=== PATIENT | male | born 1960 | race Caucasian/White ===

== ENCOUNTER 2021-08-13 08:38 | Inpatient (IN) | payer MEDICAID, SELFPAY ==
[2021-08-13] VITALS (29 sets, daily range): BP systolic 72–147; BP diastolic 43–74; PULSE 81–101; RESP 17–35; TEMP 37.5; O2SAT 84–100
--- NOTE | ~2021-08-13 | XR_ITS ---
EXAMINATION: XR abdomen obstructive series DATE: 08/20/2021 10:38 INDICATION: Abdominal distention. TECHNIQUE: A supine view of the abdomen on 2 radiographs was obtained. COMPARISON: CT abdomen and pelvis 08/18/2011 FINDINGS: There are no dilated loops of bowel. The nasogastric tube tip is in the stomach. A Mace ca theter is noted. Median sternotomy wires and mediastinal surgical clips are seen, likely from prior c oronary artery bypass grafting. Chest skin rodney are noted. IMPRESSION: 1. Normal bowel gas pattern. Reviewed, dictated and finalized at location A. OR TACK PULLER
--- NOTE | ~2021-08-13 | XR_ITS ---
EXAMINATION: XR chest 1V portable DATE: 08/31/2021 06:00 INDICATION: Respiratory failure. TECHNIQUE: A single frontal view of the chest was obtained. COMPARISON: Chest single view 08/30/2021 FINDINGS: There are moderate-sized right and small left pleural effusions. There are airspace opaciti es in all lung zones bilaterally with a perihilar and lower lung predominance. No pneumothorax. Cardi omegaly is noted. Median sternotomy wires and mediastinal surgical clips are seen, likely from prior coronary artery bypass grafting. Skin rodney are noted. A right internal jugular central venous cath eter is seen with tip in the superior vena cava. IMPRESSION: 1. Stable moderate-sized right and small left pleural effusions. 2. Stable diffuse lung disease, consistent with atelectasis versus pneumonia. 3. Cardiomegaly. Reviewed, dictated and finalized at location A. DOMETER MECHANIC
--- NOTE | ~2021-08-13 | XR_ITS ---
EXAMINATION: XR barium swallow modified EXAM DATE: 09/09/2021 11:06 INDICATION: Dysphagia TECHNIQUE: Modified barium esophagram was performed by speech pathologist with radiologist Dr. Surinder Brewer present to administered fluoroscopy. Speech pathologist administered barium in varying consis tencies as per speech pathologist documentation. This was recorded on tape. There was total fluorosc opic time of 1.6 minutes The DAP for this procedure was 1.2 Gycm2. A total of 1 images sent to PACS from the exam. FINDINGS: Oral stage: Adequate function. Pharyngeal phase: Reduced laryngeal elevation, abduction, sinus residual.. Laryngeal penetration: Demonstrated. Aspiration: Demonstrated. Laryngeal sensitivity: Present. IMPRESSION: Please refer to speech pathologist findings and specific feeding recommendations. Reviewed, dictated and finalized at location A. IAL EVENTS DIRECTOR IMPRESSION: Please refer to speech pathologist findings and specific feeding r ecommendations.
--- NOTE | ~2021-08-13 | XR_ITS ---
EXAMINATION: XR chest 2V DATE: 09/10/2021 13:55 INDICATION: Shortest of breath. TECHNIQUE: Frontal and lateral views of the chest were obtained on 3 radiographs. COMPARISON: Chest single view 09/04/2021, chest CT 09/08/2021 FINDINGS: There are moderate-sized right and small left pleural effusions. There are airspace opaciti es in the mid and lower lung zones with a basilar and left perihilar predominance. No pneumothorax. C ardiomegaly is noted. Median sternotomy wires and mediastinal surgical clips are seen, likely from pr ior coronary artery bypass grafting. The nasoenteric tube tip is in the stomach. IMPRESSION: 1. Airspace opacities in the mid and lower lung zones with mild improvement from 09/04/2021, consiste nt with atelectasis versus pneumonia. 2. Stable moderate-sized right and small left pleural effusions. Reviewed, dictated and finalized at location A. IN CAREGIVER IMPRESSION: 1. Airspace opacities in the mid and lower lung zones with mild improvement fro m 09/04/2021, consistent with atelectasis versus pneumonia. 2. Stable moderate-sized right and small left pleural effusions.
--- NOTE | ~2021-08-13 | US_ITS ---
EXAMINATION: US renal BI DATE: 09/08/2021 12:48 INDICATION: Elevated creatinine. Abnormal kidney function tests. TECHNIQUE: Multiple ultrasound grayscale images of the kidneys were obtained. COMPARISON: Chest CT 09/08/2021 FINDINGS: The right kidney measures 8.9 x 3.9 x 3.7 cm. The left kidney measures 8.7 x 4.5 x 4.4 cm. The kidney s demonstrate normal parenchymal echogenicity. There is no hydronephrosis. The bladder is decompresse d by a Mace catheter. IMPRESSION: 1. Mild atrophy of the kidneys. No hydronephrosis. Reviewed, dictated and finalized at location A. LE STAPLER
--- NOTE | ~2021-08-13 | XR_ITS ---
EXAMINATION: XR_CXR1VTHORA_CR INDICATION: Pleural effusion, postthoracentesis TECHNIQUE: Portable AP chest at 1447 hours COMPARISON: 0509 hours FINDINGS: There is slight decrease in size of a left pleural effusion postthoracentesis. No pneumotho rax is identified. A moderate size loculated right pleural effusion is unchanged. Airspace opacities persist in all lung zones without significant change. Cardiomegaly is noted. The endotracheal tube en ds approximately 3.3 cm above the albert. The nasogastric tube is followed as far as the stomach. Its tip is beyond the inferior margin of the radiograph. Median sternotomy wires and mediastinal surgica l clips are seen, likely from prior coronary artery bypass grafting. A right internal jugular cathete r ends with its tip in the distal superior vena cava. IMPRESSION: 1. Decrease in left pleural effusion postthoracentesis. No pneumothorax. 2. Stable cardiomegaly. 3. Loculated right pleural effusion without significant change. 4. Diffuse lung disease, consistent with atelectasis versus pneumonia. Reviewed, dictated and finalized at location A. DEVELOPER
--- NOTE | ~2021-08-13 | XR_ITS ---
EXAMINATION: XR chest ET placement, XR abdomen NG/feed tube insert DATE: 08/14/2021 12:04 INDICATION: Endotracheal tube, central line and orogastric tube placement TECHNIQUE: 1. AP view of the chest was obtained. 2. AP view of the abdomen was obtained. COMPARISON: Chest radiograph dated 08/14/2021 at 12:20 AM FINDINGS: Chest: Endotracheal tube tip 3.3 cm above the albert. Right internal jugular central venous catheter with di stal tip at the caudal superior vena cava. Again seen are regions of hazy airspace opacities in the lower lung zones consistent with small bilat eral posterior layering pleural effusions. Masslike opacity with smooth margins in the right midlung zone most likely loculated fluid along the right fissures. Retrocardiac opacity left lower lung zone with air bronchograms which could represent associated atelectasis or pneumonia. No pulmonary edema o r pneumothorax. Cardiomegaly. Midline skin rodney, median sternotomy wires, ostial markers and media stinal surgical clips consistent with recent coronary artery bypass grafting. Multiple cardiac monito ring leads and electronic devices project over the chest. Abdomen: Nasogastric tube tip in proximal side port in the body of the stomach. Likely defibrillator pad proje cts the left upper quadrant. No dilated loops of gas-filled bowel in the visualized abdomen. IMPRESSION: 1. Lines and tubes in expected positions as detailed above. 2. Small bilateral pleural effusions including component likely along the fissures in the right midlu ng zone. 3. Retrocardiac consolidation which could represent atelectasis or pneumonia. 4. Cardiomegaly. Reviewed, dictated and finalized at location A. ER RELINER IMPRESSION: 1. Lines and tubes in expected positions as detailed above. 2. Small bilateral pleural effusions including component likely along the fissu res in the right midlung zone. 3. Retrocardiac consolidation which could represent atelectasis or pneumonia. 4. Cardiomegaly.
--- NOTE | ~2021-08-13 | XR_ITS ---
EXAMINATION: XR chest 1V portable DATE: 08/17/2021 06:04 INDICATION: Intubation. TECHNIQUE: A single frontal view of the chest was obtained. COMPARISON: Chest single view 08/16/2021, chest CT 08/13/2021 FINDINGS: There are moderate-sized right and small left loculated pleural effusions. There are airspa ce opacities in all lung zones bilaterally. No pneumothorax. Cardiomegaly is noted. Median sternotomy wires and mediastinal surgical clips are seen, likely from prior coronary artery bypass grafting. Sk in rodney are noted. A right internal jugular central venous catheter is seen with tip at the superi or cavoatrial junction. The nasogastric tube tip is beyond the inferior margin of the radiograph, but at least to the stomach. The endotracheal tube tip is in the right mainstem bronchus. IMPRESSION: 1. Endotracheal tube tip in the right mainstem bronchus. I called this result to Keesha Toney. 2. Stable moderate-sized right and small left loculated pleural effusions. 3. Stable diffuse lung disease, consistent with atelectasis versus pneumonia. 4. Cardiomegaly. Reviewed, dictated and finalized at location A. DIP PLATING SUPERVISOR IMPRESSION: 1. Endotracheal tube tip in the right mainstem bronchus. I called this result t frandy Toney. 2. Stable moderate-sized right and small left loculated pleural effusions. 3. Stable diffuse lung disease, consistent with atelectasis versus pneumonia. 4. Cardiomegaly.
--- NOTE | ~2021-08-13 | XR_ITS ---
EXAMINATION: XR_[id number]_CR DATE: 08/17/2021 15:03 INDICATION: Right pleural effusion status post thoracentesis. TECHNIQUE: A single frontal view of the chest was obtained. COMPARISON: Chest single view at 5:11 AM FINDINGS: There are moderate-sized right and small left loculated pleural effusions. There are airspa ce opacities in all lung zones bilaterally. No pneumothorax. Cardiomegaly is noted. Median sternotomy wires and mediastinal surgical clips are seen, likely from prior coronary artery bypass grafting. Sk in rodney are seen. The endotracheal tube tip is 4.8 cm above the albert. The nasogastric tube tip i s beyond the inferior margin of the radiograph, but at least to the stomach. A right internal jugular central venous catheter is seen with tip in the superior vena cava. IMPRESSION: 1. Stable moderate-sized right and small left loculated pleural effusions. 2. Stable diffuse lung disease, consistent with atelectasis versus pneumonia. 3. Cardiomegaly. Reviewed, dictated and finalized at location A. ESSOR OF VIOLIN
--- NOTE | ~2021-08-13 | XR_ITS ---
EXAMINATION: XR chest 1V portable INDICATION: Acute respiratory failure, pleural effusions TECHNIQUE: Portable AP chest at 0511 hours COMPARISON: 08/24/2021 FINDINGS: The endotracheal tube ends approximately 5.1 cm above the albert. The nasogastric tube is i n the stomach. A right internal jugular central venous catheter ends with its tip in the superior susie a cava. There are moderate-sized pleural effusions with interval increase in size. Loculated fluid is again noted in the major fissure on the right. Cardiomegaly is noted. There is no pneumothorax. Ther e are airspace opacities of the mid and lower lung zones and left upper lung zone. IMPRESSION: 1. Increasing pleural effusions, now moderate in size. 2. Airspace opacities of the mid and lower lung zones and left upper lung zone, consistent with atele ctasis versus pneumonia. Reviewed, dictated and finalized at location A. STANT EDUCATION DIRECTOR IMPRESSION: 1. Increasing pleural effusions, now moderate in size. 2. Airspace opacities of the mid and lower lung zones and left upper lung zone, consistent with atelectasis versus pneumonia.
--- NOTE | ~2021-08-13 | XR_ITS ---
EXAMINATION: [id number]_[id number]_CR DATE: 08/26/2021 15:05 INDICATION: Left pleural effusion status post thoracentesis. TECHNIQUE: A single frontal view of the chest was obtained. COMPARISON: Chest single view at 5:09 AM, chest CT 08/18/2021 FINDINGS: There are moderate-sized right and small left pleural effusions. There are airspace opaciti es in the perihilar regions and lower lung zones, right worse than left. No pneumothorax. Cardiomegal y is noted. Median sternotomy wires and mediastinal surgical clips are seen, likely from prior powers ry artery bypass grafting. Skin rodney are noted. The nasogastric tube tip is in the stomach. A righ t internal jugular central venous catheter is seen with tip in the superior vena cava. The endotrache al tube tip is 8.4 cm above the albert. IMPRESSION: 1. Endotracheal tube tip 8.4 cm above the albert. 2. Moderate-sized right and small left pleural effusions with improvement on the left status post tho racentesis. 3. Stable airspace opacities in the perihilar regions and lower lung zones, right worse than left, co nsistent with atelectasis versus pneumonia. 4. Cardiomegaly. Reviewed, dictated and finalized at location A. UIT WALKER IMPRESSION: 1. Endotracheal tube tip 8.4 cm above the albert. 2. Moderate-sized right and small left pleural effusions with improvement on th e left status post thoracentesis. 3. Stable airspace opacities in the perihilar regions and lower lung zones, rig ht worse than left, consistent with atelectasis versus pneumonia. 4. Cardiomegaly.
--- NOTE | ~2021-08-13 | XR_ITS ---
EXAMINATION: XR chest 1V portable DATE: 08/29/2021 06:01 INDICATION: Respiratory failure. TECHNIQUE: A single frontal view of the chest was obtained. COMPARISON: Chest single view 08/28/2021 FINDINGS: There are moderate-sized bilateral pleural effusions. There are airspace opacities in all l cheng zones bilaterally with a perihilar and lower lung predominance. No pneumothorax. Cardiomegaly is noted. Median sternotomy wires and mediastinal surgical clips are seen, likely from prior coronary ar aggie bypass grafting. Skin rodney are noted. The nasogastric tube tip is beyond the inferior margin of the radiograph, but at least to the stomach. The endotracheal tube tip is 6.5 cm above the albert. A right internal jugular central venous catheter is seen with tip in the superior vena cava. IMPRESSION: 1. Moderate-sized pleural effusions with mild improvement on the right. 2. Diffuse lung disease with a perihilar and lower lung predominance with improvement at the right petty ng base, consistent with atelectasis versus pneumonia. 3. Cardiomegaly. Reviewed, dictated and finalized at location A. OUS WEEDS AND PEST INSPECTOR IMPRESSION: 1. Moderate-sized pleural effusions with mild improvement on the right. 2. Diffuse lung disease with a perihilar and lower lung predominance with impro vement at the right lung base, consistent with atelectasis versus pneumonia. 3. Cardiomegaly.
--- NOTE | ~2021-08-13 | XR_ITS ---
EXAMINATION: XR chest 1V portable INDICATION: Acute respiratory failure, pleural effusion TECHNIQUE: Portable AP chest at 0505 hours COMPARISON: 08/19/2021 FINDINGS: The endotracheal tube ends approximately 2.9 cm above the albert. The nasogastric tube is f ollowed as far as the stomach. Its tip is beyond the inferior margin of the radiograph. A right inter nal jugular central venous catheter ends with its tip in the superior vena cava. Cardiomegaly is note d. There are moderate-sized pleural effusions. A rounded opacity of the right midlung zone is consist ent with loculated fluid in the major fissure fluid is also seen in the major fissure on the left. Di ffuse airspace opacities persist without significant change. No pneumothorax is identified. There are changes of cardiac surgery. IMPRESSION: 1. Diffuse lung disease without significant change, consistent with atelectasis versus pneumonia. 2. Moderate-sized pleural effusions with loculated fluid in the major fissures. 3. Cardiomegaly. Reviewed, dictated and finalized at location A. L WIRE COATING OPERATOR
--- NOTE | ~2021-08-13 | XR_ITS ---
EXAMINATION: XR chest 1V portable DATE: 08/28/2021 06:05 INDICATION: Respiratory failure. TECHNIQUE: A single frontal view of the chest was obtained. COMPARISON: Chest single view 08/26/2021 FINDINGS: There are moderate-sized bilateral pleural effusions. There are airspace opacities in all l cheng zones bilaterally with a perihilar and lower lung predominance. No pneumothorax. Cardiomegaly is noted. Median sternotomy wires and mediastinal surgical clips are seen, likely from prior coronary ar aggie bypass grafting. Skin rodney are noted. The nasogastric tube tip is in the stomach. The endotra cheal tube tip is 6.9 cm above the albert. A right internal jugular central venous catheter is seen w ith tip in the superior vena cava. IMPRESSION: 1. Stable moderate-sized pleural effusions. 2. Stable diffuse lung disease with a perihilar and lower lung predominance, consistent with atelecta sis versus pneumonia. 3. Cardiomegaly. Reviewed, dictated and finalized at location A. CARGO AGENT IMPRESSION: 1. Stable moderate-sized pleural effusions. 2. Stable diffuse lung disease with a perihilar and lower lung predominance, co nsistent with atelectasis versus pneumonia. 3. Cardiomegaly.
--- NOTE | ~2021-08-13 | US_ITS ---
EXAMINATION: US thoracentesis DATE: 08/26/2021 14:51 INDICATION: pleural effusion TECHNIQUE: The procedure and its risks, benefits, and alternatives were discussed with Malika Arellano. Potential risks discussed included bleeding, infection, and pneumothorax. She understood the risks a nd agreed to proceed. The skin was prepped and draped in sterile fashion. 1% lidocaine was used for l ocal anesthesia. Under ultrasound guidance, a 5 Fr catheter with trochar was advanced into the left p leural effusion. Fluid was aspirated. The catheter was removed, and a dressing was applied. There wer e no immediate complications. FINDINGS: Ultrasound images demonstrate a left pleural effusion and the catheter within the fluid. IMPRESSION: 1. Successful ultrasound-guided thoracentesis yielding 1000 mL of opaque, red fluid. Reviewed, dictated and finalized at location A. TH EDUCATION AIDE
--- NOTE | ~2021-08-13 | XR_ITS ---
EXAMINATION: XR fl Dobhoff insert/rad w img DATE: 09/06/2021 11:17 INDICATION: Poor oral intake. TECHNIQUE: I placed a nasoenteric tube under fluoroscopic guidance. The number of images was 2. The f luoroscopy exposure time was 1.0 minutes. COMPARISON: None. FINDINGS: The nasoenteric tube tip is in the stomach. IMPRESSION: 1. Fluoroscopy guided nasoenteric tube placement with tip in the stomach. Reviewed, dictated and finalized at location A. MAKER
--- NOTE | ~2021-08-13 | US_ITS ---
EXAMINATION: US right upper quadrant DATE: 09/17/2021 08:32 INDICATION: Abdominal pain. TECHNIQUE: Multiple grayscale and Doppler ultrasound images of the abdomen were obtained. COMPARISON: CT abdomen 09/16/2021 FINDINGS: The visualized portions of the head, body, and tail of the pancreas are normal. The liver i s normal without focal lesion. There is normal flow in main portal vein. The gallbladder is normal in size. No gallstones or gallbladder wall thickening. There was no sonographic Mantilla sign. The common duct is normal and measures 4 mm. IMPRESSION: 1. Normal right upper quadrant ultrasound. Reviewed, dictated and finalized at location A. NCED RESEARCH PROGRAMS DIRECTOR
--- NOTE | ~2021-08-13 | US_ITS ---
EXAMINATION: US thoracentesis DATE: 08/17/2021 15:00 INDICATION: Right pleural effusion TECHNIQUE: The procedure and its risks, benefits, and alternatives were discussed with Malika Arellano. Potential risks discussed included bleeding, infection, and pneumothorax. She understood the risks a nd agreed to proceed. The skin was prepped and draped in sterile fashion. 1% lidocaine was used for l ocal anesthesia. Under ultrasound guidance, a 5 Fr catheter with trochar was advanced into the right pleural effusion. Fluid was aspirated. The catheter was removed, and a dressing was applied. There we re no immediate complications. FINDINGS: Ultrasound images demonstrate a right pleural effusion and the catheter within the fluid. IMPRESSION: 1. Successful ultrasound-guided thoracentesis yielding 425 mL of opaque, red fluid. Reviewed, dictated and finalized at location A. SITTER IMPRESSION: 1. Successful ultrasound-guided thoracentesis yielding 425 mL of opaque, red f luid.
--- NOTE | ~2021-08-13 | XR_ITS ---
EXAMINATION: XR chest PICC line INDICATION: PICC insertion TECHNIQUE: Portable AP chest at 1611 hours COMPARISON: 09/10/2021 FINDINGS: A left upper extremity PICC has been inserted which ends with its tip in the midsuperior ve na cava. Patchy opacities persist throughout all lung zones with slight improvement in the left mid a nd upper lung zone and worsening in the right mid and lower lung zones. Small pleural effusions are p resent. There is no pneumothorax. The cardiomediastinal silhouette is stable. Median sternotomy wires and mediastinal surgical clips are seen, likely from prior coronary artery bypass grafting. IMPRESSION: 1. Left upper extremity PICC ending with its tip in the midsuperior vena cava. 2. Diffuse lung disease with slight improvement on the left and worsening on the right, consistent wi th atelectasis versus pneumonia. Reviewed, dictated and finalized at location F. KEEPING SUPERVISOR IMPRESSION: 1. Left upper extremity PICC ending with its tip in the midsuperior vena cava. 2. Diffuse lung disease with slight improvement on the left and worsening on th e right, consistent with atelectasis versus pneumonia.
--- NOTE | ~2021-08-13 | US_ITS ---
EXAMINATION: US thoracentesis DATE: 08/16/2021 14:32 INDICATION: pleural effusion TECHNIQUE: The procedure and its risks, benefits, and alternatives were discussed with Malika Arellano. Potential risks discussed included bleeding, infection, and pneumothorax. Ms. Arellano understood the risks and agreed to proceed. The skin was prepped and draped in sterile fashion. 1% lidocaine was use d for local anesthesia. Under ultrasound guidance, a 5 Fr catheter with trochar was advanced into the left pleural effusion. Fluid was aspirated. The catheter was removed, and a dressing was applied. Th ere were no immediate complications. FINDINGS: Ultrasound images demonstrate a left pleural effusion and the catheter within the fluid. IMPRESSION: 1. Successful ultrasound-guided thoracentesis yielding 250 mL of opaque, red fluid. Reviewed, dictated and finalized at location A. TER HELPER IMPRESSION: 1. Successful ultrasound-guided thoracentesis yielding 250 mL of opaque, red f luid.
--- NOTE | ~2021-08-13 | XR_ITS ---
XR chest 1V portable DATE: 09/04/2021 09:16 INDICATION: Hoarseness. Respiratory failure. TECHNIQUE: Portable upright AP chest on 09/04/2021 at 0913 hours COMPARISON: 09/03/2021 2 view chest FINDINGS: There are rodney along the anterior mid chest. Status post sternotomy and coronary bypass graft surgery. Cardiomegaly. There is pulmonary vascular congestion. There are patchy bilateral mid and lower pulmon heron infiltrates. Mild pleural effusions. IMPRESSION: Persistent bilateral predominantly mid and lower lung zone infiltrates and mild pleural e ffusions with little change since 09/03/2021 Reviewed, dictated and finalized at location A. RAL CAR DRIVER IMPRESSION: Persistent bilateral predominantly mid and lower lung zone infiltra eric and mild pleural effusions with little change since 09/03/2021
--- NOTE | ~2021-08-13 | XR_ITS ---
EXAMINATION: XR chest 1V portable DATE: 08/15/2021 06:10 INDICATION: Intubation TECHNIQUE: frontal view of the chest was obtained. COMPARISON: Chest radiograph dated 08/14/2021 FINDINGS: Electronic devices and multiple wires likely either cardiac monitoring or transcutaneous pacemaking p roject over the chest, one of which obscures the region of the albert. Endotracheal tube tip is appro ximately 4.5 cm above the expected level of the albert. Nasogastric tube extends below the left ashley diaphragm with distal tip collimated off the study. Right internal jugular central venous catheter ti p at the midsuperior vena cava. Again seen are opacities in the bilateral mid and lower lung zones consistent with small bilateral pl eural effusions with associated atelectasis and/or pneumonia. On the right this includes a portion of the effusion loculated along one of the fissures which projects over the right midlung zone. Cardiom egaly. Midline skin rodney, median sternotomy wires and mediastinal surgical clips are seen, likely from recent coronary artery bypass grafting. IMPRESSION: 1. Persistent small bilateral pleural effusions with associated basilar atelectasis and/or pneumonia. 2. Cardiomegaly with change of recent coronary artery bypass grafting. Reviewed, dictated and finalized at location A. BRITY MANAGER IMPRESSION: 1. Persistent small bilateral pleural effusions with associated basilar atelect asis and/or pneumonia. 2. Cardiomegaly with change of recent coronary artery bypass grafting.
--- NOTE | ~2021-08-13 | CT_ITS ---
EXAMINATION: CT chest abdomen pelvis wo con DATE: 08/13/2021 12:13 HIGH SCHOOL MATH TEACHER INDICATION: Left-sided abdomen pain. Weakness. Recent bypass procedure. Left-sided facial droop. Slur red speech. TECHNIQUE: Computed tomography (CT) of the chest, abdomen, and pelvis was performed without intraveno us contrast. The dose-length product was 1098.57 mGy-cm. Automated exposure control and iterative rec onstruction technique were employed. COMPARISON: None FINDINGS: CHEST CT: Status post median sternotomy for CABG. There is heterogeneous soft tissue in the anterior mediastinu m, likely postsurgical. Moderate bilateral pleural effusions. Small pericardial effusion. There is bi lateral compressive atelectasis. Mild mediastinal lymphadenopathy, likely reactive. There is bilatera l airspace disease of the upper lobes which may represent atelectasis or pneumonia. Study limited by motion artifact. ABDOMEN/PELVIS CT: Multiple metallic devices overlie the upper 1abdomen creating streak artifact with associated limitat ions. The liver, spleen, pancreas, adrenal glands and kidneys are unremarkable. Gallbladder is presen t. Nonobstructive bowel gas pattern. No free air or free fluid. There is a rectal catheter. Small fat -containing left inguinal hernia. There is contrast in the bladder. Moderate thoracic and lumbar spon dylosis. IMPRESSION: 1. Bilateral upper lobe airspace disease which may represent atelectasis or pneumonia. 2: Status post recent median sternotomy for CABG. Heterogeneous soft tissue in the anterior mediasti num is likely postsurgical. 3: Moderate bilateral pleural effusions with underlying compressive atelectasis. Reviewed, dictated and finalized at location A. SCHOOL MATH TEACHER IMPRESSION: 1. Bilateral upper lobe airspace disease which may represent atelectasis or pne umonia. 2: Status post recent median sternotomy for CABG. Heterogeneous soft tissue in the anterior mediastinum is likely postsurgical. 3: Moderate bilateral pleural effusions with underlying compressive atelectasi s.
--- NOTE | ~2021-08-13 | XR_ITS ---
EXAMINATION: XR chest 1V portable DATE: 08/23/2021 06:35 INDICATION: Acute respiratory failure. Pleural effusion. TECHNIQUE: frontal view of the chest was obtained. COMPARISON: Chest radiograph dated 08/22/21 FINDINGS: Endotracheal tube tip 5.6 cm above the albert. Nasogastric tube extends below the left hemidiaphragm with distal tip collimated off the study. Right internal jugular central venous catheter with distal tip in the midsuperior vena cava. Gradient of basilar predominant opacities throughout both lungs consistent with moderate sized left a nd small right posteriorly layering pleural effusions with associated atelectasis and/or pneumonia. P ersistent loculated component of the right pleural effusion along the major fissure. No pneumothorax. Cardiomegaly. Median sternotomy wires, ostial markers and mediastinal surgical clips consistent with prior coronary artery bypass grafting. IMPRESSION: 1. No significant change in moderate left and small right pleural effusions with associated atelectas is and/or pneumonia. 2. Cardiomegaly. Reviewed, dictated and finalized at location A. L OPERATOR WHISKEY IMPRESSION: 1. No significant change in moderate left and small right pleural effusions wit h associated atelectasis and/or pneumonia. 2. Cardiomegaly.
--- NOTE | ~2021-08-13 | XR_ITS ---
EXAMINATION: XR chest 1V portable INDICATION: Acute respiratory failure TECHNIQUE: Portable AP chest at 0507 hours COMPARISON: 08/21/2021 FINDINGS: The endotracheal tube ends approximately 2.9 cm above the albert. The nasogastric tube is f ollowed as far as the stomach. Its tip is beyond the inferior margin of the radiograph. A right inter nal jugular central venous catheter ends with its tip in the distal superior vena cava. There are sma ll to moderate-sized pleural effusions. A small amount of fluid is again seen in the right major fiss ure. No pneumothorax is identified. Cardiomegaly is noted. There are changes of cardiac surgery. Diff use airspace opacities persist throughout all lung zones without significant change. IMPRESSION: 1. Stable diffuse lung disease, consistent with pneumonia and/or atelectasis. 2. Bilateral pleural effusions with slight improvement. 3. Cardiomegaly. Reviewed, dictated and finalized at location A. IFIED PROSTHETIST VICE PRESIDENT
--- NOTE | ~2021-08-13 | XR_ITS ---
XR chest 1V portable 08/13/2021 12:37 Indication: Lethargy. Poor historian. Procedure: AP portable chest Comparison: No prior studies for comparison. Findings: Status post median sternotomy for CABG. There is are midline rodney overlying the chest. C ardiomegaly with diffuse bilateral airspace disease. Bilateral pleural effusions, partially loculated on the right. No pneumothorax. Impression: 1: Diffuse bilateral airspace disease which may represent edema or pneumonia. 2: Bilateral pleural effusions. 3: Moderate cardiomegaly. Reviewed, dictated and finalized at location A. BOX MECHANIC Impression: 1: Diffuse bilateral airspace disease which may represent edema or pneumonia. 2: Bilateral pleural effusions. 3: Moderate cardiomegaly.
--- NOTE | ~2021-08-13 | CT_ITS ---
EXAMINATION: CT abdomen wo con DATE: 09/16/2021 11:27 INDICATION: Upper abdominal pain. TECHNIQUE: Computed tomography (CT) of the abdomen was performed without intravenous contrast. Automa cherise exposure control and iterative reconstruction technique were employed. The dose-length product wa s 503.40 mGy-cm. COMPARISON: CT abdomen and pelvis 08/18/2021, chest CT 09/08/2021 FINDINGS: There are moderate-sized right and small left pleural effusions. There are groundglass opac ities and septal thickening involving right lower lobe and right middle lobe. There are airspace opac ities in left lower lobe and lingula. The heart size is normal. There are coronary artery calcificati ons. There is a small pericardial effusion. Median sternotomy wires are noted. The liver is normal. T he gallbladder is distended. The spleen, pancreas, adrenal glands, and kidneys are normal. There are no dilated loops of bowel. There are no pathologically enlarged lymph nodes. There is no free intrape ritoneal fluid. There is mild thoracolumbar spondylosis. IMPRESSION: 1. Moderate-sized right and small left pleural effusions, mildly improved on the right from . 2. Groundglass opacities and septal thickening in right middle lobe and right lower lobe, new from , consistent with pulmonary edema versus pneumonia. 3. Stable airspace opacities in left lower lobe and lingula, consistent with atelectasis versus pneum onia. 4. Stable small pericardial effusion. 5. Gallbladder distention, most likely secondary to fasting. Correlation with physical exam is recomm ended to exclude acute cholecystitis. Reviewed, dictated and finalized at location A. P SHEAR OPERATOR IMPRESSION: 1. Moderate-sized right and small left pleural effusions, mildly improved on th e right from 09/08/2021. 2. Groundglass opacities and septal thickening in right middle lobe and right l ower lobe, new from 09/08/2021, consistent with pulmonary edema versus pneumoni a. 3. Stable airspace opacities in left lower lobe and lingula, consistent with at electasis versus pneumonia. 4. Stable small pericardial effusion. 5. Gallbladder distention, most likely secondary to fasting. Correlation with p hysical exam is recommended to exclude acute cholecystitis.
--- NOTE | ~2021-08-13 | XR_ITS ---
EXAMINATION: XR chest 1V portable DATE: 08/13/2021 18:01 INDICATION: Shortness of breath. TECHNIQUE: A single frontal view of the chest was obtained. COMPARISON: Chest single view 08/13/2021, chest CT 08/13/2021 FINDINGS: There are moderate-sized bilateral pleural effusions. There are airspace opacities in all l cheng zones with a perihilar and lower lung predominance. No pneumothorax. Cardiomegaly is noted. Media n sternotomy wires and mediastinal surgical clips are seen, likely from prior coronary artery bypass grafting. Anterior midline chest skin rodney are noted. IMPRESSION: 1. Stable moderate-sized bilateral pleural effusions. 2. Stable diffuse lung disease, consistent with atelectasis versus pneumonia. 3. Cardiomegaly. Reviewed, dictated and finalized at location A. T SPRAY INSPECTOR
--- NOTE | ~2021-08-13 | XR_ITS ---
EXAMINATION: XR barium swallow modified EXAM DATE: 09/12/2021 10:51 INDICATION: Dysphagia. Recent Dobhoff tube removal. TECHNIQUE: Modified barium esophagram was performed by speech pathologist with radiologist Dr. Surinder Brewer present to administered fluoroscopy. Speech pathologist administered barium in varying consis tencies as per speech pathologist documentation. This was recorded on tape. There was total fluorosc opic time of 0.8. The DAP for this procedure was 0.6 Gycm2. A total of 2 images sent to PACS from t he exam. FINDINGS: Oral stage: Adequate function. Pharyngeal phase: Adequate function. Laryngeal penetration: None. Aspiration: None. Laryngeal sensitivity: Present. IMPRESSION: Patient tolerated oral feedings in the upright position. Please refer to speech patholo gist findings and specific feeding recommendations. Reviewed, dictated and finalized at location A. ING PRESSMAN IMPRESSION: Patient tolerated oral feedings in the upright position. Please r efer to speech pathologist findings and specific feeding recommendations.
--- NOTE | ~2021-08-13 | XR_ITS ---
EXAMINATION: XR chest 1V portable DATE: 09/01/2021 06:33 INDICATION: Respiratory failure. TECHNIQUE: A single frontal view of the chest was obtained. COMPARISON: Chest single view 08/31/2021 FINDINGS: There are moderate-sized right and small left pleural effusions. There are airspace opaciti es in all lung zones bilaterally with a perihilar and lower lung predominance. No pneumothorax. Cardi omegaly is noted. Median sternotomy wires and mediastinal surgical clips are seen, likely from prior coronary artery bypass grafting. Skin rodney are noted. A right internal jugular central venous cath eter is seen with tip in the superior vena cava. IMPRESSION: 1. Stable moderate-sized right and small left pleural effusions. 2. Stable diffuse lung disease, consistent with atelectasis versus pneumonia. 3. Cardiomegaly. Reviewed, dictated and finalized at location A. GNER WRITER
--- NOTE | ~2021-08-13 | CT_ITS ---
EXAMINATION: CT brain wo con DATE: 08/13/2021 12:10 INDICATION: Loss of consciousness TECHNIQUE: Computed tomography (CT) of the head was performed without intravenous contrast. The dose- length product was 681.00 mGy-cm. Automated exposure control and iterative reconstruction technique w ere employed. COMPARISON: None FINDINGS: No acute intracranial hemorrhage, infarction, mass or mass effect. No ventriculomegaly or m idline shift. Basilar cisterns are patent. There are scattered mild periventricular and subcortical w ori matter changes, most likely related to small vessel ischemic disease (microangiopathy). There is mucosal thickening of the maxillary sinuses with mucoperiosteal reaction in the left maxillary sinus . There is mild mucosal thickening of the ethmoid and sphenoid sinuses. Mastoids are pneumatized. IMPRESSION: 1. No acute intracranial abnormality. 2: Chronic age-related findings. 3: Moderate sinus disease, likely chronic. Reviewed, dictated and finalized at location A. TH RESEARCHER
--- NOTE | ~2021-08-13 | XR_ITS ---
EXAMINATION: XR chest 1V portable INDICATION: COVID pneumonia TECHNIQUE: Portable AP chest at 0512 hours COMPARISON: 08/25/2021 FINDINGS: The endotracheal tube ends approximately 3.5 cm above the albert. The nasogastric tube is f ollowed as far as the stomach. Its tip is beyond the inferior margin of the radiograph. A right inter nal jugular central venous catheter ends with its tip in the superior vena cava. Moderate pleural eff usions are present. Again seen is loculated fluid in the right major fissure. There is no pneumothora x. There are airspace opacities of the mid and lower lung zones with slight improvement. Cardiomegaly is noted. IMPRESSION: 1. Moderate-sized pleural effusions. 2. Airspace opacities of the mid and lower lung zones with slight improvement, consistent with atelec tasis versus pneumonia. 3. Cardiomegaly. Reviewed, dictated and finalized at location A. INUOUS IMPROVEMENT LEAD IMPRESSION: 1. Moderate-sized pleural effusions. 2. Airspace opacities of the mid and lower lung zones with slight improvement, consistent with atelectasis versus pneumonia. 3. Cardiomegaly.
--- NOTE | ~2021-08-13 | XR_ITS ---
EXAMINATION: XR_[id number]_CR DATE: 08/30/2021 12:52 INDICATION: Left pleural effusion status post thoracentesis. TECHNIQUE: A single frontal view of the chest was obtained. COMPARISON: Chest single view at 5:08 AM FINDINGS: There are moderate-sized right and small left pleural effusions. There are airspace opaciti es in all lung zones bilaterally with a perihilar and lower lung predominance. No pneumothorax. Cardi omegaly is noted. Median sternotomy wires and mediastinal surgical clips are seen, likely from prior coronary artery bypass grafting. Skin rodney are noted. A right internal jugular central venous cath eter is seen with tip in the superior vena cava. IMPRESSION: 1. Moderate-sized right and small left pleural effusions with improvement on the left status post tho racentesis. 2. Diffuse lung disease with improvement on the left, consistent with atelectasis versus pneumonia. 3. Cardiomegaly. Reviewed, dictated and finalized at location A. T ROOM ATTENDANT IMPRESSION: 1. Moderate-sized right and small left pleural effusions with improvement on th e left status post thoracentesis. 2. Diffuse lung disease with improvement on the left, consistent with atelectas is versus pneumonia. 3. Cardiomegaly.
--- NOTE | ~2021-08-13 | XR_ITS ---
EXAMINATION: XR chest 1V portable DATE: 09/02/2021 09:59 INDICATION: Pleural effusions. TECHNIQUE: A single frontal view of the chest was obtained. COMPARISON: Chest single view 09/01/2021 FINDINGS: There are moderate-sized right and small left pleural effusions. There are airspace opaciti es in the mid and lower lung zones. No pneumothorax. Cardiomegaly is noted. Median sternotomy wires a nd mediastinal surgical clips are seen, likely from prior coronary artery bypass grafting. Skin stapl es are noted. A right internal jugular central venous catheter is seen with tip in the superior vena cava. IMPRESSION: 1. Stable moderate-sized right and small left pleural effusions. 2. Stable airspace opacities in the mid and lower lung zones, consistent with atelectasis versus pneu monia. 3. Cardiomegaly. Reviewed, dictated and finalized at location A. L LOBBY CONCIERGE IMPRESSION: 1. Stable moderate-sized right and small left pleural effusions. 2. Stable airspace opacities in the mid and lower lung zones, consistent with a telectasis versus pneumonia. 3. Cardiomegaly.
--- NOTE | ~2021-08-13 | XR_ITS ---
EXAMINATION: XR chest 1V portable INDICATION: Shortness of breath TECHNIQUE: Portable AP chest at 0820 hours COMPARISON: 08/18/2021 FINDINGS: The endotracheal tube ends approximately 2.8 cm above the albert. The nasogastric tube is f ollowed as far as the stomach. Its tip is beyond the inferior margin of the radiograph. A right inter nal jugular central venous catheter ends with its tip in the superior vena cava. There are moderate-s ized pleural effusions without significant change. There are diffuse airspace opacities with slight i mprovement in the right upper lung zone in the lower lung zones. Cardiomegaly is noted. There is no p neumothorax. Median sternotomy wires are consistent with prior cardiac surgery IMPRESSION: 1. Diffuse lung disease with slight improvement in the upper lung zones, consistent with atelectasis versus pneumonia. 2. Moderate-sized pleural effusions, stable. 3. Cardiomegaly. Reviewed, dictated and finalized at location A. DRENS CLUB ATTENDANT IMPRESSION: 1. Diffuse lung disease with slight improvement in the upper lung zones, consis tent with atelectasis versus pneumonia. 2. Moderate-sized pleural effusions, stable. 3. Cardiomegaly.
--- NOTE | ~2021-08-13 | CT_ITS ---
EXAMINATION: CT chest abdomen pelvis wo con DATE: 08/18/2021 09:35 INDICATION: Respiratory failure. Abdominal distention. Diarrhea. TECHNIQUE: Computed tomography (CT) of the chest, abdomen, and pelvis was performed without intraveno us contrast. Automated exposure control and iterative reconstruction technique were employed. The dos e-length product was 1378.97 mGy-cm. COMPARISON: CT 08/13/2021 FINDINGS: CHEST CT: There are moderate-sized bilateral loculated pleural effusions. There is dependent atelectasis bilate rally. There are nondependent airspace opacities with volume loss in the upper lobes. The endotrachea l tube tip is in expected position above the albert. A right internal jugular central venous catheter is seen with tip at the superior cavoatrial junction. Cardiomegaly is noted. There are coronary michelle ry calcifications. There are changes of recent coronary artery bypass grafting. There is a small michael cardial effusion. The nasogastric tube tip is in the stomach. There are bridging endplate osteophytes at multiple levels in the spine, consistent with diffuse idiopathic skeletal hyperostosis (DISH). Th ere are healing fractures of right first and second ribs. There are healing fractures of left first-t hird ribs. ABDOMEN/PELVIS CT: The liver is normal. The gallbladder is normal in size. Gallbladder wall thickening is likely seconda ry to interstitial edema. The spleen, pancreas, adrenal glands, and kidneys are normal. There is a le ft inguinal hernia containing fat. There is a Mace catheter in expected position. There is a [address] one in the bladder. A rectal tube is noted. There is liquid stool in the colon correlating with the s ymptom of diarrhea. The appendix is normal. There are no dilated loops of bowel. There are no patholo gically enlarged lymph nodes. There is a small volume of ascites. Body wall edema is noted. There is moderate lumbar spondylosis. There is severe osteoarthritis of the hips. IMPRESSION: 1. Moderate-sized bilateral loculated pleural effusions, worsened from 08/13/21. 2. Stable nondependent airspace opacities with volume loss in the upper lobes, consistent with atelec tasis versus pneumonia. 3. Stable small pericardial effusion. 4. Small volume of ascites. 5. 9 mm bladder stone. Reviewed, dictated and finalized at location A. R IMPRESSION: 1. Moderate-sized bilateral loculated pleural effusions, worsened from 08/13/21. 2. Stable nondependent airspace opacities with volume loss in the upper lobes, consistent with atelectasis versus pneumonia. 3. Stable small pericardial effusion. 4. Small volume of ascites. 5. 9 mm bladder stone.
--- NOTE | ~2021-08-13 | US_ITS ---
EXAMINATION: US thoracentesis DATE: 08/30/2021 12:43 INDICATION: pleural effusion TECHNIQUE: The procedure and its risks, benefits, and alternatives were discussed with the patient. P otential risks discussed included bleeding, infection, and pneumothorax. The patient understood the r isks and agreed to proceed. The skin was prepped and draped in sterile fashion. 1% lidocaine was used for local anesthesia. Under ultrasound guidance, a 5 Fr catheter with trochar was advanced into the left pleural effusion. Fluid was aspirated. The catheter was removed, and a dressing was applied. The re were no immediate complications. FINDINGS: Ultrasound images demonstrate a left pleural effusion and the catheter within the fluid. IMPRESSION: 1. Successful ultrasound-guided thoracentesis yielding 800 mL of red fluid. Reviewed, dictated and finalized at location A. STILL CLEANER
--- NOTE | ~2021-08-13 | CT_ITS ---
EXAMINATION: CT diagnostic chest wo con DATE: 09/08/2021 08:50 INDICATION: Effusions bilaterally, ? increase in size on R TECHNIQUE: Computed tomography (CT) of the chest was performed without intravenous contrast. Addition al 3D reconstructions utilizing coronal maximum intensity projection (MIP) were performed. Automated exposure control and iterative reconstruction technique were employed. The dose-length product was 45 1.95 mGy-cm. COMPARISON: 08/26/2021 FINDINGS: No significant change in a moderate-sized right pleural effusion and slight decrease in size of a sma ll to moderate left pleural effusion, lateral including a component loculated along the major fissure . Partial collapse of the dependent bilateral lower lobes along with additional scattered discoid ate lectasis in the bilateral upper lobes. Cardiomegaly. Small pericardial effusion. Median sternotomy wi res and mediastinal surgical clips are seen, likely from prior coronary artery bypass grafting. Mildl y aneurysmal ascending thoracic aorta measuring up to 4.6 cm in maximal diameter. Nasogastric tube ex tends into the stomach with distal tip beyond the inferior most image. Persistent mild likely reactiv e mediastinal lymphadenopathy. There are healing left first-third rib fractures. There are bridging o steophytes at multiple levels in the spine, consistent with diffuse idiopathic skeletal hyperostosis (DISH). IMPRESSION: 1. Moderate-sized right pleural effusion and slight decrease in a small to moderate left pleural effu bairon with associated compressive atelectasis. Superimposed pneumonia not excludable but suspicion is low. 2. Unchanged small pericardial effusion. 3. Mildly aneurysmal ascending thoracic aorta measuring up to 4.6 cm maximal diameter. Reviewed, dictated and finalized at location A. ENSARY CLERK IMPRESSION: 1. Moderate-sized right pleural effusion and slight decrease in a small to mode rate left pleural effusion with associated compressive atelectasis. Superimpose d pneumonia not excludable but suspicion is low. 2. Unchanged small pericardial effusion. 3. Mildly aneurysmal ascending thoracic aorta measuring up to 4.6 cm maximal di ameter.
--- NOTE | ~2021-08-13 | XR_ITS ---
EXAMINATION: XR chest 1V portable DATE: 08/14/2021 00:27 INDICATION: Hypoxia. Hypotension. Nonresponsive. TECHNIQUE: frontal view of the chest was obtained. COMPARISON: Chest radiograph dated 08/13/2021 FINDINGS: Small to moderate right and moderate left pleural effusions with associated atelectasis and/or pneumo laura previously positioned more along the lung bases and currently more prominently along the left elmer es of the hemithoraces likely due to differences in patient positioning. Unchanged loculated componen t of the right pleural effusion along the minor fissure project over the midlung zone. Cardiomegaly. Multiple midline skin rodney, median sternotomy wires, ostial markers and mediastinal surgical clips consistent with recent coronary artery bypass grafting. Multiple cardiac region electronic device pr ojecting over the thorax. IMPRESSION: 1. Cardiomegaly. 2. Interval change in positioning of moderate left and small to moderate right pleural effusions with associated atelectasis and/or pneumonia. Reviewed, dictated and finalized at location A. CHECKER
--- NOTE | ~2021-08-13 | MR_ITS ---
EXAMINATION: MR brain/brain stem wo con DATE: 09/09/2021 18:27 INDICATION: Low cortisol level. TECHNIQUE: Magnetic resonance imaging (MRI) of the brain and brainstem was performed without intraven ous contrast. Sequences included sagittal and axial T1-weighted FSE, axial diffusion-weighted FS EPI, axial T2*-weighted GRE, axial T2-weighted FLAIR Propeller, and axial T2-weighted Propeller. Apparent diffusion coefficient (ADC) maps were created. COMPARISON: Head CT 08/13/2021 FINDINGS: There is a 1.7 x 1.6 x 1.7 cm mass involving the sella and clivus. There are scattered area s of nonspecific increased T2-weighted signal intensity in the cerebral white matter. There is an old infarct in posterior limb left internal capsule. There is no acute ischemic infarct or intracranial hemorrhage. The ventricles are normal in size. There are bilateral mastoid effusions. The orbits are normal. There is mucosal thickening in the paranasal sinuses. There is thickening and sclerosis of th e arnett of left maxillary sinus, which is small, consistent with chronic sinusitis. IMPRESSION: 1. 1.7 cm mass involving the sella and clivus. The differential diagnosis includes pituitary macroade noma, metastatic disease, plasmacytoma, and chordoma. 2. 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 3. Mild nonspecific cerebral white matter disease, which likely represents chronic small vessel ische ashwini disease. 4. Chronic sinusitis. Reviewed, dictated and finalized at location A. R HELPER IMPRESSION: 1. 1.7 cm mass involving the sella and clivus. The differential diagnosis inclu radha pituitary macroadenoma, metastatic disease, plasmacytoma, and chordoma. 2. 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 3. Mild nonspecific cerebral white matter disease, which likely represents vice president of human resources jas small vessel ischemic disease. 4. Chronic sinusitis.
--- NOTE | ~2021-08-13 | XR_ITS ---
EXAMINATION: XR chest 1V portable DATE: 08/30/2021 06:03 INDICATION: Respiratory failure. TECHNIQUE: A single frontal view of the chest was obtained. COMPARISON: Chest single view 08/29/2021 FINDINGS: There are moderate-sized pleural effusions. There are airspace opacities in all lung zones bilaterally with a perihilar and lower lung predominance. No pneumothorax. Cardiomegaly is noted. Med louisa sternotomy wires and mediastinal surgical clips are seen, likely from prior coronary artery bypas s grafting. Skin rodney are noted. A right internal jugular central venous catheter is seen with tip in the superior vena cava. IMPRESSION: 1. Stable moderate-sized pleural effusions. 2. Stable diffuse lung disease, consistent with atelectasis versus pneumonia. 3. Cardiomegaly. Reviewed, dictated and finalized at location A. OUTPATIENT SURGERY
--- NOTE | ~2021-08-13 | XR_ITS ---
EXAMINATION: XR fl Dobhoff insert/rad w img DATE: 09/06/2021 15:06 INDICATION: Poor oral intake. The patient removed his first nasoenteric tube. TECHNIQUE: I placed a nasoenteric tube under fluoroscopic guidance. The number of images was 1. Fluor oscopy exposure time was 0.4 minutes. COMPARISON: Radiographs 09/06/2021 FINDINGS: The nasoenteric tube tip is in the stomach. IMPRESSION: 1. Fluoroscopy guided nasoenteric tube placement with tip in the stomach. Reviewed, dictated and finalized at location A. TH MAKER
--- NOTE | ~2021-08-13 | CT_ITS ---
EXAMINATION: CTA chest PE protocol DATE: 08/26/2021 16:02 INDICATION: Pleural effusion. TECHNIQUE: Computed tomography angiography (CTA) of the chest was performed with 100 mL Omnipaque-350 intravenous contrast timed to evaluate the pulmonary arteries. Coronal maximum intensity projection 3D-reconstructions were created by the technologist. Automated exposure control and iterative reconst ruction technique were employed. The dose-length product was 740.91 mGy-cm. COMPARISON: Chest CT 08/18/2021 FINDINGS: There are moderate-sized pleural effusions, right worse than left. There is dependent atele ctasis bilaterally. There are nondependent airspace opacities in the upper lobes with volume loss. Ca rdiomegaly is noted. There are changes of coronary bypass grafting. There is a small pericardial effu bairon. There is no pulmonary embolus. There is ectasia of ascending aorta measuring 4.4 cm. The endotr acheal tube tip is 7.3 cm above the albert. The nasogastric tube tip is beyond the inferior margin of the radiograph, but at least to the stomach. A right internal jugular central venous catheter is see n with tip in the superior vena cava. There is a healing fracture of right first rib. There are heali ng fractures of left first-third ribs. There are bridging endplate osteophytes at multiple levels in the spine, consistent with diffuse idiopathic skeletal hyperostosis (DISH). IMPRESSION: 1. No pulmonary embolus. 2. Moderate-sized pleural effusions, right worse than left. 3. Stable nondependent airspace opacities with volume loss in the upper lobes, consistent with atelec tasis/scarring versus pneumonia. 4. Stable small pericardial effusion. 5. Endotracheal tube tip 7.3 cm above the albert. Reviewed, dictated and finalized at location A. OGENATION OPERATOR IMPRESSION: 1. No pulmonary embolus. 2. Moderate-sized pleural effusions, right worse than left. 3. Stable nondependent airspace opacities with volume loss in the upper lobes, consistent with atelectasis/scarring versus pneumonia. 4. Stable small pericardial effusion. 5. Endotracheal tube tip 7.3 cm above the albert.
--- NOTE | ~2021-08-13 | XR_ITS ---
EXAMINATION: XR chest 1V portable DATE: 08/24/2021 06:54 INDICATION: Acute respiratory failure. Pleural effusion. TECHNIQUE: frontal view of the chest was obtained. COMPARISON: Chest radiograph dated 08/23/2021 FINDINGS: Endotracheal tube tip 5.1 cm above the albert. Nasogastric tube extends below the left hemidiaphragm with distal tip collimated off the study. Right internal jugular central venous catheter with distal tip in the midsuperior vena cava. Improving aeration of the lungs. Gradient of opacities in the left mid to lower lung zone with obscur ation of the left hemidiaphragm consistent with small to moderate posterior layering pleural effusion with associated atelectasis and/or pneumonia. Additional hazy opacities in the right mid to lower petty ng with more focal loculated component of the effusion projecting over the mid lung zone. No pneumoth orax. Cardiomegaly. Midline skin rodney, mediastinal sternotomy wires, ostial markers and mediastina l surgical clips consistent with recent coronary artery bypass grafting. IMPRESSION: 1. Improving aeration of lungs with decreasing small to moderate left and small right pleural effusio ns with associated atelectasis and/or pneumonia. 2. Cardiomegaly. Reviewed, dictated and finalized at location A. LOCKER IMPRESSION: 1. Improving aeration of lungs with decreasing small to moderate left and small right pleural effusions with associated atelectasis and/or pneumonia. 2. Cardiomegaly.
--- NOTE | ~2021-08-13 | XR_ITS ---
EXAMINATION: XR chest 1V portable DATE: 08/18/2021 05:44 INDICATION: Intubation. TECHNIQUE: A single frontal view of the chest was obtained. COMPARISON: Chest single view 08/17/2021 FINDINGS: There are moderate-sized bilateral loculated pleural effusions. There are airspace opacitie s in all lung zones bilaterally. No pneumothorax. Cardiomegaly is noted. Median sternotomy wires and mediastinal surgical clips are seen, likely from prior coronary artery bypass grafting. The nasogastr ic tube tip is in the stomach. The endotracheal tube tip is 4.4 cm above the albert. A right internal jugular central venous catheter is seen with tip in the superior vena cava. IMPRESSION: 1. Stable moderate-sized bilateral loculated pleural effusions. 2. Diffuse lung disease with worsening on the right, consistent with atelectasis versus pneumonia. 3. Cardiomegaly. Reviewed, dictated and finalized at location A. OGY TECHNICIAN IMPRESSION: 1. Stable moderate-sized bilateral loculated pleural effusions. 2. Diffuse lung disease with worsening on the right, consistent with atelectasi s versus pneumonia. 3. Cardiomegaly.
--- NOTE | ~2021-08-13 | XR_ITS ---
EXAMINATION: XR chest 1V portable DATE: 08/16/2021 05:33 INDICATION: Intubation. TECHNIQUE: A single frontal view of the chest was obtained. COMPARISON: Chest single view 08/15/2021, chest CT 08/13/2021 FINDINGS: There are bilateral moderate-sized loculated pleural effusions. There are airspace opacitie s in all lung zones. No pneumothorax. Cardiomegaly is noted. Median sternotomy wires and mediastinal surgical clips are seen, likely from prior coronary artery bypass grafting. Skin rodney are noted. T he nasogastric tube tip is in the stomach. A right internal jugular central venous catheter is seen w ith tip at the superior cavoatrial junction. The endotracheal tube tip is 2.8 cm above the albert. IMPRESSION: 1. Stable moderate-sized bilateral loculated pleural effusions. 2. Stable diffuse lung disease, consistent with atelectasis versus pneumonia. 3. Cardiomegaly. Reviewed, dictated and finalized at location A. MBLER TRIM
--- NOTE | ~2021-08-13 | XR_ITS ---
XR chest 2V DATE: 09/03/2021 12:55 INDICATION: Pleural effusions TECHNIQUE: AP and lateral views COMPARISON: 09/02/2021 portable AP chest FINDINGS: Status post sternotomy and coronary bypass graft surgery. There are bilateral mid and lower lung infiltrates and pleural effusions, with little interval change since 09/02/2021. No pneumothorax. The right internal jugular central venous catheter is been removed since 09/02. IMPRESSION: Persistent bilateral infiltrates and mild pleural effusions Reviewed, dictated and finalized at location A. ER FEEDER DYED RAW STOCK
--- NOTE | 2021-08-13 08:58 | ECG_ITS ---
Measurements Intervals [place] Rate: 98 P: 19 MA: 169 QRS: 1 QRSD: 146 T: 116 QT: 409 QTc: 523 Interpretive Statements SINUS RHYTHM LEFT BUNDLE BRANCH BLOCK BASELINE WANDER- I, II, III, AVF, V1-V6 ABNORMAL ECG Electronically Signed On 08-13-2021 12:33:42 ADMINISTRATIVE JUDGE by Alvin Wood D.O.
[2021-08-13 09:52] LABS: Basophils Absolute Auto 0.1 K/mm3 (0.0-0.1); Basophils Percent Auto 0.7 % (0.2-1.2); Eosinophils Absolute Auto 0.3 K/mm3 (0-0.3); Eosinophils Percent Auto 1.8 % (0-4.4); Hematocrit 33.2 % (42.0-52.0); Hemoglobin 10.7 g/dL (14.0-18.0); Immature Granulocyte Absolute 0.22 K/mm3 (0.00-0.031); Immature Granulocyte Percent A 1.4 % (0-0.5); Lymphocytes Absolute Auto 2.05 K/mm3 (0.9-3.2); Lymphocytes Percent Auto 13.4 % (18.3-44.2); Mean Corpuscular HGB Conc 32.2 g/dl (32-36); Mean Corpuscular Hemoglobin 30.5 pg (26-34); Mean Corpuscular Volume 94.6 fl (80-100); Mean Platelet Volume 7.9 fl (7.4-10.4); Monocytes Absolute Auto 1.3 K/mm3 (0.1-0.6); Monocytes Percent Auto 8.4 % (2.6-8.5); Neutrophils Absolute Auto 11.4 K/mm3 (1.3-6.7); Neutrophils Percent Auto 74.3 % (45.5-73.1); Platelet Count Result 649 k/mm3 (150-375); Red Blood Count 3.51 M/mm3 (4.6-6.20); White Blood Count 15.3 K/mm3 (4.5-10.0)
[2021-08-13] MEDS: SODIUM CHLORIDE 0.9% IV 1,000 ML 999 ML IV CONT (09:58)
[2021-08-13 10:02] LABS: INR 1.7; Prothrombin Time 19.3 Seconds (11.1-14.7)
[2021-08-13 10:03] LABS: Partial Thromboplastin Time 40.2 SECONDS (22.3-36.8)
[2021-08-13 10:05] LABS: Alanine Aminotransferase 38 U/L (4-50); Alkaline Phosphatase 238 U/L (38-126); Anion Gap 12 mmol/L (8-16); Aspartate Amino Transferase 41 U/L (17-59); Bilirubin,Total 0.6 mg/dL (0.2-1.3); Blood Urea Nitrogen 21 mg/dL (9-20); Calcium 8.7 mg/dL (8.4-10.2); Carbon Dioxide 26 mmol/L (22-30); Chloride 93 mmol/L (98-107); Estimated CRCL calculation 34 ml/min; Estimated Glomerular Filt Rate 32; Glucose 81 mg/dL (65-110); Potassium 4.7 mmol/L (3.4-5.0); Sodium 131 mmol/L (137-145)
[2021-08-13 10:06] LABS: Lactic Acid Reflex 3.5 mmol/L (0.7-2.1)
--- NOTE | 2021-08-13 10:09 | PC.NURSE ---
Sister speaking with Dr. Navas, she states that pt had a moment of unresponsiveness INTAKE CLINICIAN.
--- NOTE | 2021-08-13 10:21 | ED.GENADULT ---
HPI - General Adult General Chief complaint: Weakness Stated complaint: diff talking, left side weak, [id number] Time Seen by Provider: 08/13/21 10:01 Source: family, EMS and RN notes reviewed Mode of arrival: EMS Limitations: clinical condition History of Present Illness HPI narrative: Patient brought to the emergency room by ambulance/sister because of gradual increase of weakness since left [facility] 1 week ago status post CABG 3 weeks ago. Patient is not vaccinated for COVID-19. Patient was seen at [facility] 2 days ago for similar symptoms and was discharged home on Zofran. His condition got worse, today patient unable to stand up without court assistant, lethargic, longer hours sleeps, unable to eat, drink fluids sometime. On arrival to the emergency room have 2 large watery bowel movement, smells like C. difficile. Related Data Allergies Allergy/AdvReac Type Severity Reaction Status Date / Time Penicillins Allergy Unknown Verified 08/13/21 09:01 Review of Systems Review of Systems: ROS unobtainable: Yes unobtainable due to medical condition Exam Narrative: General appearance: Well-developed, ill looking Skin: Pale Head: Normocephalic, nontraumatic Eyes: Clear conjunctiva ENT: Dry oral cavity Neck: Supple, nontender Chest and respiratory: Airway patent, slight labored breathing Heart: Tachycardia Abdomen: Soft, diffuse tenderness, quiet bowel sounds Vascular: Normal peripheral pulses, normal capillary refill. Musculoskeletal: Generally weak and lethargic Neurologic: Alert and oriented to his name and age only Course Consultations Consultation #1: DR LOMBARDI Recommended to transfer patient to [place] because of recent CABG 3 weeks ago. Patient condition at this time is massive diarrhea, C. difficile is a possibility, blood pressure is 106/56. Date: 08/13/21 Time: 13:01 Consultation #2: [facility] No bed available,, the are holding 8 patient in the ER to be admitted later. Date: 08/13/21 Time: 13:06 Consultation #3: Kiersten/Dr. Olivera consulted for recent POST CABG status. Date: 08/13/21 Time: 13:06 Vital Signs Vital signs: Vital Signs Pulse Rate 98 08/13/21 08:39 Respiratory Rate 28 H 08/13/21 08:39 Blood Pressure 94/67 L 08/13/21 08:39 Pulse Oximetry 98 08/13/21 08:39 Temperature 37.5 C 08/13/21 09:09 Pulse Rate 84 08/13/21 12:46 Respiratory Rate 23 H 08/13/21 12:46 Blood Pressure 105/46 L 08/13/21 12:46 Pulse Oximetry 100 08/13/21 12:46 Medical Decision Making Vital Signs Vital Signs: Vital Signs Pulse Rate 98 08/13/21 08:39 Respiratory Rate 28 H 08/13/21 08:39 Blood Pressure 94/67 L 08/13/21 08:39 Pulse Oximetry 98 08/13/21 08:39 Temperature 37.5 C 08/13/21 09:09 Pulse Rate 84 08/13/21 12:46 Respiratory Rate 23 H 08/13/21 12:46 Blood Pressure 105/46 L 08/13/21 12:46 Pulse Oximetry 100 08/13/21 12:46 Lab Data Result diagrams: 08/13/21 09:40 08/13/21 09:40 Labs: Lab Results 08/13/21 08/13/21 08/13/21 Range/Units 09:40 09:40 09:42 WBC 15.3 H (4.5-10.0) K/mm3 RBC 3.51 L (4.6-6.20) M/mm3 Hgb 10.7 L (14.0-18.0) g/dL Hct 33.2 L (42.0-52.0) % MCV 94.6 (80-100) fl MCH 30.5 (26-34) pg MCHC 32.2 (32-36) g/dl RDW 13.0 (11.5-14.5) % Plt Count 649 H (150-375) k/mm3 MPV 7.9 (7.4-10.4) fl Immature Gran % (Auto) 1.4 H (0-0.5) % Neut % (Auto) 74.3 H (45.5-73.1) % Lymph % (Auto) 13.4 L (18.3-44.2) % [place] % (Auto) 8.4 (2.6-8.5) % Eos % (Auto) 1.8 (0-4.4) % Baso % (Auto) 0.7 (0.2-1.2) % Lymph # (Auto) 2.05 (0.9-3.2) K/mm3 [place] #
[2021-08-13] MEDS: AZTREONAM 2 GM in DEXTROSE 5% 100 ML 200 ML IVPB (10:49)
[2021-08-13 11:01] LABS: Alveolar/Arterial O2 Gradient 81.7 mmHg; Base Excess ABG -1.9 mEq/l (+/-2.0); Fractional Inspired Oxygen 28 %; HCO3 ABG 21.1 mEq/l (22.0-26.0); Oxygen Saturation ABG 96.8 % (95.0-100.0); Oxyhemoglobin 94.8 % THb (90.0-100.0); PO2 ABG 82.5 mmHg (80.0-100.0); PO2 FiO2 Ratio Arterial Blood 2.95 %; Total Hemoglobin 11.2 g/dL (12.0-18.0); pH ABG 7.464 (7.350-7.450)
[2021-08-13 11:02] LABS: Device NASAL CANNULA; Modified Allen's Test Pass; Site Drawn RIGHT RADIAL
--- NOTE | 2021-08-13 11:04 | PC.NURSE ---
Pt continuously having diarrhea, pt becoming very tired with cleaning up. VORB for a rectal tube to be placed
[2021-08-13 12:46] LABS: Reflex Lactic Acid Yes or No Add Lactic
[2021-08-13 12:58] LABS: Add Urine Microscopic? YES; Appearance Urine Cloudy (Clear); Bacteria Urine 2+ /hpf; Bilirubin Urine Negative (Negative); Blood Urine 3+ (Negative); Color Urine Amber (Yellow); Glucose Urine UA Negative (Negative); Ketones Urine Negative (Negative); Leukocyte Esterase Ur Negative LEU/UL (Negative); Mucus Urine Few /lpf; Nitrate Urine Negative (Negative); Protein Urine 1+ mg/dL (Negative); RBC Urine >75 /hpf (0-2); Specific Grav Ur 1.025 (1.001-1.035); Squamous Epithelial Cell Urine Occasional /hpf (Few)
--- NOTE | 2021-08-13 13:05 | PC.NURSE ---
secretary book keeper was asked to call [facility] for a possible transfer. Hospital informed me that they have no beds at this time.
--- NOTE | 2021-08-13 14:51 | PC.NURSE ---
Pt pulled rectal tube out. States I was having diarrhea earlier im not anymore this RN explains that he is still draining feces. Pt agrees to allow me to put it back in
--- NOTE | 2021-08-13 15:56 | PM.IMHP ---
H&P: HPI History of Present Illness Date/Time: 08/13/21 15:56 this is a 61-year-old male patient who received a 3 vessel CABG approximately 3 weeks ago carbon the hospital. The patient continued to feel weak and was admitted to [facility] and was just discharged 2 days ago for similar symptoms of feeling weak. The patient is having difficulty standing. He is lethargic and has been sleeping much longer. He is unable to eat or drink sometimes. The patient has had multiple bouts of diarrhea. A rectal tube had been placed in the emergency room and the patient pulled it out. The patient is able to answer some questions but still appears to be confused. Half of the Mace bag was filled with liquid light brown stool. The patient was started on IV fluids, IV Tylenol, aztreonam, Levaquin and vancomycin. His chest x-ray was read as diffuse bilateral airspace disease which may represent edema or pneumonia. Bilateral pleural effusions. Moderate cardiomegaly. Chest abdominal pelvis CT was read as bilateral upper lobe airspace disease which may represent atelectasis or pneumonia. Status post recent medium sternotomy for CABG. Heterogenous soft tissue in the anterior mediastinal is likely postsurgical. Moderate bilateral pleural effusions with underlying compressive atelectasis. My collaborative did speak with the ER physician and agreed to admit the patient here. The ER physician stated that he had notified [facility] and they have no beds for the patient at this time. I also noticed that the patient has on lifevest. The patient's white count is 15.3. H&H is 10.7 and 33.2. Sodium 131 creatinine 2.1. Lactic acid 3.5. Urine was positive for UTI. The patient is being admitted to inpatient status on the date of service of 08/13/2021. Chief Complaint: The weakness Review of Systems Review of Systems: All systems reviewed & are unremarkable except as noted in HPI and below Constitutional: Constitutional: Reports as per HPI and Reports no additional constitutional complaints Eyes: Eyes: Reports as per HPI and Reports no additional eye complaints ENT: Reports system reviewed and no additional complaints, except as documented and Reports Normal hearing present Cardiovascular: Cardiovascular: Reports no additional cardiovascular complaints Respiratory: Respiratory: Reports no additional respiratory complaints and Reports no additional respiratory complaints Gastrointestinal: Gastrointestinal: Reports as per HPI and Reports no additional gastrointestinal complaints Musculoskeletal: Musculoskeletal: Reports no additional musculoskeletal complaints Integumentary/Breasts: Skin/Breast: Reports system reviewed and no additional complaints, except as docu and Reports as per HPI Neurologic: Reports system reviewed and no additional complaints, except as documented, Reports as per HPI and Reports Normal hearing present Psychiatric: Psychiatric: Reports no additional psychiatric complaints and Reports as per HPI Endocrine: Endocrine: Reports no additional endocrine complaints Hematologic/Lymphatic: Hematologic/Lymphatic: Reports no additional hematologic/lymphatic complaints Allergic/Immunologic: Allergic/Immunologic: Reports no additional allergic/immunologic complaints [facility] Past Medical History Medical History (Updated 08/13/21 @ 16:50 by Anaid Gomez NP) Atrial fibrillation CAD (coronary artery disease) Congestive heart failure Hyperlipidemia Hypertension Surgical History Surgical History (Updated 08/13/21 @ 16:19 by Anaid Gomez NP) S/P CABG x 3 Family History Family History (Updated 08/13/21 @ 16:25 by Anaid Gomez NP) Mother Heart disease Father Cancer Sibling Heart disease Social History Social History (Updated 08/13/21 @ 16:24 by Anaid Gomez NP) Social History: The patient stated that he has 1 son. The patient's sister Malika is the durable power energy attorney for healthcare.
--- NOTE | 2021-08-13 16:16 | PC.NURSE ---
clear liquid tray ordered for patient
--- NOTE | 2021-08-13 17:01 | PM.CNCAR ---
Assessment and Plan Additional Plan 61-year-old man with recent diagnosis of multivessel coronary disease who underwent surgical revascularization at another institution we have none of the records about any of that at [facility]. He came here with what sounds like symptomatic hypotension possibly related to dehydration/volume depletion. He is not having any other cardiovascular complaints or concerns and does not appear to be in any sign of distress regarding his heart disease. Metoprolol and lisinopril can hopefully be resumed a possibly at smaller dosage. Review follow him with you while he is in the hospital but at this point I do not think there are any specific cardiac recommendations to make. Praneeth Scott MD [facility] History of Present Illness History of Present Illness Consult date/time: 08/13/21 17:01 Reason For Visit: diff talking, left side weak, [id number] Narrative: This is a 61-year-old man I have seen this evening at the request of the emergency department/and hospitalist because of recent coronary bypass operation and concerning weakness and hypotension when he was in the emergency department. The patient is unknown to us here at [facility]. He has been enjoying good health most of his adult life he states until recently when he was hospitalized in [place] for evaluation of exertional dyspnea. This began relatively suddenly recently. He says that he was seen by the school boat driver to perform catheterization after which he was referred for bypass surgery. He says he underwent a three-vessel coronary bypass about 3 weeks ago and had a fairly unremarkable hospitalization and was discharged after about a week in the hospital. He came to this region to rehab at sister/family home until the stronger to go back to his own home. This morning he states he was taking a shower and he felt very weak so his sister called 911 and had him brought into the hospital. In the hospital he was evaluated and found to be relatively stable in the morning he did develop some watery diarrhea and became hypotensive in the afternoon with systolic blood pressures as low as the high 70s. For this reason he has been given some intravenous fluid and admitted to the hospital. He has no other complaints now it looks very comfortable and is wondering why he has to be hospitalized. His medications prior to admission include amiodarone, aspirin, apixaban, furosemide, lisinopril, metoprolol, oxycodone and potassium as well as rosuvastatin. He does not have any medical allergies. For some reason he is being ruled out for coronavirus. His electrocardiogram shows sinus rhythm with an incomplete left bundle branch block. He is mildly anemic which of course is not surprising his AA also has some renal insufficiency with a creatinine of 2.1. I do not think we have any baseline data regarding that at this hospital. Review of Systems Constitutional: Constitutional: Reports no additional constitutional complaints Eyes: Eyes: Reports no additional eye complaints ENT: Reports system reviewed and no additional complaints, except as documented Cardiovascular: Cardiovascular: Reports no additional cardiovascular complaints Respiratory: Respiratory: Reports no additional respiratory complaints Gastrointestinal: Gastrointestinal: Reports diarrhea Musculoskeletal: Musculoskeletal: Reports no additional musculoskeletal complaints Integumentary/Breasts: Skin/Breast: Reports system reviewed and no additional complaints, except as docu Neurologic: Reports system reviewed and no additional complaints, except as documented Endocrine: Endocrine: Reports no additional endocrine complaints Hematologic/Lymphatic: Hematologic/Lymphatic: Reports no additional hematologic/lymphatic complaints Allergic/Immunologic: Allergic/Immunologic: Reports no additional allergic/immunologic complaints [facility] Past Medical History Medical History (Updated 08/13/21 @ 16:50 by Anaid
--- NOTE | 2021-08-13 17:41 | PC.NURSE ---
Pt called out c/o increased SOB. Pt more labored. Repositioned and listened to pt. Pt has decreased lung sounds on the left side. Called Anaid (hospitalist and made her aware. She states she is placing new orders for pt.
[2021-08-13] MEDS: SODIUM CHLORIDE 0.9% IV 1,000 ML 75 ML IV CONT (18:18)
--- NOTE | 2021-08-13 19:19 | PC.NURSE ---
Assumed care of pt at this time, pt is alert and discussed POC. VSS. Lights dimmed. Pt on 2 L NC O2 and on tele monitor.
[2021-08-13 19:23] LABS: Lactic Acid 1.4 mmol/L (0.7-2.1)
[2021-08-13 19:25] LABS: Alanine Aminotransferase 35 U/L (4-50); Estimated CRCL calculation 31 ml/min; Estimated Glomerular Filt Rate 29
[2021-08-13 19:26] LABS: Magnesium 1.7 mg/dL (1.6-2.3)
[2021-08-13 19:38] LABS: INR 1.5; Prothrombin Time 17.8 Seconds (11.1-14.7)
[2021-08-13 19:43] LABS: Troponin I 0.044 ng/mL (0.000-0.034)
[2021-08-13] MEDS: AZTREONAM 1 GM in DEXTROSE 5% IN WATER 50 ML 100 ML IVPB (19:53)
--- NOTE | 2021-08-13 20:01 | PC.NURSE ---
Spoke with pt sister. she states that pt had 700ml of fluid pulled off of his left side last week. Notified Anaid (hospitalist) and gave VORB for 20 mg Lasix IV
--- NOTE | 2021-08-13 20:11 | PC.NURSE ---
This RN went to give lasix and pt pressure was 97/55. held off on giving until BP is better
[2021-08-13] MEDS: FUROSEMIDE INJ 40 MG/4 ML VIAL 20 MG IV PUSH (21:13)
[2021-08-13 21:35] LABS: Alveolar/Arterial O2 Gradient 80.6 mmHg; Base Excess ABG -4.4 mEq/l (+/-2.0); Fractional Inspired Oxygen 28 %; HCO3 ABG 21.3 mEq/l (22.0-26.0); Oxygen Content ABG 12.3 %vol (16.0-22.0); Oxygen Saturation ABG 92.7 % (95.0-100.0); Oxyhemoglobin 90.7 % THb (90.0-100.0); PO2 ABG 69.5 mmHg (80.0-100.0); PO2 FiO2 Ratio Arterial Blood 2.48 %; Total Hemoglobin 9.6 g/dL (12.0-18.0); pH ABG 7.324 (7.350-7.450)
[2021-08-13 21:36] LABS: Device NASAL CANNULA; Modified Allen's Test Pass; Site Drawn RIGHT RADIAL
[2021-08-13] MEDS: metroNIDAZOLE 500 MG/ISO 100ML 500 MG/100 ML BAG 100 MG IVPB (22:04)
[2021-08-14] VITALS (44 sets, daily range): BP systolic 56–169; BP diastolic 28–101; PULSE 60–94; RESP 16–30; TEMP 36–36.9; O2SAT 91–100; BMI 29.0
--- NOTE | 2021-08-14 00:11 | ECG_ITS ---
Measurements Intervals [place] Rate: 86 P: 40 LA: 200 QRS: 6 QRSD: 173 T: 140 QT: 447 QTc: 535 Interpretive Statements SINUS RHYTHM BORDERLINE AV CONDUCTION DELAY LEFT BUNDLE BRANCH BLOCK ABNORMAL ECG Electronically Signed On 08-14-2021 7:01:08 TECHNICAL SUPPORT TECHNICIAN by Alvin Wood D.O.
--- NOTE | 2021-08-14 00:12 | PC.NURSE ---
Pt de sat per ED charge, checked on pt to find unresponsive w/ emesis on floor, hypoxic. EDP Dr Steen notified and at bedside, hospitalist paged. Placed on 15 L NRB. EKG obtained per VORB, called RESP for ABG and XRAY for STAT chest. Pt HR down to 30s at episode, 88 at this time. Repositioned, oral suctioning provided. Pt eyes open, groaning. House sup. notified per charge at bedside.
[2021-08-14 00:38] LABS: Alveolar/Arterial O2 Gradient 562.7 mmHg; Base Excess ABG -3.3 mEq/l (+/-2.0); Fractional Inspired Oxygen 100 %; HCO3 ABG 24.6 mEq/l (22.0-26.0); Oxygen Content ABG 12.8 %vol (16.0-22.0); Oxygen Saturation ABG 95.3 % (95.0-100.0); PCO2 ABG 59.5 mmHg (35.0-45.0); PO2 ABG 90.8 mmHg (80.0-100.0); PO2 FiO2 Ratio Arterial Blood 0.91 %; Total Hemoglobin 9.6 g/dL (12.0-18.0)
[2021-08-14 00:39] LABS: Site Drawn LEFT RADIAL; pH ABG 7.234 (7.350-7.450)
[2021-08-14 00:40] LABS: Device NON-REBREATHER MASK; Modified Allen's Test Pass
[2021-08-14 01:14] LABS: Anion Gap 8 mmol/L (8-16); Blood Urea Nitrogen 23 mg/dL (9-20); Calcium 7.7 mg/dL (8.4-10.2); Carbon Dioxide 26 mmol/L (22-30); Chloride 97 mmol/L (98-107); Estimated CRCL calculation 30 ml/min; Estimated Glomerular Filt Rate 27; Glucose 86 mg/dL (65-110); Potassium 4.7 mmol/L (3.4-5.0); Sodium 131 mmol/L (137-145)
[2021-08-14 01:23] LABS: Troponin I 0.039 ng/mL (0.000-0.034)
[2021-08-14] MEDS: ALBUTEROL SULFATE NEB 2.5 MG/0.5 ML INH 5 MG INHALATION (02:06)
--- NOTE | 2021-08-14 02:15 | PM.EVENT ---
Event Note Event Note Event Note: 08/14/2021 at 1:30 a.m. The patient had been admitted on the afternoon of the due to sepsis, healthcare associated pneumonia, profuse watery diarrhea, and acute kidney injury who was being boarded in the ER due to hospital capacity. Around midnight nursing staff noted that the patient developed bradycardia with a heart at 30 on property assessment monitor. When they went to check on the patient he was unresponsive. Emesis was noted on the floor. The patient was also noted to be hypoxic. Patient was placed on a non-rebreather and oxygen saturations improved. The patient was repositioned and suctioned with oxygen supplementation is heart rate improved back up to the 80s. The patient's eyes were open and groaning but the patient was altered. Stat ABG was obtained which demonstrated acute hypercapnic respiratory failure with pH of 7.234 pCO2 of 59.5 PO2 80. Had a repeat chest x-ray which demonstrated no significant change from prior exam. The patient remained lethargic and confused initially. The ER physician had assisted in managing patient's change in condition as I was involved stabilizing and other critical patient. Upon review of the patient's labs I was headed down to the ER to evaluate the patient's respiratory status. However as I arrived at the patient's room the patient was awake and changing channels on his TV. He does recall vomiting and feeling as if he was going to pass out. The patient was noted to have a small abrasion to the right side of his tongue on exam. He had dried emesis noted to the right side of his mouth. He had diffuse wheezing bilaterally with moderate tachypnea without significant accessory muscle use, his abdomen was distended soft with hyperactive bowel sounds. He had a fecal management system in place with large amount of dark brown liquid stool. The patient was alert oriented times 3 at the time of my evaluation. He was relatively poor historian regarding his recent medical conditions but was otherwise appropriate. The patient did report having history of COPD but denies ever having smoked. Given the patient's improvement in condition has not over eager to intubate the patient. However I did not feel it was in the patient's best interest to be placed on BiPAP given his acute recent emesis. Subsequently the patient was taken off of a non-rebreather in place back on nasal cannula oxygen at 2 L. he was maintaining oxygen saturations of 95%. Instead I decided to repeat the patient's ABG and 1.5 hours. Repeat ABG demonstrates slight improvement of pH 7.269 with slight improvement in pCO2 to 55.8 and more expected PO2 of 74 correlating with pulse ox of 92 %. The patient does not use home oxygen. Given the improvement in the patient's ABG will continue to monitor managed conservatively with inhalers and steroids as well as antibiotics. The patient's creatinine is slightly worse than previous. His cardiac enzymes are actually relatively stable. Will hold IV Lasix. I suspect the patient had an episode of emesis resulting in vasovagal response and bradycardia. The patient's heart rate has returned to normal. The patient's LifeVest did not fire with his bradycardia. The patient has LifeVest and place due to recent CABG performed and [place]. 40 minute spent in critical care activities Due to a high probability of clinically significant, life threatening deterioration, the patient required my highest level of preparedness to intervene emergently and I personally spent this critical care time directly and personally managing the patient. This critical care time included obtaining a history; examining the patient; pulse oximetry; ordering and review of studies; arranging urgent treatment with development of a management plan; evaluation of patient's response to treatment; frequent reassessment; and discussions with other providers. It was exclusive of separately billable procedures and treating other pat
[2021-08-14 03:08] LABS: Alveolar/Arterial O2 Gradient 117.8 mmHg; Base Excess ABG -2.5 mEq/l (+/-2.0); Carboxyhemoglobin 0.5 % THb (0-2.0); Device NASAL CANNULA; Fractional Inspired Oxygen 36 %; Methemoglobin ABG 0.2 %THb (0-1.5); Modified Allen's Test Pass; Oxygen Content ABG 14.5 %vol (16.0-22.0); Oxygen Saturation ABG 92.7 % (95.0-100.0); Oxyhemoglobin 91.9 % THb (90.0-100.0); PCO2 ABG 55.8 mmHg (35.0-45.0); PO2 ABG 74.2 mmHg (80.0-100.0); PO2 FiO2 Ratio Arterial Blood 2.06 %; Reduced Hemoglobin 7.4 %THb (0-5.0); Site Drawn LEFT RADIAL; Total Hemoglobin 11.2 g/dL (12.0-18.0); pH ABG 7.269 (7.350-7.450)
[2021-08-14 06:13] LABS: Basophils Absolute Auto 0.1 K/mm3 (0.0-0.1); Basophils Percent Auto 0.5 % (0.2-1.2); Eosinophils Absolute Auto 0.5 K/mm3 (0-0.3); Eosinophils Percent Auto 2.9 % (0-4.4); Hematocrit 28.9 % (42.0-52.0); Immature Granulocyte Absolute 0.15 K/mm3 (0.00-0.031); Immature Granulocyte Percent A 0.9 % (0-0.5); Lymphocytes Absolute Auto 1.62 K/mm3 (0.9-3.2); Lymphocytes Percent Auto 10.1 % (18.3-44.2); Mean Corpuscular HGB Conc 31.1 g/dl (32-36); Mean Corpuscular Hemoglobin 30.2 pg (26-34); Mean Platelet Volume 7.9 fl (7.4-10.4); Monocytes Absolute Auto 1.5 K/mm3 (0.1-0.6); Monocytes Percent Auto 9.1 % (2.6-8.5); Neutrophils Absolute Auto 12.3 K/mm3 (1.3-6.7); Neutrophils Percent Auto 76.5 % (45.5-73.1); Platelet Count Result 477 k/mm3 (150-375); Red Blood Count 2.98 M/mm3 (4.6-6.20); Red Cell Distribution Width 12.9 % (11.5-14.5); White Blood Count 16.1 K/mm3 (4.5-10.0)
[2021-08-14 06:22] LABS: INR 1.6
[2021-08-14 06:23] LABS: Alanine Aminotransferase 29 U/L (4-50); Albumin Level 3.4 g/dL (3.5-5.1); Alkaline Phosphatase 169 U/L (38-126); Anion Gap 11 mmol/L (8-16); Aspartate Amino Transferase 30 U/L (17-59); Bilirubin,Total 0.4 mg/dL (0.2-1.3); Blood Urea Nitrogen 23 mg/dL (9-20); Carbon Dioxide 22 mmol/L (22-30); Chloride 97 mmol/L (98-107); Estimated CRCL calculation 31 ml/min; Estimated Glomerular Filt Rate 29; Glucose 71 mg/dL (65-110); Lactate Dehydrogenase 533 U/L (313-618); Lipase 171 U/L (23-300); Potassium 4.7 mmol/L (3.4-5.0); Sodium 130 mmol/L (137-145)
--- NOTE | 2021-08-14 06:44 | PC.NURSE ---
Spoke to sister via telephone, #[phone] and requested battery for Life Pac monitor.
--- NOTE | 2021-08-14 06:57 | PC.NURSE ---
Called hospitalist Dr Isaac due to pt alert but decreased LOC - lethargic, increased WOB and weakness. Pt denies any symptoms. Garbled speech. Pt VSS. Given VORB for labs - STAT ABG, Ammonia, lactic and bedside glucose. Dr Isaac states she will put orders in.
[2021-08-14 07:07] LABS: Glucose Point of Care 58 mg/dl (65-105)
[2021-08-14] MEDS: DEXTROSE 50% 25 GM/50 ML SYRINGE IV PUSH ×2 (07:12→11:57)
--- NOTE | 2021-08-14 07:14 | PC.NURSE ---
Pt 87% on 2 L NC, placed on 15L NRB.
--- NOTE | 2021-08-14 07:29 | PC.NURSE ---
ordered clear liquid tray for pt
[2021-08-14 07:30] LABS: pH ABG 7.217 (7.350-7.450)
[2021-08-14 07:31] LABS: Base Excess ABG 3.2 mEq/l (+/-2.0); HCO3 ABG 24.9 mEq/l (22.0-26.0); Oxygen Saturation ABG 98.2 % (95.0-100.0); PCO2 ABG 62.6 mmHg (35.0-45.0); PO2 ABG 139.8 mmHg (80.0-100.0); Total Hemoglobin 8.6 g/dL (12.0-18.0)
[2021-08-14 07:33] LABS: Carboxyhemoglobin 0.4 % THb (0-2.0); Device NON-REBREATHER MASK; Fractional Inspired Oxygen 100 %; Methemoglobin ABG 0.3 %THb (0-1.5); Modified Allen's Test Pass; Oxyhemoglobin 8.6 % THb (90.0-100.0); Reduced Hemoglobin 2.1 %THb (0-5.0); Site Drawn RIGHT RADIAL
[2021-08-14 08:18] LABS: Ammonia 20 umol/L (9-30)
[2021-08-14] MEDS: metroNIDAZOLE 500 MG/ISO 100ML 500 MG/100 ML BAG 100 MG IVPB ×3 (08:30→17:59)
[2021-08-14] MEDS: SODIUM CHLORIDE 0.9% IV 1,000 ML 75 ML IV CONT (08:30)
[2021-08-14] MEDS: ASPIRIN 81 MG CHEWABLE TABLET PO ×2 (08:32→08:35)
--- NOTE | 2021-08-14 08:43 | PC.NURSE ---
0828- Contacted [facility] ( pt stated that is where his CABG was done). The ED at that facility is holding 2 at that time, pt placed on a waiting list at that facility per Angelito [employer], RN.
[2021-08-14] MEDS: AZTREONAM 1 GM in DEXTROSE 5% IN WATER 50 ML 100 ML IVPB ×2 (08:45→17:58)
--- NOTE | 2021-08-14 09:12 | PC.NURSE ---
Pt sister called to check on pt, and stated that she will bring the battery for his life pack.
[2021-08-14] MEDS: ROSUVASTATIN 5 MG TABLET PO (09:20)
[2021-08-14] MEDS: APIXABAN 5 MG TABLET PO (09:20)
[2021-08-14] MEDS: METOPROLOL SUCCINATE EXT REL 50 MG TABCR PO (09:20)
--- NOTE | 2021-08-14 10:16 | PM.IMPN ---
Progress Note: A&P Assessment and Plan (1) HCAP (healthcare-associated pneumonia): Code(s): J18.9 - Pneumonia, unspecified organism Status: Acute Assessment and Plan: CT scan of the chest reviewed regard moderate bilateral pleural effusion with underlying compressive atelectasis, some of the pleural effusions seems to be loculated particularly on right side Bilateral airspace disease of the upper lobes which may represent atelectasis or pneumonia Cover for healthcare associated pneumonia with his recent hospitalization Currently on vancomycin aztreonam and Levaquin Blood cultures pending (2) UTI (urinary tract infection): Code(s): N39.0 - Urinary tract infection, site not specified Status: Acute Assessment and Plan: Urine cultures are pending. The patient is on a multitude of antibiotics already for healthcare associated pneumonia. (3) Congestive heart failure: Code(s): I50.9 - Heart failure, unspecified Status: Chronic Assessment and Plan: I think he is in acute congestive heart failure and will need diuresis with his bilateral pleural effusions He has acute renal failure need to cautiously diurese him Hold lisinopril due to renal dysfunction The patient has a life vest on. He had a 3 vessel CABG approximately 3 weeks ago. The surgery is performed at [facility] however [facility] has no beds for him at this time. Continue with metoprolol Will check BNP (4) Hyperlipidemia: Code(s): E78.5 - Hyperlipidemia, unspecified Status: Chronic Assessment and Plan: Continue with her rosuvastatin and continue to monitor liver function test. (5) Hypertension: Code(s): I10 - Essential (primary) hypertension Status: Chronic Assessment and Plan: Hold lisinopril for now as the patient has acute kidney injury Continue to monitor (6) Atrial fibrillation: Code(s): I48.91 - Unspecified atrial fibrillation Status: Chronic Assessment and Plan: The patient is currently in sinus rhythm. Continue with his Eliquis and amiodarone With drop in H&H will hold his Eliquis (7) ROSHAN (acute kidney injury): Code(s): N17.9 - Acute kidney failure, unspecified Status: Acute Assessment and Plan: Unsure of patient's baseline. Get records outlying hospital. (8) Diarrhea: Qualifiers: Diarrhea type: infectious Qualified Code(s): A09 - Infectious gastroenteritis and colitis, unspecified Code(s): R19.7 - Diarrhea, unspecified Status: Acute Assessment and Plan: Stool specimens are pending. Started on IV Flagyl for bowel cover C diff infection. On fecal management system Change Flagyl to every 6 hours C sample has been sent and is currently pending (9) Bilateral pleural effusion: Code(s): J90 - Pleural effusion, not elsewhere classified Status: Acute Assessment and Plan: The patient does have a history of CHF. Or consider further diuresis intermittently (10) CAD (coronary artery disease): Code(s): I25.10 - Atherosclerotic heart disease of [place] coronary artery without angina pectoris Status: Chronic Assessment and Plan: The patient has had a 3 vessel CABG 3 weeks ago and has a life vest on. (11) Suspected COVID-19 virus infection: Code(s): Z20.822 - Contact with and (suspected) exposure to COVID-19 Status: Acute Assessment and Plan: Contact and droplet isolation. Decadron IV daily (12) Aspiration into respiratory tract: Code(s): T17.908A - Unspecified foreign body in respiratory tract, part unspecified causing other injury, initial encounter Status: Acute Assessment and Plan: Episode on 08/14/2021 Covered with appropriate antibiotics will keep him NPO (13) Hypoglycemia: Code(s): E16.2 - Hypoglycemia, unspecified Status: Acute Assessment and Plan: Hypoglycemia protocol Likely due to
[2021-08-14 10:30] LABS: Alveolar/Arterial O2 Gradient 109.9 mmHg; Base Excess ABG -3.5 mEq/l (+/-2.0); Fractional Inspired Oxygen 36 %; HCO3 ABG 25.2 mEq/l (22.0-26.0); Oxygen Content ABG 11.8 %vol (16.0-22.0); Oxygen Saturation ABG 88.5 % (95.0-100.0); Oxyhemoglobin 88.7 % THb (90.0-100.0); PO2 ABG 68.4 mmHg (80.0-100.0); Total Hemoglobin 9.4 g/dL (12.0-18.0)
[2021-08-14 10:33] LABS: pH ABG 7.189 (7.350-7.450)
[2021-08-14 10:34] LABS: Device NASAL CANNULA; Modified Allen's Test Pass; PCO2 ABG 67.6 mmHg (35.0-45.0); Site Drawn LEFT RADIAL
--- NOTE | 2021-08-14 10:46 | ADMGEN ---
This patient, Reed Chiara, was admitted to Intensive Care Unit-4. Patient/family oriented to hospital policies and general routines including ID bracelet, bed and alarms, visiting hours, pain management, procedures, bathroom and other care routines, personal items, smoking policy, room service/diet, and visiting hours. Information on how to activate the Rapid Response Team has been discussed. Patient/Family are encouraged to report perceived risks to care and to ask questions if they do not understand what they are told or what they should do.
[2021-08-14 10:54] LABS: NT Pro B Type Natriuretic Pept 4120 pg/mL (5-100)
[2021-08-14] MEDS: SODIUM CHLORIDE 0.9% IV 1,000 ML 999 ML IV CONT (11:00)
[2021-08-14] MEDS: NOREPINEPHRINE 8 MG/D5W 250 ML 8 MG/250 ML BAG 9.38 MG IV CONT (11:00)
[2021-08-14] MEDS: SODIUM BICARBONATE 8.4% 50 MEQ/50 ML SYRINGE 100 MEQ IV PUSH (11:06)
[2021-08-14] MEDS: MIDAZOLAM 100MG/NS 100ML(*CRX) 100 MG/100 ML BAG IV CONT (11:15)
[2021-08-14] MEDS: FENTANYL 2,500MCG/NS250ML(*CRX 2,500 MCG/250 ML BAG IV CONT (11:15)
--- NOTE | 2021-08-14 11:55 | P.PCNBED_ITS ---
Procedures Central Line Placement Right IJ: Central Line Date: 08/14/21 Central Line Time: 11:30 Performed Emergently - Given emergent patient condition, temporal constraints may have precluded informed consent.: Yes Time Out Performed: Yes Patient Position: supine Patient placed on monitor/pulse ox: Yes Provider Prep: mask, sterile gown, sterile gloves, Max. sterile barrier precautions, cap and hand hygiene with conventional soap/water or alcohol based hand rub Central line prep: 2% Chlorhexidine scrub Sterile US Technique with sterile gel/sterile probe covers: Yes Central line lumen inserted: triple Length (cm): 16 Post Procedure: sutured in place, good blood return, all ports aspirated, flushed, capped, transparent dressing, hemostatic product, antimicrobial product, securement product and aseptic technique maintained throughout p rocedure Post procedure x-ray: tip of catheter in good position and no pneumothorax seen Patient tolerated procedure: well and no complications Complications: none Additional comments: Venkat Paredes was present during the whole procedure.
--- NOTE | 2021-08-14 11:55 | WPDPROCEDUR ---
Procedures Intubation Intubation Date: 08/14/21 Intubation Time: 10:50 Consent: Verbal consent was obtained from patient A pre-procedural Time-Out was completed immediately before starting the procedure and confirmed: Patient Identification, Site, Procedure, Patient Position and the Availability of Requisite Equipment: Yes Sedative: etomidate Mg given: 20 Laryngoscope: fiber optic video scope Assist device used: fiber optic device ET tube size: 8 Tube secured depth (cm): 23 Tube secured location: teeth Tube placement confirmation: visualized tube passing through cords, equal breath sounds bilaterally, no breath sounds over epigastrium and confirmation by capnometry Patient tolerated procedure: well Intubation complications: none Additional comments: Patient arrived to ICU and ABG showed worsening hypercarbia and acidosis. Patient appeared in respiratory distress with rapid shallow breathing. S use of accessory muscles and increased work of breathing. I spoke to patient and discuss intubation and patient was agreeable.
--- NOTE | 2021-08-14 11:57 | WPDCNINT ---
Assessment and Plan Assessment and plan (1) Hypercapnic respiratory failure: Code(s): J96.92 - Respiratory failure, unspecified with hypercapnia Status: Acute Assessment and Plan: Acute Respiratory failure secondary to pulmonary edema, pleural effusions and pneumonia Patient was emergently intubated on arrival to ICU as his hypercarbia was worse and he was in respiratory distress Chest x-ray reviewed Continue full mechanical ventilation support to prevent hypoxemia/hypercarbia and end organ damage. ABG pending Low tidal volume ventilation strategy to prevent volutrauma (2) Hypoglycemia: Code(s): E16.2 - Hypoglycemia, unspecified Status: Acute Assessment and Plan: Start dextrose fluids Will start tube feeds and wean off IV fluids with dextrose (3) CAD (coronary artery disease): Code(s): I25.10 - Atherosclerotic heart disease of [place] coronary artery without angina pectoris Status: Chronic Assessment and Plan: Status post recent CABG Aspirin, amio, statin and Eliquis (4) Hyponatremia: Code(s): E87.1 - Hypo-osmolality and hyponatremia Status: Acute (5) ROSHAN (acute kidney injury): Code(s): N17.9 - Acute kidney failure, unspecified Status: Acute Assessment and Plan: Likely prerenal Monitor urine output creatinine electrolytes Cautious hydration Hold Lasix (6) Sepsis: Qualifiers: Sepsis acute organ dysfunction status: unspecified Sepsis type: sepsis due to unspecified organism Qualified Code(s): A41.9 - Sepsis, unspecified organism Code(s): A41.9 - Sepsis, unspecified organism Status: Acute (7) Congestive heart failure: Code(s): I50.9 - Heart failure, unspecified Status: Chronic Assessment and Plan: Not a candidate for Lasix at this due to hypertension Check echocardiogram (8) Pneumonia: Qualifiers: Laterality: bilateral Lung location: upper lobe of lung Pneumonia type: due to unspecified organism Qualified Code(s): J18.9 - Pneumonia, unspecified organism Code(s): J18.9 - Pneumonia, unspecified organism Status: Acute Assessment and Plan: Hcap versus aspiration Blood and sputum culture Broad-spectrum antibiotics (9) Bilateral pleural effusion: Code(s): J90 - Pleural effusion, not elsewhere classified Status: Acute Assessment and Plan: CT reviewed May need thoracentesis (10) Shock: Code(s): R57.9 - Shock, unspecified Status: Acute Assessment and Plan: Sepsis versus cardiogenic versus both 1 L bolus Levophed Check echocardiogram Check lactic acid level Central venous catheter was placed emergently as patient needed vasopressors and had poor IV access. Procedure was done by iGovany Yen while I was in the room supervising throughout the procedure (11) Diarrhea: Qualifiers: Diarrhea type: infectious Qualified Code(s): A09 - Infectious gastroenteritis and colitis, unspecified Code(s): R19.7 - Diarrhea, unspecified Status: Acute Assessment and Plan: C diff pending On empiric Flagyl No significant colitis seen on CT abdomen pelvis (12) Suspected COVID-19 virus infection: Code(s): Z20.822 - Contact with and (suspected) exposure to COVID-19 Status: Acute Assessment and Plan: Patient is vaccinated against COVID-19 COVID-19 suspected in ED SARS-CoV-2 PCR sent and results pending Patient is in Airborne, Droplet and Contact Isolation Will hold treatment until confirmed Additional Plan DVT prophylaxis -SCDs at this time Stress ulcer prophylaxis -PPI Nutrition -start Tube Feeds Code Status - Full Code Patient had CABG recently at [facility]. Apparently they did not have a bed yesterday when call from me. Call them to confirm patient is on wait list so that he can go back the hospital where he had CABG 2 weeks ago Total Critical Care Time -60
[2021-08-14] MEDS: MIDAZOLAM HCL (*CRX) 2 MG/2 ML VIAL IV PUSH (12:17)
[2021-08-14 12:22] LABS: Alveolar/Arterial O2 Gradient 216.7 mmHg; Base Excess ABG 0.6 mEq/l (+/-2.0); Carboxyhemoglobin 0.3 % THb (0-2.0); Fractional Inspired Oxygen 50 %; HCO3 ABG 23.3 mEq/l (22.0-26.0); Methemoglobin ABG 0.5 %THb (0-1.5); Oxygen Content ABG 12.6 %vol (16.0-22.0); Oxygen Saturation ABG 98.3 % (95.0-100.0); Oxyhemoglobin 96.8 % THb (90.0-100.0); PO2 ABG 106.1 mmHg (80.0-100.0); PO2 FiO2 Ratio Arterial Blood 2.12 %; Reduced Hemoglobin 2.4 %THb (0-5.0); Total Hemoglobin 9.1 g/dL (12.0-18.0)
[2021-08-14 12:24] LABS: pH ABG 7.508 (7.350-7.450)
[2021-08-14 12:25] LABS: Device VENTILATOR; Modified Allen's Test Pass; Site Drawn RIGHT RADIAL
[2021-08-14 12:26] LABS: Arterial Blood Gas PEEP 5 cmH2O; Arterial Blood Gas Tidal Volume 450 ml; Arterial Blood Gas Vent Mode CMV; Arterial Blood Gas Ventilator rate 24 /MIN
[2021-08-14] MEDS: DEXTROSE 5%/0.9% SOD CHL 1,000 ML 75 ML IV CONT (12:29)
[2021-08-14 12:37] LABS: Glucose Point of Care 68 mg/dl (65-105)
[2021-08-14 12:37] LABS: Glucose Point of Care 96 mg/dl (65-105)
[2021-08-14 12:49] LABS: Lactic Acid Reflex 0.8 mmol/L (0.7-2.1)
[2021-08-14] MEDS: PANTOPRAZOLE SODIUM IV 40 MG VIAL IV PUSH ×2 (13:28→21:29)
[2021-08-14 17:41] LABS: Glucose Point of Care 138 mg/dl (65-105)
[2021-08-14 18:54] LABS: SARS-CoV-2 RNA PCR Negative
[2021-08-14 19:30] LABS: Glucose Point of Care 129 mg/dl (65-105)
[2021-08-14] MEDS: MINERAL OIL/WHITE PETROLATUM OINTMENT 1 APPLIC EACH EYE (21:28)
[2021-08-14 21:44] LABS: Glucose Point of Care 137 mg/dl (65-105)
[2021-08-15] VITALS (42 sets, daily range): BP systolic 74–161; BP diastolic 48–83; PULSE 52–92; RESP 16–18; TEMP 35.8–36.7; O2SAT 93–100
[2021-08-15] MEDS: metroNIDAZOLE 500 MG/ISO 100ML 500 MG/100 ML BAG 100 MG IVPB ×4 (00:56→18:06)
[2021-08-15 01:20] LABS: Glucose Point of Care 120 mg/dl (65-105)
[2021-08-15] MEDS: AZTREONAM 1 GM in DEXTROSE 5% IN WATER 50 ML 100 ML IVPB ×3 (02:23→18:04)
[2021-08-15 04:39] LABS: INR 1.6; Prothrombin Time 18.4 Seconds (11.1-14.7)
[2021-08-15 04:40] LABS: Alanine Aminotransferase 19 U/L (4-50); Albumin Level 2.4 g/dL (3.5-5.1); Alkaline Phosphatase 133 U/L (38-126); Anion Gap 5 mmol/L (8-16); Aspartate Amino Transferase 22 U/L (17-59); Bilirubin,Total 0.2 mg/dL (0.2-1.3); Blood Urea Nitrogen 21 mg/dL (9-20); Calcium 7.2 mg/dL (8.4-10.2); Carbon Dioxide 26 mmol/L (22-30); Chloride 102 mmol/L (98-107); Estimated CRCL calculation 33 ml/min; Estimated Glomerular Filt Rate 36; Glucose 134 mg/dL (65-110); Magnesium 1.6 mg/dL (1.6-2.3); Sodium 133 mmol/L (137-145)
[2021-08-15 04:41] LABS: Lactic Acid Reflex 0.8 mmol/L (0.7-2.1)
[2021-08-15] MEDS: DEXTROSE 5%/0.9% SOD CHL 1,000 ML 75 ML IV CONT (04:57)
[2021-08-15 05:23] LABS: Basophils Percent Auto 0.1 % (0.2-1.2); Immature Granulocyte Absolute 0.15 K/mm3 (0.00-0.031); Immature Granulocyte Percent A 1.1 % (0-0.5); Lymphocytes Absolute Auto 0.72 K/mm3 (0.9-3.2); Lymphocytes Percent Auto 5.3 % (18.3-44.2); Mean Corpuscular HGB Conc 33.5 g/dl (32-36); Mean Corpuscular Hemoglobin 30.9 pg (26-34); Mean Corpuscular Volume 92.3 fl (80-100); Mean Platelet Volume 8.3 fl (7.4-10.4); Monocytes Absolute Auto 0.7 K/mm3 (0.1-0.6); Monocytes Percent Auto 5.2 % (2.6-8.5); Neutrophils Absolute Auto 12.1 K/mm3 (1.3-6.7); Neutrophils Percent Auto 88.3 % (45.5-73.1); Platelet Count Result 396 k/mm3 (150-375); Red Cell Distribution Width 12.6 % (11.5-14.5); White Blood Count 13.7 K/mm3 (4.5-10.0)
[2021-08-15 05:34] LABS: Hemoglobin 6.8 g/dL (14.0-18.0)
[2021-08-15 05:35] LABS: Hematocrit 20.3 % (42.0-52.0)
[2021-08-15 06:26] LABS: Alveolar/Arterial O2 Gradient 93.7 mmHg; Base Excess ABG -1.2 mEq/l (+/-2.0); Carboxyhemoglobin 0.3 % THb (0-2.0); Fractional Inspired Oxygen 30 %; HCO3 ABG 22.2 mEq/l (22.0-26.0); Methemoglobin ABG 0.6 %THb (0-1.5); Oxygen Content ABG 8.3 %vol (16.0-22.0); Oxyhemoglobin 94.3 % THb (90.0-100.0); PCO2 ABG 30.7 mmHg (35.0-45.0); PO2 ABG 84.1 mmHg (80.0-100.0); Reduced Hemoglobin 4.8 %THb (0-5.0); pH ABG 7.478 (7.350-7.450)
[2021-08-15] MEDS: ROSUVASTATIN 5 MG TABLET PO (08:00)
[2021-08-15] MEDS: ASPIRIN 81 MG CHEWABLE TABLET PO (08:00)
[2021-08-15] MEDS: AMIODARONE HCL 200 MG TABLET 400 MG PO (08:05)
[2021-08-15 08:08] LABS: Glucose Point of Care 132 mg/dl (65-105)
[2021-08-15] MEDS: MINERAL OIL/WHITE PETROLATUM OINTMENT 1 APPLIC EACH EYE ×2 (08:10→20:00)
[2021-08-15] MEDS: SODIUM CHLORIDE 0.9% IV 100 ML 30 ML (08:49)
[2021-08-15 10:25] LABS: Device VENTILATOR; Modified Allen's Test Pass; Site Drawn RIGHT RADIAL; Total Hemoglobin 6.1 g/dL (12.0-18.0)
[2021-08-15 10:26] LABS: Arterial Blood Gas PEEP 5 cmH2O; Arterial Blood Gas Tidal Volume 420 ml; Arterial Blood Gas Vent Mode CMV; Arterial Blood Gas Ventilator rate 18 /MIN
[2021-08-15] MEDS: MAGNESIUM SULF 2 GM/WATER 50ML 2 GM/50 ML BAG IVPB (11:04)
[2021-08-15 11:29] LABS: Glucose Point of Care 147 mg/dl (65-105)
[2021-08-15] MEDS: PANTOPRAZOLE SODIUM IV 40 MG VIAL IV PUSH ×2 (11:33→20:00)
[2021-08-15] MEDS: METOCLOPRAMIDE HCL 10 MG/10 ML SOLN UDC 5 MG PO ×2 (11:33→18:07)
[2021-08-15] MEDS: FENTANYL 2,500MCG/NS250ML(*CRX 2,500 MCG/250 ML BAG 7.5 MCG IV CONT (11:38)
--- NOTE | 2021-08-15 11:40 | WPDINTPN ---
Progress Note: A&P Assessment and Plan (1) Hypercapnic respiratory failure: Code(s): J96.92 - Respiratory failure, unspecified with hypercapnia Status: Acute Assessment and Plan: Acute Respiratory failure secondary to pulmonary edema, pleural effusions and pneumonia 08/14 Patient was emergently intubated on arrival to ICU as his hypercarbia was worse and he was in respiratory distress Chest x-ray reviewed Continue full mechanical ventilation support to prevent hypoxemia/hypercarbia and end organ damage. ABG reviewed and will decrease minute ventil Low tidal volume ventilation strategy to prevent volutrauma (2) Hypoglycemia: Code(s): E16.2 - Hypoglycemia, unspecified Status: Acute Assessment and Plan: currently on dextrose fluids. Blood sugars are now elevated will decrease the rate and try to wean it off patient did not tolerate tube feeds due to high residuals. Will add Reglan and restart tube feeds (3) CAD (coronary artery disease): Code(s): I25.10 - Atherosclerotic heart disease of [place] coronary artery without angina pectoris Status: Chronic Assessment and Plan: Status post recent CABG Aspirin, amio, statin and Eliquis (4) Hyponatremia: Code(s): E87.1 - Hypo-osmolality and hyponatremia Status: Acute Assessment and Plan: improving (5) ROSHAN (acute kidney injury): Code(s): N17.9 - Acute kidney failure, unspecified Status: Acute Assessment and Plan: Likely prerenal from sepsis and cardiogenic On review of records from [facility] it appears the patient had acute kidney injury postop after his CABG and his creatinine improved later in the course prior to discharge although I do not have the exact creatinine at the time of discharge Creatinine is improving Monitor urine output creatinine electrolytes hold further IV fluids at this time as patient is overall volume overloaded and has congestive heart failure. hold diuretics due to low blood pressure (6) Congestive heart failure: Code(s): I50.9 - Heart failure, unspecified Status: Chronic Assessment and Plan: I reviewed echocardiogram done at [facility] and it showed the patient had EF of 25% postop and also had a pericardial effusion I will repeat echocardiogram to reassess cardiac function and size of pericardial effusion. This patient is on very low-dose of Levophed at this time I do not suspected tamponade physiology Requested Cardiology to re-evaluate patient after echocardiogram is done tomorrow (7) Bilateral pleural effusion: Code(s): J90 - Pleural effusion, not elsewhere classified Status: Acute Assessment and Plan: CT reviewed May need thoracentesis (8) Pneumonia: Qualifiers: Laterality: bilateral Lung location: upper lobe of lung Pneumonia type: due to unspecified organism Qualified Code(s): J18.9 - Pneumonia, unspecified organism Code(s): J18.9 - Pneumonia, unspecified organism Status: Acute Assessment and Plan: Hcap versus aspiration Blood and sputum culture Broad-spectrum antibiotics (9) Sepsis: Qualifiers: Sepsis acute organ dysfunction status: unspecified Sepsis type: sepsis due to unspecified organism Qualified Code(s): A41.9 - Sepsis, unspecified organism Code(s): A41.9 - Sepsis, unspecified organism Status: Acute Assessment and Plan: secondary to pneumonia see above (10) Shock: Code(s): R57.9 - Shock, unspecified Status: Acute Assessment and Plan: Sepsis and cardiogenic 1 L bolus on arrival to ICU. Was started on cautious IV fluids. Continue Levophed Check echocardiogram which is pending normal lactic acid level 08/14 Central venous catheter was placed emergently as patient needed vasopressors and had poor IV access. Procedure was done by Giovany Yen while I was in the room supervising throughout
[2021-08-15 12:57] LABS: Hemoglobin 7.5 g/dL (14.0-18.0)
[2021-08-15] MEDS: NOREPINEPHRINE 8 MG/D5W 250 ML 8 MG/250 ML BAG 13.13 MG IV CONT (13:19)
[2021-08-15 15:18] LABS: Glucose Point of Care 123 mg/dl (65-105)
[2021-08-15] MEDS: ALBUMIN HUMAN 25% 25 GM/100 ML 100 ML IVPB (17:54)
[2021-08-15 19:22] LABS: Hematocrit 23.8 % (42.0-52.0); Hemoglobin 7.8 g/dL (14.0-18.0)
[2021-08-15] MEDS: MIDAZOLAM 100MG/NS 100ML(*CRX) 100 MG/100 ML BAG IV CONT (20:05)
[2021-08-15 20:50] LABS: Glucose Point of Care 105 mg/dl (65-105)
[2021-08-16] VITALS (27 sets, daily range): BP systolic 92–121; BP diastolic 50–71; PULSE 52–64; RESP 16; TEMP 36–37.5; O2SAT 97–100; BMI 31.7
--- NOTE | 2021-08-16 | ECHO_ITS ---
Patient Info Name: Angel Luis Grace Chiara Age: 61 years : 1960 Gender: Male Ht: 66 in Wt: 180 lbs BSA: 1.97 m2 HR: 67 bpm BP: 121 / 68 mmHg Heart Rhythm: Sinus Rhythm Technical Quality: Good Exam Date: 08/16/2021 10:13 AM Exam Location: [facility] Pulmonary Exam Room: ICU4 Patient Status: Inpatient Admit Date: 08/13/2021 Staff Ordering Physician: Venkat Santillan MD Sound Recordist: Gay Jackson RDCS Attending Provider: Giovany Alcaraz MD Exam Type: CA echo doppler color flow Study Info Indications - cabg sepsis chf Complete two-dimensional, color flow and Doppler transthoracic echocardiogram is performed with contrast to opacify the left ventricle and to improve the deliniation of the left ventricle endocardial borders. Summary 1. Left ventricular chamber dimension is normal. 2. Left ventricular systolic function is mildly reduced, estimated at 40-45%. 3. There is mildly increased left ventricular wall thickness. 4. The left ventricular diastolic function is normal. 5. The anterior wall, inferoseptal wall, and anteroseptal wall are hypokinetic. 6. Left atrial chamber dimension is moderately enlarged. 7. There is mild mitral valve regurgitation. 8. There is mild tricuspid valve regurgitation. 9. There is mild pulmonic regurgitation. 10. There is trivial pericardial effusion. Left Ventricle Left ventricular chamber dimension is normal. Left ventricular systolic function is mildly reduced, estimated at 40-45%. There is mildly increased left ventricular wall thickness. The left ventricular diastolic function is normal. The anterior wall, inferoseptal wall, and anteroseptal wall are hypokinetic. All other arnett appear normal. Right Ventricle Right ventricular chamber dimension is normal. Right ventricular systolic function is normal. Left Atria Left atrial chamber dimension is moderately enlarged. Right Atria Right atrial chamber dimension is normal. Atrial Septum Intact interatrial septum visualized by color flow imaging. Aortic Valve The aortic valve is trileaflet. There is no aortic valve sclerosis. There is no aortic valve stenosis. There is trace aortic valve regurgitation. Pulmonic Valve The pulmonic valve is normal. There is no pulmonic valve stenosis. There is mild pulmonic regurgitation. Mitral Valve The mitral valve has calcified annulus. There is no mitral valve stenosis. There is mild mitral valve regurgitation. Tricuspid Valve The tricuspid valve leaflets are normal. There is no significant tricuspid valve stenosis. There is mild tricuspid valve regurgitation. No pulmonary hypertension, estimated pulmonary arterial systolic pressure is 27 mmHg. Pericardium/Pleural The pericardium appears normal. There is trivial pericardial effusion. Inferior Vena Cava Dilated inferior vena cava with <50% collapse upon inspiration consistent with elevated right atrial pressure, 15 mmHg. Aorta The aortic root size at the sinus of Valsalva is normal. There is mild aortic atherosclerosis. Left Ventricular Outflow Tract Name Value Normal LVOT 2D LVOT Diameter 2.1 cm LVOT Doppler
[2021-08-16] MEDS: metroNIDAZOLE 500 MG/ISO 100ML 500 MG/100 ML BAG 100 MG IVPB ×4 (00:27→17:15)
[2021-08-16] MEDS: ALBUMIN HUMAN 25% 25 GM/100 ML 100 ML IVPB ×3 (00:28→11:20)
[2021-08-16] MEDS: METOCLOPRAMIDE HCL 10 MG/10 ML SOLN UDC 5 MG PO ×4 (00:28→17:15)
[2021-08-16 00:48] LABS: Glucose Point of Care 106 mg/dl (65-105)
[2021-08-16] MEDS: AZTREONAM 1 GM in DEXTROSE 5% IN WATER 50 ML 100 ML IVPB ×3 (01:22→17:14)
[2021-08-16 05:14] LABS: Alveolar/Arterial O2 Gradient 92.6 mmHg; Base Excess ABG -1.7 mEq/l (+/-2.0); Carboxyhemoglobin 0.3 % THb (0-2.0); Fractional Inspired Oxygen 30 %; HCO3 ABG 23.5 mEq/l (22.0-26.0); Methemoglobin ABG 0.4 %THb (0-1.5); Oxygen Content ABG 10.3 %vol (16.0-22.0); Oxygen Saturation ABG 94.2 % (95.0-100.0); Oxyhemoglobin 91.9 % THb (90.0-100.0); PCO2 ABG 41.5 mmHg (35.0-45.0); PO2 ABG 72.5 mmHg (80.0-100.0); PO2 FiO2 Ratio Arterial Blood 2.42 %; Reduced Hemoglobin 7.4 %THb (0-5.0)
[2021-08-16 05:17] LABS: Device VENTILATOR; Modified Allen's Test Unable to perform; Site Drawn LEFT RADIAL; Total Hemoglobin 7.9 g/dL (12.0-18.0)
[2021-08-16 05:18] LABS: Arterial Blood Gas PEEP 5 cmH2O; Arterial Blood Gas Tidal Volume 380 ml; Arterial Blood Gas Vent Mode CMV; Arterial Blood Gas Ventilator rate 16 /MIN
[2021-08-16 05:50] LABS: Alanine Aminotransferase 17 U/L (4-50); Albumin Level 3.2 g/dL (3.5-5.1); Alkaline Phosphatase 114 U/L (38-126); Anion Gap 7 mmol/L (8-16); Aspartate Amino Transferase 22 U/L (17-59); Bilirubin,Total 0.2 mg/dL (0.2-1.3); Blood Urea Nitrogen 23 mg/dL (9-20); Calcium 7.9 mg/dL (8.4-10.2); Carbon Dioxide 25 mmol/L (22-30); Chloride 100 mmol/L (98-107); Estimated CRCL calculation 33 ml/min; Estimated Glomerular Filt Rate 30; Glucose 108 mg/dL (65-110); Magnesium 2.2 mg/dL (1.6-2.3); Potassium 4.2 mmol/L (3.4-5.0); Sodium 132 mmol/L (137-145)
[2021-08-16 05:51] LABS: Hematocrit 22.4 % (42.0-52.0); Hemoglobin 7.3 g/dL (14.0-18.0); Mean Corpuscular HGB Conc 32.6 g/dl (32-36); Mean Corpuscular Hemoglobin 29.9 pg (26-34); Mean Corpuscular Volume 91.8 fl (80-100); Mean Platelet Volume 8.3 fl (7.4-10.4); Platelet Count Result 410 k/mm3 (150-375); Red Blood Count 2.44 M/mm3 (4.6-6.20); Red Cell Distribution Width 13.6 % (11.5-14.5); White Blood Count 11.9 K/mm3 (4.5-10.0)
[2021-08-16 06:05] LABS: INR 1.4; Prothrombin Time 16.5 Seconds (11.1-14.7)
[2021-08-16 08:46] LABS: Glucose Point of Care 89 mg/dl (65-105)
[2021-08-16] MEDS: MINERAL OIL/WHITE PETROLATUM OINTMENT 1 APPLIC EACH EYE ×2 (08:48→21:54)
[2021-08-16] MEDS: AMIODARONE HCL 200 MG TABLET 400 MG PO (08:49)
[2021-08-16] MEDS: ROSUVASTATIN 5 MG TABLET PO (08:49)
[2021-08-16] MEDS: PANTOPRAZOLE SODIUM IV 40 MG VIAL IV PUSH ×2 (08:50→21:53)
--- NOTE | 2021-08-16 09:18 | WPDINTPN ---
Progress Note: A&P Assessment and Plan (1) Hypercapnic respiratory failure: Code(s): J96.92 - Respiratory failure, unspecified with hypercapnia Status: Acute Assessment and Plan: Acute Respiratory failure secondary to pulmonary edema, pleural effusions and pneumonia 08/14 Patient was emergently intubated on arrival to ICU as his hypercarbia was worse and he was in respiratory distress Chest x-ray reviewed Continue full mechanical ventilation support to prevent hypoxemia/hypercarbia and end organ damage. ABG reviewed Low tidal volume ventilation strategy to prevent volutrauma Left thoracentesis requested (2) Hypoglycemia: Code(s): E16.2 - Hypoglycemia, unspecified Status: Acute Assessment and Plan: currently on dextrose fluids at low rate. Patient has not been tolerating tube feeds due to high residuals Increase Reglan and restart tube feeds at a low rate (3) CAD (coronary artery disease): Code(s): I25.10 - Atherosclerotic heart disease of [place] coronary artery without angina pectoris Status: Chronic Assessment and Plan: Status post recent CABG Aspirin, amio, statin and Eliquis (4) Hyponatremia: Code(s): E87.1 - Hypo-osmolality and hyponatremia Status: Acute Assessment and Plan: stable monitor (5) ROSHAN (acute kidney injury): Code(s): N17.9 - Acute kidney failure, unspecified Status: Acute Assessment and Plan: Likely prerenal from sepsis and cardiogenic On review of records from [facility] it appears the patient had acute kidney injury postop after his CABG and his creatinine improved later in the course prior to discharge although I do not have the exact creatinine at the time of discharge Creatinine is stable Monitor urine output creatinine electrolytes I will hold further IV fluids at this time as patient is overall volume overloaded and has congestive heart failure. hold diuretics due to low blood pressure Continue 25% albumin (6) Congestive heart failure: Code(s): I50.9 - Heart failure, unspecified Status: Chronic Assessment and Plan: I reviewed echocardiogram done at [facility] and it showed the patient had EF of 25% postop and also had a pericardial effusion I will repeat echocardiogram to reassess cardiac function and size of pericardial effusion. This patient is on very low-dose of Levophed at this time I do not suspected tamponade physiology Requested Cardiology to re-evaluate patient after echocardiogram is done tomorrow (7) Bilateral pleural effusion: Code(s): J90 - Pleural effusion, not elsewhere classified Status: Acute Assessment and Plan: CT reviewed Patient has bilateral large pleural effusion and on the right it may be loculated. This is likely secondary to congestive heart failure and recent CABG. Patient had thoracentesis done on both sides postop at [facility]. I will request IR for left-sided thoracentesis today and probably right side tomorrow. Will send fluid for studies although I do not suspect this to be a parapneumonic effusio (8) Pneumonia: Qualifiers: Laterality: bilateral Lung location: upper lobe of lung Pneumonia type: due to unspecified organism Qualified Code(s): J18.9 - Pneumonia, unspecified organism Code(s): J18.9 - Pneumonia, unspecified organism Status: Acute Assessment and Plan: Hcap versus aspiration Blood and sputum culture Broad-spectrum antibiotics (9) Sepsis: Qualifiers: Sepsis acute organ dysfunction status: unspecified Sepsis type: sepsis due to unspecified organism Qualified Code(s): A41.9 - Sepsis, unspecified organism Code(s): A41.9 - Sepsis, unspecified organism Status: Acute Assessment and Plan: secondary to pneumonia see above (10) Shock: Code(s): R57.9 - Shock, unspecified Status: Acute Assessment and Plan: Sepsi
[2021-08-16 10:23] LABS: Lactate Dehydrogenase 265 U/L (313-618)
[2021-08-16 12:03] LABS: Vancomycin Trough 17.4 ug/mL (10.0-20.0)
[2021-08-16 14:22] LABS: pH Pleural Fluid 7.341 (7.210-7.500)
[2021-08-16 15:31] LABS: Appearance Pleural Fluid Bloody (Clear); Color Pleural Fluid Red (Colorless); Pleural fluid source Pleural fluid
[2021-08-16 15:33] LABS: Lymphocytes Pleural Fluid 31 %; Neutrophils Pleural Fluid 64 % (0-25)
--- NOTE | 2021-08-16 15:34 | PM.PNCARD ---
Progress Note: A&P Additional Plan Respiratory insufficiency occurring in this 61-year-old man following recent bypass grafting elsewhere. He does have mild LV systolic dysfunction but does not appear to be in severe decompensated heart failure. He does have mild LV dysfunction by echo and he has a trivial pericardial effusion following surgery which is very common and of no hemodynamic consequence. Agree with discontinuing anticoagulation is he is become significantly anemic over the weekend in his require transfusion of red cells. Presumably the apixaban was because of postoperative atrial fibrillation which is currently quiescent. We will continue to follow with you while he is in the ICU here at [place]. Praneeth Scott MD [facility] Subjective Date/time seen: Date of service: 08/16/21 15:34 Interval history: Follow-up visit in this 61-year-old man with: History of multivessel coronary disease treated several weeks ago with surgical myocardial revascularization in [place]. As I mentioned in my consult note on Monday we really do not have any of the specifics regarding this situation. He was with family members in this region recovering from the surgery and was brought to the emergency room on Monday because of significant weakness and diarrhea. Over the weekend he was intubated in the ICU because of hypercarbic respiratory failure. He did have some pleural fluid tapped yesterday which looked like a straw-colored fluid from what I see. He has a trivial pericardial effusion on echo with an ejection fraction in the vicinity of 40-45%. He remains on amiodarone for postop atrial fibrillation. Patient is intubated on the ventilator and sedated at this time Exam Const: Other: Well-developed well-nourished white male intubated and sedated on the ventilator HENMT: Mouth: Yes moist mucous membranes Eyes: Sclera: sclerae normal Pupils: Equal, round and reactive pupils present Neck: Neck: supple Other: No significant venous distention is seen Resp: Effort & Inspection: normal respiratory effort Auscultation: clear to auscultation bilaterally Other: Breath sounds are largely clear anteriorly in both lung weinberg could not sit the patient up for posterior auscultation Cardio: Rate: regular rate Rhythm: regular rhythm Other: No murmur no gallop no rub GI: GI Palp: Yes Soft to palpation Auscultation: normal bowel sounds Neuro: Cognition (Neuro): normal cognition Objective Data Vital Signs Vital Signs: Vital Signs - 24 hr 08/15/21 16:00 08/15/21 16:35 08/15/21 18:00 Temperature 36.2 C L Pulse Rate 58 L 58 L 60 Respiratory Rate 17 16 Blood Pressure 101/59 L 105/61 Pulse Oximetry 98 99 96 08/15/21 20:00 08/15/21 20:06 08/15/21 20:10 Temperature 36.2 C L Pulse Rate 59 L 59 L 58 L Respiratory Rate 16 17 18 Blood Pressure 102/65 Pulse Oximetry 97 98 08/15/21 22:00 08/15/21 23:30 08/16/21 00:00 Temperature 36.3 C L Pulse Rate 58 L 58 L 62 Respiratory Rate 16 16 16 Blood Pressure 87/52 L 92/50 L Pulse Oximetry 97 98 97 08/16/21 02:30 08/16/21 04:00 08/16/21 05:20 Temperature Pulse Rate 58 L 60 58 L Respiratory Rate 16 16 16 Blood Pressure 101/58 L Pulse Oximetry 98 97 98 08/16/21 06:00 08/16/21 08:00 08/16/21 08:17 Temperature 36.6 C 36.3 C L Pulse Rate 60 64 63 Respiratory Rate 16 16 16 Blood Pressure 121/68 98/58 L Pulse Oximetry 98 98 08/16/21 08:18 08/16/21 08:20 08/16/21 08:49 Temperature Pulse Rate 64 63 59 L Respiratory Rate 16 Blood Pressure Pulse Oximetry 100 08/16/21 10:00 08/16/21 11:15 08/16/21 12:00 Temperature 36.0 C L Pulse Rate 59 L 59 L 58 L Respiratory Rate 16 16 Blood Pressure 98/63 L 111/67 Pulse Oximetry 98 99 100 08/16/21 14:00 08/16/21 14:55 Temperature Pulse Rate 58 L 57 L Respiratory Rate 16 Blood Pressure 116/67 Pulse Oximetry 97 98 Intake/Output Intake/Output: Intake & Output 08/13/21 08/14/21
[2021-08-16 15:35] LABS: Monocytes Pleural Fluid 5 %
[2021-08-16] MEDS: FENTANYL 2,500MCG/NS250ML(*CRX 2,500 MCG/250 ML BAG 10 MCG IV CONT (17:16)
[2021-08-16 17:36] LABS: Glucose Point of Care 85 mg/dl (65-105)
[2021-08-16] MEDS: DEXTROSE 5%/0.9% SOD CHL 1,000 ML 25 ML IV CONT (18:58)
[2021-08-16 19:47] LABS: Glucose Point of Care 76 mg/dl (65-105)
[2021-08-16] MEDS: MIDAZOLAM 100MG/NS 100ML(*CRX) 100 MG/100 ML BAG IV CONT (21:53)
[2021-08-17] VITALS (35 sets, daily range): BP systolic 89–141; BP diastolic 51–82; PULSE 8–75; RESP 16–17; TEMP 35.7–37.6; O2SAT 95–100
[2021-08-17 00:13] LABS: Glucose Point of Care 80 mg/dl (65-105)
[2021-08-17] MEDS: metroNIDAZOLE 500 MG/ISO 100ML 500 MG/100 ML BAG 100 MG IVPB ×4 (00:21→17:05)
[2021-08-17] MEDS: METOCLOPRAMIDE HCL 10 MG/10 ML SOLN UDC 5 MG PO ×2 (00:21→05:23)
[2021-08-17] MEDS: AZTREONAM 1 GM in DEXTROSE 5% IN WATER 50 ML 100 ML IVPB ×3 (02:20→17:05)
[2021-08-17 04:07] LABS: Glucose Point of Care 81 mg/dl (65-105)
[2021-08-17 04:46] LABS: Alveolar/Arterial O2 Gradient 67.8 mmHg; Carboxyhemoglobin 0.3 % THb (0-2.0); Fractional Inspired Oxygen 30 %; HCO3 ABG 24.5 mEq/l (22.0-26.0); Methemoglobin ABG 0.6 %THb (0-1.5); Oxygen Content ABG 8.6 %vol (16.0-22.0); Oxygen Saturation ABG 97.7 % (95.0-100.0); Oxyhemoglobin 95.9 % THb (90.0-100.0); PCO2 ABG 38.6 mmHg (35.0-45.0); PO2 ABG 100.7 mmHg (80.0-100.0); PO2 FiO2 Ratio Arterial Blood 3.36 %; Reduced Hemoglobin 3.2 %THb (0-5.0)
[2021-08-17 04:48] LABS: Device VENTILATOR; Modified Allen's Test Pass; Site Drawn LEFT RADIAL; Total Hemoglobin 6.2 g/dL (12.0-18.0)
[2021-08-17 04:49] LABS: Arterial Blood Gas PEEP 5 cmH2O; Arterial Blood Gas Tidal Volume 380 ml; Arterial Blood Gas Vent Mode CMV; Arterial Blood Gas Ventilator rate 16 /MIN
[2021-08-17 05:16] LABS: Hematocrit 21.4 % (42.0-52.0); Mean Corpuscular HGB Conc 31.3 g/dl (32-36); Mean Corpuscular Hemoglobin 30.2 pg (26-34); Mean Corpuscular Volume 96.4 fl (80-100); Mean Platelet Volume 8.1 fl (7.4-10.4); Platelet Count Result 293 k/mm3 (150-375); Red Blood Count 2.22 M/mm3 (4.6-6.20); Red Cell Distribution Width 13.8 % (11.5-14.5); White Blood Count 6.9 K/mm3 (4.5-10.0)
[2021-08-17 05:21] LABS: Alanine Aminotransferase 14 U/L (4-50); Albumin Level 3.2 g/dL (3.5-5.1); Alkaline Phosphatase 91 U/L (38-126); Anion Gap 7 mmol/L (8-16); Aspartate Amino Transferase 17 U/L (17-59); Bilirubin,Total 0.2 mg/dL (0.2-1.3); Blood Urea Nitrogen 23 mg/dL (9-20); Carbon Dioxide 26 mmol/L (22-30); Chloride 101 mmol/L (98-107); Estimated CRCL calculation 42 ml/min; Estimated Glomerular Filt Rate 41; Glucose 86 mg/dL (65-110); Magnesium 2.1 mg/dL (1.6-2.3); Potassium 3.7 mmol/L (3.4-5.0); Sodium 134 mmol/L (137-145)
[2021-08-17 05:28] LABS: INR 1.3; Prothrombin Time 16.2 Seconds (11.1-14.7)
[2021-08-17 06:02] LABS: Hemoglobin 6.7 g/dL (14.0-18.0)
[2021-08-17] MEDS: ENOXAPARIN 30 MG/0.3 ML SYRINGE SUB-Q (07:59)
[2021-08-17] MEDS: PANTOPRAZOLE SODIUM IV 40 MG VIAL IV PUSH ×2 (07:59→20:47)
[2021-08-17] MEDS: AMIODARONE HCL 200 MG TABLET 400 MG PO (08:00)
[2021-08-17] MEDS: ROSUVASTATIN 5 MG TABLET PO (08:00)
[2021-08-17] MEDS: MINERAL OIL/WHITE PETROLATUM OINTMENT 1 APPLIC EACH EYE ×2 (08:00→20:47)
[2021-08-17 08:13] LABS: Glucose Point of Care 78 mg/dl (65-105)
[2021-08-17] MEDS: DEXTROSE 10% 1,000 ML 30 ML IV CONT (09:33)
[2021-08-17] MEDS: SODIUM CHLORIDE 0.9% IV 250 ML 30 ML IV CONT (10:44)
[2021-08-17 11:18] LABS: Glucose Point of Care 104 mg/dl (65-105)
--- NOTE | 2021-08-17 11:34 | WPDINTPN ---
Progress Note: A&P Assessment and Plan (1) Hypercapnic respiratory failure: Code(s): J96.92 - Respiratory failure, unspecified with hypercapnia Status: Acute Assessment and Plan: Acute Respiratory failure secondary to pulmonary edema, pleural effusions and pneumonia 08/14 Patient was emergently intubated on arrival to ICU as his hypercarbia was worse and he was in respiratory distress Chest x-ray reviewed Continue full mechanical ventilation support to prevent hypoxemia/hypercarbia and end organ damage. ABG reviewed Low tidal volume ventilation strategy to prevent volutrauma 08/16/2021: Left-sided thoracentesis with removal of 250 mL of opaque, red fluid Will have IR perform a right-sided thoracentesis today (2) Hypoglycemia: Code(s): E16.2 - Hypoglycemia, unspecified Status: Acute Assessment and Plan: Change dextrose to D10 at 30 mL/hour for low blood sugars, patient is not tolerating tube feeds due to high residuals will increase Reglan to 10 mg q.6 hours and monitor -increased tube feed rate (3) CAD (coronary artery disease): Code(s): I25.10 - Atherosclerotic heart disease of [place] coronary artery without angina pectoris Status: Chronic Assessment and Plan: Status post recent CABG Continue amiodarone and statin, -hold aspirin and Eliquis due to anemia (4) Hyponatremia: Code(s): E87.1 - Hypo-osmolality and hyponatremia Status: Acute Assessment and Plan: stable monitor (5) ROSHAN (acute kidney injury): Code(s): N17.9 - Acute kidney failure, unspecified Status: Acute Assessment and Plan: Likely prerenal from septic and/or cardiogenic shock, hypovolemia, decreased p.o. intake, On review of records from [facility] it appears the patient had acute kidney injury postop after his CABG and his creatinine improved later in the course prior to discharge although I do not have the exact creatinine at the time of discharge Creatinine improving, peaked at 2.4 on 08/14/2021 Monitor urine output creatinine electrolytes Hold IV fluids and diuretics Continue 25% albumin (6) Congestive heart failure: Code(s): I50.9 - Heart failure, unspecified Status: Chronic Assessment and Plan: Reviewed echocardiogram done at [facility] and it showed the patient had EF of 25% postop and also had a pericardial effusion -appreciate cardiology evaluation and recommendations -08/16/2021 echocardiogram showed LV systolic function to be 40-45%, LV diastolic function is normal, anterior wall, inferoseptal wall and anteroseptal wall are hypokinetic, left atrial chamber dimension is moderately enlarged, mild mitral valve regurg. (7) Bilateral pleural effusion: Code(s): J90 - Pleural effusion, not elsewhere classified Status: Acute Assessment and Plan: CT reviewed Patient has bilateral large pleural effusion and on the right it may be loculated. This is likely secondary to congestive heart failure and recent CABG. Patient had thoracentesis done on both sides postop at [facility]. -appreciate IR doing the left-sided thoracentesis on 08/16/2021 -will request IR to perform a right-sided thoracentesis today (8) Pneumonia: Qualifiers: Laterality: bilateral Lung location: upper lobe of lung Pneumonia type: due to unspecified organism Qualified Code(s): J18.9 - Pneumonia, unspecified organism Code(s): J18.9 - Pneumonia, unspecified organism Status: Acute Assessment and Plan: Hcap versus aspiration Blood and sputum culture Broad-spectrum antibiotics -vancomycin and aztreonam (started on 08/13/2021) -blood cultures, sputum culture, urine culture negative -pleural fluid Gram stain - no Organisms seen. Cultures are pending (9) Sepsis: Qualifiers: Sepsis acute organ dysfunction status: unspecified Sepsis type: sepsis due to unspecified organism Qualified Code(s): A41.
[2021-08-17] MEDS: METOCLOPRAMIDE HCL INJ 10 MG/2 ML VIAL IV PUSH ×2 (12:03→17:06)
--- NOTE | 2021-08-17 13:13 | PM.IMPN ---
Progress Note: A&P Assessment and Plan (1) HCAP (healthcare-associated pneumonia): Code(s): J18.9 - Pneumonia, unspecified organism Status: Acute Assessment and Plan: CT scan of the chest reviewed regard moderate bilateral pleural effusion with underlying compressive atelectasis, some of the pleural effusions seems to be loculated particularly on right side Bilateral airspace disease of the upper lobes which may represent atelectasis or pneumonia Cover for healthcare associated pneumonia with his recent hospitalization Pt is iv flagyl and iv vancomycin and iv aztreonam (2) UTI (urinary tract infection): Code(s): N39.0 - Urinary tract infection, site not specified Status: Resolved (3) Congestive heart failure: Code(s): I50.9 - Heart failure, unspecified Status: Chronic Assessment and Plan: I think he is in acute congestive heart failure improved (4) Hyperlipidemia: Code(s): E78.5 - Hyperlipidemia, unspecified Status: Chronic Assessment and Plan: Continue with her rosuvastatin and continue to monitor liver function test. (5) Hypertension: Code(s): I10 - Essential (primary) hypertension Status: Chronic Assessment and Plan: Hold lisinopril for now as the patient has acute kidney injury Continue to monitor (6) Atrial fibrillation: Code(s): I48.91 - Unspecified atrial fibrillation Status: Chronic Assessment and Plan: The patient is currently in sinus rhythm. Continue with his Eliquis and amiodarone (7) ROSHAN (acute kidney injury): Code(s): N17.9 - Acute kidney failure, unspecified Status: Acute Assessment and Plan: Creat is 1.7 continue to fluids blood and vasopresoors (8) Diarrhea: Qualifiers: Diarrhea type: infectious Qualified Code(s): A09 - Infectious gastroenteritis and colitis, unspecified Code(s): R19.7 - Diarrhea, unspecified Status: Acute Assessment and Plan: Started on IV Flagyl for bowel cover C diff infection. On fecal management system (9) Bilateral pleural effusion: Code(s): J90 - Pleural effusion, not elsewhere classified Status: Acute Assessment and Plan: The patient does have a history of CHF. Or consider further diuresis intermittently (10) CAD (coronary artery disease): Code(s): I25.10 - Atherosclerotic heart disease of [place] coronary artery without angina pectoris Status: Chronic Assessment and Plan: The patient has had a 3 vessel CABG 3 weeks ago and has a life vest on. (11) Suspected COVID-19 virus infection: Code(s): Z20.822 - Contact with and (suspected) exposure to COVID-19 Status: Ruled-out (12) Aspiration into respiratory tract: Code(s): T17.908A - Unspecified foreign body in respiratory tract, part unspecified causing other injury, initial encounter Status: Acute Assessment and Plan: Episode on 08/14/2021 Covered with appropriate antibiotics (13) Hypoglycemia: Code(s): E16.2 - Hypoglycemia, unspecified Status: Acute Assessment and Plan: Hypoglycemia protocol Likely due to sepsis Continue to monitor Accu-Cheks (14) Hypercapnic respiratory failure: Code(s): J96.92 - Respiratory failure, unspecified with hypercapnia Status: Acute Assessment and Plan: Due to aspiration episode (15) Hyponatremia: Code(s): E87.1 - Hypo-osmolality and hyponatremia Status: Acute Assessment and Plan: sodium is 134 (16) Anemia: Code(s): D64.9 - Anemia, unspecified Status: Acute Assessment and Plan: Transfuse blood (17) Shock: Code(s): R57.9 - Shock, unspecified Status: Acute Assessment and Plan: Pt receiving blood fluids and is on vasopressors, temp is low pt is on bear hugger and hypothermic protocol Subjective Date/time seen: 08/17/21 13:13 Interval history: HPI
--- NOTE | 2021-08-17 13:13 | PCNFU ---
Nutrition Follow-Up Complete: Inadequate Oral Intake as related to mechanical ventilation as evidenced by NPO. Goal: Meet estimated Nutritional needs Patient is progressing towards goal. We will continue current goal. Pt current nutrition is Jevity 1.2 at 20 ml/hr over 22 hours. Nutrition recommendation: goal rate at 65 ml/hr. Last recorded weight is 87.6 kg, down from 89.2kg on admit. Bowel Motility:Fecal containment catheter. Labs Reviewed:Cr 1.7,BUN 23, GFR 41, Na 134, Alb 3.2, Hct 21.4,Hgb 6.7 Meds Noted:Reglan,Versed, Fentanyl, Lovenox, Flagyl, Protonix,Crestor, Vancomycin. Skin: WNL Additional Notes: Patient remains on mechanical vent with tube feedings of Jevity 1.2 at 20 ml/hr at this time. 200 ml residual today. 1 unit of blood given. Right thoracentesis planned for today. Goal rate of tube feedings will provide patient with 1716 kcals/79 gms protein/1154 ml water. Free water flush 30 ml q 4 hours. Agree with diet orders. Will monitor daily in ICU rounds. Reassessing every Monday and Monday.
[2021-08-17] MEDS: FENTANYL 2,500MCG/NS250ML(*CRX 2,500 MCG/250 ML BAG 12.5 MCG IV CONT (14:43)
[2021-08-17 15:03] LABS: pH Pleural Fluid 7.265 (7.210-7.500)
--- NOTE | 2021-08-17 15:33 | PM.PNCARD ---
Progress Note: A&P Assessment and Plan (1) Hyperlipidemia: Code(s): E78.5 - Hyperlipidemia, unspecified Status: Chronic Assessment and Plan: Will increase his rosuvastatin to 10 mg daily (2) Hypertension: Code(s): I10 - Essential (primary) hypertension Status: Chronic Assessment and Plan: Stable (3) CAD (coronary artery disease): Code(s): I25.10 - Atherosclerotic heart disease of [place] coronary artery without angina pectoris Status: Chronic Assessment and Plan: Continue aspirin, lisinopril, metoprolol. (4) Hypercapnic respiratory failure: Code(s): J96.92 - Respiratory failure, unspecified with hypercapnia Status: Acute Assessment and Plan: Thoracentesis today. Still intubated. Workup per ICU Additional Plan Respiratory insufficiency occurring in this 61-year-old man following recent bypass grafting elsewhere. He does have mild LV systolic dysfunction but does not appear to be in severe decompensated heart failure. He does have mild LV dysfunction by echo and he has a trivial pericardial effusion following surgery which is very common and of no hemodynamic consequence. Agree with discontinuing anticoagulation is he is become significantly anemic over the weekend in his require transfusion of red cells. Presumably the apixaban was because of postoperative atrial fibrillation which is currently quiescent. We will continue to follow with you while he is in the ICU here at [place]. Stop Eliquis Thoracentesis today Subjective Date/time seen: 08/17/21 15:33 Interval history: Follow-up visit in this 61-year-old man with: History of multivessel coronary disease treated several weeks ago with surgical myocardial revascularization in [place]. As I mentioned in my consult note on Monday we really do not have any of the specifics regarding this situation. He was with family members in this region recovering from the surgery and was brought to the emergency room on Monday because of significant weakness and diarrhea. Date of service 08/17/2021: Still intubated sedated. Rhythm is stable. Review of Systems Constitutional: Constitutional: Reports no additional constitutional complaints Eyes: Eyes: Reports no additional eye complaints ENT: Reports system reviewed and no additional complaints, except as documented Cardiovascular: Cardiovascular: Reports no additional cardiovascular complaints Respiratory: Respiratory: Reports no additional respiratory complaints Gastrointestinal: Gastrointestinal: Reports diarrhea Musculoskeletal: Musculoskeletal: Reports no additional musculoskeletal complaints Integumentary/Breasts: Skin/Breast: Reports system reviewed and no additional complaints, except as docu Neurologic: Reports system reviewed and no additional complaints, except as documented Endocrine: Endocrine: Reports no additional endocrine complaints Hematologic/Lymphatic: Hematologic/Lymphatic: Reports no additional hematologic/lymphatic complaints Allergic/Immunologic: Allergic/Immunologic: Reports no additional allergic/immunologic complaints Exam Const: General: comfortable and no acute distress Other: Well-developed well-nourished white male intubated and sedated on the ventilator HENMT: Mouth: Yes moist mucous membranes Eyes: Sclera: sclerae normal Pupils: Equal, round and reactive pupils present Neck: Neck: supple and no JVD Other: No significant venous distention is seen Resp: Effort & Inspection: normal respiratory effort Auscultation: clear to auscultation bilaterally Other: Breath sounds are largely clear anteriorly in both lung weinberg could not sit the patient up for posterior auscultation Cardio: Rate: regular rate Rhythm: regular rhythm Other: No murmur no gallop no rub GI: Auscultation: normal bowel sounds Skin: General skin exam: normal color Neuro: Cranial nerves: Yes Equal, round and reactive pupils present
[2021-08-17] MEDS: ALBUMIN HUMAN 25% 25 GM/100 ML 100 ML IVPB ×2 (15:44→21:49)
[2021-08-17 17:21] LABS: Glucose Point of Care 67 mg/dl (65-105)
[2021-08-17 17:21] LABS: Glucose Point of Care 71 mg/dl (65-105)
[2021-08-17] MEDS: DEXTROSE 50% 25 GM/50 ML SYRINGE IV PUSH (17:34)
[2021-08-17 17:50] LABS: Appearance Pleural Fluid Bloody (Clear); Color Pleural Fluid Red (Colorless); Pleural fluid source Pleural fluid
[2021-08-17 17:51] LABS: Lymphocytes Pleural Fluid 64 %; Monocytes Pleural Fluid 8 %; Neutrophils Pleural Fluid 28 % (0-25); Nucleated Cell Pleural Fluid 180 /uL (0-1000); RBC Pleural Fluid 54934 /uL (0-0)
[2021-08-17 18:01] LABS: Glucose Point of Care 106 mg/dl (65-105)
[2021-08-17] MEDS: MIDAZOLAM 100MG/NS 100ML(*CRX) 100 MG/100 ML BAG 6 MG IV CONT (18:02)
[2021-08-17 19:58] LABS: Glucose Point of Care 81 mg/dl (65-105)
[2021-08-18] VITALS (31 sets, daily range): BP systolic 98–143; BP diastolic 59–71; PULSE 66–79; RESP 16–19; TEMP 37.6–38.2; O2SAT 95–100
[2021-08-18] MEDS: metroNIDAZOLE 500 MG/ISO 100ML 500 MG/100 ML BAG 100 MG IVPB ×5 (00:07→23:26)
[2021-08-18] MEDS: METOCLOPRAMIDE HCL INJ 10 MG/2 ML VIAL IV PUSH ×5 (00:07→23:27)
[2021-08-18] MEDS: AZTREONAM 1 GM in DEXTROSE 5% IN WATER 50 ML 100 ML IVPB ×3 (02:14→17:49)
[2021-08-18 02:21] LABS: Glucose Point of Care 70 mg/dl (65-105)
[2021-08-18] MEDS: ALBUMIN HUMAN 25% 25 GM/100 ML 100 ML IVPB ×2 (04:23→13:28)
[2021-08-18 04:31] LABS: Glucose Point of Care 72 mg/dl (65-105)
[2021-08-18 05:27] LABS: Alveolar/Arterial O2 Gradient 82.4 mmHg; Base Excess ABG -1.9 mEq/l (+/-2.0); Carboxyhemoglobin 0.3 % THb (0-2.0); Fractional Inspired Oxygen 30 %; HCO3 ABG 25.3 mEq/l (22.0-26.0); Methemoglobin ABG 0.1 %THb (0-1.5); Oxygen Content ABG 12.2 %vol (16.0-22.0); Oxyhemoglobin 89.6 % THb (90.0-100.0); PCO2 ABG 55.8 mmHg (35.0-45.0); PO2 ABG 65.9 mmHg (80.0-100.0); Total Hemoglobin 9.6 g/dL (12.0-18.0)
[2021-08-18 05:28] LABS: Device VENTILATOR; Modified Allen's Test Unable to perform; Site Drawn RIGHT RADIAL; pH ABG 7.274 (7.350-7.450)
[2021-08-18 05:30] LABS: Hematocrit 26.9 % (42.0-52.0); Hemoglobin 8.6 g/dL (14.0-18.0); Mean Corpuscular Hemoglobin 30.1 pg (26-34); Mean Corpuscular Volume 94.1 fl (80-100); Mean Platelet Volume 7.6 fl (7.4-10.4); Platelet Count Result 264 k/mm3 (150-375); Red Blood Count 2.86 M/mm3 (4.6-6.20); Red Cell Distribution Width 14.4 % (11.5-14.5); White Blood Count 8.1 K/mm3 (4.5-10.0)
[2021-08-18 05:30] LABS: Arterial Blood Gas PEEP 5 cmH2O; Arterial Blood Gas Tidal Volume 380 ml; Arterial Blood Gas Vent Mode CMV; Arterial Blood Gas Ventilator rate 16 /MIN
[2021-08-18 05:52] LABS: Alanine Aminotransferase 11 U/L (4-50); Albumin Level 3.7 g/dL (3.5-5.1); Alkaline Phosphatase 86 U/L (38-126); Anion Gap 6 mmol/L (8-16); Aspartate Amino Transferase 18 U/L (17-59); Bilirubin,Total 0.3 mg/dL (0.2-1.3); Blood Urea Nitrogen 21 mg/dL (9-20); Calcium 7.8 mg/dL (8.4-10.2); Carbon Dioxide 26 mmol/L (22-30); Chloride 103 mmol/L (98-107); Estimated CRCL calculation 44 ml/min; Estimated Glomerular Filt Rate 44; Glucose 101 mg/dL (65-110); Magnesium 1.9 mg/dL (1.6-2.3); Phosphorus 3.8 mg/dL (2.5-4.5); Sodium 135 mmol/L (137-145)
[2021-08-18 08:18] LABS: Glucose Point of Care 79 mg/dl (65-105)
[2021-08-18] MEDS: FUROSEMIDE INJ 40 MG/4 ML VIAL 20 MG IV PUSH (08:23)
[2021-08-18] MEDS: AMIODARONE HCL 200 MG TABLET 400 MG PO (08:28)
[2021-08-18] MEDS: PANTOPRAZOLE SODIUM IV 40 MG VIAL IV PUSH ×2 (08:28→20:01)
[2021-08-18] MEDS: ROSUVASTATIN 10 MG TABLET PO (08:28)
[2021-08-18] MEDS: MINERAL OIL/WHITE PETROLATUM OINTMENT 1 APPLIC EACH EYE ×2 (08:28→20:01)
--- NOTE | 2021-08-18 11:04 | PCFNICU ---
ICU Rounding Note: Pt current nutrition is Jevity 1.2 at 30 ml/hr over 22 hours. Last recorded weight is 87 kg, down from 89.2 kg on admit. Bowel Motility:Fecal containment catheter in place. Labs Reviewed:Alb 3.2,Na 134, BUN 23, Cr 1.7,GFR 41, Hct 21.4,Hgb 6.7 Meds Noted:Pacerone, Versed, Fentanyl, Reglan, Protonix, Dextrose 10%, vancomycin, Flagyl, Crestor. Skin: WNL Additional Notes: Patient had right thoracentesis 08/17-425 ml removed. Patient remains on mechanical vent with tube feedings of Jevity 1.2. Formula change today to peptide based formula of Vital High Protein recommend goal rate at 60 ml/hr at this time providing 1320 kcals/116 gm protein/1104 ml water. Following daily in ICU rounds. Will monitor every Monday and Monday.
--- NOTE | 2021-08-18 12:04 | PM.IMPN ---
Progress Note: A&P Assessment and Plan (1) HCAP (healthcare-associated pneumonia): Code(s): J18.9 - Pneumonia, unspecified organism Status: Acute Assessment and Plan: CT scan of the chest reviewed regard moderate bilateral pleural effusion with underlying compressive atelectasis, some of the pleural effusions seems to be loculated particularly on right side Bilateral airspace disease of the upper lobes which may represent atelectasis or pneumonia Cover for healthcare associated pneumonia with his recent hospitalization Pt is iv flagyl and iv vancomycin and iv aztreonam (2) UTI (urinary tract infection): Code(s): N39.0 - Urinary tract infection, site not specified Status: Resolved (3) Congestive heart failure: Code(s): I50.9 - Heart failure, unspecified Status: Chronic Assessment and Plan: I think pt is stable from his CHF (4) Hyperlipidemia: Code(s): E78.5 - Hyperlipidemia, unspecified Status: Chronic Assessment and Plan: Continue with her rosuvastatin and continue to monitor liver function test. (5) Hypertension: Code(s): I10 - Essential (primary) hypertension Status: Chronic Assessment and Plan: Hold lisinopril for now as the patient has acute kidney injury Continue to monitor Bp is 114/64 (6) Atrial fibrillation: Code(s): I48.91 - Unspecified atrial fibrillation Status: Chronic Assessment and Plan: The patient is currently in sinus rhythm. Continue with his amiodarone, hold Eliquis. By cardiology. (7) ROSHAN (acute kidney injury): Code(s): N17.9 - Acute kidney failure, unspecified Status: Acute Assessment and Plan: Creat is 1.6 continue to fluids blood and vasopressors (8) Diarrhea: Qualifiers: Diarrhea type: infectious Qualified Code(s): A09 - Infectious gastroenteritis and colitis, unspecified Code(s): R19.7 - Diarrhea, unspecified Status: Acute Assessment and Plan: Started on IV Flagyl for bowel cover C diff infection. On fecal management system (9) Bilateral pleural effusion: Code(s): J90 - Pleural effusion, not elsewhere classified Status: Acute Assessment and Plan: The patient does have a history of CHF. Or consider further diuresis intermittently (10) CAD (coronary artery disease): Code(s): I25.10 - Atherosclerotic heart disease of [place] coronary artery without angina pectoris Status: Chronic Assessment and Plan: The patient has had a 3 vessel CABG 3 weeks ago and has a life vest on. (11) Suspected COVID-19 virus infection: Code(s): Z20.822 - Contact with and (suspected) exposure to COVID-19 Status: Ruled-out (12) Aspiration into respiratory tract: Code(s): T17.908A - Unspecified foreign body in respiratory tract, part unspecified causing other injury, initial encounter Status: Acute Assessment and Plan: Episode on 08/14/2021 Covered with appropriate antibiotics (13) Hypoglycemia: Code(s): E16.2 - Hypoglycemia, unspecified Status: Acute Assessment and Plan: Hypoglycemia protocol Likely due to sepsis Continue to monitor Accu-Cheks (14) Hypercapnic respiratory failure: Code(s): J96.92 - Respiratory failure, unspecified with hypercapnia Status: Acute Assessment and Plan: Due to aspiration episode (15) Hyponatremia: Code(s): E87.1 - Hypo-osmolality and hyponatremia Status: Acute Assessment and Plan: Sodium is 135 (16) Anemia: Code(s): D64.9 - Anemia, unspecified Status: Acute Assessment and Plan: Transfuse blood yesterday hb is 8.6 today, Bp better today (17) Shock: Code(s): R57.9 - Shock, unspecified Status: Acute Assessment and Plan: Pt receiving blood fluids and is on vasopressors, pt still has fever, bc is negative, stool culture is negative Pt had ct chest
[2021-08-18 12:37] LABS: Glucose Point of Care 80 mg/dl (65-105)
[2021-08-18] MEDS: MIDAZOLAM 100MG/NS 100ML(*CRX) 100 MG/100 ML BAG 6 MG IV CONT (12:42)
[2021-08-18] MEDS: FENTANYL 2,500MCG/NS250ML(*CRX 2,500 MCG/250 ML BAG 12.5 MCG IV CONT (12:44)
--- NOTE | 2021-08-18 13:18 | WPDINTPN ---
Progress Note: A&P Assessment and Plan (1) Hypercapnic respiratory failure: Code(s): J96.92 - Respiratory failure, unspecified with hypercapnia Status: Acute Assessment and Plan: Acute Respiratory failure secondary to pulmonary edema, pleural effusions and pneumonia 08/14 Patient was emergently intubated on arrival to ICU as his hypercarbia was worse and he was in respiratory distress Chest x-ray reviewed Continue full mechanical ventilation support to prevent hypoxemia/hypercarbia and end organ damage. ABG reviewed Low tidal volume ventilation strategy to prevent volutrauma 08/16/2021: Left-sided thoracentesis with removal of 250 mL of opaque, red fluid 08/17/2020: Right-sided thoracentesis with removal of 425 mL of opaque, red fluid Chest x-ray this morning shows stable moderate size bilateral loculated pleural effusions, diffuse lung disease with worsening on the right, consistent with atelectasis versus pneumonia. CT scan chest, abdomen, pelvis without contrast on 08/18/2021 showed moderate size bilateral loculated pleural effusion worsened from 08/13/2021. Stable non dependent airspace opacities with volume loss in the upper lobes consistent with atelectasis versus pneumonia. Stable small pericardial effusion. Small volume of ascites, 9 mm bladder stone (2) Hypoglycemia: Code(s): E16.2 - Hypoglycemia, unspecified Status: Acute Assessment and Plan: Change dextrose to D10 at 30 mL/hour for low blood sugars, patient is not tolerating tube feeds due to high residuals -continue Reglan and monitor for bowel, add MiraLax -increased tube feed rate as tolerated (3) CAD (coronary artery disease): Code(s): I25.10 - Atherosclerotic heart disease of [place] coronary artery without angina pectoris Status: Chronic Assessment and Plan: Status post recent CABG Continue amiodarone and statin, -hold aspirin and Eliquis due to anemia (4) Hyponatremia: Code(s): E87.1 - Hypo-osmolality and hyponatremia Status: Acute Assessment and Plan: stable monitor (5) ROSHAN (acute kidney injury): Code(s): N17.9 - Acute kidney failure, unspecified Status: Acute Assessment and Plan: Likely prerenal from septic and/or cardiogenic shock, hypovolemia, decreased p.o. intake, On review of records from [facility] it appears the patient had acute kidney injury postop after his CABG and his creatinine improved later in the course prior to discharge although I do not have the exact creatinine at the time of discharge Creatinine improving, peaked at 2.4 on 08/14/2021 Monitor urine output creatinine electrolytes Hold IV fluids and diuretics Continue 25% albumin (6) Congestive heart failure: Code(s): I50.9 - Heart failure, unspecified Status: Chronic Assessment and Plan: Reviewed echocardiogram done at [facility] and it showed the patient had EF of 25% postop and also had a pericardial effusion -appreciate cardiology evaluation and recommendations -08/16/2021 echocardiogram showed LV systolic function to be 40-45%, LV diastolic function is normal, anterior wall, inferoseptal wall and anteroseptal wall are hypokinetic, left atrial chamber dimension is moderately enlarged, mild mitral valve regurg. (7) Bilateral pleural effusion: Code(s): J90 - Pleural effusion, not elsewhere classified Status: Acute Assessment and Plan: CT reviewed Patient has bilateral large pleural effusion and on the right it may be loculated. This is likely secondary to congestive heart failure and recent CABG. Patient had thoracentesis done on both sides postop at [facility]. -08/16/2021 left-sided thoracentesis -08/17/2021 right-sided thoracentesis (8) Pneumonia: Qualifiers: Laterality: bilateral Lung location: upper lobe of lung Pneumonia type: due to unspecified organism Qualified Code(s): J18.9 - Pneumonia, unspecified orga
[2021-08-18 16:23] LABS: Glucose Point of Care 66 mg/dl (65-105)
[2021-08-18] MEDS: DEXTROSE 50% 25 GM/50 ML SYRINGE IV PUSH (17:23)
[2021-08-18 19:57] LABS: Glucose Point of Care 96 mg/dl (65-105)
[2021-08-18 20:17] LABS: Glucose Pleural Fluid 81 mg/dL; LDH Pleural Fluid 220 U/L; Total Protein Pleural Fluid 3.3 g/dL
[2021-08-18 23:17] LABS: Glucose Point of Care 78 mg/dl (65-105)
[2021-08-19] VITALS (48 sets, daily range): BP systolic 71–175; BP diastolic 46–92; PULSE 56–106; RESP 13–28; TEMP 36.8–38.7; O2SAT 89–100
[2021-08-19] MEDS: AZTREONAM 1 GM in DEXTROSE 5% IN WATER 50 ML 100 ML IVPB ×3 (01:01→18:12)
[2021-08-19 04:05] LABS: Hematocrit 27.4 % (42.0-52.0); Hemoglobin 8.8 g/dL (14.0-18.0); Mean Corpuscular HGB Conc 32.1 g/dl (32-36); Mean Corpuscular Hemoglobin 30.1 pg (26-34); Mean Corpuscular Volume 93.8 fl (80-100); Mean Platelet Volume 7.9 fl (7.4-10.4); Platelet Count Result 270 k/mm3 (150-375); Red Blood Count 2.92 M/mm3 (4.6-6.20); Red Cell Distribution Width 14.3 % (11.5-14.5); White Blood Count 10.4 K/mm3 (4.5-10.0)
[2021-08-19] MEDS: DEXTROSE 10% 1,000 ML 30 ML IV CONT (04:08)
[2021-08-19 04:15] LABS: Alanine Aminotransferase 10 U/L (4-50); Albumin Level 3.4 g/dL (3.5-5.1); Alkaline Phosphatase 76 U/L (38-126); Anion Gap 7 mmol/L (8-16); Aspartate Amino Transferase 23 U/L (17-59); Bilirubin,Total 0.3 mg/dL (0.2-1.3); Blood Urea Nitrogen 20 mg/dL (9-20); Calcium 7.5 mg/dL (8.4-10.2); Carbon Dioxide 25 mmol/L (22-30); Chloride 99 mmol/L (98-107); Estimated CRCL calculation 47 ml/min; Estimated Glomerular Filt Rate 47; Glucose 107 mg/dL (65-110); Magnesium 1.6 mg/dL (1.6-2.3); Phosphorus 3.9 mg/dL (2.5-4.5); Potassium 3.8 mmol/L (3.4-5.0); Sodium 131 mmol/L (137-145)
[2021-08-19 04:53] LABS: Alveolar/Arterial O2 Gradient 69.6 mmHg; Base Excess ABG -2.3 mEq/l (+/-2.0); Carboxyhemoglobin 0.3 % THb (0-2.0); Fractional Inspired Oxygen 30 %; HCO3 ABG 22.7 mEq/l (22.0-26.0); Methemoglobin ABG 0.5 %THb (0-1.5); Modified Allen's Test Pass; Oxygen Content ABG 12.3 %vol (16.0-22.0); Oxygen Saturation ABG 97.3 % (95.0-100.0); PCO2 ABG 39.7 mmHg (35.0-45.0); PO2 ABG 97.7 mmHg (80.0-100.0); PO2 FiO2 Ratio Arterial Blood 3.26 %; Reduced Hemoglobin 3.2 %THb (0-5.0); Site Drawn LEFT RADIAL; pH ABG 7.375 (7.350-7.450)
[2021-08-19 04:54] LABS: Arterial Blood Gas PEEP 5 cmH2O; Arterial Blood Gas Tidal Volume 380 ml; Arterial Blood Gas Vent Mode CMV; Arterial Blood Gas Ventilator rate 18 /MIN; Device VENTILATOR
[2021-08-19] MEDS: metroNIDAZOLE 500 MG/ISO 100ML 500 MG/100 ML BAG 100 MG IVPB ×4 (05:31→23:58)
[2021-08-19] MEDS: METOCLOPRAMIDE HCL INJ 10 MG/2 ML VIAL IV PUSH ×4 (05:33→23:58)
--- NOTE | 2021-08-19 09:14 | WPDINTPN ---
Progress Note: A&P Assessment and Plan (1) Hypercapnic respiratory failure: Code(s): J96.92 - Respiratory failure, unspecified with hypercapnia Status: Acute Assessment and Plan: Acute Respiratory failure secondary to pulmonary edema, pleural effusions and pneumonia 08/14 Patient was emergently intubated on arrival to ICU as his hypercarbia was worse and he was in respiratory distress Chest x-ray reviewed Continue full mechanical ventilation support to prevent hypoxemia/hypercarbia and end organ damage. ABG reviewed Low tidal volume ventilation strategy to prevent volutrauma 08/16/2021: Left-sided thoracentesis with removal of 250 mL of opaque, red fluid 08/17/2020: Right-sided thoracentesis with removal of 425 mL of opaque, red fluid Chest x-ray this morning shows Diffuse lung disease with slight improvement in the upper lung zones, consistent with atelectasis versus pneumonia.2. Moderate-sized pleural effusions, stable. Have called [facility] and put him on a waiting list for thoracic surgery for loculated effusions. Once they have a bed available they will call me. CT scan chest, abdomen, pelvis without contrast on 08/18/2021 showed moderate size bilateral loculated pleural effusion worsened from 08/13/2021. Stable non dependent airspace opacities with volume loss in the upper lobes consistent with atelectasis versus pneumonia. Stable small pericardial effusion. Small volume of ascites, 9 mm bladder stone (2) Hypoglycemia: Code(s): E16.2 - Hypoglycemia, unspecified Status: Acute Assessment and Plan: Change dextrose to D10 at 30 mL/hour for low blood sugars, patient is not tolerating tube feeds due to high residuals -continue Reglan and monitor for bowel, add MiraLax -increased tube feed rate as tolerated (3) CAD (coronary artery disease): Code(s): I25.10 - Atherosclerotic heart disease of [place] coronary artery without angina pectoris Status: Chronic Assessment and Plan: Status post recent CABG Continue amiodarone and statin, -hold aspirin and Eliquis due to anemia (4) Hyponatremia: Code(s): E87.1 - Hypo-osmolality and hyponatremia Status: Acute Assessment and Plan: stable monitor (5) ROSHAN (acute kidney injury): Code(s): N17.9 - Acute kidney failure, unspecified Status: Acute Assessment and Plan: Likely prerenal from septic and/or cardiogenic shock, hypovolemia, decreased p.o. intake, On review of records from [facility] it appears the patient had acute kidney injury postop after his CABG and his creatinine improved later in the course prior to discharge although I do not have the exact creatinine at the time of discharge Creatinine improving, peaked at 2.4 on 08/14/2021 Monitor urine output creatinine electrolytes Hold IV fluids and diuretics (6) Congestive heart failure: Code(s): I50.9 - Heart failure, unspecified Status: Chronic Assessment and Plan: Reviewed echocardiogram done at [facility] and it showed the patient had EF of 25% postop and also had a pericardial effusion -appreciate cardiology evaluation and recommendations -08/16/2021 echocardiogram showed LV systolic function to be 40-45%, LV diastolic function is normal, anterior wall, inferoseptal wall and anteroseptal wall are hypokinetic, left atrial chamber dimension is moderately enlarged, mild mitral valve regurg. (7) Bilateral pleural effusion: Code(s): J90 - Pleural effusion, not elsewhere classified Status: Acute Assessment and Plan: CT reviewed Patient has bilateral large pleural effusion and on the right it may be loculated. This is likely secondary to congestive heart failure and recent CABG. Patient had thoracentesis done on both sides postop at [facility]. -08/16/2021 left-sided thoracentesis -08/17/2021 right-sided thoracentesis (8) Pneumonia: Qualifiers: Lateralit
[2021-08-19] MEDS: MINERAL OIL/WHITE PETROLATUM OINTMENT 1 APPLIC EACH EYE ×2 (09:47→20:08)
[2021-08-19] MEDS: polyethylene glycoL 3350 17 GM POWD.PACK PO (09:47)
[2021-08-19] MEDS: PANTOPRAZOLE SODIUM IV 40 MG VIAL IV PUSH ×2 (09:47→20:08)
[2021-08-19] MEDS: ROSUVASTATIN 10 MG TABLET PO (09:48)
[2021-08-19] MEDS: AMIODARONE HCL 200 MG TABLET 400 MG PO (09:48)
[2021-08-19 09:52] LABS: Glucose Point of Care 83 mg/dl (65-105)
[2021-08-19 10:33] LABS: Lactic Acid Reflex < 0.5 mmol/L (0.7-2.1)
--- NOTE | 2021-08-19 11:42 | PCFNICU ---
ICU Rounding Note: Pt current nutrition is Vital High Protein at 50 ml/hr over 22 hours. Last recorded weight is 86.8 kg, down from 89.2 kg on admit. Bowel Motility: Fecal Containment Catheter. Labs Reviewed:Cr 1.5,Na 131, GFR 47, Hct 27.4, Hgb 8.8 Meds Noted: Reglan, Versed, Pacerone, Flagyl, Levophed, Miralax, Protonix, Crestor, Vancomycin. Skin: WNL Additional Notes: Patient remains on mechanical vent and tube feedings of Vital High Protein at 50ml/hr over 22 hours and tolerating. Recommend goal rate at 70 ml/hr providing 1540 kcals/135 gm protein/1287 ml water. Following daily in ICU rounds. Will monitor every Monday and Monday.
[2021-08-19 13:15] LABS: Glucose Point of Care 98 mg/dl (65-105)
--- NOTE | 2021-08-19 13:30 | ECG_ITS ---
Measurements Intervals [place] Rate: 109 P: 223 MN: 108 QRS: 59 QRSD: 213 T: 48 QT: 415 QTc: 559 Interpretive Statements SINUS OR ECTOPIC ATRIAL TACHYCARDIA WITH SHORT MN INTERVAL LEFT BUNDLE BRANCH BLOCK ABNORMAL ECG Electronically Signed On 08-19-2021 16:55:02 SITE LEASING AGENT by Alvin Wood D.O.
[2021-08-19] MEDS: MIDAZOLAM 100MG/NS 100ML(*CRX) 100 MG/100 ML BAG 6 MG IV CONT (13:50)
[2021-08-19] MEDS: AMIODARONE 150 MG/D5W 100 ML 150 MG/100 ML BAG 600 MG IV CONT (13:51)
[2021-08-19] MEDS: METOPROLOL TARTRATE INJ 5 MG/5 ML VIAL (13:56)
--- NOTE | 2021-08-19 14:04 | ECG_ITS ---
Measurements Intervals [place] Rate: 74 P: 22 NE: 243 QRS: 24 QRSD: 148 T: 39 QT: 417 QTc: 465 Interpretive Statements SINUS RHYTHM WITH FIRST DEGREE AV BLOCK LEFT BUNDLE BRANCH BLOCK ABNORMAL ECG Electronically Signed On 08-19-2021 16:55:59 RAMPMAN by Alvin Wood D.O.
--- NOTE | 2021-08-19 14:28 | PM.PNCARD ---
Progress Note: A&P Assessment and Plan (1) Hyperlipidemia: Code(s): E78.5 - Hyperlipidemia, unspecified Status: Chronic Assessment and Plan: Continue rosuvastatin (2) Hypertension: Code(s): I10 - Essential (primary) hypertension Status: Chronic Assessment and Plan: Stable (3) CAD (coronary artery disease): Code(s): I25.10 - Atherosclerotic heart disease of [place] coronary artery without angina pectoris Status: Chronic Assessment and Plan: Low-dose aspirin will be resumed. (4) Hypercapnic respiratory failure: Code(s): J96.92 - Respiratory failure, unspecified with hypercapnia Status: Acute Assessment and Plan: Thoracentesis today. Still intubated. Workup per ICU (5) LBBB (left bundle branch block): Code(s): I44.7 - Left bundle-branch block, unspecified Status: Acute Assessment and Plan: As his heart rate increased with lightening of his sedation and increased agitation, he had a rate dependent widening of his QRS complex with an underlying left bundle branch block morphology. I gave him 5 mg of IV metoprolol which did lower his heart rate and consequently his QRS complex did reduce back to its baseline. This was confirmed via EKG which I also ordered. Awaiting bed in [place] to treat loculated pleural effusion Subjective Date/time seen: 08/19/21 14:28 Interval history: Follow-up visit in this 61-year-old man with: History of multivessel coronary disease treated several weeks ago with surgical myocardial revascularization in [place]. As I mentioned in my consult note on Monday we really do not have any of the specifics regarding this situation. He was with family members in this region recovering from the surgery and was brought to the emergency room on Monday because of significant weakness and diarrhea. Date of service 08/17/2021: Still intubated sedated. Rhythm is stable. Date of service 08/19/2021: Asked to see patient again regarding change in EKG. Patient had reduction of sedation. Heart rate did increase during that timeframe and it appears that his QRS complex did widen out as his heart rate increased from 60s up to around 100. EKG performed today showing a wider QRS complex with a left bundle-branch morphology. Amiodarone was given per ICU as I think there was some concern of VT. Review of Systems Constitutional: Constitutional: Reports no additional constitutional complaints Eyes: Eyes: Reports no additional eye complaints ENT: Reports system reviewed and no additional complaints, except as documented Cardiovascular: Cardiovascular: Reports no additional cardiovascular complaints Respiratory: Respiratory: Reports no additional respiratory complaints Gastrointestinal: Gastrointestinal: Reports diarrhea Musculoskeletal: Musculoskeletal: Reports no additional musculoskeletal complaints Integumentary/Breasts: Skin/Breast: Reports system reviewed and no additional complaints, except as docu Neurologic: Reports system reviewed and no additional complaints, except as documented Endocrine: Endocrine: Reports no additional endocrine complaints Hematologic/Lymphatic: Hematologic/Lymphatic: Reports no additional hematologic/lymphatic complaints Allergic/Immunologic: Allergic/Immunologic: Reports no additional allergic/immunologic complaints Exam Const: General: comfortable and no acute distress Other: Well-developed well-nourished white male intubated and sedated on the ventilator HENMT: Mouth: Yes moist mucous membranes Eyes: Sclera: sclerae normal Pupils: Equal, round and reactive pupils present Neck: Neck: supple and no JVD Other: No significant venous distention is seen Resp: Effort & Inspection: normal respiratory effort Auscultation: clear to auscultation bilaterally Other: Breath sounds are largely clear anteriorly in both lung weinberg could not sit the patient up for posterior ausc
[2021-08-19 18:00] LABS: Glucose Point of Care 75 mg/dl (65-105)
[2021-08-19] MEDS: FENTANYL 2,500MCG/NS250ML(*CRX 2,500 MCG/250 ML BAG 12.5 MCG IV CONT (18:00)
[2021-08-19 19:32] LABS: Glucose Point of Care 91 mg/dl (65-105)
[2021-08-19 20:18] LABS: Glucose Pleural Fluid 65 mg/dL
[2021-08-19 20:27] LABS: Lactic Acid Reflex 0.6 mmol/L (0.7-2.1)
[2021-08-19] MEDS: hetaSTARCH 6%/NACL 500 ML 250 ML IV CONT (20:41)
[2021-08-20] VITALS (31 sets, daily range): BP systolic 92–137; BP diastolic 56–95; PULSE 54–76; RESP 12–20; TEMP 36.2–37.7; O2SAT 95–100
[2021-08-20 00:39] LABS: Glucose Point of Care 137 mg/dl (65-105)
[2021-08-20 04:09] LABS: Glucose Point of Care 93 mg/dl (65-105)
[2021-08-20 05:14] LABS: Phosphorus 3.8 mg/dL (2.5-4.5)
[2021-08-20 05:30] LABS: Alveolar/Arterial O2 Gradient 111.5 mmHg; Base Excess ABG 0.6 mEq/l (+/-2.0); Carboxyhemoglobin 0.3 % THb (0-2.0); Fractional Inspired Oxygen 35 %; HCO3 ABG 26.6 mEq/l (22.0-26.0); Methemoglobin ABG 0.4 %THb (0-1.5); Modified Allen's Test Unable to perform; Oxygen Content ABG 11.7 %vol (16.0-22.0); Oxygen Saturation ABG 95.2 % (95.0-100.0); Oxyhemoglobin 93.6 % THb (90.0-100.0); PCO2 ABG 49.7 mmHg (35.0-45.0); PO2 ABG 80.3 mmHg (80.0-100.0); PO2 FiO2 Ratio Arterial Blood 2.29 %; Reduced Hemoglobin 5.7 %THb (0-5.0); Site Drawn RIGHT RADIAL; Total Hemoglobin 8.8 g/dL (12.0-18.0); pH ABG 7.346 (7.350-7.450)
[2021-08-20 05:31] LABS: Arterial Blood Gas PEEP 5 cmH2O; Arterial Blood Gas Tidal Volume 380 ml; Arterial Blood Gas Vent Mode CMV; Arterial Blood Gas Ventilator rate 18 /MIN; Device VENTILATOR
[2021-08-20] MEDS: AZTREONAM 1 GM in DEXTROSE 5% IN WATER 50 ML 100 ML IVPB ×3 (05:31→16:44)
[2021-08-20 08:39] LABS: Glucose Point of Care 79 mg/dl (65-105)
[2021-08-20] MEDS: metroNIDAZOLE 500 MG/ISO 100ML 500 MG/100 ML BAG 100 MG IVPB ×4 (08:53→23:21)
[2021-08-20] MEDS: PANTOPRAZOLE SODIUM IV 40 MG VIAL IV PUSH ×2 (08:54→19:59)
[2021-08-20] MEDS: AMIODARONE HCL 200 MG TABLET 400 MG PO (08:54)
[2021-08-20] MEDS: MINERAL OIL/WHITE PETROLATUM OINTMENT 1 APPLIC EACH EYE ×2 (08:54→19:59)
[2021-08-20] MEDS: METOCLOPRAMIDE HCL INJ 10 MG/2 ML VIAL IV PUSH ×4 (08:54→23:26)
[2021-08-20] MEDS: ROSUVASTATIN 10 MG TABLET PO (08:54)
[2021-08-20] MEDS: polyethylene glycoL 3350 17 GM POWD.PACK PO (08:54)
[2021-08-20] MEDS: ASPIRIN 81 MG CHEWABLE TABLET PO (09:14)
[2021-08-20] MEDS: FUROSEMIDE INJ 40 MG/4 ML VIAL 20 MG IV PUSH (12:16)
--- NOTE | 2021-08-20 12:24 | PCNFU ---
Nutrition Follow-Up Complete: Inadequate Oral Intake as related to mechanical ventilation as evidenced by NPO. Goal: Meet estimated Nutritional needs Patient is progressing towards goal. We will continue current goal. Pt current nutrition is Vital High Protein at 50 ml/hr over 22 hours. Last recorded weight is 89.4 kg, up from 89.2 kg on admit. Bowel Motility:FMS tube output reported today. Labs Reviewed:Cr 1.5,Na 131, Alb 3.4,Hct 27.2,Hgb 8.8 Meds Noted:Reglan, Versed, Fentanyl, Flagyl, Lasix, Vancomycin, Protonix, Crestor, Pacerone Skin:Edema noted. Additional Notes: Patient remains on mechanical vent and tube feedings of Vital High Protein at 50 ml/hr over 22 hours. 200 ml residual reported. Recommend goal rate at 70 ml/hr-providing 1540 kcals/135 gms protein/1287 ml water. Free water flush 30 ml q 4 hours. Monitoring: daily in ICU rounds, reassessing every Monday and Monday
--- NOTE | 2021-08-20 12:52 | WPDINTPN ---
Progress Note: A&P Assessment and Plan (1) Hypercapnic respiratory failure: Code(s): J96.92 - Respiratory failure, unspecified with hypercapnia Status: Acute Assessment and Plan: Acute Respiratory failure secondary to pulmonary edema, pleural effusions and pneumonia 08/14 Patient was emergently intubated on arrival to ICU as his hypercarbia was worse and he was in respiratory distress Chest x-ray reviewed Continue full mechanical ventilation support to prevent hypoxemia/hypercarbia and end organ damage. ABG reviewed Low tidal volume ventilation strategy to prevent volutrauma 08/16/2021: Left-sided thoracentesis with removal of 250 mL of opaque, red fluid 08/17/2020: Right-sided thoracentesis with removal of 425 mL of opaque, red fluid Chest x-ray this morning shows 1. Diffuse lung disease with slight improvement in the upper lung zones, consistent with atelectasis versus pneumonia. 2. Moderate-sized pleural effusions, stable. Have called [facility] and put him on a waiting list for thoracic surgery for loculated effusions. Once they have a bed available they will call me. -Dr. Samaniego discuss the case with thoracic surgeon, , at [facility] and he is willing to see the patient in consult, I called [facility] transfer line and they stated [facility] does not have any beds at this time and we should call them on 08/21/2021. CT scan chest, abdomen, pelvis without contrast on 08/18/2021 showed moderate size bilateral loculated pleural effusion worsened from 08/13/2021. Stable non dependent airspace opacities with volume loss in the upper lobes consistent with atelectasis versus pneumonia. Stable small pericardial effusion. Small volume of ascites, 9 mm bladder stone (2) Hypoglycemia: Code(s): E16.2 - Hypoglycemia, unspecified Status: Acute Assessment and Plan: Change dextrose to D10 at 30 mL/hour for low blood sugars, patient is not tolerating tube feeds due to high residuals -continue Reglan and monitor for bowel, add MiraLax -increased tube feed rate as tolerated (3) CAD (coronary artery disease): Code(s): I25.10 - Atherosclerotic heart disease of [place] coronary artery without angina pectoris Status: Chronic Assessment and Plan: Status post recent CABG Continue amiodarone and statin, -hold Eliquis due to anemia -restarted aspirin as patient had tachycardia induced left bundle branch block and widening of QRS complex on 08/19/2021 (4) Hyponatremia: Code(s): E87.1 - Hypo-osmolality and hyponatremia Status: Acute Assessment and Plan: stable monitor (5) ROSHAN (acute kidney injury): Code(s): N17.9 - Acute kidney failure, unspecified Status: Acute Assessment and Plan: Likely prerenal from septic and/or cardiogenic shock, hypovolemia, decreased p.o. intake, On review of records from [facility] it appears the patient had acute kidney injury postop after his CABG and his creatinine improved later in the course prior to discharge although I do not have the exact creatinine at the time of discharge Creatinine improving, peaked at 2.4 on 08/14/2021 Monitor urine output creatinine electrolytes Will diurese patient with low-dose diuretics today (6) Congestive heart failure: Code(s): I50.9 - Heart failure, unspecified Status: Chronic Assessment and Plan: Reviewed echocardiogram done at [facility] and it showed the patient had EF of 25% postop and also had a pericardial effusion -appreciate cardiology evaluation and recommendations -08/16/2021 echocardiogram showed LV systolic function to be 40-45%, LV diastolic function is normal, anterior wall, inferoseptal wall and anteroseptal wall are hypokinetic, left atrial chamber dimension is moderately enlarged, mild mitral valve regurg. (7) Bilateral pleural effusion: Code(s): J90 - Pleural effusion, not elsewhere classified
[2021-08-20 13:14] LABS: Glucose Point of Care 77 mg/dl (65-105)
[2021-08-20] MEDS: MIDAZOLAM 100MG/NS 100ML(*CRX) 100 MG/100 ML BAG 6 MG IV CONT (13:44)
[2021-08-20] MEDS: DEXTROSE 10% 1,000 ML 30 ML IV CONT (16:11)
[2021-08-20 16:15] LABS: Glucose Point of Care 83 mg/dl (65-105)
[2021-08-20] MEDS: FENTANYL 2,500MCG/NS250ML(*CRX 2,500 MCG/250 ML BAG 15 MCG IV CONT (16:45)
[2021-08-20 20:07] LABS: Glucose Point of Care 88 mg/dl (65-105)
[2021-08-20 23:32] LABS: Glucose Point of Care 87 mg/dl (65-105)
[2021-08-21] VITALS (28 sets, daily range): BP systolic 105–147; BP diastolic 58–78; PULSE 64–76; RESP 12–18; TEMP 36.6–37.7; O2SAT 96–100
[2021-08-21] MEDS: AZTREONAM 1 GM in DEXTROSE 5% IN WATER 50 ML 100 ML IVPB ×3 (02:22→17:07)
[2021-08-21 03:59] LABS: Hematocrit 28.1 % (42.0-52.0); Hemoglobin 8.8 g/dL (14.0-18.0); Mean Corpuscular HGB Conc 31.3 g/dl (32-36); Mean Corpuscular Hemoglobin 29.8 pg (26-34); Mean Corpuscular Volume 95.3 fl (80-100); Mean Platelet Volume 7.8 fl (7.4-10.4); Platelet Count Result 243 k/mm3 (150-375); Red Blood Count 2.95 M/mm3 (4.6-6.20); Red Cell Distribution Width 14.4 % (11.5-14.5); White Blood Count 6.2 K/mm3 (4.5-10.0)
[2021-08-21 04:12] LABS: Alanine Aminotransferase 11 U/L (4-50); Albumin Level 2.8 g/dL (3.5-5.1); Alkaline Phosphatase 110 U/L (38-126); Anion Gap 5 mmol/L (8-16); Aspartate Amino Transferase 28 U/L (17-59); Bilirubin,Total 0.2 mg/dL (0.2-1.3); Blood Urea Nitrogen 22 mg/dL (9-20); Calcium 7.6 mg/dL (8.4-10.2); Carbon Dioxide 27 mmol/L (22-30); Chloride 102 mmol/L (98-107); Estimated CRCL calculation 64 ml/min; Estimated Glomerular Filt Rate > 60; Glucose 110 mg/dL (65-110); Magnesium 1.4 mg/dL (1.6-2.3); Phosphorus 3.6 mg/dL (2.5-4.5); Potassium 3.7 mmol/L (3.4-5.0); Sodium 134 mmol/L (137-145)
[2021-08-21] MEDS: metroNIDAZOLE 500 MG/ISO 100ML 500 MG/100 ML BAG 100 MG IVPB ×3 (05:33→17:07)
[2021-08-21] MEDS: METOCLOPRAMIDE HCL INJ 10 MG/2 ML VIAL IV PUSH ×3 (05:33→17:07)
[2021-08-21 05:35] LABS: Alveolar/Arterial O2 Gradient 114.5 mmHg; Base Excess ABG -0.8 mEq/l (+/-2.0); Carboxyhemoglobin 0.3 % THb (0-2.0); Fractional Inspired Oxygen 35 %; HCO3 ABG 23.9 mEq/l (22.0-26.0); Methemoglobin ABG 0.3 %THb (0-1.5); Oxygen Content ABG 13.4 %vol (16.0-22.0); Oxygen Saturation ABG 96.7 % (95.0-100.0); Oxyhemoglobin 95.5 % THb (90.0-100.0); PCO2 ABG 40.1 mmHg (35.0-45.0); PO2 ABG 88.4 mmHg (80.0-100.0); PO2 FiO2 Ratio Arterial Blood 2.53 %; Reduced Hemoglobin 3.9 %THb (0-5.0); Total Hemoglobin 9.9 g/dL (12.0-18.0); pH ABG 7.394 (7.350-7.450)
[2021-08-21 05:36] LABS: Device VENTILATOR; Modified Allen's Test Pass; Site Drawn RIGHT RADIAL
[2021-08-21 05:37] LABS: Arterial Blood Gas PEEP 5 cmH2O; Arterial Blood Gas Tidal Volume 380 ml; Arterial Blood Gas Vent Mode CMV; Arterial Blood Gas Ventilator rate 18 /MIN
[2021-08-21] MEDS: MAGNESIUM SULF 2 GM/WATER 50ML 2 GM/50 ML BAG IVPB (09:19)
[2021-08-21] MEDS: polyethylene glycoL 3350 17 GM POWD.PACK PO (09:21)
[2021-08-21] MEDS: MINERAL OIL/WHITE PETROLATUM OINTMENT 1 APPLIC EACH EYE ×2 (09:21→21:30)
[2021-08-21] MEDS: ROSUVASTATIN 10 MG TABLET PO (09:21)
[2021-08-21] MEDS: ASPIRIN 81 MG CHEWABLE TABLET PO (09:21)
[2021-08-21] MEDS: PANTOPRAZOLE SODIUM IV 40 MG VIAL IV PUSH ×2 (09:21→21:30)
[2021-08-21] MEDS: AMIODARONE HCL 200 MG TABLET 400 MG PO (09:21)
[2021-08-21 10:11] LABS: Glucose Point of Care 78 mg/dl (65-105)
[2021-08-21] MEDS: FUROSEMIDE INJ 40 MG/4 ML VIAL 20 MG IV PUSH (10:40)
--- NOTE | 2021-08-21 11:00 | WPDINTPN ---
Progress Note: A&P Assessment and Plan (1) Hypercapnic respiratory failure: Code(s): J96.92 - Respiratory failure, unspecified with hypercapnia Status: Acute Assessment and Plan: Acute Respiratory failure secondary to pulmonary edema, pleural effusions and pneumonia 08/14 Patient was emergently intubated on arrival to ICU as his hypercarbia was worse and he was in respiratory distress Chest x-ray reviewed Continue full mechanical ventilation support to prevent hypoxemia/hypercarbia and end organ damage. ABG reviewed Low tidal volume ventilation strategy to prevent volutrauma 08/16/2021: Left-sided thoracentesis with removal of 250 mL of opaque, red fluid 08/17/2020: Right-sided thoracentesis with removal of 425 mL of opaque, red fluid Chest x-ray this morning shows 1. Diffuse lung disease with slight improvement in the upper lung zones, consistent with atelectasis versus pneumonia. 2. Moderate-sized pleural effusions, stable. -sedation vacation today -will give low-dose diuretic today Have called [facility] and put him on a waiting list for thoracic surgery for loculated effusions. Once they have a bed available they will call me. -Dr. Samaniego discuss the case with thoracic surgeon, , at [facility] and he is willing to see the patient in consult, I called [facility] transfer line and they stated [facility] does not have any beds at this time and we should call them on 08/21/2021. -08/21/2021: called [facility] transfer line, they said [facility] does not have any beds as of this morning, call again this evening as the not putting patient is on waiting list. CT scan chest, abdomen, pelvis without contrast on 08/18/2021 showed moderate size bilateral loculated pleural effusion worsened from 08/13/2021. Stable non dependent airspace opacities with volume loss in the upper lobes consistent with atelectasis versus pneumonia. Stable small pericardial effusion. Small volume of ascites, 9 mm bladder stone (2) Hypoglycemia: Code(s): E16.2 - Hypoglycemia, unspecified Status: Acute Assessment and Plan: Change dextrose to D10 at 30 mL/hour for low blood sugars, patient is not tolerating tube feeds due to high residuals -continue Reglan and monitor for bowel, add MiraLax -increased tube feed rate as tolerated (3) CAD (coronary artery disease): Code(s): I25.10 - Atherosclerotic heart disease of [place] coronary artery without angina pectoris Status: Chronic Assessment and Plan: Status post recent CABG Continue amiodarone and statin, -hold Eliquis due to anemia -restarted aspirin as patient had tachycardia induced left bundle branch block and widening of QRS complex on 08/19/2021 (4) Hyponatremia: Code(s): E87.1 - Hypo-osmolality and hyponatremia Status: Acute Assessment and Plan: stable monitor (5) ROSHAN (acute kidney injury): Code(s): N17.9 - Acute kidney failure, unspecified Status: Acute Assessment and Plan: Likely prerenal from septic and/or cardiogenic shock, hypovolemia, decreased p.o. intake, On review of records from [facility] it appears the patient had acute kidney injury postop after his CABG and his creatinine improved later in the course prior to discharge although I do not have the exact creatinine at the time of discharge Creatinine has normalized, peaked at 2.4 on 08/14/2021 Monitor urine output creatinine electrolytes Will diurese patient with low-dose diuretics today (6) Congestive heart failure: Code(s): I50.9 - Heart failure, unspecified Status: Chronic Assessment and Plan: Reviewed echocardiogram done at [facility] and it showed the patient had EF of 25% postop and also had a pericardial effusion -appreciate cardiology evaluation and recommendations -08/16/2021 echocardiogram showed LV systolic function to be 40-45%, LV diastolic function is normal, anterior w
[2021-08-21] MEDS: MIDAZOLAM 100MG/NS 100ML(*CRX) 100 MG/100 ML BAG IV CONT (12:36)
[2021-08-21 12:51] LABS: Glucose Point of Care 84 mg/dl (65-105)
[2021-08-21 17:14] LABS: Glucose Point of Care 91 mg/dl (65-105)
[2021-08-21] MEDS: FENTANYL 2,500MCG/NS250ML(*CRX 2,500 MCG/250 ML BAG IV CONT (17:54)
[2021-08-21 19:29] LABS: Glucose Point of Care 80 mg/dl (65-105)
[2021-08-21 22:01] LABS: Albumin Pleural Fluid 1.7 g/dL
[2021-08-21 23:24] LABS: Glucose Point of Care 90 mg/dl (65-105)
[2021-08-22] VITALS (31 sets, daily range): BP systolic 117–153; BP diastolic 54–80; PULSE 71–89; RESP 17–22; TEMP 36.9–37.4; O2SAT 95–100
[2021-08-22] MEDS: metroNIDAZOLE 500 MG/ISO 100ML 500 MG/100 ML BAG 100 MG IVPB ×4 (00:22→17:00)
[2021-08-22] MEDS: METOCLOPRAMIDE HCL INJ 10 MG/2 ML VIAL IV PUSH ×4 (00:22→17:00)
[2021-08-22] MEDS: AZTREONAM 1 GM in DEXTROSE 5% IN WATER 50 ML 100 ML IVPB ×3 (01:19→17:00)
[2021-08-22 03:24] LABS: Glucose Point of Care 81 mg/dl (65-105)
[2021-08-22 05:15] LABS: Hematocrit 29.1 % (42.0-52.0); Hemoglobin 9.3 g/dL (14.0-18.0); Mean Corpuscular Hemoglobin 29.7 pg (26-34); Platelet Count Result 278 k/mm3 (150-375); Red Blood Count 3.13 M/mm3 (4.6-6.20); Red Cell Distribution Width 14.4 % (11.5-14.5); White Blood Count 5.5 K/mm3 (4.5-10.0)
[2021-08-22] MEDS: DEXTROSE 10% 1,000 ML 30 ML IV CONT (05:19)
[2021-08-22 05:41] LABS: Alanine Aminotransferase 17 U/L (4-50); Albumin Level 2.9 g/dL (3.5-5.1); Alkaline Phosphatase 167 U/L (38-126); Anion Gap 7 mmol/L (8-16); Aspartate Amino Transferase 51 U/L (17-59); Bilirubin,Total 0.2 mg/dL (0.2-1.3); Blood Urea Nitrogen 24 mg/dL (9-20); Calcium 7.6 mg/dL (8.4-10.2); Carbon Dioxide 28 mmol/L (22-30); Chloride 103 mmol/L (98-107); Estimated CRCL calculation 72 ml/min; Estimated Glomerular Filt Rate > 60; Glucose 105 mg/dL (65-110); Magnesium 1.6 mg/dL (1.6-2.3); Phosphorus 3.4 mg/dL (2.5-4.5); Potassium 3.8 mmol/L (3.4-5.0); Sodium 138 mmol/L (137-145)
[2021-08-22 05:55] LABS: PCO2 ABG 33.5 mmHg (35.0-45.0); pH ABG 7.475 (7.350-7.450)
[2021-08-22 05:56] LABS: Base Excess ABG 0.4 mEq/l (+/-2.0); HCO3 ABG 24.1 mEq/l (22.0-26.0)
[2021-08-22 05:58] LABS: Total Hemoglobin 4.6 g/dL (12.0-18.0)
[2021-08-22 05:59] LABS: Carboxyhemoglobin 0.3 % THb (0-2.0); Methemoglobin ABG 0.2 %THb (0-1.5); Oxyhemoglobin 97.7 % THb (90.0-100.0); Site Drawn LEFT RADIAL
[2021-08-22 06:00] LABS: Oxygen Saturation ABG 98.8 % (95.0-100.0); PO2 FiO2 Ratio Arterial Blood 4.37 %; Reduced Hemoglobin 1.8 %THb (0-5.0)
[2021-08-22 06:01] LABS: Oxygen Content ABG 6.7 %vol (16.0-22.0)
[2021-08-22 06:02] LABS: Alveolar/Arterial O2 Gradient 43.3 mmHg
[2021-08-22 06:03] LABS: Device VENTILATOR
[2021-08-22 06:04] LABS: Arterial Blood Gas PEEP 5 cmH2O; Arterial Blood Gas Tidal Volume 380 ml; Arterial Blood Gas Vent Mode CMV; Arterial Blood Gas Ventilator rate 18 /MIN
[2021-08-22] MEDS: AMIODARONE HCL 200 MG TABLET 400 MG PO (09:30)
[2021-08-22] MEDS: MINERAL OIL/WHITE PETROLATUM OINTMENT 1 APPLIC EACH EYE ×2 (09:30→22:49)
[2021-08-22] MEDS: PANTOPRAZOLE SODIUM IV 40 MG VIAL IV PUSH ×2 (09:31→22:49)
[2021-08-22] MEDS: polyethylene glycoL 3350 17 GM POWD.PACK PO (09:31)
[2021-08-22] MEDS: ASPIRIN 81 MG CHEWABLE TABLET PO (09:31)
[2021-08-22] MEDS: ROSUVASTATIN 10 MG TABLET PO (09:31)
[2021-08-22 09:33] LABS: Glucose Point of Care 99 mg/dl (65-105)
[2021-08-22] MEDS: FUROSEMIDE INJ 40 MG/4 ML VIAL IV PUSH (09:39)
--- NOTE | 2021-08-22 11:46 | WPDINTPN ---
Progress Note: A&P Assessment and Plan (1) Hypercapnic respiratory failure: Code(s): J96.92 - Respiratory failure, unspecified with hypercapnia Status: Acute Assessment and Plan: Acute Respiratory failure secondary to pulmonary edema, pleural effusions and pneumonia 08/14 Patient was emergently intubated on arrival to ICU as his hypercarbia was worse and he was in respiratory distress Chest x-ray reviewed Continue full mechanical ventilation support to prevent hypoxemia/hypercarbia and end organ damage. ABG reviewed Low tidal volume ventilation strategy to prevent volutrauma 08/16/2021: Left-sided thoracentesis with removal of 250 mL of opaque, red fluid 08/17/2020: Right-sided thoracentesis with removal of 425 mL of opaque, red fluid Chest x-ray this morning shows 1. Diffuse lung disease with slight improvement in the upper lung zones, consistent with atelectasis versus pneumonia. 2. Moderate-sized pleural effusions, stable. -sedation vacation today -will give low-dose diuretic today Have called [facility] and put him on a waiting list for thoracic surgery for loculated effusions. Once they have a bed available they will call me. -Dr. Samaniego discuss the case with thoracic surgeon, , at [facility] and he is willing to see the patient in consult, I called [facility] transfer line and they stated [facility] does not have any beds at this time and we should call them on 08/21/2021. -08/21/2021, 08/22/2021 called [facility] transfer line, they said [facility] does not have any beds as of this morning, call again this evening as the not putting patient is on waiting list. Will call [facility] in [facility] tomorrow a.m. CT scan chest, abdomen, pelvis without contrast on 08/18/2021 showed moderate size bilateral loculated pleural effusion worsened from 08/13/2021. Stable non dependent airspace opacities with volume loss in the upper lobes consistent with atelectasis versus pneumonia. Stable small pericardial effusion. Small volume of ascites, 9 mm bladder stone (2) Hypoglycemia: Code(s): E16.2 - Hypoglycemia, unspecified Status: Acute Assessment and Plan: Change dextrose to D10 at 30 mL/hour for low blood sugars, patient is not tolerating tube feeds due to high residuals -continue Reglan and monitor for bowel, add MiraLax -increased tube feed rate as tolerated (3) CAD (coronary artery disease): Code(s): I25.10 - Atherosclerotic heart disease of [place] coronary artery without angina pectoris Status: Chronic Assessment and Plan: Status post recent CABG Continue amiodarone and statin, -hold Eliquis due to anemia -restarted aspirin as patient had tachycardia induced left bundle branch block and widening of QRS complex on 08/19/2021 (4) Hyponatremia: Code(s): E87.1 - Hypo-osmolality and hyponatremia Status: Acute Assessment and Plan: Sodium levels are normal, will continue to monitor (5) ROSHAN (acute kidney injury): Code(s): N17.9 - Acute kidney failure, unspecified Status: Acute Assessment and Plan: Likely prerenal from septic and/or cardiogenic shock, hypovolemia, decreased p.o. intake, On review of records from [facility] it appears the patient had acute kidney injury postop after his CABG and his creatinine improved later in the course prior to discharge although I do not have the exact creatinine at the time of discharge Creatinine has normalized, peaked at 2.4 on 08/14/2021 Monitor urine output creatinine electrolytes Will gently diurese patient today (6) Congestive heart failure: Code(s): I50.9 - Heart failure, unspecified Status: Chronic Assessment and Plan: Reviewed echocardiogram done at [facility] and it showed the patient had EF of 25% postop and also had a pericardial effusion -appreciate cardiology evaluation and recommendations -
[2021-08-22 12:16] LABS: Glucose Point of Care 79 mg/dl (65-105)
[2021-08-22 16:08] LABS: Glucose Point of Care 93 mg/dl (65-105)
[2021-08-22 21:33] LABS: Glucose Point of Care 103 mg/dl (65-105)
[2021-08-22 21:51] LABS: Vancomycin Trough 11.5 ug/mL (10.0-20.0)
[2021-08-23] VITALS (31 sets, daily range): BP systolic 113–170; BP diastolic 69–85; PULSE 61–99; RESP 12–22; TEMP 36.4–37.8; O2SAT 96–100
[2021-08-23] MEDS: metroNIDAZOLE 500 MG/ISO 100ML 500 MG/100 ML BAG 100 MG IVPB ×3 (00:13→11:08)
[2021-08-23] MEDS: METOCLOPRAMIDE HCL INJ 10 MG/2 ML VIAL IV PUSH ×3 (00:16→11:08)
[2021-08-23 00:37] LABS: Glucose Point of Care 128 mg/dl (65-105)
[2021-08-23] MEDS: MIDAZOLAM 100MG/NS 100ML(*CRX) 100 MG/100 ML BAG IV CONT (02:18)
[2021-08-23] MEDS: FENTANYL 2,500MCG/NS250ML(*CRX 2,500 MCG/250 ML BAG IV CONT (02:20)
[2021-08-23] MEDS: AZTREONAM 1 GM in DEXTROSE 5% IN WATER 50 ML 100 ML IVPB (02:21)
[2021-08-23 04:17] LABS: Glucose Point of Care 88 mg/dl (65-105)
[2021-08-23 04:44] LABS: Hemoglobin 9.2 g/dL (14.0-18.0); Mean Corpuscular HGB Conc 31.7 g/dl (32-36); Mean Corpuscular Volume 91.5 fl (80-100); Mean Platelet Volume 8.1 fl (7.4-10.4); Platelet Count Result 310 k/mm3 (150-375); Red Blood Count 3.17 M/mm3 (4.6-6.20); Red Cell Distribution Width 14.2 % (11.5-14.5); White Blood Count 5.8 K/mm3 (4.5-10.0)
[2021-08-23 05:06] LABS: Alanine Aminotransferase 23 U/L (4-50); Albumin Level 2.9 g/dL (3.5-5.1); Alkaline Phosphatase 199 U/L (38-126); Anion Gap 7 mmol/L (8-16); Aspartate Amino Transferase 64 U/L (17-59); Bilirubin,Total 0.2 mg/dL (0.2-1.3); Blood Urea Nitrogen 25 mg/dL (9-20); Calcium 7.7 mg/dL (8.4-10.2); Carbon Dioxide 29 mmol/L (22-30); Chloride 101 mmol/L (98-107); Estimated CRCL calculation 72 ml/min; Estimated Glomerular Filt Rate > 60; Glucose 104 mg/dL (65-110); Magnesium 1.5 mg/dL (1.6-2.3); Phosphorus 3.7 mg/dL (2.5-4.5); Potassium 3.7 mmol/L (3.4-5.0); Sodium 137 mmol/L (137-145)
[2021-08-23 05:30] LABS: Alveolar/Arterial O2 Gradient 70.5 mmHg; Base Excess ABG 2.8 mEq/l (+/-2.0); Carboxyhemoglobin 0.3 % THb (0-2.0); Fractional Inspired Oxygen 30 %; HCO3 ABG 27.7 mEq/l (22.0-26.0); Methemoglobin ABG 0.1 %THb (0-1.5); Oxygen Saturation ABG 97.1 % (95.0-100.0); Oxyhemoglobin 95.6 % THb (90.0-100.0); PCO2 ABG 44.2 mmHg (35.0-45.0); PO2 ABG 91.5 mmHg (80.0-100.0); PO2 FiO2 Ratio Arterial Blood 3.05 %; Total Hemoglobin 10.3 g/dL (12.0-18.0); pH ABG 7.415 (7.350-7.450)
[2021-08-23 05:33] LABS: Device VENTILATOR; Modified Allen's Test Pass; Site Drawn RIGHT RADIAL
[2021-08-23 05:34] LABS: Arterial Blood Gas PEEP 5 cmH2O; Arterial Blood Gas Tidal Volume 380 ml; Arterial Blood Gas Vent Mode CMV; Arterial Blood Gas Ventilator rate 18 /MIN
[2021-08-23 07:30] LABS: Glucose Point of Care 94 mg/dl (65-105)
[2021-08-23] MEDS: MAGNESIUM SULF 2 GM/WATER 50ML 2 GM/50 ML BAG IVPB (08:02)
[2021-08-23] MEDS: ASPIRIN 81 MG CHEWABLE TABLET PO (08:02)
[2021-08-23] MEDS: ROSUVASTATIN 10 MG TABLET PO (08:02)
[2021-08-23] MEDS: AMIODARONE HCL 200 MG TABLET 400 MG PO (08:02)
[2021-08-23] MEDS: PANTOPRAZOLE SODIUM IV 40 MG VIAL IV PUSH ×2 (08:03→20:22)
[2021-08-23] MEDS: MINERAL OIL/WHITE PETROLATUM OINTMENT 1 APPLIC EACH EYE ×2 (08:03→20:22)
[2021-08-23] MEDS: polyethylene glycoL 3350 17 GM POWD.PACK PO (08:03)
[2021-08-23] MEDS: ENOXAPARIN 40 MG/0.4 ML SYRINGE SUB-Q (08:23)
--- NOTE | 2021-08-23 09:49 | WPDINTPN ---
Progress Note: A&P Assessment and Plan (1) Hypercapnic respiratory failure: Code(s): J96.92 - Respiratory failure, unspecified with hypercapnia Status: Acute Assessment and Plan: Acute Respiratory failure secondary to pulmonary edema, pleural effusions and pneumonia 08/14 Patient was emergently intubated on arrival to ICU as his hypercarbia was worse and he was in respiratory distress Chest x-ray reviewed Continue full mechanical ventilation support to prevent hypoxemia/hypercarbia and end organ damage. ABG reviewed Low tidal volume ventilation strategy to prevent volutrauma 08/16/2021: Left-sided thoracentesis with removal of 250 mL of opaque, red fluid 08/17/2020: Right-sided thoracentesis with removal of 425 mL of opaque, red fluid Chest x-ray this morning shows 1. Diffuse lung disease with slight improvement in the upper lung zones, consistent with atelectasis versus pneumonia. 2. Moderate-sized pleural effusions, stable. -sedation vacation today -will give low-dose diuretic today -continue decrease sedation, will try patient on ASV and then pressure support ventilation Have called [facility] and put him on a waiting list for thoracic surgery for loculated effusions. Once they have a bed available they will call me. -Dr. Samaniego discuss the case with thoracic surgeon, , at [facility] and he is willing to see the patient in consult, I called [facility] transfer line and they stated [facility] does not have any beds at this time and we should call them on 08/21/2021. -08/21/2021 and 08/22/2021 called [facility] transfer line, they said [facility] does not have any beds as of this morning, call again this evening as the not putting patient is on waiting list. Will call [facility] in [facility] today CT scan chest, abdomen, pelvis without contrast on 08/18/2021 showed moderate size bilateral loculated pleural effusion worsened from 08/13/2021. Stable non dependent airspace opacities with volume loss in the upper lobes consistent with atelectasis versus pneumonia. Stable small pericardial effusion. Small volume of ascites, 9 mm bladder stone (2) Hypoglycemia: Code(s): E16.2 - Hypoglycemia, unspecified Status: Acute Assessment and Plan: Continue D10 at 30 mL/hour for low blood sugars, -currently tolerating tube feeds -continue Reglan and monitor for bowel, continue MiraLax -increase tube feeds to goal (3) CAD (coronary artery disease): Code(s): I25.10 - Atherosclerotic heart disease of [place] coronary artery without angina pectoris Status: Chronic Assessment and Plan: Status post recent CABG Continue amiodarone and statin, -hold Eliquis due to anemia -restarted aspirin as patient had tachycardia induced left bundle branch block and widening of QRS complex on 08/19/2021 (4) Hyponatremia: Code(s): E87.1 - Hypo-osmolality and hyponatremia Status: Acute Assessment and Plan: Sodium levels are normal, will continue to monitor (5) ROSHAN (acute kidney injury): Code(s): N17.9 - Acute kidney failure, unspecified Status: Acute Assessment and Plan: Likely prerenal from septic and/or cardiogenic shock, hypovolemia, decreased p.o. intake, On review of records from [facility] it appears the patient had acute kidney injury postop after his CABG and his creatinine improved later in the course prior to discharge although I do not have the exact creatinine at the time of discharge Creatinine has normalized, peaked at 2.4 on 08/14/2021 Monitor urine output creatinine electrolytes Will gently diurese patient today (6) Congestive heart failure: Code(s): I50.9 - Heart failure, unspecified Status: Chronic Assessment and Plan: Reviewed echocardiogram done at [facility] and it showed the patient had EF of 25% postop and also had a pericardial effusion -appreciate cardio
[2021-08-23] MEDS: FUROSEMIDE INJ 40 MG/4 ML VIAL IV PUSH (11:08)
[2021-08-23 11:40] LABS: Glucose Point of Care 119 mg/dl (65-105)
--- NOTE | 2021-08-23 12:06 | PCFNICU ---
ICU Rounding Note: Pt current nutrition is Vital High Protein at 60ml/hr over 22 hours. Last recorded weight is 91.3 kg, up from 89.2 kg on admit. Bowel Motility:Fecal containment catheter. Labs Reviewed:BUN 25, Alb 2.9,Hct 29.0,Hgb 9.2 Meds Noted:Versed, Fentanyl, Flagyl, Crestor, Miralax,Protonix,Pacerone. Skin: Coccyx-maceration. Additional Notes: Patient remains on mechanical vent with tube feedings of Vital High protein at 60 ml/hr and tolerating. Recommend increasing tube feedings to 70ml/hr providing 1540 kcals/135 gm protein/ 1287 ml water. No fever reported. Monitoring: Following daily in ICU rounds. Will monitor every Monday and Monday.
[2021-08-23] MEDS: DEXTROSE 10% 1,000 ML 30 ML IV CONT (16:07)
[2021-08-23 16:13] LABS: Glucose Point of Care 76 mg/dl (65-105)
--- NOTE | 2021-08-23 18:07 | PC.NURSE ---
[facility] transfer center called for bed availability at [facility]. No beds available at this time. guest services coordinator stated facility is at red status and not currently accepting any transfers.
--- NOTE | 2021-08-23 18:10 | PC.NURSE ---
[facility] Transfer center contacted. Report no bed availability at this time.
[2021-08-23 20:45] LABS: Glucose Point of Care 98 mg/dl (65-105)
[2021-08-24] VITALS (39 sets, daily range): BP systolic 97–184; BP diastolic 61–103; PULSE 69–122; RESP 8–22; TEMP 36.9–38.1; O2SAT 93–100
[2021-08-24] MEDS: METOCLOPRAMIDE HCL INJ 10 MG/2 ML VIAL IV PUSH ×4 (00:09→17:01)
[2021-08-24 01:38] LABS: Glucose Point of Care 90 mg/dl (65-105)
[2021-08-24] MEDS: MIDAZOLAM 100MG/NS 100ML(*CRX) 100 MG/100 ML BAG IV CONT (04:03)
[2021-08-24] MEDS: FENTANYL 2,500MCG/NS250ML(*CRX 2,500 MCG/250 ML BAG IV CONT (04:04)
--- NOTE | 2021-08-24 04:24 | PC.NURSE ---
[facility] transfer line for [facility] called for bed update. pt is not on list and CCP will need to call to speak to physician.
[2021-08-24 04:26] LABS: Hematocrit 30.2 % (42.0-52.0); Hemoglobin 9.5 g/dL (14.0-18.0); Mean Corpuscular HGB Conc 31.5 g/dl (32-36); Mean Corpuscular Hemoglobin 29.1 pg (26-34); Mean Corpuscular Volume 92.4 fl (80-100); Mean Platelet Volume 7.9 fl (7.4-10.4); Platelet Count Result 298 k/mm3 (150-375); Red Blood Count 3.27 M/mm3 (4.6-6.20); Red Cell Distribution Width 14.1 % (11.5-14.5); White Blood Count 6.4 K/mm3 (4.5-10.0)
--- NOTE | 2021-08-24 04:31 | PC.NURSE ---
[facility] called for bed update for transfer. Facility does not have waitlist and no beds are available at this time.
[2021-08-24 04:37] LABS: Alanine Aminotransferase 32 U/L (4-50); Alkaline Phosphatase 270 U/L (38-126); Anion Gap 4 mmol/L (8-16); Aspartate Amino Transferase 86 U/L (17-59); Bilirubin,Total 0.2 mg/dL (0.2-1.3); Blood Urea Nitrogen 24 mg/dL (9-20); Calcium 7.9 mg/dL (8.4-10.2); Carbon Dioxide 33 mmol/L (22-30); Chloride 99 mmol/L (98-107); Estimated CRCL calculation 70 ml/min; Estimated Glomerular Filt Rate > 60; Glucose 104 mg/dL (65-110); Magnesium 1.7 mg/dL (1.6-2.3); Phosphorus 3.5 mg/dL (2.5-4.5); Potassium 3.6 mmol/L (3.4-5.0); Sodium 136 mmol/L (137-145)
[2021-08-24 04:45] LABS: Alveolar/Arterial O2 Gradient 93.8 mmHg; Base Excess ABG 2.4 mEq/l (+/-2.0); Carboxyhemoglobin 0.3 % THb (0-2.0); Fractional Inspired Oxygen 30 %; HCO3 ABG 25.9 mEq/l (22.0-26.0); Methemoglobin ABG 0.2 %THb (0-1.5); Oxygen Content ABG 15.3 %vol (16.0-22.0); Oxygen Saturation ABG 96.3 % (95.0-100.0); Oxyhemoglobin 94.4 % THb (90.0-100.0); PCO2 ABG 36.1 mmHg (35.0-45.0); PO2 ABG 77.7 mmHg (80.0-100.0); PO2 FiO2 Ratio Arterial Blood 2.59 %; Reduced Hemoglobin 5.1 %THb (0-5.0); Total Hemoglobin 11.5 g/dL (12.0-18.0); pH ABG 7.474 (7.350-7.450)
[2021-08-24 04:46] LABS: Arterial Blood Gas PEEP 5 cmH2O; Arterial Blood Gas Vent Mode ASV; Device VENTILATOR; Modified Allen's Test Pass; Site Drawn LEFT RADIAL
[2021-08-24] MEDS: ASPIRIN 81 MG CHEWABLE TABLET PO (08:49)
[2021-08-24] MEDS: AMIODARONE HCL 200 MG TABLET 400 MG PO (08:49)
[2021-08-24] MEDS: ROSUVASTATIN 10 MG TABLET PO (08:50)
[2021-08-24] MEDS: ENOXAPARIN 40 MG/0.4 ML SYRINGE SUB-Q (08:50)
[2021-08-24] MEDS: MINERAL OIL/WHITE PETROLATUM OINTMENT 1 APPLIC EACH EYE ×2 (08:50→21:26)
[2021-08-24] MEDS: polyethylene glycoL 3350 17 GM POWD.PACK PO (08:51)
[2021-08-24] MEDS: PANTOPRAZOLE SODIUM IV 40 MG VIAL IV PUSH ×2 (08:51→21:26)
--- NOTE | 2021-08-24 09:34 | PM.IMPN ---
Progress Note: A&P Assessment and Plan (1) Hypercapnic respiratory failure: Code(s): J96.92 - Respiratory failure, unspecified with hypercapnia Status: Acute Assessment and Plan: Acute Respiratory failure secondary to pulmonary edema, pleural effusions and pneumonia 08/14 Patient was emergently intubated on arrival to ICU as his hypercarbia was worse and he was in respiratory distress 08/16/2021: Left-sided thoracentesis with removal of 250 mL of opaque, red fluid 08/17/2020: Right-sided thoracentesis with removal of 425 mL of opaque, red fluid Chest x-ray reviewed ABG reviewed Patient failed his weaning trial this morning due to elevated RSBI, elevated blood pressure heart rate in obvious respiratory distress Continue full mechanical ventilation support to prevent hypoxemia/hypercarbia and end organ damage. Currently in ASV mode Low tidal volume ventilation strategy to prevent volutrauma -daily sedation vacation -diuretics as needed Dr. Willis called [facility] and put him on a waiting list for thoracic surgery for loculated effusions. Once they have a bed available they will call me. -Dr. Samaniego discussed the case with thoracic surgeon, , at [facility] and he is willing to see the patient in consult, Dr. Willis called [facility] transfer line and they stated [facility] does not have any beds at this time and we should check periodically -08/21/2021 and 08/22/2021 called [facility] transfer line, they said [facility] does not have any beds as of this morning, call again this evening as the not putting patient is on waiting list. Dr. Willis called [facility] in [facility] also and they do not have a bed CT scan chest, abdomen, pelvis without contrast on 08/18/2021 showed moderate size bilateral loculated pleural effusion worsened from 08/13/2021. Stable non dependent airspace opacities with volume loss in the upper lobes consistent with atelectasis versus pneumonia. Stable small pericardial effusion. Small volume of ascites, 9 mm bladder stone (2) Hypoglycemia: Code(s): E16.2 - Hypoglycemia, unspecified Status: Acute Assessment and Plan: Continue D10 at 30 mL/hour for low blood sugars, -currently tolerating tube feeds -continue Reglan and monitor for bowel, continue MiraLax -increase tube feeds to goal (3) CAD (coronary artery disease): Code(s): I25.10 - Atherosclerotic heart disease of [place] coronary artery without angina pectoris Status: Chronic Assessment and Plan: Status post recent CABG Continue amiodarone and statin, -hold Eliquis due to anemia -restarted aspirin as patient had tachycardia induced left bundle branch block and widening of QRS complex on 08/19/2021 (4) Hyponatremia: Code(s): E87.1 - Hypo-osmolality and hyponatremia Status: Acute Assessment and Plan: Sodium levels are normal, will continue to monitor (5) ROSHAN (acute kidney injury): Code(s): N17.9 - Acute kidney failure, unspecified Status: Acute Assessment and Plan: Likely prerenal from septic and/or cardiogenic shock, hypovolemia, decreased p.o. intake, On review of records from [facility] it appears the patient had acute kidney injury postop after his CABG and his creatinine improved later in the course prior to discharge although I do not have the exact creatinine at the time of discharge Creatinine has normalized, peaked at 2.4 on 08/14/2021 Monitor urine output creatinine electrolytes (6) Congestive heart failure: Code(s): I50.9 - Heart failure, unspecified Status: Chronic Assessment and Plan: Reviewed echocardiogram done at [facility] and it showed the patient had EF of 25% postop and also had a pericardial effusion -appreciate cardiology evaluation and recommendations -08/16/2021 echocardiogram showed LV systolic function to be 40-45%, LV diastolic functio
[2021-08-24 09:38] LABS: Glucose Point of Care 94 mg/dl (65-105)
--- NOTE | 2021-08-24 10:43 | ECG_ITS ---
Measurements Intervals [place] Rate: 72 P: 24 TX: 224 QRS: 26 QRSD: 142 T: 65 QT: 449 QTc: 493 Interpretive Statements SINUS RHYTHM WITH FIRST DEGREE AV BLOCK LEFT BUNDLE BRANCH BLOCK ABNORMAL ECG Electronically Signed On 08-24-2021 11:47:23 [employer] DBA by Alvin Wood D.O.
--- NOTE | 2021-08-24 10:47 | WPDINTPN ---
Progress Note: A&P Assessment and Plan (1) Hypercapnic respiratory failure: Code(s): J96.92 - Respiratory failure, unspecified with hypercapnia Status: Acute Assessment and Plan: Acute Respiratory failure secondary to pulmonary edema, pleural effusions and pneumonia 08/14 Patient was emergently intubated on arrival to ICU as his hypercarbia was worse and he was in respiratory distress 08/16/2021: Left-sided thoracentesis with removal of 250 mL of opaque, red fluid 08/17/2020: Right-sided thoracentesis with removal of 425 mL of opaque, red fluid Chest x-ray reviewed ABG reviewed Patient failed his weaning trial this morning due to elevated RSBI, elevated blood pressure heart rate in obvious respiratory distress Continue full mechanical ventilation support to prevent hypoxemia/hypercarbia and end organ damage. Currently in ASV mode Low tidal volume ventilation strategy to prevent volutrauma -daily sedation vacation -diuretics as needed Dr. Willis called [facility] and put him on a waiting list for thoracic surgery for loculated effusions. Once they have a bed available they will call me. -Dr. Samaniego discussed the case with thoracic surgeon, , at [facility] and he is willing to see the patient in consult, Dr. Willis called [facility] transfer line and they stated [facility] does not have any beds at this time and we should check periodically -08/21/2021 and 08/22/2021 called [facility] transfer line, they said [facility] does not have any beds as of this morning, call again this evening as the not putting patient is on waiting list. Dr. Willis called [facility] in [facility] also and they do not have a bed CT scan chest, abdomen, pelvis without contrast on 08/18/2021 showed moderate size bilateral loculated pleural effusion worsened from 08/13/2021. Stable non dependent airspace opacities with volume loss in the upper lobes consistent with atelectasis versus pneumonia. Stable small pericardial effusion. Small volume of ascites, 9 mm bladder stone (2) Hypoglycemia: Code(s): E16.2 - Hypoglycemia, unspecified Status: Acute Assessment and Plan: Continue D10 at 30 mL/hour for low blood sugars, -currently tolerating tube feeds -continue Reglan and monitor for bowel, continue MiraLax -increase tube feeds to goal (3) CAD (coronary artery disease): Code(s): I25.10 - Atherosclerotic heart disease of [place] coronary artery without angina pectoris Status: Chronic Assessment and Plan: Status post recent CABG Continue amiodarone and statin, -hold Eliquis due to anemia -restarted aspirin as patient had tachycardia induced left bundle branch block and widening of QRS complex on 08/19/2021 (4) Hyponatremia: Code(s): E87.1 - Hypo-osmolality and hyponatremia Status: Acute Assessment and Plan: Sodium levels are normal, will continue to monitor (5) ROSHAN (acute kidney injury): Code(s): N17.9 - Acute kidney failure, unspecified Status: Acute Assessment and Plan: Likely prerenal from septic and/or cardiogenic shock, hypovolemia, decreased p.o. intake, On review of records from [facility] it appears the patient had acute kidney injury postop after his CABG and his creatinine improved later in the course prior to discharge although I do not have the exact creatinine at the time of discharge Creatinine has normalized, peaked at 2.4 on 08/14/2021 Monitor urine output creatinine electrolytes (6) Congestive heart failure: Code(s): I50.9 - Heart failure, unspecified Status: Chronic Assessment and Plan: Reviewed echocardiogram done at [facility] and it showed the patient had EF of 25% postop and also had a pericardial effusion -appreciate cardiology evaluation and recommendations -08/16/2021 echocardiogram showed LV systolic function to be 40-45%, LV diastolic functio
[2021-08-24] MEDS: METOPROLOL TARTRATE INJ 5 MG/5 ML VIAL IV PUSH ×2 (10:56→23:18)
[2021-08-24 11:07] LABS: Glucose Point of Care 123 mg/dl (65-105)
--- NOTE | 2021-08-24 11:37 | PCNFU ---
Nutrition Follow-Up Complete: Inadequate Oral Intake as related to mechanical ventilation as evidenced by NPO. Goal: Meet estimated Nutritional needs Patient is progressing towards goal. We will continue current goal. Pt current nutrition is Vital High Protein at 60 ml/hr. Last recorded weight is 88.9 kg, up from 89.2 kg on admit. Bowel Motility:+BM reported 08/23 Labs Reviewed:BUN 24, Na 136, Hct 30.2,Hgb 9.5 Meds Noted:Lopressor, Pacerone, Versed, Reglan, Fentanyl, Lovenox, Crestor. Skin: coccyx-maceration. Additional Notes: Patient remains on mechanical vent and tube feedings of Vital High Protein at 60 ml/hr. Patient failed Spontaneous breathing trial today. Tube feedings recommend to increase to 70 ml/hr over 22 hours providing 1540 kcals/135 gms protein/1287 ml water. Free water flush 30 ml q 4 hours. Monitoring daily in ICU rounds. Will reassess every Monday and Monday.
[2021-08-24 15:39] LABS: Glucose Point of Care 89 mg/dl (65-105)
[2021-08-24 21:33] LABS: Glucose Point of Care 112 mg/dl (65-105)
--- NOTE | 2021-08-24 22:08 | PC.NURSE ---
[facility] called to inquire if pt still needed a bed for [facility] transfer. They are aware bed is still needed but are at capacity at this time.
[2021-08-25] VITALS (30 sets, daily range): BP systolic 90–149; BP diastolic 58–78; PULSE 68–104; RESP 11–24; TEMP 36.6–38.2; O2SAT 94–100
[2021-08-25] MEDS: METOCLOPRAMIDE HCL INJ 10 MG/2 ML VIAL IV PUSH ×5 (00:34→23:58)
[2021-08-25 00:51] LABS: Glucose Point of Care 89 mg/dl (65-105)
--- NOTE | 2021-08-25 02:45 | PC.NURSE ---
[facility] transfer line for [facility] and [facility] called to inquire about ICU beds. [facility] has no ICU beds but recommends the CCP calls in the AM and [facility] has no ICU beds system wide .
[2021-08-25 04:41] LABS: Base Excess ABG 5.3 mEq/l (+/-2.0); Carboxyhemoglobin 0.3 % THb (0-2.0); Fractional Inspired Oxygen 30 %; Methemoglobin ABG 0.3 %THb (0-1.5); Oxygen Content ABG 13.7 %vol (16.0-22.0); Oxygen Saturation ABG 95.3 % (95.0-100.0); Oxyhemoglobin 93.2 % THb (90.0-100.0); PO2 ABG 70.1 mmHg (80.0-100.0); PO2 FiO2 Ratio Arterial Blood 2.34 %; Reduced Hemoglobin 6.2 %THb (0-5.0); Total Hemoglobin 10.4 g/dL (12.0-18.0); pH ABG 7.489 (7.350-7.450)
[2021-08-25 04:42] LABS: Device VENTILATOR; Modified Allen's Test Pass; Site Drawn RIGHT RADIAL
[2021-08-25 04:43] LABS: Arterial Blood Gas PEEP 5 cmH2O; Arterial Blood Gas Vent Mode ASV
[2021-08-25] MEDS: DEXTROSE 10% 1,000 ML 30 ML IV CONT (04:44)
[2021-08-25 05:14] LABS: Hematocrit 28.6 % (42.0-52.0); Mean Corpuscular HGB Conc 31.5 g/dl (32-36); Mean Corpuscular Hemoglobin 28.7 pg (26-34); Mean Corpuscular Volume 91.1 fl (80-100); Mean Platelet Volume 8.2 fl (7.4-10.4); Platelet Count Result 335 k/mm3 (150-375); Red Blood Count 3.14 M/mm3 (4.6-6.20); Red Cell Distribution Width 14.1 % (11.5-14.5); White Blood Count 6.2 K/mm3 (4.5-10.0)
[2021-08-25 05:27] LABS: Alanine Aminotransferase 31 U/L (4-50); Albumin Level 2.8 g/dL (3.5-5.1); Alkaline Phosphatase 231 U/L (38-126); Anion Gap 5 mmol/L (8-16); Aspartate Amino Transferase 70 U/L (17-59); Bilirubin,Total 0.2 mg/dL (0.2-1.3); Blood Urea Nitrogen 26 mg/dL (9-20); Calcium 7.6 mg/dL (8.4-10.2); Carbon Dioxide 31 mmol/L (22-30); Chloride 98 mmol/L (98-107); Estimated CRCL calculation 69 ml/min; Estimated Glomerular Filt Rate > 60; Glucose 105 mg/dL (65-110); Magnesium 1.7 mg/dL (1.6-2.3); Phosphorus 3.4 mg/dL (2.5-4.5); Potassium 3.7 mmol/L (3.4-5.0); Sodium 134 mmol/L (137-145)
[2021-08-25 07:26] LABS: Glucose Point of Care 73 mg/dl (65-105)
[2021-08-25] MEDS: ASPIRIN 81 MG CHEWABLE TABLET PO (08:50)
[2021-08-25] MEDS: AMIODARONE HCL 200 MG TABLET 400 MG PO (08:50)
[2021-08-25] MEDS: ENOXAPARIN 40 MG/0.4 ML SYRINGE SUB-Q (08:51)
[2021-08-25] MEDS: PANTOPRAZOLE SODIUM IV 40 MG VIAL IV PUSH ×2 (08:51→20:16)
[2021-08-25] MEDS: ROSUVASTATIN 10 MG TABLET PO (08:51)
[2021-08-25] MEDS: MINERAL OIL/WHITE PETROLATUM OINTMENT 1 APPLIC EACH EYE ×2 (08:51→20:16)
--- NOTE | 2021-08-25 11:23 | PCFNICU ---
ICU Rounding Note: Pt current nutrition is Vital High Protein at 60 ml/hr over 22 hours. Last recorded weight is 87 kg, down from 89.2 kg on admit. Bowel Motility:Fecal containment catheter Labs Reviewed:BUN 26, Na 134, Alb 2.8, Hgb 9.0,Hct 28.6,Na 134 Meds Noted:Reglan, Pacerone, Lovenox, Fentanyl, Lopressor, Protonix, Crestor Skin: coccyx-maceration Additional Notes: Patient remains on mechanical vent with plans for breathing trial today. MD would like formula with high level of CHO (187 gms per 1 liter). Formula change today to Vital 1.5 at 60 ml/hr providing 1980 kcals/89 gms protein/1008 ml water. Free water flush 30 ml q 4 hours. Following daily in ICU rounds. Will monitor every Monday and monday.
[2021-08-25 11:55] LABS: Glucose Point of Care 101 mg/dl (65-105)
[2021-08-25 12:02] LABS: Add Urine Microscopic? YES; Appearance Urine Cloudy (Clear); Bacteria Urine Trace /hpf; Bilirubin Urine Negative (Negative); Blood Urine 3+ (Negative); Color Urine Yellow (Yellow); Glucose Urine UA Negative (Negative); Ketones Urine Negative (Negative); Leukocyte Esterase Ur 3+ LEU/UL (Negative); Mucus Urine Rare /lpf; Nitrate Urine Negative (Negative); Protein Urine 2+ mg/dL (Negative); RBC Urine >75 /hpf (0-2); Specific Grav Ur 1.016 (1.001-1.035); Squamous Epithelial Cell Urine Rare /hpf (Few); Urobilinogen Urine Negative mg/dL (<2.0); WBC Clumps Urine Present /HPF; WBC Urine >75 /hpf
--- NOTE | 2021-08-25 12:31 | WPDINTPN ---
Progress Note: A&P Assessment and Plan (1) Hypercapnic respiratory failure: Code(s): J96.92 - Respiratory failure, unspecified with hypercapnia Status: Acute Assessment and Plan: Acute Respiratory failure secondary to pulmonary edema, pleural effusions and pneumonia 08/14 Patient was emergently intubated on arrival to ICU as his hypercarbia was worse and he was in respiratory distress 08/16/2021: Left-sided thoracentesis with removal of 250 mL of opaque, red fluid 08/17/2020: Right-sided thoracentesis with removal of 425 mL of opaque, red fluid Chest x-ray reviewed and shows 1. Increasing pleural effusions, now moderate in size. 2. Airspace opacities of the mid and lower lung zones and left upper lung zone, consistent with atelectasis versus pneumonia. ABG reviewed Patient again failed his weaning trial this morning due to elevated RSBI within few minutes, elevated blood pressure heart rate in obvious respiratory distress Continue full mechanical ventilation support to prevent hypoxemia/hypercarbia and end organ damage. Currently in ASV mode Low tidal volume ventilation strategy to prevent volutrauma -daily sedation vacation -will give Lasix IV today Dr. Willis called [facility] and put him on a waiting list for thoracic surgery for loculated effusions. Once they have a bed available they will call me. -Dr. Samaniego discussed the case with thoracic surgeon, , at [facility] and he is willing to see the patient in consult, Dr. Willis called [facility] transfer line and they stated [facility] does not have any beds at this time and we should check periodically -08/21/2021 and 08/22/2021 called [facility] transfer line, they said [facility] does not have any beds as of this morning, call again this evening as the not putting patient is on waiting list. Dr. Willis called [facility] in [facility] also and they do not have a bed Staff has called and checked and patient still does not have any bed available CT scan chest, abdomen, pelvis without contrast on 08/18/2021 showed moderate size bilateral loculated pleural effusion worsened from 08/13/2021. Stable non dependent airspace opacities with volume loss in the upper lobes consistent with atelectasis versus pneumonia. Stable small pericardial effusion. Small volume of ascites, 9 mm bladder stone (2) Sepsis: Qualifiers: Sepsis acute organ dysfunction status: unspecified Sepsis type: sepsis due to unspecified organism Qualified Code(s): A41.9 - Sepsis, unspecified organism Code(s): A41.9 - Sepsis, unspecified organism Status: Acute Assessment and Plan: secondary to pneumonia see above (3) Fever: Code(s): R50.9 - Fever, unspecified Status: Acute Assessment and Plan: Patient initially was diagnosed with pneumonia and completed a 10 day course of vancomycin and aztreonam Fevers or requiring but his WBC is normal 08/25 Repeat blood sputum and urine culture 08/25 Change Mace catheter (4) Shock: Code(s): R57.9 - Shock, unspecified Status: Acute Assessment and Plan: Septic versus cardiogenic Patient has been requiring on and off low-dose Levophed support for his blood pressure depending on his sedation level Echocardiogram as above -status post 10 days of vancomycin and aztreonam -08/19/2021: Blood cultures times negative so far -08/19/2021 urine cultures negative -08/21/2021 sputum cultures negative (5) CAD (coronary artery disease): Code(s): I25.10 - Atherosclerotic heart disease of [place] coronary artery without angina pectoris Status: Chronic Assessment and Plan: Status post recent CABG Continue amiodarone and statin, -continue to hold Eliquis due to anemia -restarted aspirin as patient had tachycardia induced left bundle branch block and widening of QRS complex on 08/19/2021 (6) Hypoglycemia: Code(s): E16.2 -
[2021-08-25 16:50] LABS: Glucose Point of Care 82 mg/dl (65-105)
[2021-08-25 20:32] LABS: Glucose Point of Care 98 mg/dl (65-105)
[2021-08-26] VITALS (32 sets, daily range): BP systolic 80–142; BP diastolic 48–84; PULSE 65–99; RESP 10–25; TEMP 36.9–37.7; O2SAT 94–99
[2021-08-26] MEDS: MIDAZOLAM 100MG/NS 100ML(*CRX) 100 MG/100 ML BAG IV CONT (01:09)
[2021-08-26] MEDS: FENTANYL 2,500MCG/NS250ML(*CRX 2,500 MCG/250 ML BAG 7.5 MCG IV CONT (01:12)
[2021-08-26 01:51] LABS: Glucose Point of Care 111 mg/dl (65-105)
[2021-08-26 04:28] LABS: Alveolar/Arterial O2 Gradient 86.9 mmHg; Base Excess ABG 3.8 mEq/l (+/-2.0); Carboxyhemoglobin 0.3 % THb (0-2.0); Fractional Inspired Oxygen 30 %; HCO3 ABG 27.9 mEq/l (22.0-26.0); Methemoglobin ABG 0.2 %THb (0-1.5); Oxygen Content ABG 12.8 %vol (16.0-22.0); Oxygen Saturation ABG 96.3 % (95.0-100.0); Oxyhemoglobin 94.3 % THb (90.0-100.0); PCO2 ABG 40.3 mmHg (35.0-45.0); PO2 ABG 79.7 mmHg (80.0-100.0); PO2 FiO2 Ratio Arterial Blood 2.66 %; Reduced Hemoglobin 5.2 %THb (0-5.0); Total Hemoglobin 9.6 g/dL (12.0-18.0); pH ABG 7.458 (7.350-7.450)
[2021-08-26 04:30] LABS: Device VENTILATOR; Modified Allen's Test Pass; Site Drawn RIGHT RADIAL
[2021-08-26 04:31] LABS: Arterial Blood Gas PEEP 5 cmH2O; Arterial Blood Gas Vent Mode ASV
[2021-08-26 05:02] LABS: Hematocrit 27.6 % (42.0-52.0); Hemoglobin 8.9 g/dL (14.0-18.0); Mean Corpuscular HGB Conc 32.2 g/dl (32-36); Mean Corpuscular Volume 92.9 fl (80-100); Mean Platelet Volume 8.2 fl (7.4-10.4); Platelet Count Result 317 k/mm3 (150-375); Red Blood Count 2.97 M/mm3 (4.6-6.20); Red Cell Distribution Width 14.3 % (11.5-14.5); White Blood Count 5.7 K/mm3 (4.5-10.0)
[2021-08-26 05:17] LABS: Anion Gap 6 mmol/L (8-16); Blood Urea Nitrogen 29 mg/dL (9-20); Calcium 7.6 mg/dL (8.4-10.2); Carbon Dioxide 33 mmol/L (22-30); Chloride 100 mmol/L (98-107); Estimated CRCL calculation 65 ml/min; Estimated Glomerular Filt Rate > 60; Glucose 89 mg/dL (65-110); Magnesium 1.8 mg/dL (1.6-2.3); Potassium 3.9 mmol/L (3.4-5.0); Sodium 139 mmol/L (137-145)
[2021-08-26] MEDS: METOCLOPRAMIDE HCL INJ 10 MG/2 ML VIAL IV PUSH ×3 (05:45→17:42)
[2021-08-26] MEDS: LIDOCAINE 5% PATCH 1 PATCH TRANSDERM (08:04)
[2021-08-26] MEDS: ENOXAPARIN 40 MG/0.4 ML SYRINGE SUB-Q (08:04)
[2021-08-26] MEDS: AMIODARONE HCL 200 MG TABLET 400 MG PO (08:05)
[2021-08-26] MEDS: PANTOPRAZOLE SODIUM IV 40 MG VIAL IV PUSH ×2 (08:05→20:23)
[2021-08-26] MEDS: ROSUVASTATIN 10 MG TABLET PO (08:05)
[2021-08-26] MEDS: MINERAL OIL/WHITE PETROLATUM OINTMENT 1 APPLIC EACH EYE ×2 (08:05→20:23)
[2021-08-26] MEDS: ASPIRIN 81 MG CHEWABLE TABLET PO (08:05)
[2021-08-26 08:37] LABS: Glucose Point of Care 116 mg/dl (65-105)
[2021-08-26] MEDS: DEXTROSE 10% 1,000 ML 30 ML IV CONT (09:54)
--- NOTE | 2021-08-26 11:27 | PCFNICU ---
ICU Rounding Note: Pt current nutrition is Vital 1.5 at 60 ml/hr over 22 hours. Last recorded weight is 92.5 kg, up from 89.2 kg on admit. Bowel Motility:Fecal containment catheter. Labs Reviewed:BUN 29, Hct 27.6,Hgb 8.9 Meds Noted:Reglan,Pacerone, Versed, Fentanyl, Lopressor, Crestor Skin: WNL Additional Notes: 08/25-Patient started on Vital 1.5 due to low blood sugars. Patient blood sugars improving. tolerating tube feedings. Free water flush remains at 30 ml q 4 hours. Following daily in ICU rounds. Reassessing every Monday and Monday.
[2021-08-26 12:06] LABS: Glucose Point of Care 97 mg/dl (65-105)
--- NOTE | 2021-08-26 12:36 | WPDINTPN ---
Progress Note: A&P Assessment and Plan (1) Hypercapnic respiratory failure: Code(s): J96.92 - Respiratory failure, unspecified with hypercapnia Status: Acute Assessment and Plan: Acute Respiratory failure secondary to pulmonary edema, pleural effusions and pneumonia 08/14 Patient was emergently intubated on arrival to ICU as his hypercarbia was worse and he was in respiratory distress 08/16/2021: Left-sided thoracentesis with removal of 250 mL of opaque, red fluid 08/17/2020: Right-sided thoracentesis with removal of 425 mL of opaque, red fluid Chest x-ray reviewed and shows recurrent right pleural effusions, ABG reviewed Patient again failed his weaning trial this morning due to elevated RSBI within few minutes and drop in saturation Patient placed back in ASV mode Continue full mechanical ventilation support to prevent hypoxemia/hypercarbia and end organ damage. Low tidal volume ventilation strategy to prevent volutrauma -daily sedation vacation -Lidoderm patch placed on chest to rule out pain being the cause of failure to wean -will give Lasix IV today -will consult IR for repeat thoracentesis on the right side see if we can try to wean patient off the ventilator otherwise he will need a tracheostomy as patient is close to [address] Willis called [facility] and put him on a waiting list for thoracic surgery for loculated effusions. Once they have a bed available they will call me. -Dr. Samaniego discussed the case with thoracic surgeon, , at [facility] and he is willing to see the patient in consult, Dr. Willis called [facility] transfer line and they stated [facility] does not have any beds at this time and we should check periodically -08/21/2021 and 08/22/2021 called [facility] transfer line, they said [facility] does not have any beds as of this morning, call again this evening as the not putting patient is on waiting list. Dr. Willis called [facility] in [facility] also and they do not have a bed Staff has called and checked and patient still does not have any bed available CT scan chest, abdomen, pelvis without contrast on 08/18/2021 showed moderate size bilateral loculated pleural effusion worsened from 08/13/2021. Stable non dependent airspace opacities with volume loss in the upper lobes consistent with atelectasis versus pneumonia. Stable small pericardial effusion. Small volume of ascites, 9 mm bladder stone (2) Sepsis: Qualifiers: Sepsis acute organ dysfunction status: unspecified Sepsis type: sepsis due to unspecified organism Qualified Code(s): A41.9 - Sepsis, unspecified organism Code(s): A41.9 - Sepsis, unspecified organism Status: Acute Assessment and Plan: secondary to pneumonia see above (3) Fever: Code(s): R50.9 - Fever, unspecified Status: Acute Assessment and Plan: Patient initially was diagnosed with pneumonia and completed a 10 day course of vancomycin and aztreonam Fevers or requiring but his WBC is normal UA suggest UTI with positive leukocyte Estrace. Will start patient on aztreonam 08/25 Repeat blood sputum and urine culture 08/25 Changed Mace catheter (4) Shock: Code(s): R57.9 - Shock, unspecified Status: Acute Assessment and Plan: Septic versus cardiogenic Patient has been requiring on and off low-dose Levophed support for his blood pressure depending on his sedation level Echocardiogram as above -status post 10 days of vancomycin and aztreonam -08/19/2021: Blood cultures times negative so far -08/19/2021 urine cultures negative -08/21/2021 sputum cultures negative (5) CAD (coronary artery disease): Code(s): I25.10 - Atherosclerotic heart disease of [place] coronary artery without angina pectoris Status: Chronic Assessment and Plan: Status post recent CABG Continue amiodarone and statin, -continue to hold Eliqui
[2021-08-26] MEDS: FUROSEMIDE INJ 40 MG/4 ML VIAL IV PUSH (13:29)
[2021-08-26] MEDS: NOREPINEPHRINE 8 MG/D5W 250 ML 8 MG/250 ML BAG 9.38 MG IV CONT (13:48)
--- NOTE | 2021-08-26 16:19 | PM.CNPUL ---
Assessment and Plan Assessment and plan (1) Bilateral pleural effusion: Code(s): J90 - Pleural effusion, not elsewhere classified Status: Acute Assessment and Plan: This is a very complicated case of a 61-year-old man who underwent coronary bypass grafting following myocardial infarct. The patient developed pleural effusions in the immediate postoperative period while still at the hospital where he underwent coronary artery bypass grafting and underwent thoracentesis prior to discharge home, and also during this hospitalization. These pleural effusions post CABG occurred during the early phase following surgery, are symmetrical bilaterally, and with high albumin to serum gradient. These features in conjunction with very high BNP on admission, relatively low EF on the admission echocardiogram, evidence of pulmonary edema on admission chest x-ray may suggest congestive heart failure as the etiology of bilateral pleural effusions. In addition to congestive heart failure, the differential diagnosis in this case also includes effusions related to coronary artery bypass grafting per se. What is not quite typical for this is that these effusions occur mostly on the left, occasionally on the right if mammary artery graft are used, with the left pleural effusion being usually greater than the right. Parapneumonic effusions or chylothorax are not likely, given the pleural fluid analysis data. Pulmonary embolism was also excluded by today's CT PA. While waiting the new pleural fluid analysis I would suggest to proceed having in mind that these effusions are either related to congestive heart failure or related to coronary artery bypass grafting surgery. I would order repeat echocardiogram, BNP, and optimize treatment for congestive heart failure, including gentle diuresis. Since the patient received IV contrast for the CTPA I would wait a day or so before starting the patient on diuresis. I would also proceed with therapeutic right thoracentesis with fluid pleural fluid analysis to exclude parapneumonic effusion. The relatively high RBC number on R is most likely related to trauma during surgery or trauma during the 1st thoracentesis at the hospital where the surgery was done. Pleural effusions occurring during the early phase after coronary artery bypass grafting usually subside with repeated thoracentesis. Anti inflammatory agents or steroids may be used if persist following 2 or 3 thoracentesis. Will measure inflammatory indices such as CRP, sed rate. Case was discussed with the tax services specialist. (2) CAD (coronary artery disease): Qualifiers: Associated angina: unspecified whether angina present Coronary Disease-Associated Artery/Lesion type: unspecified vessel or lesion type [place] vs. transplanted heart: [place] heart Qualified Code(s): I25.10 - Atherosclerotic heart disease of [place] coronary artery without angina pectoris Code(s): I25.10 - Atherosclerotic heart disease of [place] coronary artery without angina pectoris Status: Chronic (3) Hypercapnic respiratory failure: Code(s): J96.92 - Respiratory failure, unspecified with hypercapnia Status: Acute (4) Congestive heart failure: Code(s): I50.9 - Heart failure, unspecified Status: Chronic History of Present Illness History of Present Illness Consult date: 08/26/21 Chief complaint: Sepsis/diarrhea/pneumonia/dehydration/status post Narrative: This 61-year-old man was admitted to the hospital approximately 2 weeks ago after he collapsed at home. This report is based on information obtained after reviewing the patient's chart, talking to the tax services specialist and also talking to the patient's sister. The patient was in his usual state of health until approximately 1 month ago when he was treated for acute myocardial infarction at another hospital. Four days later the patient underwent coronary artery bypass grafting. Details of the opera
[2021-08-26 17:44] LABS: Glucose Point of Care 92 mg/dl (65-105)
[2021-08-26 18:01] LABS: Albumin Level 2.8 g/dL (3.5-5.1); Amylase 63 U/L (30-110)
[2021-08-26 18:11] LABS: NT Pro B Type Natriuretic Pept 2930 pg/mL (5-100)
[2021-08-26 18:21] LABS: Lactate Dehydrogenase 481 U/L (313-618)
[2021-08-26 20:01] LABS: Glucose Point of Care 82 mg/dl (65-105)
[2021-08-27] VITALS (30 sets, daily range): BP systolic 61–135; BP diastolic 45–96; PULSE 59–105; RESP 12–18; TEMP 37.1–38.3; O2SAT 92–98
[2021-08-27 00:02] LABS: Glucose Point of Care 87 mg/dl (65-105)
[2021-08-27] MEDS: METOCLOPRAMIDE HCL INJ 10 MG/2 ML VIAL IV PUSH ×4 (00:03→18:07)
[2021-08-27 05:02] LABS: CRP 4.6 mg/dL (<1.0)
[2021-08-27 05:26] LABS: Erythrocyte Sedimentation Rate > 140 mm/hr (0-20)
[2021-08-27 05:45] LABS: Glucose Point of Care 86 mg/dl (65-105)
[2021-08-27 05:56] LABS: PCO2 ABG 44.4 mmHg (35.0-45.0); PO2 ABG 76.4 mmHg (80.0-100.0); pH ABG 7.425 (7.350-7.450)
[2021-08-27 05:57] LABS: Alveolar/Arterial O2 Gradient 85.3 mmHg; Base Excess ABG 3.6 mEq/l (+/-2.0); HCO3 ABG 28.5 mEq/l (22.0-26.0); Oxygen Content ABG 14.4 %vol (16.0-22.0); Oxygen Saturation ABG 95.5 % (95.0-100.0); Total Hemoglobin 10.9 g/dL (12.0-18.0)
[2021-08-27 05:58] LABS: Carboxyhemoglobin 0.3 % THb (0-2.0); Device VENTILATOR; Methemoglobin ABG 0.2 %THb (0-1.5); Modified Allen's Test Unable to perform; Oxyhemoglobin 93.6 % THb (90.0-100.0); PO2 FiO2 Ratio Arterial Blood 2.55 %; Reduced Hemoglobin 5.9 %THb (0-5.0); Site Drawn LEFT RADIAL
[2021-08-27 05:59] LABS: Arterial Blood Gas PEEP 5 cmH2O; Arterial Blood Gas Vent Mode ASV
[2021-08-27 06:06] LABS: Fractional Inspired Oxygen 30 %
[2021-08-27] MEDS: FENTANYL 2,500MCG/NS250ML(*CRX 2,500 MCG/250 ML BAG 10 MCG IV CONT (07:23)
--- NOTE | 2021-08-27 08:00 | ECHO_ITS ---
Patient Info Name: Angel Luis Grace Chiara Age: 61 years : 1960 Gender: Male Ht: 66 in Wt: 203 lbs BSA: 2.10 m2 HR: 73 bpm BP: 127 / 68 mmHg Heart Rhythm: Sinus Rhythm Exam Date: 08/27/2021 9:13 AM Exam Location: [facility] Pulmonary Patient Status: Inpatient Admit Date: 08/13/2021 Staff Ordering Physician: Kenton Garrett MD Pastry Cook Apprentice: Geraldo Mantilla, ADALGISA, RT Attending Provider: Giovany Alcaraz MD Referring Physician: Gerry SHARMA; Exam Type: CA echo doppler color flow Study Info Indications I50.9 - Heart failure, unspecified Complete two-dimensional, color flow and Doppler transthoracic echocardiogram is performed with contrast to opacify the left ventricle and to improve the deliniation of the left ventricle endocardial borders. Summary 1. Technically difficult study with limited views. Definity echo contrast enhancement utilized. 2. Left ventricular chamber dimension is normal. 3. Left ventricular systolic function is mildly reduced, estimated at 45%. 4. There is mildly increased left ventricular wall thickness. 5. Left ventricular septal wall motion is abnormal with septal motion related to bundle branch block. 6. The left ventricular diastolic function is grade II diastolic dysfunction. 7. Left atrial chamber dimension is mildly enlarged. 8. There is trace mitral valve regurgitation. 9. There is no aortic valve stenosis. Left Ventricle Left ventricular chamber dimension is normal. Left ventricular systolic function is mildly reduced, estimated at 45%. There is mildly increased left ventricular wall thickness. Left ventricular septal wall motion is abnormal with septal motion related to bundle branch block. The left ventricular diastolic function is grade II diastolic dysfunction. Technically difficult study with limited views. Definity echo contrast enhancement utilized. Right Ventricle Right ventricular chamber dimension is normal. Right ventricular systolic function is normal. Left Atria Left atrial chamber dimension is mildly enlarged. Right Atria Right atrial chamber dimension is normal. Aortic Valve The aortic valve is probable trileaflet. There is mild aortic valve sclerosis. There is no aortic valve stenosis. There is no aortic valve regurgitation. Pulmonic Valve The pulmonic valve is not well visualized. There is trace pulmonic regurgitation. Mitral Valve The mitral valve has thickened leaflets. There is trace mitral valve regurgitation. The mitral valve annulus is severely calcified. Tricuspid Valve The tricuspid valve leaflets are normal. There is trace tricuspid valve regurgitation. Unable to estimate PA systolic pressure due to poor spectral resolution of tricuspid regurgitant jet velocity. Pericardium/Pleural The pericardium appears normal. There is small pericardial effusion. Aorta The aortic root size at the sinus of Valsalva is normal. There is mild aortic atherosclerosis. Left Ventricular Outflow Tract Name Value Normal LVOT 2D LVOT Diameter 2.0 cm LVOT Doppler LVOT Peak Gradient 3 mmHg LVOT Mean Gra
[2021-08-27] MEDS: AMIODARONE HCL 200 MG TABLET 400 MG PO (08:35)
[2021-08-27] MEDS: ROSUVASTATIN 10 MG TABLET PO (08:36)
[2021-08-27] MEDS: LIDOCAINE 5% PATCH 1 PATCH TRANSDERM (08:36)
[2021-08-27] MEDS: MINERAL OIL/WHITE PETROLATUM OINTMENT 1 APPLIC EACH EYE ×2 (08:36→19:49)
[2021-08-27] MEDS: PANTOPRAZOLE SODIUM IV 40 MG VIAL IV PUSH ×2 (08:36→19:49)
[2021-08-27] MEDS: ENOXAPARIN 40 MG/0.4 ML SYRINGE SUB-Q (08:36)
[2021-08-27 08:39] LABS: Hematocrit 29.2 % (42.0-52.0); Hemoglobin 9.1 g/dL (14.0-18.0); Mean Corpuscular HGB Conc 31.2 g/dl (32-36); Mean Corpuscular Hemoglobin 29.6 pg (26-34); Mean Corpuscular Volume 95.1 fl (80-100); Mean Platelet Volume 8.5 fl (7.4-10.4); Platelet Count Result 347 k/mm3 (150-375); Red Blood Count 3.07 M/mm3 (4.6-6.20); Red Cell Distribution Width 14.5 % (11.5-14.5); White Blood Count 5.7 K/mm3 (4.5-10.0)
[2021-08-27 08:49] LABS: Alanine Aminotransferase 46 U/L (4-50); Albumin Level 2.8 g/dL (3.5-5.1); Alkaline Phosphatase 226 U/L (38-126); Anion Gap 5 mmol/L (8-16); Aspartate Amino Transferase 84 U/L (17-59); Bilirubin,Total 0.2 mg/dL (0.2-1.3); Blood Urea Nitrogen 26 mg/dL (9-20); Calcium 7.5 mg/dL (8.4-10.2); Carbon Dioxide 33 mmol/L (22-30); Chloride 101 mmol/L (98-107); Estimated CRCL calculation 58 ml/min; Estimated Glomerular Filt Rate > 60; Glucose 101 mg/dL (65-110); Magnesium 1.8 mg/dL (1.6-2.3); Sodium 139 mmol/L (137-145)
[2021-08-27] MEDS: ASPIRIN 81 MG CHEWABLE TABLET PO (09:31)
[2021-08-27] MEDS: PERFLUTREN LIPID MICROSPHERES 1.5 ML VIAL DILUTED TO 10 ML TOTAL VOLUME (09:31)
[2021-08-27 09:54] LABS: Hemoglobin 9.2 g/dL (14.0-18.0); Mean Corpuscular HGB Conc 31.7 g/dl (32-36); Mean Corpuscular Hemoglobin 29.8 pg (26-34); Mean Corpuscular Volume 93.9 fl (80-100); Mean Platelet Volume 8.2 fl (7.4-10.4); Platelet Count Result 316 k/mm3 (150-375); Red Blood Count 3.09 M/mm3 (4.6-6.20); Red Cell Distribution Width 14.4 % (11.5-14.5); White Blood Count 5.4 K/mm3 (4.5-10.0)
[2021-08-27 10:03] LABS: Glucose Point of Care 98 mg/dl (65-105)
[2021-08-27 10:10] LABS: Alanine Aminotransferase 45 U/L (4-50); Albumin Level 2.9 g/dL (3.5-5.1); Alkaline Phosphatase 219 U/L (38-126); Anion Gap 3 mmol/L (8-16); Aspartate Amino Transferase 79 U/L (17-59); Bilirubin,Total 0.1 mg/dL (0.2-1.3); Blood Urea Nitrogen 24 mg/dL (9-20); Calcium 7.5 mg/dL (8.4-10.2); Carbon Dioxide 34 mmol/L (22-30); Chloride 99 mmol/L (98-107); Estimated CRCL calculation 63 ml/min; Estimated Glomerular Filt Rate > 60; Glucose 102 mg/dL (65-110); Magnesium 1.8 mg/dL (1.6-2.3); Potassium 4.3 mmol/L (3.4-5.0); Sodium 136 mmol/L (137-145)
--- NOTE | 2021-08-27 11:04 | PCNFU ---
Nutrition Follow-Up Complete: Inadequate Oral Intake as related to mechanical ventilation as evidenced by NPO. Goal: Meet estimated Nutritional needs Patient is progressing towards goal. We will continue current goal. Pt current nutrition is Vital 1.5 at 60 ml/hr over 22 hours. Last recorded weight is 86.1 kg, down from 89.2 kg on admit Bowel Motility:Fecal containment catheter. Labs Reviewed:Alb 2.8 Meds Noted:Reglan, Fentanyl, Pacerone, Lovenox, Lopressor, Crestor. Skin: Coccyx-maceration Additional Notes:Patient remains on mechanical vent and tube feedings of Vital 1.5 at 60 ml/hr, providing 1980 kcals/89 gms protein/1008 ml water and tolerating. Free water flush 30 ml q 4 hours. Failed breathing trial today. 08/26-Thoracentesis removed 1000 ml. Agree with diet orders. Will monitor daily in ICU rounds. Reassessing every Monday and Monday
--- NOTE | 2021-08-27 11:08 | WPDINTPN ---
Progress Note: A&P Assessment and Plan (1) Hypercapnic respiratory failure: Code(s): J96.92 - Respiratory failure, unspecified with hypercapnia Status: Acute Assessment and Plan: Acute Respiratory failure secondary to pulmonary edema, pleural effusions and pneumonia 08/14 Patient was emergently intubated on arrival to ICU as his hypercarbia was worse and he was in respiratory distress 08/16/2021: Left-sided thoracentesis with removal of 250 mL of opaque, red fluid 08/17/2020: Right-sided thoracentesis with removal of 425 mL of opaque, red fluid 08/26 -right thoracentesis and 1 L fluid was removed 08/26 -CT angiogram of chest was performed as per recommendation of Dr. Garrett IMPRESSION: 1. No pulmonary embolus. 2. Moderate-sized pleural effusions, right worse than left. 3. Stable nondependent airspace opacities with volume loss in the upper lobes, consistent with atelectasis/scarring versus pneumonia. 4. Stable small pericardial effusion. 5. Endotracheal tube tip 7.3 cm above the albert. Chest x-ray reviewed advance ET tube by 4 cm ABG reviewed Patient again failed his weaning trial this morning due to elevated RSBI, drop in saturation, respiratory distress. Patient placed back in ASV mode Continue daily weaning trial and sedation vacation Continue Lidoderm patch placed on chest to rule out pain being the cause of failure to wean Patient was given Lasix yesterday. Will hold today as patient received contrast with CT yesterday Dr. Willis called [facility] and put him on a waiting list for thoracic surgery for loculated effusions. Once they have a bed available they will call me. -Dr. Samaniego discussed the case with thoracic surgeon, Dr. Irby, at [facility] and he is willing to see the patient in consult, Dr. Willis called [facility] transfer line and they stated [facility] does not have any beds at this time and we should check periodically -08/21/2021 and 08/22/[address] [facility] transfer line, they said [facility] does not have any beds as of this morning, call again this evening as the not putting patient is on waiting list. Dr. Willis called [facility] in [facility] also and they do not have a bed 08/26 - Spoke to Dr. Castelan at [facility]. This time they do not have any bed available in ICU. He will accept the patient once they have a bed available. Staff has called and checked and patient still does not have any bed available (2) Sepsis: Qualifiers: Sepsis acute organ dysfunction status: unspecified Sepsis type: sepsis due to unspecified organism Qualified Code(s): A41.9 - Sepsis, unspecified organism Code(s): A41.9 - Sepsis, unspecified organism Status: Acute Assessment and Plan: secondary to pneumonia see above (3) Fever: Code(s): R50.9 - Fever, unspecified Status: Acute Assessment and Plan: Patient initially was diagnosed with pneumonia and completed a 10 day course of vancomycin and aztreonam Fevers or requiring but his WBC is normal UA suggest UTI with positive leukocyte Estrace. Patient was started aztreonam 08/25 Repeat blood sputum and urine culture have been negative 08/25 Changed Mace catheter (4) Shock: Code(s): R57.9 - Shock, unspecified Status: Acute Assessment and Plan: Septic versus cardiogenic Patient has been requiring on and off low-dose Levophed support for his blood pressure depending on his sedation level Echocardiogram as above -status post 10 days of vancomycin and aztreonam -08/19/2021: Blood cultures times negative so far -08/19/2021 urine cultures negative -08/21/2021 sputum cultures negative (5) CAD (coronary artery disease): Qualifiers: Coronary Disease-Associated Artery/Lesion type: unspecified vessel or lesion type [place] vs. transplanted heart: [place] heart Associated angina: unspecified whether a
[2021-08-27] MEDS: METOPROLOL TARTRATE INJ 5 MG/5 ML VIAL IV PUSH (11:09)
[2021-08-27] MEDS: MIDAZOLAM 100MG/NS 100ML(*CRX) 100 MG/100 ML BAG IV CONT (14:24)
[2021-08-27] MEDS: ACETAMINOPHEN 325 MG TABLET 650 MG PO (18:06)
[2021-08-27 18:15] LABS: Glucose Point of Care 88 mg/dl (65-105)
[2021-08-27 19:42] LABS: Glucose Point of Care 111 mg/dl (65-105)
[2021-08-28] VITALS (29 sets, daily range): BP systolic 103–180; BP diastolic 63–93; PULSE 58–97; RESP 10–98; TEMP 36.1–38; O2SAT 5–99
[2021-08-28 00:09] LABS: Glucose Point of Care 115 mg/dl (65-105)
[2021-08-28] MEDS: METOCLOPRAMIDE HCL INJ 10 MG/2 ML VIAL IV PUSH ×4 (00:09→17:41)
[2021-08-28 03:55] LABS: Glucose Point of Care 100 mg/dl (65-105)
[2021-08-28 04:40] LABS: Hematocrit 28.5 % (42.0-52.0); Mean Corpuscular HGB Conc 31.6 g/dl (32-36); Mean Corpuscular Hemoglobin 29.6 pg (26-34); Mean Corpuscular Volume 93.8 fl (80-100); Mean Platelet Volume 7.9 fl (7.4-10.4); Platelet Count Result 325 k/mm3 (150-375); Red Blood Count 3.04 M/mm3 (4.6-6.20); Red Cell Distribution Width 14.4 % (11.5-14.5)
[2021-08-28 04:54] LABS: Alanine Aminotransferase 43 U/L (4-50); Albumin Level 2.8 g/dL (3.5-5.1); Alkaline Phosphatase 216 U/L (38-126); Anion Gap 3 mmol/L (8-16); Aspartate Amino Transferase 86 U/L (17-59); Bilirubin,Total 0.2 mg/dL (0.2-1.3); Blood Urea Nitrogen 24 mg/dL (9-20); Calcium 7.6 mg/dL (8.4-10.2); Carbon Dioxide 33 mmol/L (22-30); Chloride 102 mmol/L (98-107); Estimated CRCL calculation 54 ml/min; Estimated Glomerular Filt Rate 56; Glucose 115 mg/dL (65-110); Magnesium 1.8 mg/dL (1.6-2.3); Potassium 4.1 mmol/L (3.4-5.0); Sodium 138 mmol/L (137-145)
[2021-08-28 06:27] LABS: Base Excess ABG 4.1 mEq/l (+/-2.0); Carboxyhemoglobin 0.3 % THb (0-2.0); Fractional Inspired Oxygen 25 %; HCO3 ABG 28.4 mEq/l (22.0-26.0); Methemoglobin ABG 0.1 %THb (0-1.5); Oxygen Content ABG 12.1 %vol (16.0-22.0); Oxygen Saturation ABG 94.6 % (95.0-100.0); PCO2 ABG 41.5 mmHg (35.0-45.0); PO2 FiO2 Ratio Arterial Blood 2.76 %; Reduced Hemoglobin 7.6 %THb (0-5.0); Total Hemoglobin 9.3 g/dL (12.0-18.0); pH ABG 7.453 (7.350-7.450)
[2021-08-28 06:30] LABS: Arterial Blood Gas PEEP 5 cmH2O; Arterial Blood Gas Vent Mode ASV; Device VENTILATOR; Modified Allen's Test Pass; Site Drawn RIGHT RADIAL
[2021-08-28 08:07] LABS: Glucose Point of Care 72 mg/dl (65-105)
[2021-08-28] MEDS: ENOXAPARIN 40 MG/0.4 ML SYRINGE SUB-Q (08:55)
[2021-08-28] MEDS: MINERAL OIL/WHITE PETROLATUM OINTMENT 1 APPLIC EACH EYE ×2 (08:55→20:00)
[2021-08-28] MEDS: ASPIRIN 81 MG CHEWABLE TABLET PO (08:55)
[2021-08-28] MEDS: LIDOCAINE 5% PATCH 1 PATCH TRANSDERM (08:55)
[2021-08-28] MEDS: AMIODARONE HCL 200 MG TABLET 400 MG PO (08:56)
[2021-08-28] MEDS: ROSUVASTATIN 10 MG TABLET PO (08:56)
[2021-08-28] MEDS: PANTOPRAZOLE SODIUM IV 40 MG VIAL IV PUSH ×2 (08:58→20:00)
[2021-08-28] MEDS: FUROSEMIDE INJ 40 MG/4 ML VIAL IV PUSH (09:01)
--- NOTE | 2021-08-28 09:46 | WPDINTPN ---
Progress Note: A&P Assessment and Plan (1) Hypercapnic respiratory failure: Code(s): J96.92 - Respiratory failure, unspecified with hypercapnia Status: Acute Assessment and Plan: Acute Respiratory failure secondary to pulmonary edema, pleural effusions and pneumonia 08/14 Patient was emergently intubated on arrival to ICU as his hypercarbia was worse and he was in respiratory distress 08/16: Left-sided thoracentesis with removal of 250 mL of opaque, red fluid 08/17: Right-sided thoracentesis with removal of 425 mL of opaque, red fluid 08/26 -right thoracentesis and 1 L fluid was removed 08/26 -CT angiogram of chest was performed as per recommendation of Dr. Garrett IMPRESSION: 1. No pulmonary embolus. 2. Moderate-sized pleural effusions, right worse than left. 3. Stable nondependent airspace opacities with volume loss in the upper lobes, consistent with atelectasis/scarring versus pneumonia. 4. Stable small pericardial effusion. 5. Endotracheal tube tip 7.3 cm above the albert. Chest x-ray reviewed ABG reviewed Patient has been failing his daily weaning trials. will try again today. currently in ASV mode Continue daily weaning trial and sedation vacation Continue Lidoderm patch placed on chest to rule out pain being the cause of failure to wean Continue Lasix Dr. Willis called [facility] and put him on a waiting list for thoracic surgery for loculated effusions. Once they have a bed available they will call me. -Dr. Samaniego discussed the case with thoracic surgeon, Dr. Irby, at [facility] and he is willing to see the patient in consult, Dr. Willis called [facility] transfer line and they stated [facility] does not have any beds at this time and we should check periodically -08/21/2021 and 08/22/2021 called [facility] transfer line, they said [facility] does not have any beds as of this morning, call again this evening as the not putting patient is on waiting list. Dr. Willis called [facility] in [facility] also and they do not have a bed 08/26 - Spoke to Dr. Castelan at [facility]. This time they do not have any bed available in ICU. He will accept the patient once they have a bed available. Staff has called and checked and patient still does not have any bed available (2) Sepsis: Qualifiers: Sepsis acute organ dysfunction status: unspecified Sepsis type: sepsis due to unspecified organism Qualified Code(s): A41.9 - Sepsis, unspecified organism Code(s): A41.9 - Sepsis, unspecified organism Status: Acute Assessment and Plan: secondary to pneumonia see above (3) Fever: Code(s): R50.9 - Fever, unspecified Status: Acute Assessment and Plan: Patient initially was diagnosed with pneumonia and completed a 10 day course of vancomycin and aztreonam Fevers or requiring but his WBC is normal UA suggest UTI with positive leukocyte Estrace but cultures were negative. since patient is having persistent fever, I will start patient on aztreonam 08/25 Repeat blood sputum and urine culture have been negative 08/25 Changed Mace catheter (4) Shock: Code(s): R57.9 - Shock, unspecified Status: Acute Assessment and Plan: Septic versus cardiogenic Patient has been requiring on and off low-dose Levophed support for his blood pressure depending on his sedation level Echocardiogram as above -status post 10 days of vancomycin and aztreonam -08/19/2021: Blood cultures times negative so far -08/19/2021 urine cultures negative -08/21/2021 sputum cultures negative (5) CAD (coronary artery disease): Qualifiers: Coronary Disease-Associated Artery/Lesion type: unspecified vessel or lesion type [place] vs. transplanted heart: [place] heart Associated angina: unspecified whether angina present Qualified Code(s): I25.10 - Atherosclerotic heart disease of [place] coronary
--- NOTE | 2021-08-28 11:08 | PM.PNPUL ---
Progress Note: A&P Assessment and Plan (1) Bilateral pleural effusion: Code(s): J90 - Pleural effusion, not elsewhere classified Status: Acute Assessment and Plan: Respiratory status unchanged over the last [address] showed bilateral pleural effusions with the right being larger than the left. There was also evidence of loculation in the right pleural effusion. On last thoracentesis, the right pleural effusion was bloody with a RBC over 500,000 which corresponds to a hematocrit of approximately 5 %. although the right pleural fluid to serum albumin gradient was elevated at 1.2, this relatively high Ht suggests that the effusion was related to coronary bypass graft surgery or to trauma [facility]. regardless of etiology of pleural effusions, i.e CHF and/or related to CABG surgery, I would proceed with gentle diuresis and repeat thoracentesis especially on right. If fluid reaccumulates patient may need debridement via VATS. case was discussed with the biochemist. (2) Hypercapnic respiratory failure: Qualifiers: Chronicity: unspecified Qualified Code(s): J96.92 - Respiratory failure, unspecified with hypercapnia Code(s): J96.92 - Respiratory failure, unspecified with hypercapnia Status: Acute (3) Congestive heart failure: Qualifiers: Heart failure type: unspecified Heart failure chronicity: unspecified Qualified Code(s): I50.9 - Heart failure, unspecified Code(s): I50.9 - Heart failure, unspecified Status: Chronic (4) Ventilator dependence: Code(s): Z99.11 - Dependence on respirator [ventilator] status Status: Acute Subjective Date/time seen: 08/28/21 11:08 no significant change in patient's conditions. The patient remains ventilated. Has failed weaning trials. Afebrile this a.m. Lightly sedated on mechanical ventilation Review of Systems Review of Systems: All systems reviewed & are unremarkable except as noted in HPI and below (and below.) Exam Narrative: GENERAL APPEARANCE: Well developed, well nourished, lightly sedated on mechanical ventilation SKIN: Inspection of the skin reveals no rashes, ulcerations or petechiae. HEENT: Sclerae anicteric and conjunctivae pink and moist. NECK: Supple. There was no thyroid enlargement, or masses were felt. LUNGS: Clear lungs anteriorly, decreased breath sounds lateral chest bilaterally, no wheezing CARDIAC: There was a regular rate and rhythm without any murmurs, gallops, rubs. ABDOMEN: Soft and nontender with normal bowel sounds. There was no organomegaly. LYMPH NODES: No lymphadenopathy was appreciated in the neck. EXTREMITIES: No cyanosis, clubbing or edema. NEUROLOGIC: lightly sedated on mechanical ventilation, opening eyes to verbal commands. Objective Data Vital Signs Vital Signs: Vital Signs - 24 hr 08/27/21 11:09 08/27/21 11:28 08/27/21 12:00 Temperature 37.7 C H Pulse Rate 105 H 77 92 Respiratory Rate 16 Blood Pressure 64/46 L Pulse Oximetry 94 92 08/27/21 12:13 08/27/21 12:52 08/27/21 14:00 Temperature 37.8 C H Pulse Rate 74 72 66 Respiratory Rate 12 12 Blood Pressure 61/45 L 125/77 Pulse Oximetry 96 08/27/21 14:24 08/27/21 14:33 08/27/21 16:00 Temperature 37.9 C H Pulse Rate 72 72 71 Respiratory Rate 12 12 Blood Pressure 88/57 L Pulse Oximetry 96 95 08/27/21 17:04 08/27/21 18:00 08/27/21 18:06 Temperature 38.3 C H 38.3 C H Pulse Rate 67 68 Respiratory Rate 12 Blood Pressure 101/64 Pulse Oximetry 97 96 08/27/21 19:47 08/27/21 20:00 08/27/21 20:05 Temperature 37.6 C H Pulse Rate 66 66 63 Respiratory Rate 12 Blood Pressure 76/51 L 85/56 L Pulse Oximetry 96 96 08/27/21 21:05 08/27/21 22:00 08/27/21 22:27 Temperature Pulse Rate 62 59 L 90 Respiratory Rate 12 Blood Pressure 85/56 L 114/64 Pulse Oximetry 98 97 08/27/21 23:16 08/28/21 00:00 08/11
[2021-08-28] MEDS: AZTREONAM 1 GM in DEXTROSE 5% IN WATER 50 ML 100 ML IVPB ×2 (11:34→17:40)
[2021-08-28 12:34] LABS: Glucose Point of Care 95 mg/dl (65-105)
[2021-08-28 16:30] LABS: Glucose Point of Care 106 mg/dl (65-105)
[2021-08-28] MEDS: METOPROLOL TARTRATE INJ 5 MG/5 ML VIAL IV PUSH (18:08)
[2021-08-28] MEDS: ACETAMINOPHEN 325 MG TABLET 650 MG PO (19:49)
[2021-08-28 20:00] LABS: Glucose Point of Care 104 mg/dl (65-105)
[2021-08-28] MEDS: FENTANYL 2,500MCG/NS250ML(*CRX 2,500 MCG/250 ML BAG 10 MCG IV CONT (20:34)
[2021-08-28] MEDS: MIDAZOLAM 100MG/NS 100ML(*CRX) 100 MG/100 ML BAG IV CONT (20:45)
[2021-08-28 23:16] LABS: Glucose Point of Care 110 mg/dl (65-105)
[2021-08-29] VITALS (24 sets, daily range): BP systolic 102–152; BP diastolic 67–90; PULSE 70–93; RESP 8–97; TEMP 36.6–37.5; O2SAT 10–100
[2021-08-29] MEDS: AZTREONAM 1 GM in DEXTROSE 5% IN WATER 50 ML 100 ML IVPB ×3 (03:24→17:13)
[2021-08-29] MEDS: METOCLOPRAMIDE HCL INJ 10 MG/2 ML VIAL IV PUSH ×2 (03:27→05:28)
[2021-08-29 04:50] LABS: Alveolar/Arterial O2 Gradient 79.5 mmHg; Base Excess ABG -0.6 mEq/l (+/-2.0); Carboxyhemoglobin 0.2 % THb (0-2.0); Fractional Inspired Oxygen 30 %; Methemoglobin ABG 0.3 %THb (0-1.5); Oxygen Content ABG 13.8 %vol (16.0-22.0); Oxygen Saturation ABG 89.8 % (95.0-100.0); PCO2 ABG 58.9 mmHg (35.0-45.0); PO2 ABG 65.2 mmHg (80.0-100.0); PO2 FiO2 Ratio Arterial Blood 2.17 %; Total Hemoglobin 11.2 g/dL (12.0-18.0)
[2021-08-29 04:54] LABS: Hematocrit 33.2 % (42.0-52.0); Hemoglobin 10.2 g/dL (14.0-18.0); Mean Corpuscular HGB Conc 30.7 g/dl (32-36); Mean Corpuscular Hemoglobin 29.2 pg (26-34); Mean Corpuscular Volume 95.1 fl (80-100); Mean Platelet Volume 7.9 fl (7.4-10.4); Platelet Count Result 329 k/mm3 (150-375); Red Blood Count 3.49 M/mm3 (4.6-6.20); Red Cell Distribution Width 14.4 % (11.5-14.5); White Blood Count 6.6 K/mm3 (4.5-10.0)
[2021-08-29 04:58] LABS: Oxyhemoglobin 87.5 % THb (90.0-100.0); Site Drawn LEFT RADIAL; pH ABG 7.279 (7.350-7.450)
[2021-08-29 04:59] LABS: Arterial Blood Gas PEEP 5 cmH2O; Arterial Blood Gas Vent Mode ASV; Device VENTILATOR; Modified Allen's Test Unable to perform
[2021-08-29 05:08] LABS: Alanine Aminotransferase 61 U/L (4-50); Albumin Level 3.4 g/dL (3.5-5.1); Alkaline Phosphatase 275 U/L (38-126); Anion Gap 7 mmol/L (8-16); Aspartate Amino Transferase 105 U/L (17-59); Bilirubin,Total 0.3 mg/dL (0.2-1.3); Blood Urea Nitrogen 23 mg/dL (9-20); Carbon Dioxide 32 mmol/L (22-30); Chloride 101 mmol/L (98-107); Estimated CRCL calculation 54 ml/min; Estimated Glomerular Filt Rate 56; Glucose 115 mg/dL (65-110); Potassium 4.8 mmol/L (3.4-5.0); Sodium 140 mmol/L (137-145)
[2021-08-29] MEDS: METOPROLOL TARTRATE INJ 5 MG/5 ML VIAL IV PUSH (05:26)
[2021-08-29] MEDS: ENOXAPARIN 40 MG/0.4 ML SYRINGE SUB-Q (08:07)
[2021-08-29] MEDS: AMIODARONE HCL 200 MG TABLET 400 MG PO (08:09)
[2021-08-29] MEDS: PANTOPRAZOLE SODIUM IV 40 MG VIAL IV PUSH ×2 (08:09→21:35)
[2021-08-29] MEDS: ROSUVASTATIN 10 MG TABLET PO (08:09)
[2021-08-29] MEDS: LIDOCAINE 5% PATCH 1 PATCH TRANSDERM (08:10)
[2021-08-29] MEDS: ASPIRIN 81 MG CHEWABLE TABLET PO (08:10)
[2021-08-29 08:19] LABS: Glucose Point of Care 106 mg/dl (65-105)
[2021-08-29 10:29] LABS: Alveolar/Arterial O2 Gradient 156.2 mmHg; Base Excess ABG -0.6 mEq/l (+/-2.0); Fractional Inspired Oxygen 40 %; HCO3 ABG 25.4 mEq/l (22.0-26.0); Oxygen Content ABG 14.8 %vol (16.0-22.0); Oxyhemoglobin 92.9 % THb (90.0-100.0); PCO2 ABG 47.8 mmHg (35.0-45.0); PO2 FiO2 Ratio Arterial Blood 1.85 %; Total Hemoglobin 11.3 g/dL (12.0-18.0); pH ABG 7.344 (7.350-7.450)
[2021-08-29 10:30] LABS: Device VENTILATOR; Modified Allen's Test Pass; Site Drawn LEFT RADIAL
[2021-08-29 10:31] LABS: Arterial Blood Gas PEEP 5 cmH2O; Arterial Blood Gas Pressure Support 5 cmH2O; Arterial Blood Gas Vent Mode SPONTANEOUS
--- NOTE | 2021-08-29 10:53 | WPDINTPN ---
Progress Note: A&P Assessment and Plan (1) Hypercapnic respiratory failure: Qualifiers: Chronicity: unspecified Qualified Code(s): J96.92 - Respiratory failure, unspecified with hypercapnia Code(s): J96.92 - Respiratory failure, unspecified with hypercapnia Status: Acute Assessment and Plan: Acute Respiratory failure secondary to pulmonary edema, pleural effusions and pneumonia 08/14 Patient was emergently intubated on arrival to ICU as his hypercarbia was worse and he was in respiratory distress 08/16: Left-sided thoracentesis with removal of 250 mL of opaque, red fluid 08/17: Right-sided thoracentesis with removal of 425 mL of opaque, red fluid 08/26 -right thoracentesis and 1 L fluid was removed 08/26 -CT angiogram of chest was performed as per recommendation of Dr. Garrett IMPRESSION: 1. No pulmonary embolus. 2. Moderate-sized pleural effusions, right worse than left. 3. Stable nondependent airspace opacities with volume loss in the upper lobes, consistent with atelectasis/scarring versus pneumonia. 4. Stable small pericardial effusion. 5. Endotracheal tube tip 7.3 cm above the albert. Chest x-ray and ABG reviewed Patient has been failing his daily weaning trials. Today 5/5 PSV SBT done for close to 1 hour. RSBI and Vitals acceptable. His ABG does shows mild hypercarbia and respiratory acidosis. Pt awake and following commands. I will extubate patient and see how he does. NPO for now. I will use Bipap PRN and at night. Patient was close to getting tracheostomy and since patient is doing much better today will do an extubation trial. If patient obviously fails and gets reintubated he will need tracheostomy. Continue Lidoderm patch placed on chest to rule out pain being the cause of failure to wean Continue Gayle Discussed with pulmonary Dr. Willis called [facility] and put him on a waiting list for thoracic surgery for loculated effusions. Once they have a bed available they will call me. -Dr. Samaniego discussed the case with thoracic surgeon, Dr. Irby, at [facility] and he is willing to see the patient in consult, Dr. Willis called [facility] transfer line and they stated [facility] does not have any beds at this time and we should check periodically -08/21/2021 and 08/22/2021 called [facility] transfer line, they said [facility] does not have any beds as of this morning, call again this evening as the not putting patient is on waiting list. Dr. Willis called [facility] in [facility] also and they do not have a bed 08/26 - Spoke to Dr. Castelan at [facility]. This time they do not have any bed available in ICU. He will accept the patient once they have a bed available. (2) Sepsis: Qualifiers: Sepsis acute organ dysfunction status: unspecified Sepsis type: sepsis due to unspecified organism Qualified Code(s): A41.9 - Sepsis, unspecified organism Code(s): A41.9 - Sepsis, unspecified organism Status: Acute Assessment and Plan: secondary to pneumonia see above (3) Fever: Code(s): R50.9 - Fever, unspecified Status: Acute Assessment and Plan: Patient initially was diagnosed with pneumonia and completed a 10 day course of vancomycin and aztreonam Fevers or requiring but his WBC is normal UA suggest UTI with positive leukocyte Estrace but cultures were negative. since patient is having persistent fever, patient was started on aztreonam 08/25 Repeat blood sputum and urine culture have been negative 08/25 Changed Mace catheter (4) Shock: Code(s): R57.9 - Shock, unspecified Status: Acute Assessment and Plan: Septic versus cardiogenic Patient has been requiring on and off low-dose Levophed support for his blood pressure depending on his sedation level Echocardiogram as above -status post 10 days of vancomycin and aztreonam -08/19/2021: Blood
[2021-08-29 12:20] LABS: Glucose Point of Care 106 mg/dl (65-105)
[2021-08-29] MEDS: FUROSEMIDE INJ 40 MG/4 ML VIAL IV PUSH (12:35)
--- NOTE | 2021-08-29 13:46 | PCSTNOTE ---
Nursing reports patient was just extubated today, hardly able to produce voicing when speaking, too weak, and requested Bedside Swallow wait until tomorrow. Therapist will return and discuss patient's status with nurse to determine ability to participate.
--- NOTE | 2021-08-29 14:55 | PM.PNPUL ---
Progress Note: A&P Assessment and Plan (1) Bilateral pleural effusion: Code(s): J90 - Pleural effusion, not elsewhere classified Status: Acute Assessment and Plan: patient extubated earlier today. He seems to be tolerating supplemental oxygen via nasal cannula well. Has some rhonchi on physical exam likely related to bronchial secretions. Continue with nebulized short-acting bronchodilators q.4 hours while awake and also nebulized Mucomyst q.6 hours p.r.n. consider BiPAP support at night. Case was discussed with the sap analyst. (2) Hypercapnic respiratory failure: Qualifiers: Chronicity: unspecified Qualified Code(s): J96.92 - Respiratory failure, unspecified with hypercapnia Code(s): J96.92 - Respiratory failure, unspecified with hypercapnia Status: Acute (3) Congestive heart failure: Qualifiers: Heart failure type: unspecified Heart failure chronicity: unspecified Qualified Code(s): I50.9 - Heart failure, unspecified Code(s): I50.9 - Heart failure, unspecified Status: Chronic (4) Ventilator dependence: Code(s): Z99.11 - Dependence on respirator [ventilator] status Status: Acute Subjective Date/time seen: 08/29/21 14:55 Patient was extubated earlier today. Currently on supplemental oxygen via nasal cannula at 3 liters/minute. He has mild cough with some lung congestion but no shortness of breath. Review of Systems Review of Systems: All systems reviewed & are unremarkable except as noted in HPI and below (and below.) Exam Narrative: GENERAL APPEARANCE: Well developed, well nourished, alert in mild respiratory distress while on supplemental oxygen via nasal cannula SKIN: Inspection of the skin reveals no rashes, ulcerations or petechiae. HEENT: Sclerae anicteric and conjunctivae pink and moist. NECK: Supple. There was no thyroid enlargement, or masses were felt. LUNGS: Clear lungs anteriorly, decreased breath sounds lateral chest bilaterally, no wheezing CARDIAC: There was a regular rate and rhythm without any murmurs, gallops, rubs. ABDOMEN: Soft and nontender with normal bowel sounds. There was no organomegaly. LYMPH NODES: No lymphadenopathy was appreciated in the neck. EXTREMITIES: No cyanosis, clubbing or edema. Objective Data Vital Signs Vital Signs: Vital Signs - 24 hr 08/28/21 15:00 08/28/21 16:00 08/28/21 18:00 Temperature 36.3 C L 36.1 C L Pulse Rate 94 82 92 Respiratory Rate 14 13 Blood Pressure 180/93 H 135/77 Pulse Oximetry 97 98 95 08/28/21 18:08 08/28/21 19:30 08/28/21 19:49 Temperature 38.0 C H Pulse Rate 89 88 Respiratory Rate 11 L Blood Pressure Pulse Oximetry 08/28/21 20:00 08/28/21 20:24 08/28/21 20:34 Temperature 38.0 C H Pulse Rate 95 97 83 Respiratory Rate 18 11 L Blood Pressure 160/80 H Pulse Oximetry 97 96 08/28/21 20:45 08/28/21 20:58 08/28/21 22:00 Temperature 38.0 C H 37.3 C Pulse Rate 83 63 Respiratory Rate 11 L 10 L Blood Pressure 146/77 H Pulse Oximetry 99 08/28/21 23:29 08/28/21 23:32 08/29/21 00:00 Temperature 37.2 C Pulse Rate 73 69 73 Respiratory Rate 11 L Blood Pressure 115/74 Pulse Oximetry 97 98 08/29/21 00:59 08/29/21 01:01 08/29/21 02:00 Temperature 37.2 C Pulse Rate 73 73 77 Respiratory Rate 8 L 8 L 11 L Blood Pressure 134/77 Pulse Oximetry 96 08/29/21 02:31 08/29/21 03:45 08/29/21 04:00 Temperature Pulse Rate 77 88 93 Respiratory Rate 15 Blood Pressure Pulse Oximetry 96 08/29/21 04:15 08/29/21 04:45 08/29/21 04:47 Temperature 37.2 C Pulse Rate 87 90 88 Respiratory Rate 10 L 13 Blood Pressure 152/82 H Pulse Oximetry 91 91 08/29/21 05:26 08/29/21 06:00 08/29/21 08:00 Temperature 37.3 C 37.5 C Pulse Rate 83 70 71 Respiratory Rate 18 14 Blood Pressure 129/75 102/67 Pulse Oximetry 99 100 08/29/21 08:54 08/29/21 10:00 08/29/21 11:15 Temperature 36.9 C Pu
[2021-08-29 18:33] LABS: Glucose Point of Care 93 mg/dl (65-105)
[2021-08-29] MEDS: ACETYLCYSTEINE 20% INHAL SOLN 800 MG/4 ML VIAL 200 MG INHALATION (19:35)
[2021-08-29] MEDS: IPRATROPIUM BR 0.02% INH SOLN 0.5 MG/2.5 ML VIAL INHALATION (19:36)
[2021-08-29] MEDS: ALBUTEROL SULFATE (*SP) AEROSOL 1 PUFF 2 PUFF INHALATION (19:36)
[2021-08-29 21:02] LABS: Glucose Point of Care 84 mg/dl (65-105)
[2021-08-30] VITALS (24 sets, daily range): BP systolic 83–171; BP diastolic 61–138; PULSE 69–103; RESP 18–32; TEMP 35.5–37.2; O2SAT 93–99
[2021-08-30 00:09] LABS: Glucose Point of Care 77 mg/dl (65-105)
[2021-08-30] MEDS: AZTREONAM 1 GM in DEXTROSE 5% IN WATER 50 ML 100 ML IVPB ×3 (03:34→19:00)
[2021-08-30 04:10] LABS: Glucose Point of Care 77 mg/dl (65-105)
[2021-08-30 05:33] LABS: Hematocrit 32.1 % (42.0-52.0); Hemoglobin 10.2 g/dL (14.0-18.0); Mean Corpuscular HGB Conc 31.8 g/dl (32-36); Mean Corpuscular Hemoglobin 29.3 pg (26-34); Mean Corpuscular Volume 92.2 fl (80-100); Mean Platelet Volume 7.8 fl (7.4-10.4); Platelet Count Result 275 k/mm3 (150-375); Red Blood Count 3.48 M/mm3 (4.6-6.20); Red Cell Distribution Width 13.9 % (11.5-14.5); White Blood Count 4.6 K/mm3 (4.5-10.0)
[2021-08-30 05:42] LABS: Alveolar/Arterial O2 Gradient 94.8 mmHg; Base Excess ABG 4.1 mEq/l (+/-2.0); Carboxyhemoglobin 0.3 % THb (0-2.0); Fractional Inspired Oxygen 32 %; HCO3 ABG 28.9 mEq/l (22.0-26.0); Oxygen Saturation ABG 96.3 % (95.0-100.0); Oxyhemoglobin 94.9 % THb (90.0-100.0); PCO2 ABG 44.2 mmHg (35.0-45.0); PO2 ABG 81.6 mmHg (80.0-100.0); PO2 FiO2 Ratio Arterial Blood 2.55 %; Reduced Hemoglobin 4.8 %THb (0-5.0); Total Hemoglobin 11.2 g/dL (12.0-18.0); pH ABG 7.433 (7.350-7.450)
[2021-08-30 05:45] LABS: Site Drawn RIGHT RADIAL
[2021-08-30 05:46] LABS: Device NASAL CANNULA; Modified Allen's Test Pass
[2021-08-30 05:54] LABS: Alanine Aminotransferase 67 U/L (4-50); Albumin Level 3.4 g/dL (3.5-5.1); Alkaline Phosphatase 250 U/L (38-126); Anion Gap 6 mmol/L (8-16); Aspartate Amino Transferase 117 U/L (17-59); Bilirubin,Total 0.3 mg/dL (0.2-1.3); Blood Urea Nitrogen 22 mg/dL (9-20); Calcium 8.3 mg/dL (8.4-10.2); Carbon Dioxide 34 mmol/L (22-30); Chloride 98 mmol/L (98-107); Estimated CRCL calculation 58 ml/min; Estimated Glomerular Filt Rate > 60; Glucose 86 mg/dL (65-110); Potassium 4.2 mmol/L (3.4-5.0); Sodium 138 mmol/L (137-145)
[2021-08-30] MEDS: ACETYLCYSTEINE 20% INHAL SOLN 800 MG/4 ML VIAL 200 MG INHALATION ×3 (08:32→20:00)
[2021-08-30] MEDS: IPRATROPIUM BR 0.02% INH SOLN 0.5 MG/2.5 ML VIAL INHALATION ×3 (08:32→20:00)
[2021-08-30 08:33] LABS: Glucose Point of Care 84 mg/dl (65-105)
[2021-08-30] MEDS: FUROSEMIDE INJ 40 MG/4 ML VIAL IV PUSH (08:57)
[2021-08-30] MEDS: METOPROLOL SUCCINATE EXT REL 50 MG TABCR PO (08:57)
[2021-08-30] MEDS: ROSUVASTATIN 10 MG TABLET PO (08:57)
[2021-08-30] MEDS: AMIODARONE HCL 200 MG TABLET 400 MG PO (08:58)
[2021-08-30] MEDS: PANTOPRAZOLE SODIUM IV 40 MG VIAL IV PUSH ×2 (08:58→20:25)
[2021-08-30] MEDS: LIDOCAINE 5% PATCH 1 PATCH TRANSDERM (08:58)
[2021-08-30] MEDS: ENOXAPARIN 40 MG/0.4 ML SYRINGE SUB-Q (08:58)
[2021-08-30] MEDS: ASPIRIN 81 MG CHEWABLE TABLET PO (08:58)
--- NOTE | 2021-08-30 10:14 | PCSTNOTE ---
Please refer to the Bedside Swallow Evaluation in the EMR. Please note, silent aspiration cannot be ruled out at bedside.
[2021-08-30] MEDS: METOPROLOL TARTRATE INJ 5 MG/5 ML VIAL IV PUSH (10:20)
--- NOTE | 2021-08-30 11:04 | PCFNICU ---
ICU Rounding Note: Pt current nutrition is Heart Healthy. Last recorded weight is 85 kg, down from 89.2 kg on admit. Bowel Motility:+BM reported 08/28 Labs Reviewed:BUN 22, Alb 3.4,Hct 32.1,Hgb 10.2 Meds Noted:Crestor, Atrovent, Lopressor, Lovenox. Skin: coccyx-maceration Additional Notes: Patient was extubated on 08/29. MBS today-recommending regular solids with thin liquids. Heart healthy diet started today, breakfast intake about 25% of meal. Agree with diet orders. Following daily in ICU rounds. Will monitor every 3 days.
--- NOTE | 2021-08-30 11:39 | WPDINTPN ---
Progress Note: A&P Assessment and Plan (1) Hypercapnic respiratory failure: Qualifiers: Chronicity: unspecified Qualified Code(s): J96.92 - Respiratory failure, unspecified with hypercapnia Code(s): J96.92 - Respiratory failure, unspecified with hypercapnia Status: Acute Assessment and Plan: Acute Respiratory failure secondary to pulmonary edema, pleural effusions and pneumonia 08/14 Patient was emergently intubated on arrival to ICU as his hypercarbia was worse and he was in respiratory distress 08/16: Left-sided thoracentesis with removal of 250 mL of opaque, red fluid 08/17: Right-sided thoracentesis with removal of 425 mL of opaque, red fluid 08/26 -right thoracentesis and 1 L fluid was removed 08/26 -CT angiogram of chest was performed as per recommendation of Dr. Garrett IMPRESSION: 1. No pulmonary embolus. 2. Moderate-sized pleural effusions, right worse than left. 3. Stable nondependent airspace opacities with volume loss in the upper lobes, consistent with atelectasis/scarring versus pneumonia. 4. Stable small pericardial effusion. 5. Endotracheal tube tip 7.3 cm above the albert. Patient failed trials for multiple days but was finally extubated on 08/29 after a successful weaning trial. Chest x-ray and ABG reviewed Continue Lidoderm patch placed on chest to rule out pain being the cause of failure to wean Continue Lasix Incentive spirometry, up in chair, PT OT BiPAP p.r.n. and at night Repeat left-sided ultrasound-guided thoracentesis ordered 08/26 - Spoke to Dr. Castelan at [facility]. This time they do not have any bed available in ICU. He will accept the patient once they have a bed available. (2) Sepsis: Qualifiers: Sepsis acute organ dysfunction status: unspecified Sepsis type: sepsis due to unspecified organism Qualified Code(s): A41.9 - Sepsis, unspecified organism Code(s): A41.9 - Sepsis, unspecified organism Status: Acute Assessment and Plan: secondary to pneumonia see above (3) Fever: Code(s): R50.9 - Fever, unspecified Status: Acute Assessment and Plan: Patient initially was diagnosed with pneumonia and completed a 10 day course of vancomycin and aztreonam Fevers or requiring but his WBC is normal UA suggest UTI with positive leukocyte Estrace but cultures were negative. since patient is having persistent fever, patient was started on aztreonam 08/25 Repeat blood sputum and urine culture have been negative 08/25 Changed Mace catheter (4) Shock: Code(s): R57.9 - Shock, unspecified Status: Acute Assessment and Plan: Septic versus cardiogenic Patient has been requiring on and off low-dose Levophed support for his blood pressure depending on his sedation level Echocardiogram as above -status post 10 days of vancomycin and aztreonam -08/19/2021: Blood cultures times negative so far -08/19/2021 urine cultures negative -08/21/2021 sputum cultures negative (5) CAD (coronary artery disease): Qualifiers: Coronary Disease-Associated Artery/Lesion type: unspecified vessel or lesion type [place] vs. transplanted heart: [place] heart Associated angina: unspecified whether angina present Qualified Code(s): I25.10 - Atherosclerotic heart disease of [place] coronary artery without angina pectoris Code(s): I25.10 - Atherosclerotic heart disease of [place] coronary artery without angina pectoris Status: Chronic Assessment and Plan: Status post recent CABG Continue amiodarone and statin, -continue to hold Eliquis due to anemia -restarted aspirin as patient had tachycardia induced left bundle branch block and widening of QRS complex on 08/19/2021 (6) ROSHAN (acute kidney injury): Code(s): N17.9 - Acute kidney failure, unspecified Status: Acute Assessment and Plan: Likely prerenal from septic and/or cardiogenic shock, hypovolemia, decreas
[2021-08-30 12:37] LABS: Glucose Point of Care 93 mg/dl (65-105)
[2021-08-30 12:46] LABS: pH Pleural Fluid 7.438 (7.210-7.500)
[2021-08-30] MEDS: ALBUTEROL SULFATE NEB 2.5 MG/0.5 ML INH INHALATION ×2 (14:22→20:00)
[2021-08-30 16:48] LABS: Glucose Point of Care 74 mg/dl (65-105)
[2021-08-30 19:05] LABS: Pleural fluid source Pleural fluid
[2021-08-30 19:06] LABS: Appearance Pleural Fluid Bloody (Clear); Color Pleural Fluid Red (Colorless)
[2021-08-30 19:08] LABS: Lymphocytes Pleural Fluid 77 %; Monocytes Pleural Fluid 6 %; Neutrophils Pleural Fluid 17 % (0-25)
[2021-08-30 19:55] LABS: Glucose Point of Care 85 mg/dl (65-105)
--- NOTE | 2021-08-30 21:48 | PC.NURSE ---
This patient, Angel Luis Grace Chiara, was received from [ ICU 4] on 08/30/21 at 2148. Patient/family oriented to unit policies and routines
--- NOTE | 2021-08-30 22:03 | PC.NURSE ---
2130 Transferred to imu rm 204 per bed. Report to Nancy CAMPBELL
[2021-08-31] VITALS (19 sets, daily range): BP systolic 146–175; BP diastolic 87–104; PULSE 71–82; RESP 20–24; TEMP 36.3–36.8; O2SAT 94–97
[2021-08-31] MEDS: AZTREONAM 1 GM in DEXTROSE 5% IN WATER 50 ML 100 ML IVPB ×3 (01:38→17:08)
[2021-08-31 01:58] LABS: Glucose Point of Care 77 mg/dl (65-105)
[2021-08-31] MEDS: IPRATROPIUM BR 0.02% INH SOLN 0.5 MG/2.5 ML VIAL INHALATION ×3 (02:25→10:53)
[2021-08-31] MEDS: ALBUTEROL SULFATE NEB 2.5 MG/0.5 ML INH INHALATION ×3 (02:25→10:54)
[2021-08-31 07:14] LABS: Alanine Aminotransferase 80 U/L (4-50); Albumin Level 3.6 g/dL (3.5-5.1); Alkaline Phosphatase 387 U/L (38-126); Anion Gap 6 mmol/L (8-16); Aspartate Amino Transferase 135 U/L (17-59); Bilirubin,Total 0.5 mg/dL (0.2-1.3); Blood Urea Nitrogen 24 mg/dL (9-20); Calcium 8.5 mg/dL (8.4-10.2); Carbon Dioxide 30 mmol/L (22-30); Chloride 98 mmol/L (98-107); Estimated CRCL calculation 44 ml/min; Estimated Glomerular Filt Rate 44; Glucose 75 mg/dL (65-110); Potassium 4.3 mmol/L (3.4-5.0); Sodium 134 mmol/L (137-145)
[2021-08-31] MEDS: ROSUVASTATIN 10 MG TABLET PO (08:19)
[2021-08-31] MEDS: AMIODARONE HCL 200 MG TABLET 400 MG PO (08:19)
[2021-08-31] MEDS: ASPIRIN 81 MG CHEWABLE TABLET PO (08:19)
[2021-08-31] MEDS: PANTOPRAZOLE SODIUM IV 40 MG VIAL IV PUSH ×2 (08:19→22:08)
[2021-08-31] MEDS: METOPROLOL SUCCINATE EXT REL 50 MG TABCR PO (08:21)
[2021-08-31] MEDS: ENOXAPARIN 40 MG/0.4 ML SYRINGE SUB-Q (08:21)
[2021-08-31 11:12] LABS: Hematocrit 34.7 % (42.0-52.0); Mean Corpuscular HGB Conc 31.7 g/dl (32-36); Mean Corpuscular Hemoglobin 29.3 pg (26-34); Mean Corpuscular Volume 92.3 fl (80-100); Mean Platelet Volume 8.2 fl (7.4-10.4); Platelet Count Result 421 k/mm3 (150-375); Red Blood Count 3.76 M/mm3 (4.6-6.20); Red Cell Distribution Width 14.3 % (11.5-14.5); White Blood Count 6.2 K/mm3 (4.5-10.0)
--- NOTE | 2021-08-31 12:07 | PM.PNPUL ---
Progress Note: A&P Assessment and Plan (1) Bilateral pleural effusion: Code(s): J90 - Pleural effusion, not elsewhere classified Status: Acute Assessment and Plan: patient now in the [facility]. He seems to be tolerating room air. He continues to have a pleural effusions by physical exam and also on today's chest x-ray. Diuretics have been discontinued because of rising creatinine. Monitor respiratory status, renal indices. Consider adding Lasix p.o. once creatinine lower. Await pleural fluid analysis. Get good PA and lateral CXR in am to assess pleural effusions. (2) Hypercapnic respiratory failure: Qualifiers: Chronicity: unspecified Qualified Code(s): J96.92 - Respiratory failure, unspecified with hypercapnia Code(s): J96.92 - Respiratory failure, unspecified with hypercapnia Status: Acute (3) Congestive heart failure: Qualifiers: Heart failure type: unspecified Heart failure chronicity: unspecified Qualified Code(s): I50.9 - Heart failure, unspecified Code(s): I50.9 - Heart failure, unspecified Status: Chronic (4) Ventilator dependence: Code(s): Z99.11 - Dependence on respirator [ventilator] status Status: Acute Subjective Date/time seen: 08/31/21 12:07 Patient was transferred to regular med/surg steiner. not receiving supplemental oxygen at this point. He has no new respiratory symptoms. Pleural fluid analysis pending Review of Systems Review of Systems: All systems reviewed & are unremarkable except as noted in HPI and below Exam Narrative: GENERAL APPEARANCE: Well developed, well nourished, alert in mild respiratory distress while on supplemental oxygen via nasal cannula SKIN: Inspection of the skin reveals no rashes, ulcerations or petechiae. HEENT: Sclerae anicteric and conjunctivae pink and moist. NECK: Supple. There was no thyroid enlargement, or masses were felt. LUNGS: Clear lungs anteriorly, decreased breath sounds lateral chest bilaterally, no wheezing CARDIAC: There was a regular rate and rhythm without any murmurs, gallops, rubs. ABDOMEN: Soft and nontender with normal bowel sounds. There was no organomegaly. LYMPH NODES: No lymphadenopathy was appreciated in the neck. EXTREMITIES: No cyanosis, clubbing or edema. Objective Data Vital Signs Vital Signs: Vital Signs - 24 hr 08/30/21 12:16 08/30/21 12:24 08/30/21 14:00 Temperature Pulse Rate 97 93 70 Respiratory Rate 24 H 26 H Blood Pressure 160/113 H 171/138 H Pulse Oximetry 97 96 08/30/21 14:20 08/30/21 14:37 08/30/21 16:00 Temperature 36.6 C Pulse Rate 69 70 74 Respiratory Rate 24 H 21 H 32 H Blood Pressure 150/92 H Pulse Oximetry 96 08/30/21 18:00 08/30/21 20:00 08/30/21 20:45 Temperature 37.2 C Pulse Rate 75 74 70 Respiratory Rate 28 H 21 H Blood Pressure 164/94 H Pulse Oximetry 96 08/30/21 20:55 08/30/21 22:00 08/30/21 23:58 Temperature 37.0 C Pulse Rate 70 76 82 Respiratory Rate 21 H 22 H Blood Pressure 158/92 H Pulse Oximetry 94 08/31/21 00:00 08/31/21 01:59 08/31/21 02:25 Temperature Pulse Rate 76 73 80 Respiratory Rate 20 Blood Pressure Pulse Oximetry 08/31/21 02:34 08/31/21 03:40 08/31/21 04:00 Temperature 36.4 C Pulse Rate 75 78 75 Respiratory Rate 20 20 Blood Pressure 175/102 H Pulse Oximetry 95 08/31/21 06:00 08/31/21 08:00 08/31/21 08:19 Temperature 36.3 C L Pulse Rate 75 75 75 Respiratory Rate 24 H Blood Pressure 172/96 H Pulse Oximetry 94 08/31/21 08:21 08/31/21 10:00 08/31/21 10:49 Temperature Pulse Rate 75 75 77 Respiratory Rate 20 Blood Pressure Pulse Oximetry Intake/Output Intake/Output: Intake & Output 08/28/21 08/29/21 08/30/21 08/31/21 23:59 23:59 23:59 23:59 Intake Total 1733 1684 650 50 Output Total 3450 2110 7764 850 Balance -1717 -2566 -2450 -800 Meds/Results Medications: Acti
[2021-08-31 12:57] LABS: Glucose Point of Care 71 mg/dl (65-105)
--- NOTE | 2021-08-31 13:55 | PM.IMPN ---
Progress Note: A&P Assessment and Plan (1) Hypercapnic respiratory failure: Qualifiers: Chronicity: unspecified Qualified Code(s): J96.92 - Respiratory failure, unspecified with hypercapnia Code(s): J96.92 - Respiratory failure, unspecified with hypercapnia Status: Acute Assessment and Plan: Acute Respiratory failure secondary to pulmonary edema, pleural effusions and pneumonia 08/14 Patient was emergently intubated on arrival to ICU as his hypercarbia was worse and he was in respiratory distress 08/16: Left-sided thoracentesis with removal of 250 mL of opaque, red fluid 08/17: Right-sided thoracentesis with removal of 425 mL of opaque, red fluid 08/26 -right thoracentesis and 1 L fluid was removed 08/26 -CT angiogram of chest was performed as per recommendation of Dr. Garrett 08/26 - Spoke to Dr. Castelan at [facility]. This time they do not have any bed available in ICU. He will accept the patient once they have a bed available. PT AWAITING BED IN [facility] RPT CXR KYRA CONTINUE PT/OT REMOVE EVANGELISTA AND RECTAL TUBE (2) Sepsis: Qualifiers: Sepsis acute organ dysfunction status: unspecified Sepsis type: sepsis due to unspecified organism Qualified Code(s): A41.9 - Sepsis, unspecified organism Code(s): A41.9 - Sepsis, unspecified organism Status: Acute Assessment and Plan: secondary to pneumonia see above (3) Fever: Code(s): R50.9 - Fever, unspecified Status: Acute Assessment and Plan: Patient initially was diagnosed with pneumonia and completed a 10 day course of vancomycin and aztreonam Fevers or requiring but his WBC is normal UA suggest UTI with positive leukocyte Estrace but cultures were negative. since patient is having persistent fever, patient was started on aztreonam (4) Shock: Code(s): R57.9 - Shock, unspecified Status: Resolved Assessment and Plan: Septic versus cardiogenic SP CABG in [place] -status post 10 days of vancomycin and aztreonam -08/19/2021: Blood cultures times negative so far -08/19/2021 urine cultures negative -08/21/2021 sputum cultures negative (5) CAD (coronary artery disease): Qualifiers: Coronary Disease-Associated Artery/Lesion type: unspecified vessel or lesion type [place] vs. transplanted heart: [place] heart Associated angina: unspecified whether angina present Qualified Code(s): I25.10 - Atherosclerotic heart disease of [place] coronary artery without angina pectoris Code(s): I25.10 - Atherosclerotic heart disease of [place] coronary artery without angina pectoris Status: Chronic Assessment and Plan: Status post recent CABG Continue amiodarone and statin Continue metoprolol (6) ROSHAN (acute kidney injury): Code(s): N17.9 - Acute kidney failure, unspecified Status: Acute Assessment and Plan: Likely prerenal from septic and/or cardiogenic shock, hypovolemia, decreased p.o. intake, On review of records from [facility] it appears the patient had acute kidney injury postop after his CABG creat is 1.6 here (7) Congestive heart failure: Qualifiers: Heart failure type: unspecified Heart failure chronicity: unspecified Qualified Code(s): I50.9 - Heart failure, unspecified Code(s): I50.9 - Heart failure, unspecified Status: Chronic Assessment and Plan: Reviewed echocardiogram done at [facility] and it showed the patient had EF of 25% postop and also had a pericardial effusion -08/16/2021 echocardiogram showed LV systolic function to be 40-45%, LV diastolic function is normal, anterior wall, inferoseptal wall and anteroseptal wall are hypokinetic, left atrial chamber dimension is moderately enlarged, mild mitral valve regurg. (8) Bilateral pleural effusion: Code(s): J90 - Pleural effusion, not elsewhere classified Status: Acute
[2021-08-31 18:09] LABS: Glucose Point of Care 70 mg/dl (65-105)
[2021-08-31 23:22] LABS: Glucose Point of Care 102 mg/dl (65-105)
[2021-09-01] VITALS (21 sets, daily range): BP systolic 128–165; BP diastolic 72–92; PULSE 64–88; RESP 18–22; TEMP 36.3–36.8; O2SAT 91–100; BMI 10.0
--- NOTE | 2021-09-01 00:45 | PCRCNOTE ---
The 20:00 nebulizer tx on 08/31 and 02:00 neb tx on 09/01 were both refused by the pt. He states that he cannot sleep when he gets those treatments. Pt was advised to let his nurse know if he changes his mind.
[2021-09-01] MEDS: AZTREONAM 1 GM in DEXTROSE 5% IN WATER 50 ML 100 ML IVPB ×3 (01:51→17:30)
[2021-09-01 05:28] LABS: Hematocrit 34.1 % (42.0-52.0); Hemoglobin 11.2 g/dL (14.0-18.0); Mean Corpuscular HGB Conc 32.8 g/dl (32-36); Mean Corpuscular Volume 88.3 fl (80-100); Mean Platelet Volume 7.8 fl (7.4-10.4); Platelet Count Result 408 k/mm3 (150-375); Red Blood Count 3.86 M/mm3 (4.6-6.20); Red Cell Distribution Width 14.2 % (11.5-14.5); White Blood Count 5.8 K/mm3 (4.5-10.0)
[2021-09-01 05:44] LABS: Alanine Aminotransferase 90 U/L (4-50); Albumin Level 3.8 g/dL (3.5-5.1); Alkaline Phosphatase 361 U/L (38-126); Anion Gap 5 mmol/L (8-16); Aspartate Amino Transferase 151 U/L (17-59); Bilirubin,Total 0.4 mg/dL (0.2-1.3); Blood Urea Nitrogen 23 mg/dL (9-20); Calcium 8.8 mg/dL (8.4-10.2); Carbon Dioxide 29 mmol/L (22-30); Chloride 98 mmol/L (98-107); Estimated CRCL calculation 46 ml/min; Estimated Glomerular Filt Rate 47; Glucose 70 mg/dL (65-110); Potassium 4.2 mmol/L (3.4-5.0); Sodium 132 mmol/L (137-145)
[2021-09-01] MEDS: ASPIRIN 81 MG CHEWABLE TABLET PO (08:17)
[2021-09-01] MEDS: AMIODARONE HCL 200 MG TABLET 400 MG PO (08:17)
[2021-09-01] MEDS: METOPROLOL SUCCINATE EXT REL 50 MG TABCR PO (08:18)
[2021-09-01] MEDS: ENOXAPARIN 40 MG/0.4 ML SYRINGE SUB-Q (08:18)
[2021-09-01] MEDS: ROSUVASTATIN 10 MG TABLET PO (08:19)
[2021-09-01] MEDS: PANTOPRAZOLE SODIUM IV 40 MG VIAL IV PUSH ×2 (08:19→20:54)
--- NOTE | 2021-09-01 10:37 | PM.IMPN ---
Progress Note: A&P Assessment and Plan (1) Hypercapnic respiratory failure: Qualifiers: Chronicity: unspecified Qualified Code(s): J96.92 - Respiratory failure, unspecified with hypercapnia Code(s): J96.92 - Respiratory failure, unspecified with hypercapnia Status: Acute Assessment and Plan: Acute Respiratory failure secondary to pulmonary edema, pleural effusions and pneumonia 08/14 Patient was emergently intubated on arrival to ICU as his hypercarbia was worse and he was in respiratory distress 08/16: Left-sided thoracentesis with removal of 250 mL of opaque, red fluid 08/17: Right-sided thoracentesis with removal of 425 mL of opaque, red fluid 08/26 -right thoracentesis and 1 L fluid was removed 08/26 -CT angiogram of chest was performed as per recommendation of Dr. Garrett 08/26 - Spoke to Dr. Castelan at [facility]. This time they do not have any bed available in ICU. He will accept the patient once they have a bed available. PT AWAITING BED IN [facility] RPT CXR KYRA CONTINUE PT/OT REMOVE EVANGELISTA AND RECTAL TUBE (2) Sepsis: Qualifiers: Sepsis acute organ dysfunction status: unspecified Sepsis type: sepsis due to unspecified organism Qualified Code(s): A41.9 - Sepsis, unspecified organism Code(s): A41.9 - Sepsis, unspecified organism Status: Acute Assessment and Plan: secondary to pneumonia see above (3) Fever: Code(s): R50.9 - Fever, unspecified Status: Acute Assessment and Plan: Patient initially was diagnosed with pneumonia and completed a 10 day course of vancomycin and aztreonam Fevers or requiring but his WBC is normal UA suggest UTI with positive leukocyte Estrace but cultures were negative Patient is having persistent fever, patient was started on aztreonam, to be complete 09/02 (4) Shock: Code(s): R57.9 - Shock, unspecified Status: Resolved Assessment and Plan: Septic versus cardiogenic SP CABG in [place] -status post 10 days of vancomycin and aztreonam -08/19/2021: Blood cultures times negative so far -08/19/2021 urine cultures negative -08/21/2021 sputum cultures negative (5) CAD (coronary artery disease): Qualifiers: Associated angina: unspecified whether angina present Coronary Disease-Associated Artery/Lesion type: unspecified vessel or lesion type [place] vs. transplanted heart: [place] heart Qualified Code(s): I25.10 - Atherosclerotic heart disease of [place] coronary artery without angina pectoris Code(s): I25.10 - Atherosclerotic heart disease of [place] coronary artery without angina pectoris Status: Chronic Assessment and Plan: Status post recent CABG Continue amiodarone and statin Continue metoprolol (6) ROSHAN (acute kidney injury): Code(s): N17.9 - Acute kidney failure, unspecified Status: Acute Assessment and Plan: Likely prerenal from septic and/or cardiogenic shock, hypovolemia, decreased p.o. intake, On review of records from [facility] it appears the patient had acute kidney injury postop after his CABG creat is 1.5 today (7) Congestive heart failure: Qualifiers: Heart failure chronicity: unspecified Heart failure type: unspecified Qualified Code(s): I50.9 - Heart failure, unspecified Code(s): I50.9 - Heart failure, unspecified Status: Chronic Assessment and Plan: Reviewed echocardiogram done at [facility] and it showed the patient had EF of 25% postop and also had a pericardial effusion -08/16/2021 echocardiogram showed LV systolic function to be 40-45%, LV diastolic function is normal, anterior wall, inferoseptal wall and anteroseptal wall are hypokinetic, left atrial chamber dimension is moderately enlarged, mild mitral valve regurg. (8) Bilateral pleural effusion: Code(s): J90 - Pleural effusion, not elsewhere classified Stat
--- NOTE | 2021-09-01 11:19 | PCNFU ---
Nutrition Follow-Up Complete: Inadequate Oral Intake as related to mechanical ventilation as evidenced by NPO. Goal: Meet estimated Nutritional needs Patient is progressing towards goal. We will continue current goal. Pt current nutrition is Clear liquids. Last recorded weight is 85 kg, down from 89.2 kg on admit. Bowel Motility:+BM reported 08/31 Labs Reviewed:Hgb 11.2,Hct 34.1,Cr 1.5,BUN 23, Na 132 Meds Noted:Protonix, Lopressor, Toporol, Protonix,Crestor Skin: WNL Additional Notes: Spoke with nursing today, patient having vomiting episodes after meals. Diet order has been changed to clear liquids, diet supplement of ensure clear on tray providing an additional 240 kcals and 8 gms protein. Agree with diet orders. Will continue to monitor intake. Monitoring: will monitor every 3 days.
[2021-09-01] MEDS: DEXTROSE 5% 1,000 ML 1,000 ML 100 ML IVPB (11:52)
[2021-09-01 12:39] LABS: Glucose Point of Care 66 mg/dl (65-105)
--- NOTE | 2021-09-01 12:45 | PC.NURSE ---
Patient signed consent for receipt of blood products.
[2021-09-01] MEDS: ALBUTEROL SULFATE NEB 2.5 MG/0.5 ML INH INHALATION ×2 (14:31→21:26)
[2021-09-01] MEDS: IPRATROPIUM BR 0.02% INH SOLN 0.5 MG/2.5 ML VIAL INHALATION ×2 (14:32→21:26)
[2021-09-01 18:41] LABS: Glucose Point of Care 117 mg/dl (65-105)
[2021-09-01 23:33] LABS: Glucose Point of Care 66 mg/dl (65-105)
[2021-09-02] VITALS (26 sets, daily range): BP systolic 122–157; BP diastolic 70–108; PULSE 65–86; RESP 16–20; TEMP 36–36.8; O2SAT 92–99
[2021-09-02] MEDS: DEXTROSE 50% 25 GM/50 ML SYRINGE IV PUSH (00:02)
[2021-09-02] MEDS: DEXTROSE 10% 1,000 ML 75 ML IV CONT ×2 (00:02→17:32)
[2021-09-02] MEDS: ALBUTEROL SULFATE NEB 2.5 MG/0.5 ML INH INHALATION ×4 (02:03→20:34)
[2021-09-02] MEDS: IPRATROPIUM BR 0.02% INH SOLN 0.5 MG/2.5 ML VIAL INHALATION ×4 (02:03→20:34)
[2021-09-02] MEDS: AZTREONAM 1 GM in DEXTROSE 5% IN WATER 50 ML 100 ML IVPB (02:36)
[2021-09-02 05:56] LABS: Hematocrit 30.9 % (42.0-52.0); Hemoglobin 10.2 g/dL (14.0-18.0); Mean Corpuscular Volume 87.8 fl (80-100); Mean Platelet Volume 7.9 fl (7.4-10.4); Platelet Count Result 381 k/mm3 (150-375); Red Blood Count 3.52 M/mm3 (4.6-6.20); Red Cell Distribution Width 14.2 % (11.5-14.5); White Blood Count 5.6 K/mm3 (4.5-10.0)
[2021-09-02 06:04] LABS: Anion Gap 8 mmol/L (8-16); Blood Urea Nitrogen 20 mg/dL (9-20); Calcium 8.2 mg/dL (8.4-10.2); Carbon Dioxide 27 mmol/L (22-30); Chloride 93 mmol/L (98-107); Estimated CRCL calculation 46 ml/min; Estimated Glomerular Filt Rate 47; Glucose 100 mg/dL (65-110); Potassium 3.6 mmol/L (3.4-5.0); Sodium 128 mmol/L (137-145)
[2021-09-02] MEDS: METOPROLOL SUCCINATE EXT REL 50 MG TABCR PO (09:34)
[2021-09-02] MEDS: PANTOPRAZOLE SODIUM IV 40 MG VIAL IV PUSH ×2 (09:35→21:00)
[2021-09-02] MEDS: AMIODARONE HCL 200 MG TABLET 400 MG PO (09:35)
[2021-09-02] MEDS: ASPIRIN 81 MG CHEWABLE TABLET PO (09:35)
[2021-09-02] MEDS: ENOXAPARIN 40 MG/0.4 ML SYRINGE SUB-Q (09:35)
[2021-09-02] MEDS: ROSUVASTATIN 10 MG TABLET PO (09:35)
[2021-09-02] MEDS: ACETAMINOPHEN 325 MG TABLET 650 MG PO (11:58)
[2021-09-02] MEDS: ONDANSETRON INJ 4 MG/2 ML VIAL IV PUSH ×2 (11:58→18:19)
[2021-09-02 12:23] LABS: Glucose Point of Care 127 mg/dl (65-105)
--- NOTE | 2021-09-02 13:22 | PM.PNPUL ---
Progress Note: A&P Assessment and Plan (1) Bilateral pleural effusion: Code(s): J90 - Pleural effusion, not elsewhere classified Status: Acute Assessment and Plan: patient now in the [facility] unit. He seems to be tolerating room air. He continues to have pleural effusions by physical exam and also on today's chest x-ray. Diuretics have been discontinued because of rising creatinine. Monitor respiratory status, renal indices. Case was discussed with the hospitalist. I would remove the central line and culture the tip and also get blood cultures as patient has nausea and feels cold. Agree with empiric coverage for nosocomial nosocomial infection until cultures are out. (2) Hypercapnic respiratory failure: Qualifiers: Chronicity: unspecified Qualified Code(s): J96.92 - Respiratory failure, unspecified with hypercapnia Code(s): J96.92 - Respiratory failure, unspecified with hypercapnia Status: Acute (3) Congestive heart failure: Qualifiers: Heart failure type: unspecified Heart failure chronicity: unspecified Qualified Code(s): I50.9 - Heart failure, unspecified Code(s): I50.9 - Heart failure, unspecified Status: Chronic (4) Ventilator dependence: Code(s): Z99.11 - Dependence on respirator [ventilator] status Status: Acute Subjective Date/time seen: 09/02/21 13:22 No significant change in respiratory status. The patient remaining on room air. He has some nausea and also complaining of loose bowel movements. He feels cold. He is afebrile. Review of Systems Review of Systems: All systems reviewed & are unremarkable except as noted in HPI and below Exam Narrative: GENERAL APPEARANCE: Well developed, well nourished, alert in mild respiratory distress while on supplemental oxygen via nasal cannula SKIN: Inspection of the skin reveals no rashes, ulcerations or petechiae. HEENT: Sclerae anicteric and conjunctivae pink and moist. NECK: Supple. There was no thyroid enlargement, or masses were felt. LUNGS: Clear lungs anteriorly, decreased breath sounds lateral chest bilaterally, no wheezing CARDIAC: There was a regular rate and rhythm without any murmurs, gallops, rubs. ABDOMEN: Soft and nontender with normal bowel sounds. There was no organomegaly. LYMPH NODES: No lymphadenopathy was appreciated in the neck. EXTREMITIES: No cyanosis, clubbing or edema. Objective Data Vital Signs Vital Signs: Vital Signs - 24 hr 09/01/21 14:00 09/01/21 14:40 09/01/21 14:53 Temperature Pulse Rate 68 68 67 Respiratory Rate 18 18 Blood Pressure Pulse Oximetry 09/01/21 16:00 09/01/21 18:00 09/01/21 20:00 Temperature 36.3 C L 36.6 C Pulse Rate 67 66 70 Respiratory Rate 22 H 20 Blood Pressure 143/92 H 165/87 H Pulse Oximetry 96 99 09/01/21 21:28 09/01/21 21:38 09/01/21 22:00 Temperature Pulse Rate 88 87 75 Respiratory Rate 20 20 Blood Pressure Pulse Oximetry 09/01/21 23:40 09/02/21 00:00 09/02/21 02:00 Temperature 36.7 C Pulse Rate 72 69 73 Respiratory Rate 20 Blood Pressure 165/72 H Pulse Oximetry 96 09/02/21 02:04 09/02/21 02:12 09/02/21 03:02 Temperature Pulse Rate 85 86 75 Respiratory Rate 16 18 Blood Pressure Pulse Oximetry 97 09/02/21 04:00 09/02/21 06:00 09/02/21 08:23 Temperature 36.6 C Pulse Rate 76 82 79 Respiratory Rate 20 20 Blood Pressure 150/108 H Pulse Oximetry 99 95 09/02/21 08:36 09/02/21 08:51 09/02/21 09:34 Temperature 36.0 C L Pulse Rate 70 78 84 Respiratory Rate 16 20 Blood Pressure 157/96 H Pulse Oximetry 98 09/02/21 09:35 09/02/21 11:58 09/02/21 12:15 Temperature 36.8 C 36.1 C L Pulse Rate 84 71 Respiratory Rate 18 Blood Pressure 122/74 Pulse Oximetry 95 Intake/Output Intake/Output: Intake & Output 08/30/21 08/31/21 09/01/21 09/02/21 23:59 23:59 23:59 23:59 Intake Total 650 470 250 1
[2021-09-02 15:55] LABS: Glucose Point of Care 120 mg/dl (65-105)
[2021-09-02] MEDS: CLINDAMYCIN 600 MG/D5W 50 ML 600 MG/50 ML PIGGYBACK 100 MG IVPB ×2 (16:02→21:00)
--- NOTE | 2021-09-02 16:36 | PM.IMPN ---
Progress Note: A&P Assessment and Plan (1) Hypercapnic respiratory failure: Qualifiers: Chronicity: unspecified Qualified Code(s): J96.92 - Respiratory failure, unspecified with hypercapnia Code(s): J96.92 - Respiratory failure, unspecified with hypercapnia Status: Acute Assessment and Plan: Acute Respiratory failure secondary to pulmonary edema, pleural effusions and pneumonia 08/14 Patient was emergently intubated on arrival to ICU as his hypercarbia was worse and he was in respiratory distress 08/16: Left-sided thoracentesis with removal of 250 mL of opaque, red fluid 08/17: Right-sided thoracentesis with removal of 425 mL of opaque, red fluid 08/26 -right thoracentesis and 1 L fluid was removed 08/26 -CT angiogram of chest was performed as per recommendation of Dr. Garrett 08/26 - Spoke to Dr. Castelan at [facility]. This time they do not have any bed available in ICU. He will accept the patient once they have a bed available. PT AWAITING BED IN [facility] RPT CXR KYRA CONTINUE PT/OT REMOVE EVANGELISTA AND RECTAL TUBE 09/02/2021 interval history patient remains clinically stable repeat chest x-ray showed persistent pleural effusion discussed with the pulmonology suspect bacteremia we have ordered blood culture, will start the patient on vancomycin and clindamycin, will also check for C diff, will continue to monitor and further recommendation to follow. (2) Sepsis: Qualifiers: Sepsis acute organ dysfunction status: unspecified Sepsis type: sepsis due to unspecified organism Qualified Code(s): A41.9 - Sepsis, unspecified organism Code(s): A41.9 - Sepsis, unspecified organism Status: Acute Assessment and Plan: secondary to pneumonia see above (3) Fever: Code(s): R50.9 - Fever, unspecified Status: Acute Assessment and Plan: Patient initially was diagnosed with pneumonia and completed a 10 day course of vancomycin and aztreonam Fevers or requiring but his WBC is normal UA suggest UTI with positive leukocyte Estrace but cultures were negative Patient is having persistent fever, patient was started on aztreonam, to be complete 09/02 (4) Shock: Code(s): R57.9 - Shock, unspecified Status: Resolved Assessment and Plan: Septic versus cardiogenic SP CABG in [place] -status post 10 days of vancomycin and aztreonam -08/19/2021: Blood cultures times negative so far -08/19/2021 urine cultures negative -08/21/2021 sputum cultures negative (5) CAD (coronary artery disease): Qualifiers: Coronary Disease-Associated Artery/Lesion type: unspecified vessel or lesion type [place] vs. transplanted heart: [place] heart Associated angina: unspecified whether angina present Qualified Code(s): I25.10 - Atherosclerotic heart disease of [place] coronary artery without angina pectoris Code(s): I25.10 - Atherosclerotic heart disease of [place] coronary artery without angina pectoris Status: Chronic Assessment and Plan: Status post recent CABG Continue amiodarone and statin Continue metoprolol (6) ROSHAN (acute kidney injury): Code(s): N17.9 - Acute kidney failure, unspecified Status: Acute Assessment and Plan: Likely prerenal from septic and/or cardiogenic shock, hypovolemia, decreased p.o. intake, On review of records from [facility] it appears the patient had acute kidney injury postop after his CABG creat is 1.5 today (7) Congestive heart failure: Qualifiers: Heart failure type: unspecified Heart failure chronicity: unspecified Qualified Code(s): I50.9 - Heart failure, unspecified Code(s): I50.9 - Heart failure, unspecified Status: Chronic Assessment and Plan: Reviewed echocardiogram done at [facility] and it showed the patient had EF of 25% postop and also had a pericardial effusion -08/16/2021 echocardiogr
[2021-09-02 18:25] LABS: Glucose Point of Care 139 mg/dl (65-105)
[2021-09-02 20:28] LABS: Glucose Pleural Fluid 86 mg/dL; LDH Pleural Fluid 144 U/L; Total Protein Pleural Fluid 4.2 g/dL
[2021-09-03] VITALS (27 sets, daily range): BP systolic 109–155; BP diastolic 68–91; PULSE 66–84; RESP 19–188; TEMP 35.8–36.9; O2SAT 93–95
[2021-09-03] MEDS: IPRATROPIUM BR 0.02% INH SOLN 0.5 MG/2.5 ML VIAL INHALATION ×4 (03:00→19:35)
[2021-09-03] MEDS: ALBUTEROL SULFATE NEB 2.5 MG/0.5 ML INH INHALATION ×4 (03:00→19:35)
[2021-09-03 04:57] LABS: Hematocrit 30.1 % (42.0-52.0); Mean Corpuscular HGB Conc 33.2 g/dl (32-36); Mean Corpuscular Hemoglobin 29.1 pg (26-34); Mean Corpuscular Volume 87.5 fl (80-100); Mean Platelet Volume 8.1 fl (7.4-10.4); Platelet Count Result 381 k/mm3 (150-375); Red Blood Count 3.44 M/mm3 (4.6-6.20); Red Cell Distribution Width 14.1 % (11.5-14.5)
[2021-09-03] MEDS: CLINDAMYCIN 600 MG/D5W 50 ML 600 MG/50 ML PIGGYBACK 100 MG IVPB ×2 (05:15→12:31)
[2021-09-03 05:16] LABS: Glucose Point of Care 108 mg/dl (65-105)
[2021-09-03 05:22] LABS: Anion Gap 10 mmol/L (8-16); Blood Urea Nitrogen 17 mg/dL (9-20); Calcium 7.6 mg/dL (8.4-10.2); Carbon Dioxide 21 mmol/L (22-30); Chloride 92 mmol/L (98-107); Estimated CRCL calculation 46 ml/min; Estimated Glomerular Filt Rate 47; Glucose 115 mg/dL (65-110); Potassium 3.5 mmol/L (3.4-5.0); Sodium 123 mmol/L (137-145)
[2021-09-03 06:30] LABS: Glucose Point of Care 103 mg/dl (65-105)
[2021-09-03] MEDS: ENOXAPARIN 40 MG/0.4 ML SYRINGE SUB-Q (08:44)
[2021-09-03] MEDS: AMIODARONE HCL 200 MG TABLET 400 MG PO (08:44)
[2021-09-03] MEDS: ASPIRIN 81 MG CHEWABLE TABLET PO (08:44)
[2021-09-03] MEDS: PANTOPRAZOLE SODIUM IV 40 MG VIAL IV PUSH ×2 (08:45→21:45)
[2021-09-03] MEDS: METOPROLOL SUCCINATE EXT REL 50 MG TABCR PO (08:45)
[2021-09-03] MEDS: ROSUVASTATIN 10 MG TABLET PO (08:45)
--- NOTE | 2021-09-03 10:00 | PM.PNPUL ---
Progress Note: A&P Assessment and Plan (1) Bilateral pleural effusion: Code(s): J90 - Pleural effusion, not elsewhere classified Status: Acute Assessment and Plan: He seems to be tolerating room air. He continues to have stable pleural effusions by physical exam and also by chest x-ray. Diuretics have been discontinued because of rising creatinine. Monitor respiratory status, renal indices. Case was discussed with the hospitalist. I would discontinue antibiotics if blood cultures negative. C difficile test negative. Cause of mild abdominal pain unclear. No evidence of leukocytosis. Need to get a good PA and lateral chest x-ray regarding size of pleural effusions. He may need repeat thoracentesis on right. (2) Hypercapnic respiratory failure: Qualifiers: Chronicity: unspecified Qualified Code(s): J96.92 - Respiratory failure, unspecified with hypercapnia Code(s): J96.92 - Respiratory failure, unspecified with hypercapnia Status: Acute (3) Congestive heart failure: Qualifiers: Heart failure type: unspecified Heart failure chronicity: unspecified Qualified Code(s): I50.9 - Heart failure, unspecified Code(s): I50.9 - Heart failure, unspecified Status: Chronic (4) Ventilator dependence: Code(s): Z99.11 - Dependence on respirator [ventilator] status Status: Acute Subjective Date/time seen: 09/03/21 10:00 patient has no new respiratory symptoms. He remaining on room air. Central line was removed yesterday. Blood cultures pending started on antibiotics for possible nosocomial infection. Hemodynamically stable afebrile. Complaining of weakness and mild abdominal pain. He has had loose bowel movements and has been tested for C difficile. Review of Systems Review of Systems: All systems reviewed & are unremarkable except as noted in HPI and below Exam Narrative: GENERAL APPEARANCE: Well developed, well nourished, alert in mild respiratory distress while on supplemental oxygen via nasal cannula SKIN: Inspection of the skin reveals no rashes, ulcerations or petechiae. HEENT: Sclerae anicteric and conjunctivae pink and moist. NECK: Supple. There was no thyroid enlargement, or masses were felt. LUNGS: Clear lungs anteriorly, decreased breath sounds lateral chest bilaterally, no wheezing CARDIAC: There was a regular rate and rhythm without any murmurs, gallops, rubs. ABDOMEN: Soft and nontender with normal bowel sounds. There was no organomegaly. LYMPH NODES: No lymphadenopathy was appreciated in the neck. EXTREMITIES: No cyanosis, clubbing or edema. Objective Data Vital Signs Vital Signs: Vital Signs - 24 hr 09/02/21 11:58 09/02/21 12:00 09/02/21 12:15 Temperature 36.8 C 36.1 C L Pulse Rate 68 71 Respiratory Rate 18 Blood Pressure 122/74 Pulse Oximetry 95 95 09/02/21 14:00 09/02/21 16:00 09/02/21 18:00 Temperature 36.3 C L Pulse Rate 68 70 65 Respiratory Rate 20 16 Blood Pressure 127/70 Pulse Oximetry 92 09/02/21 20:00 09/02/21 20:15 09/02/21 20:36 Temperature 36.7 C Pulse Rate 71 70 71 Respiratory Rate 17 18 Blood Pressure 131/73 Pulse Oximetry 95 09/02/21 20:37 09/02/21 20:41 09/02/21 22:00 Temperature Pulse Rate 75 71 Respiratory Rate 18 Blood Pressure Pulse Oximetry 92 09/03/21 00:00 09/03/21 00:50 09/03/21 02:00 Temperature 36.7 C Pulse Rate 72 74 69 Respiratory Rate 188 H Blood Pressure 129/71 Pulse Oximetry 94 09/03/21 03:02 09/03/21 03:06 09/03/21 04:00 Temperature Pulse Rate 73 74 74 Respiratory Rate 20 20 Blood Pressure Pulse Oximetry 09/03/21 04:20 09/03/21 06:00 09/03/21 08:44 Temperature 36.8 C Pulse Rate 74 77 73 Respiratory Rate 19 Blood Pressure 132/70 Pulse Oximetry 95 09/03/21 08:45 09/03/21 09:17 Temperature 35.8 C L Pulse Rate 73 74 Respiratory Rate 22 H Blood Pressure 155/91 H Pulse Ox
--- NOTE | 2021-09-03 11:24 | PCOTNOTE ---
Attempted to see pt. this AM however, pt had worked with PT prior increasing tiredness verbalizing, not anymore, my whole body hurts in response to initiating ADLs. MANE/S explained benefits of participation however, pt. still denied. Expressed to pt. that we would like him to work with us once more within the next three days, with pt. agreeing.
--- NOTE | 2021-09-03 11:31 | PCNFU ---
Addendum entered by Paola De La Rosa, RD 09/03/21 13:59: Received a consult for poor appetite and oral intake. Spoke with Dr. Blanton regarding consult. Possible PPN start. Original Note: Nutrition Follow-Up Complete: Inadequate Oral Intake as related to mechanical ventilation as evidenced by NPO. Goal: Meet estimated Nutritional needs Pt. is progressing towards goal. No new goal at this time. Pt current nutrition is a clear liquid diet. Last recorded weight is 84.6 kg. Recommend re-weighing prior to discharge. Bowel Motility: + BM 09/03/2021 Labs Reviewed: Hgb 10.0, Hct 30.1, Glu 115, GFR 47, Cr 1.5, Ca 7.6, Na 123 Meds Noted: Albuterol, Pacerone, Lovenox, Atrovent Neb, Toprol Xl, Lopressor, Miralax, Crestor, Vancomycin Hcl Skin: No skin breakdown at this time. WNL. Additional Notes: Patient is consuming on average 13% of his clear liquid diet order. He is receiving ensure compact BID 220 calories and 9 grams of protein to increase overall intake. Closely monitor intake. May need to provide supplemental nutrition support if intake does not increase. Banatrol could be beneficial with diarrhea concerns. Will monitor every three days.
[2021-09-03 12:19] LABS: Albumin Pleural Fluid 2.1 g/dL
[2021-09-03] MEDS: BENZOCAINE/MENTHOL (*BKC) 18 EA LOZENGE 1 LOZENGE PO (12:32)
[2021-09-03] MEDS: BENZONATATE 100 MG CAPSULE 200 MG PO (12:33)
[2021-09-03 12:45] LABS: Glucose Point of Care 99 mg/dl (65-105)
--- NOTE | 2021-09-03 13:47 | PM.IMPN ---
Progress Note: A&P Assessment and Plan (1) Hypercapnic respiratory failure: Qualifiers: Chronicity: unspecified Qualified Code(s): J96.92 - Respiratory failure, unspecified with hypercapnia Code(s): J96.92 - Respiratory failure, unspecified with hypercapnia Status: Acute Assessment and Plan: Acute Respiratory failure secondary to pulmonary edema, pleural effusions and pneumonia 08/14 Patient was emergently intubated on arrival to ICU as his hypercarbia was worse and he was in respiratory distress 08/16: Left-sided thoracentesis with removal of 250 mL of opaque, red fluid 08/17: Right-sided thoracentesis with removal of 425 mL of opaque, red fluid 08/26 -right thoracentesis and 1 L fluid was removed 08/26 -CT angiogram of chest was performed as per recommendation of Dr. Garrett 08/26 - Spoke to Dr. Castelan at [facility]. This time they do not have any bed available in ICU. He will accept the patient once they have a bed available. PT AWAITING BED IN [facility] RPT CXR KYRA CONTINUE PT/OT REMOVE EVANGELISTA AND RECTAL TUBE 09/02/2021 interval history patient remains clinically stable repeat chest x-ray showed persistent pleural effusion discussed with the pulmonology suspect bacteremia we have ordered blood culture, will start the patient on vancomycin and clindamycin, will also check for C diff, will continue to monitor and further recommendation to follow. 09/03/2021 interval history: Patient was admitted with acute respiratory failure was emergently intubated on 08/14, was on vent for 15 days and extubated on 08/29, suspect 2/2 pneumonia and b/l pleural effusion s/p several thoracentsis, on 09/02 D/W head correction officer suspect patient has bacteremia, did blood culture and started on clinmamycin and vancomycin, today again spoke with the head correction officer b/l pleural effusion is persisting, will give lasix to diureses the patient, patient has developed hyponatremia most likely 2/2 D10W, will switch to D10NS and monitor. (2) Sepsis: Qualifiers: Sepsis acute organ dysfunction status: unspecified Sepsis type: sepsis due to unspecified organism Qualified Code(s): A41.9 - Sepsis, unspecified organism Code(s): A41.9 - Sepsis, unspecified organism Status: Acute Assessment and Plan: secondary to pneumonia see above (3) Fever: Code(s): R50.9 - Fever, unspecified Status: Acute Assessment and Plan: Patient initially was diagnosed with pneumonia and completed a 10 day course of vancomycin and aztreonam Fevers or requiring but his WBC is normal UA suggest UTI with positive leukocyte Estrace but cultures were negative Patient is having persistent fever, patient was started on aztreonam, to be complete 09/02 (4) Shock: Code(s): R57.9 - Shock, unspecified Status: Resolved Assessment and Plan: Septic versus cardiogenic SP CABG in [place] -status post 10 days of vancomycin and aztreonam -08/19/2021: Blood cultures times negative so far -08/19/2021 urine cultures negative -08/21/2021 sputum cultures negative (5) CAD (coronary artery disease): Qualifiers: Coronary Disease-Associated Artery/Lesion type: unspecified vessel or lesion type [place] vs. transplanted heart: nond[place] heart Associated angina: unspecified whether angina present Qualified Code(s): I25.10 - Atherosclerotic heart disease of nond[place] coronary artery without angina pectoris Code(s): I25.10 - Atherosclerotic heart disease of [place] coronary artery without angina pectoris Status: Chronic Assessment and Plan: Status post recent CABG Continue amiodarone and statin Continue metoprolol (6) ROSHAN (acute kidney injury): Code(s): N17.9 - Acute kidney failure, unspecified Status: Acute Assessment and Plan: Likely prerenal from septic and/or cardiogenic shock, hypovolemia, decreased p.o. intake, On review of recor
[2021-09-03 14:44] LABS: Anion Gap 8 mmol/L (8-16); Blood Urea Nitrogen 15 mg/dL (9-20); Calcium 7.6 mg/dL (8.4-10.2); Carbon Dioxide 22 mmol/L (22-30); Chloride 90 mmol/L (98-107); Estimated CRCL calculation 50 ml/min; Estimated Glomerular Filt Rate 51; Glucose 123 mg/dL (65-110); Potassium 3.3 mmol/L (3.4-5.0); Sodium 120 mmol/L (137-145)
[2021-09-03] MEDS: FUROSEMIDE INJ 40 MG/4 ML VIAL IV PUSH (15:22)
[2021-09-03 16:46] LABS: Glucose Point of Care 92 mg/dl (65-105)
[2021-09-03] MEDS: FAT EMULSIONS IV 20% 250 ML 20.83 ML IVPB (16:52)
[2021-09-03 19:21] LABS: Sodium Urine Random 71 meq/L
[2021-09-03 19:22] LABS: Creatinine Urine 14.8 mg/dL; Total Protein Urine Random 11 mg/dL; Ur Ttl Prot Creatinine Ratio 0.74 mg/mg (0-0.20)
[2021-09-03 21:39] LABS: Sodium 119 mmol/L (137-145)
[2021-09-03] MEDS: SODIUM CHLORIDE 0.9% IV 500 ML 50 ML IV CONT (22:58)
[2021-09-04] VITALS (22 sets, daily range): BP systolic 133–160; BP diastolic 68–88; PULSE 66–88; RESP 14–28; TEMP 36.4–37; O2SAT 92–99
[2021-09-04 00:57] LABS: Glucose Point of Care 121 mg/dl (65-105)
[2021-09-04 05:07] LABS: Hematocrit 29.2 % (42.0-52.0); Hemoglobin 9.7 g/dL (14.0-18.0); Mean Corpuscular HGB Conc 33.2 g/dl (32-36); Mean Corpuscular Hemoglobin 29.8 pg (26-34); Mean Corpuscular Volume 89.6 fl (80-100); Mean Platelet Volume 7.9 fl (7.4-10.4); Platelet Count Result 361 k/mm3 (150-375); Red Blood Count 3.26 M/mm3 (4.6-6.20); Red Cell Distribution Width 14.2 % (11.5-14.5); White Blood Count 6.4 K/mm3 (4.5-10.0)
[2021-09-04 05:22] LABS: Anion Gap 10 mmol/L (8-16); Blood Urea Nitrogen 17 mg/dL (9-20); Calcium 6.9 mg/dL (8.4-10.2); Carbon Dioxide 22 mmol/L (22-30); Chloride 94 mmol/L (98-107); Estimated CRCL calculation 57 ml/min; Estimated Glomerular Filt Rate > 60; Glucose 86 mg/dL (65-110); Potassium 3.2 mmol/L (3.4-5.0); Sodium 126 mmol/L (137-145)
[2021-09-04 05:52] LABS: Cortisol Random 3.02 ug/dL
[2021-09-04 06:52] LABS: Glucose Point of Care 99 mg/dl (65-105)
[2021-09-04] MEDS: BENZOCAINE/MENTHOL (*BKC) 18 EA LOZENGE 1 LOZENGE PO (08:28)
[2021-09-04] MEDS: BENZONATATE 100 MG CAPSULE 200 MG PO ×2 (08:29→21:50)
[2021-09-04] MEDS: ALBUTEROL SULFATE NEB 2.5 MG/0.5 ML INH INHALATION ×2 (09:38→21:15)
[2021-09-04] MEDS: IPRATROPIUM BR 0.02% INH SOLN 0.5 MG/2.5 ML VIAL INHALATION ×2 (09:38→21:15)
[2021-09-04 10:16] LABS: Sodium 119 mmol/L (137-145)
[2021-09-04] MEDS: ASPIRIN 81 MG CHEWABLE TABLET PO (10:29)
[2021-09-04] MEDS: ENOXAPARIN 40 MG/0.4 ML SYRINGE SUB-Q (10:30)
[2021-09-04] MEDS: FUROSEMIDE INJ 40 MG/4 ML VIAL IV PUSH (10:30)
[2021-09-04] MEDS: METOPROLOL SUCCINATE EXT REL 50 MG TABCR PO (10:31)
[2021-09-04] MEDS: ROSUVASTATIN 10 MG TABLET PO (10:32)
--- NOTE | 2021-09-04 11:48 | P.CONNP_ITS ---
Assessment and Plan Assessment and plan (1) Hyponatremia: Code(s): E87.1 - Hypo-osmolality and hyponatremia Status: Acute Assessment and Plan: * several possibilities: * SIADH phenomenon given recent respiratory issues * D10W IVF use * TPN (but just started) * IV diuretics (but just started) * have already changed all IV meds/piggybacks to normal saline carrier fluid * consider fluid restriction but he is not really eating/drinking that much to begin with) * check urine electrolytes * follow-up on TSH, cortisol, SPEP, UPEP, serum/urine osmolality * trial of gentle IV normal saline * given issues with recurrent pleural effusions, use of IV fluids will be limited * may need to consider use of salt tabs i conjunction with low dose lasix * follow trend of repeat sodium levels (2) ROSHAN (acute kidney injury): Code(s): N17.9 - Acute kidney failure, unspecified Status: Acute Assessment and Plan: * appears to have resolved but then creatinine alex again in the last week * probably a component of prerenal factors from persistent poor intake and ATN (from renal hypoperfusion) * creatinine appears to be stabilizing again * follow trend of labs and repeat UOP (3) Hypercapnic respiratory failure: Qualifiers: Chronicity: unspecified Qualified Code(s): J96.92 - Respiratory failure, unspecified with hypercapnia Code(s): J96.92 - Respiratory failure, unspecified with hypercapnia Status: Acute Assessment and Plan: * resolving * extubated and respiratory status relatively stable * Pulmonary following (4) Bilateral pleural effusion: Code(s): J90 - Pleural effusion, not elsewhere classified Status: Acute Assessment and Plan: * persistent/recurrent * s/p multiple thoracenteses to date (5) Anemia: Code(s): D64.9 - Anemia, unspecified Status: Acute Assessment and Plan: * probably due to ROSHAN and acute illness * did drop earlier in hospital stay - s/p PRBC transfusion * follow trend of H/H Will continue to follow. History of Present Illness Reason for Consult Consult date: 09/04/21 Reason for consult: hyponatremia Chief Complaint Chief complaint: Sepsis/diarrhea/pneumonia/dehydration/status post History of Present Illness Narrative: Most of the information I have obtained is from review of electronic medical record as the patient does not recall of the events in issues that led to his presentation and subsequent hospitalization given the complicated hospital course he has had since admission. The patient is a 61-year-old male with a past medical history as outlined below who presented to [facility] Emergency room earlier this month (08/13/2021) with symptoms of fatigue and weakness. Apparently, he had been just discharged from [facility] 2 days prior to his presentation to [facility] with the same issue. Unfortunately I am unclear what evaluation and workup was done during that hospital stay.His specific symptoms were difficulty standing and lethargy and sleeping more often than normal. Other associated symptoms included poor oral intake poor hydration and diarrhea. It should also be noted that he had a recent 3 vessel coronary artery bypass grafting surgery approximately 3 weeks prior to his presentation [facility].Attempts were made to transfer him to [facility] since there were concerns that his recent bypass surgery may be related to his symptoms but there were no beds available. He was subseque
--- NOTE | 2021-09-04 11:48 | PM.CNNEP ---
Assessment and Plan Assessment and plan (1) Hyponatremia: Code(s): E87.1 - Hypo-osmolality and hyponatremia Status: Acute Assessment and Plan: several possibilities: SIADH phenomenon given recent respiratory issues D10W IVF use TPN (but just started) IV diuretics (but just started) have already changed all IV meds/piggybacks to normal saline carrier fluid consider fluid restriction but he is not really eating/drinking that much to begin with) check urine electrolytes follow-up on TSH, cortisol, SPEP, UPEP, serum/urine osmolality trial of gentle IV normal saline given issues with recurrent pleural effusions, use of IV fluids will be limited may need to consider use of salt tabs i conjunction with low dose lasix follow trend of repeat sodium levels (2) ROSHAN (acute kidney injury): Code(s): N17.9 - Acute kidney failure, unspecified Status: Acute Assessment and Plan: appears to have resolved but then creatinine alex again in the last week probably a component of prerenal factors from persistent poor intake and ATN (from renal hypoperfusion) creatinine appears to be stabilizing again follow trend of labs and repeat UOP (3) Hypercapnic respiratory failure: Qualifiers: Chronicity: unspecified Qualified Code(s): J96.92 - Respiratory failure, unspecified with hypercapnia Code(s): J96.92 - Respiratory failure, unspecified with hypercapnia Status: Acute Assessment and Plan: resolving extubated and respiratory status relatively stable Pulmonary following (4) Bilateral pleural effusion: Code(s): J90 - Pleural effusion, not elsewhere classified Status: Acute Assessment and Plan: persistent/recurrent s/p multiple thoracenteses to date (5) Anemia: Code(s): D64.9 - Anemia, unspecified Status: Acute Assessment and Plan: probably due to ROSHAN and acute illness did drop earlier in hospital stay - s/p PRBC transfusion follow trend of H/H Will continue to follow. History of Present Illness Reason for Consult Consult date: 09/04/21 Reason for consult: hyponatremia Chief Complaint Chief complaint: Sepsis/diarrhea/pneumonia/dehydration/status post History of Present Illness Narrative: Most of the information I have obtained is from review of electronic medical record as the patient does not recall of the events in issues that led to his presentation and subsequent hospitalization given the complicated hospital course he has had since admission. The patient is a 61-year-old male with a past medical history as outlined below who presented to [facility] Emergency room earlier this month (08/13/2021) with symptoms of fatigue and weakness. Apparently, he had been just discharged from [facility] 2 days prior to his presentation to [facility] with the same issue. Unfortunately I am unclear what evaluation and workup was done during that hospital stay.His specific symptoms were difficulty standing and lethargy and sleeping more often than normal. Other associated symptoms included poor oral intake poor hydration and diarrhea. It should also be noted that he had a recent 3 vessel coronary artery bypass grafting surgery approximately 3 weeks prior to his presentation [facility] at [facility].Attempts were made to transfer him to [facility] since there were concerns that his recent bypass surgery may be related to his symptoms but there were no beds available. He was subsequently admitted to [facility] for further workup and evaluation. Since his admission to the hospital, he has had a very stormy hospital course. His respiratory status significantly declined after admission and he had to be transferred to the intensive care unit for intubation and placement on mechanical ventilation. Furthermore, there were concerns of sepsis and he had an emergent
[2021-09-04 12:39] LABS: Glucose Point of Care 111 mg/dl (65-105)
[2021-09-04] MEDS: AMIODARONE HCL 200 MG TABLET 400 MG PO (12:46)
[2021-09-04] MEDS: SODIUM CHLORIDE 0.9% IV 500 ML 40 ML IV CONT (12:46)
[2021-09-04] MEDS: PANTOPRAZOLE SODIUM IV 40 MG VIAL IV PUSH ×2 (12:52→21:10)
--- NOTE | 2021-09-04 13:07 | PM.IMPN ---
Progress Note: A&P Assessment and Plan (1) Hypercapnic respiratory failure: Qualifiers: Chronicity: unspecified Qualified Code(s): J96.92 - Respiratory failure, unspecified with hypercapnia Code(s): J96.92 - Respiratory failure, unspecified with hypercapnia Status: Acute Assessment and Plan: Acute Respiratory failure secondary to pulmonary edema, pleural effusions and pneumonia 08/14 Patient was emergently intubated on arrival to ICU as his hypercarbia was worse and he was in respiratory distress 08/16: Left-sided thoracentesis with removal of 250 mL of opaque, red fluid 08/17: Right-sided thoracentesis with removal of 425 mL of opaque, red fluid 08/26 -right thoracentesis and 1 L fluid was removed 08/26 -CT angiogram of chest was performed as per recommendation of Dr. Garrett 08/26 - Spoke to Dr. Castelan at [facility]. This time they do not have any bed available in ICU. He will accept the patient once they have a bed available. PT AWAITING BED IN [facility] RPT CXR KYRA CONTINUE PT/OT REMOVE EVANGELISTA AND RECTAL TUBE 09/02/2021 interval history patient remains clinically stable repeat chest x-ray showed persistent pleural effusion discussed with the pulmonology suspect bacteremia we have ordered blood culture, will start the patient on vancomycin and clindamycin, will also check for C diff, will continue to monitor and further recommendation to follow. 09/03/2021 interval history: Patient was admitted with acute respiratory failure was emergently intubated on 08/14, was on vent for 15 days and extubated on 08/29, suspect 2/2 pneumonia and b/l pleural effusion s/p several thoracentsis, on 09/02 D/W hvac field service technician suspect patient has bacteremia, did blood culture and started on clinmamycin and vancomycin, today again spoke with the hvac field service technician b/l pleural effusion is persisting, will give lasix to diureses the patient, patient has developed hyponatremia most likely 2/2 D10W, will switch to D10NS and monitor. 09/04/2021 interval history: Patient was admitted with acute respiratory failure was emergently intubated on 08/14, was on vent for 15 days and extubated on 08/29, suspect 2/2 pneumonia and b/l pleural effusion s/p several thoracentsis, on 09/02 D/W hvac field service technician suspect patient has bacteremia, did blood culture and started on clinmamycin and vancomycin, on 09/03 again spoke with the hvac field service technician b/l pleural effusion is persisting, will give lasix to diureses the patient, patient is not eating has a poor appetite after discussing with dietitian started the patient on PPN, patient has developed hyponatremia most likely 2/2 D10W, will switch to D10NS and monitor. patient's sodium dropped 119 today patient seen by Nephrology and further recommendation to follow, patient continue to complain of cough on Tessalon will add guaifenesin and monitor (2) Sepsis: Qualifiers: Sepsis acute organ dysfunction status: unspecified Sepsis type: sepsis due to unspecified organism Qualified Code(s): A41.9 - Sepsis, unspecified organism Code(s): A41.9 - Sepsis, unspecified organism Status: Acute Assessment and Plan: secondary to pneumonia see above (3) Fever: Code(s): R50.9 - Fever, unspecified Status: Acute Assessment and Plan: Patient initially was diagnosed with pneumonia and completed a 10 day course of vancomycin and aztreonam Fevers or requiring but his WBC is normal UA suggest UTI with positive leukocyte Estrace but cultures were negative Patient is having persistent fever, patient was started on aztreonam, to be complete 09/02 (4) Shock: Code(s): R57.9 - Shock, unspecified Status: Resolved Assessment and Plan: Septic versus cardiogenic SP CABG in [place] -status post 10 days of vancomycin and aztreonam -08/19/2021: Blood cultures times negative so far -08/19/2021 urine cultures negative -08/21/2021 spu
[2021-09-04 14:47] LABS: Sodium 122 mmol/L (137-145)
--- NOTE | 2021-09-04 15:36 | PCRCNOTE ---
Past window of treatment time.
--- NOTE | 2021-09-04 15:39 | PM.PNPUL ---
Progress Note: A&P Assessment and Plan (1) Bilateral pleural effusion: Code(s): J90 - Pleural effusion, not elsewhere classified Status: Acute Assessment and Plan: He is tolerating room air. He continues to have stable pleural effusions by physical exam and also by chest x-ray. These are post-CABG effusions with large numbers red blood cells. Diuretics were stopped because of rising creatinine, and creat is today in the normal range, 1.2. Lasix has been re-started. Will continue to respiratory status, renal indices. Blood cultures are negative. C difficile test negative. Does not have abdominal pain now . Normal WBC 6.4; I stopped clinda and vanco 09/04. He had a CTA 08/26; he had loculations, and these may be persistent. All taps have yielded bloody fluid. 08/16/21 - Left 250 ml tapped 08/17/21 - Right 425 ml tapped 08/26 - Left 1 liter tapped 08/30 - Left 800 ml tapped (2) Hypercapnic respiratory failure: Qualifiers: Chronicity: unspecified Qualified Code(s): J96.92 - Respiratory failure, unspecified with hypercapnia Code(s): J96.92 - Respiratory failure, unspecified with hypercapnia Status: Acute Assessment and Plan: pCO2 has normalized. Last ABG was 08/30; 7.43/44/81/28.9 on 3 L/min, now on RA (3) Congestive heart failure: Qualifiers: Heart failure chronicity: unspecified Heart failure type: unspecified Qualified Code(s): I50.9 - Heart failure, unspecified Code(s): I50.9 - Heart failure, unspecified Status: Chronic Assessment and Plan: 08/27 echo EF 45%, LBBB his blood pressure is running high, janine for low EF. Subjective Date/time seen: 09/04/21 15:39 Angel Luis Guadarrama is a 61 yo man with a recent CABG, admitted with acute respiratory failure requiring intubation 08/14, was on vent for 15 days, extubated on 08/29, probable pneumonia; had bilat pleural effusion s/p several thoracenteses. Antibiotics changed to clindamycin, vancomycin; 09/03 lasix given for persistent effusions. Due to poor appetite, he started PPN. He developed hyponatremia most likely to hypotonic fluids. He is on NS at 40 ml/hour, and today 08/25 Na+ is lower at 119. It was 126 yesterday, and on repeat today, Na+ is 122. He complained of a cough, and Dr Blanton added guaifenesin to his Tessalon Perles. He is in IMU Room 4 on room air. He says that he feels as if he is filling up with fluid again, the way he felt before needing a thoracentesis. His CXR does not show a large enough effusion to require tapping. He has a [place] vibratory valve at the bedside, on 4th out of 5 settings, and can use without problems. He has no sputum production. WBC is normal. He is on clindamycin and vanco started 09/02 with abdominal pain awaiting stool studies for C diff which are negative. Dr Blanton stopped these antibiotics last night. He has infiltrates on CXR, however these are stable, and he has had many antibiotics since admission. Sep 04, 2021; IMPRESSION: Persistent bilateral predominantly mid and lower lung zone infiltrates and mild pleural effusions with little change since 09/03/2021 Review of Systems Review of Systems: All systems reviewed & are unremarkable except as noted in HPI and below (HPI) Exam Narrative: GENERAL APPEARANCE: Well developed, well nourished, alert in mild respiratory distress while on supplemental oxygen via nasal cannula SKIN: Inspection of the skin reveals no rashes, ulcerations or petechiae. HEENT: Sclerae anicteric and conjunctivae pink and moist. LUNGS: bilateral crackles in bases; decreased breath sounds. No wheezing CARDIAC: There was a regular rate and rhythm without any murmurs, gallops, rubs. ABDOMEN: Soft and nontender with normal bowel sounds. EXTREM
[2021-09-04] MEDS: FAT EMULSIONS IV 20% 250 ML 20.83 ML IVPB (15:43)
--- NOTE | 2021-09-04 15:48 | PM.PNNEP ---
Subjective Date/time seen: 09/04/21 15:48 Objective Data Vital Signs Vital Signs: Vital Signs - 24 hr 09/03/21 16:00 09/03/21 17:09 09/03/21 18:00 Temperature 36.0 C L Pulse Rate 69 68 68 Respiratory Rate 24 H Blood Pressure 109/74 Pulse Oximetry 95 09/03/21 19:25 09/03/21 19:36 09/03/21 20:00 Temperature Pulse Rate 82 84 71 Respiratory Rate 20 20 Blood Pressure Pulse Oximetry 09/03/21 21:30 09/03/21 22:00 09/04/21 00:00 Temperature 36.9 C Pulse Rate 70 72 74 Respiratory Rate 22 H Blood Pressure 140/83 Pulse Oximetry 95 09/04/21 00:55 09/04/21 02:00 09/04/21 02:23 Temperature 37.0 C Pulse Rate 66 77 88 Respiratory Rate 22 H 20 Blood Pressure 143/68 H Pulse Oximetry 99 09/04/21 04:00 09/04/21 04:25 09/04/21 06:00 Temperature 36.6 C Pulse Rate 73 72 69 Respiratory Rate 22 H Blood Pressure 138/74 Pulse Oximetry 92 09/04/21 08:00 09/04/21 09:38 09/04/21 09:45 Temperature 36.9 C Pulse Rate 69 77 69 Respiratory Rate 28 H 18 18 Blood Pressure 160/84 H Pulse Oximetry 93 09/04/21 10:00 09/04/21 10:31 09/04/21 12:00 Temperature 36.6 C Pulse Rate 68 74 74 Respiratory Rate 22 H Blood Pressure 133/76 Pulse Oximetry 93 09/04/21 12:46 Temperature Pulse Rate 70 Respiratory Rate Blood Pressure Pulse Oximetry Intake/Output Intake/Output: Intake & Output 09/01/21 09/02/21 09/03/21 09/04/21 23:59 23:59 23:59 23:59 Intake Total 250 2600 2114 3109 Output Total 1150 975 550 950 Balance -900 4723 1560 215 Meds/Results Medications: Active Medications Generic Name Dose Route Start Last Admin Trade Name Freq PRN Reason Stop Dose Admin Acetaminophen 650 mg 08/27/21 17:52 09/02/21 11:58 Acetaminophen 325 Mg Tablet PO 650 mg Q6H PRN Administration Fever > 100.4 Albuterol 2.5 mg 12/20/21 14:00 09/04/21 15:35 Albuterol Sulfate Neb 2.5 Mg/0.5 Ml Inh INHALATION Not Given Q6HRT JOSAFAT Amiodarone HCl 400 mg 08/14/21 09:00 09/04/21 12:46 Amiodarone Hcl 200 Mg Tablet PO 09/13/21 08:59 400 mg DAILY JOSAFAT Administration Aspirin 81 mg 08/20/21 08:00 09/04/21 10:29 Aspirin 81 Mg Chewable Tablet PO 81 mg DAILY@0800 JOSAFAT Administration Benzocaine 1 lozenge 09/03/21 10:28 09/04/21 08:28 Benzocaine/Menthol (*Bkc) 18 Ea Lozenge PO 1 lozenge PRN PRN Administration Sore Throat Benzonatate 200 mg 09/03/21 10:26 09/04/21 08:29 Benzonatate 100 Mg Capsule PO 200 mg Q8HR PRN Administration Cough Dextrose 12.5 gm 08/14/21 12:04 08/18/21 17:23 Dextrose 50% 25 Gm/50 Ml Syringe IV PUSH 12.5 gm PRN PRN Administration Hypoglycemia Protocol Enoxaparin Sodium 40 mg 08/23/21 09:00 09/04/21 10:30 Enoxaparin 40 Mg/0.4 Ml Syringe SUB-Q 40 mg DAILY JOSAFAT Administration Furosemide 40 mg 09/03/21 13:45 09/04/21 10:30 Furosemide Inj 40 Mg/4 Ml Vial IV PUSH 40 mg DAILY JOSAFAT Administration Glucagon 1 mg 08/14/21 12:04 Glucagon For Inj 1 Mg Vial IM PRN PRN Hypoglycemia Protocol Glucose 15 gm 08/14/21 12:04 Glucose Oral Gel 15 Gm Of Glucse In 37.5 Gm Tube PO PRN PRN Hypoglycemia Protocol Guaifenesin/Dextromethorphan 10 ml 09/04/21 15:36 Guaifenesin/Dextromethorphan 10 Ml Udc PO Q4H PRN Congestion Dextrose 1,000 mls @ 100 mls/hr 08/14/21 12:04 09/02/21 03:38 Dextrose 5% 1,000 Ml IVPB Infused PRN PRN Infusion Hypoglycemia Protocol Multivitamins 2.5 ml/ 2,005 mls @ 100 mls/hr 09/03/21 15:00 09/04/21 12:45 Multivitamins 2.5 ml/ Amino IV CONT 100 mls/hr Acids/Electrolytes/Dextrose .Q20H3M JOSAFAT Administration Fat Emulsion Intravenous 250 mls @ 20.833 mls/hr 09/03/21 15:00 09/04/21 15:43 Lipids 20% IVPB 20.83 mls/hr Q24H JOSAFAT Administration Vancomycin HCl 1,250 mg/ 1,250 mg in 250 mls @ 200 mls/hr 09/04/21 01:00 09/04/21 03:09 Sodium Chloride
[2021-09-04] MEDS: guaiFENesin/DEXTROMETHORPHAN 10 ML UDC PO ×2 (17:08→23:46)
[2021-09-04 18:26] LABS: Sodium 120 mmol/L (137-145)
[2021-09-04 19:37] LABS: Glucose Point of Care 98 mg/dl (65-105)
[2021-09-04 23:34] LABS: Sodium 121 mmol/L (137-145)
[2021-09-05] VITALS (18 sets, daily range): BP systolic 118–169; BP diastolic 54–89; PULSE 65–90; RESP 18–30; TEMP 36.4–37.4; O2SAT 90–96
[2021-09-05] MEDS: SODIUM CHLORIDE 1 GM TABLET PO ×3 (00:11→17:33)
[2021-09-05 01:36] LABS: Glucose Point of Care 98 mg/dl (65-105)
[2021-09-05] MEDS: ALBUTEROL SULFATE NEB 2.5 MG/0.5 ML INH INHALATION ×2 (01:38→20:28)
[2021-09-05] MEDS: IPRATROPIUM BR 0.02% INH SOLN 0.5 MG/2.5 ML VIAL INHALATION ×2 (01:38→20:28)
[2021-09-05 04:47] LABS: Hematocrit 32.7 % (42.0-52.0); Hemoglobin 11.2 g/dL (14.0-18.0); Mean Corpuscular HGB Conc 34.3 g/dl (32-36); Mean Corpuscular Volume 87.7 fl (80-100); Platelet Count Result 432 k/mm3 (150-375); Red Blood Count 3.73 M/mm3 (4.6-6.20); Red Cell Distribution Width 14.1 % (11.5-14.5); White Blood Count 6.4 K/mm3 (4.5-10.0)
[2021-09-05 04:57] LABS: Anion Gap 10 mmol/L (8-16); Blood Urea Nitrogen 24 mg/dL (9-20); Calcium 8.1 mg/dL (8.4-10.2); Carbon Dioxide 20 mmol/L (22-30); Chloride 93 mmol/L (98-107); Estimated CRCL calculation 57 ml/min; Estimated Glomerular Filt Rate > 60; Glucose 97 mg/dL (65-110); Potassium 3.9 mmol/L (3.4-5.0); Sodium 123 mmol/L (137-145)
[2021-09-05] MEDS: FUROSEMIDE INJ 40 MG/4 ML VIAL 10 MG IV PUSH ×3 (06:08→21:19)
[2021-09-05] MEDS: ASPIRIN 81 MG CHEWABLE TABLET PO (08:01)
[2021-09-05] MEDS: METOPROLOL SUCCINATE EXT REL 50 MG TABCR PO (08:02)
[2021-09-05] MEDS: ROSUVASTATIN 10 MG TABLET PO (08:02)
[2021-09-05] MEDS: AMIODARONE HCL 200 MG TABLET 400 MG PO (08:02)
[2021-09-05] MEDS: ENOXAPARIN 40 MG/0.4 ML SYRINGE SUB-Q (08:02)
[2021-09-05] MEDS: guaiFENesin/DEXTROMETHORPHAN 10 ML UDC PO (08:03)
[2021-09-05] MEDS: PANTOPRAZOLE SODIUM IV 40 MG VIAL IV PUSH ×2 (08:03→21:19)
[2021-09-05] MEDS: ONDANSETRON INJ 4 MG/2 ML VIAL IV PUSH (08:16)
[2021-09-05] MEDS: HYDROcodone/acetaminophen (*CRX) 5-325 MG TABLET 1 TAB PO (11:06)
--- NOTE | 2021-09-05 12:24 | P.PNNP_ITS ---
Progress Note: A&P Assessment and Plan (1) Hyponatremia: Code(s): E87.1 - Hypo-osmolality and hyponatremia Status: Acute Assessment and Plan: * several possibilities: * SIADH phenomenon given recent respiratory issues * recent D10W IVF use * TPN (but just started) * IV diuretics (but just started) * have already changed all IV meds/piggybacks to normal saline carrier fluid * consider fluid restriction (but he is not really eating/drinking that much to begin with - hence the reason for TPN)) * urine electrolytes noted (not indicative of prerenal azotemia) * SPEP, UPEP, serum/urine osmolality pending * TSH okay but cortisol quite low * low cortisol could be reflective of recent sepsis/shock * will recheck in another day and if still low, check cosyntropin stimulation test * no real improvement with normal saline IVFs and given his issues with pleural effusions, IVFs dc'd * started on salt tabs and changed IV lasix to 10mg IV q8hrs * this should hopefully should help increase sodium level and provide diure sis as well... * follow trend of repeat sodium levels (2) ROSHAN (acute kidney injury): Code(s): N17.9 - Acute kidney failure, unspecified Status: Acute Assessment and Plan: * has fluctuated in the last week or so * probably a component of prerenal factors from persistent poor intake and ATN (from renal hypoperfusion) * creatinine appears to be stabilizing * follow trend of labs and repeat UOP (particularly with use of IV lasix) (3) Hypercapnic respiratory failure: Qualifiers: Chronicity: unspecified Qualified Code(s): J96.92 - Respiratory failure, unspecified with hypercapnia Code(s): J96.92 - Respiratory failure, unspecified with hypercapnia Status: Acute Assessment and Plan: * resolving * extubated and respiratory status relatively stable * Pulmonary following (4) Bilateral pleural effusion: Code(s): J90 - Pleural effusion, not elsewhere classified Status: Acute Assessment and Plan: * persistent/recurrent * s/p multiple thoracenteses to date * on IV diuretics to help treat/reduce * need repeat thoracentesis?? (5) Anemia: Code(s): D64.9 - Anemia, unspecified Status: Acute Assessment and Plan: * probably due to ROSHAN and acute illness * did drop earlier in hospital stay - s/p PRBC transfusion * follow trend of H/H Will continue to follow. Subjective Date/time seen: 09/05/21 12:24 No real complaints noted other than persistant cough; sodium continues to fluctuate but better in the last 24 hours; no new issues/events overnight or earlier this AM; no acute distress voiced. Exam Narrative: General: WD/WN male in NAD Heart: normal S1 and S2; no rub Lungs: decreased breath sounds with a few bibasilar crackles at bases Abdomen: soft, nontender, nondistended, positive bowel sounds Extremities: no cyanosis or clubbing; no edema Skin: warm and intact Objective Data Vital Signs Vital Signs: Vital Signs Temp Pulse Resp BP Pulse Ox 09/05/21 12:00 37.4 C 73 30 H 135/54 L 93 09/05/21 10:00 72 09/05/21 08:02 70 09/05/21 08:00 36.6 C 71 18 143/76 H 96 09/05/21 06:00 67 09/05/21 04:00 36.7 C 70 22 H 147/82 H 96 09/05/21 02:00 70 09/05/21 01:56 90 21 H 09/05/21 01:40 88
--- NOTE | 2021-09-05 12:24 | PM.PNNEP ---
Progress Note: A&P Assessment and Plan (1) Hyponatremia: Code(s): E87.1 - Hypo-osmolality and hyponatremia Status: Acute Assessment and Plan: several possibilities: SIADH phenomenon given recent respiratory issues recent D10W IVF use TPN (but just started) IV diuretics (but just started) have already changed all IV meds/piggybacks to normal saline carrier fluid consider fluid restriction (but he is not really eating/drinking that much to begin with - hence the reason for TPN)) urine electrolytes noted (not indicative of prerenal azotemia) SPEP, UPEP, serum/urine osmolality pending TSH okay but cortisol quite low low cortisol could be reflective of recent sepsis/shock will recheck in another day and if still low, check cosyntropin stimulation test no real improvement with normal saline IVFs and given his issues with pleural effusions, IVFs dc'd started on salt tabs and changed IV lasix to 10mg IV q8hrs this should hopefully should help increase sodium level and provide diuresis as well... follow trend of repeat sodium levels (2) ROSHAN (acute kidney injury): Code(s): N17.9 - Acute kidney failure, unspecified Status: Acute Assessment and Plan: has fluctuated in the last week or so probably a component of prerenal factors from persistent poor intake and ATN (from renal hypoperfusion) creatinine appears to be stabilizing follow trend of labs and repeat UOP (particularly with use of IV lasix) (3) Hypercapnic respiratory failure: Qualifiers: Chronicity: unspecified Qualified Code(s): J96.92 - Respiratory failure, unspecified with hypercapnia Code(s): J96.92 - Respiratory failure, unspecified with hypercapnia Status: Acute Assessment and Plan: resolving extubated and respiratory status relatively stable Pulmonary following (4) Bilateral pleural effusion: Code(s): J90 - Pleural effusion, not elsewhere classified Status: Acute Assessment and Plan: persistent/recurrent s/p multiple thoracenteses to date on IV diuretics to help treat/reduce need repeat thoracentesis?? (5) Anemia: Code(s): D64.9 - Anemia, unspecified Status: Acute Assessment and Plan: probably due to ROSHAN and acute illness did drop earlier in hospital stay - s/p PRBC transfusion follow trend of H/H Will continue to follow. Subjective Date/time seen: 09/05/21 12:24 No real complaints noted other than persistant cough; sodium continues to fluctuate but better in the last 24 hours; no new issues/events overnight or earlier this AM; no acute distress voiced. Exam Narrative: General: WD/WN male in NAD Heart: normal S1 and S2; no rub Lungs: decreased breath sounds with a few bibasilar crackles at bases Abdomen: soft, nontender, nondistended, positive bowel sounds Extremities: no cyanosis or clubbing; no edema Skin: warm and intact Objective Data Vital Signs Vital Signs: Vital Signs Temp Pulse Resp BP Pulse Ox 09/05/21 12:00 37.4 C 73 30 H 135/54 L 93 09/05/21 10:00 72 09/05/21 08:02 70 09/05/21 08:00 36.6 C 71 18 143/76 H 96 09/05/21 06:00 67 09/05/21 04:00 36.7 C 70 22 H 147/82 H 96 09/05/21 02:00 70 09/05/21 01:56 90 21 H 09/05/21 01:40 88 20 09/05/21 00:00 36.6 C 65 20 139/89 96 09/04/21 22:00 75 09/04/21 21:24 85 18 09/04/21 21:15 75 14 09/04/21 20:30 36.5 C 68 21 H 146/88 H 96 09/04/21 20:00 72 09/04/21 18:00 80 09/04/21 16:00 36.4 C 71 22 H 135/77 95 Intake/Output Intake/Output: Intake & Output 09/02/21 09/03/21 09/04/21 09/05/21 23:59 23:59 23:59 23:59 Intake Total 2600 2114 3709 2355 Output Total 122 360 2920 1250 Balance 1625 2084 983 2384 Meds/Results Medications: Active Medications Generic Name Dose Route Start Last Admin Trade Name Freq PRN Reason Stop Dose Admin
[2021-09-05] MEDS: FAT EMULSIONS IV 20% 250 ML 20.83 ML IVPB (15:03)
--- NOTE | 2021-09-05 15:20 | PM.IMPN ---
Progress Note: A&P Assessment and Plan (1) Hypercapnic respiratory failure: Qualifiers: Chronicity: unspecified Qualified Code(s): J96.92 - Respiratory failure, unspecified with hypercapnia Code(s): J96.92 - Respiratory failure, unspecified with hypercapnia Status: Acute Assessment and Plan: Acute Respiratory failure secondary to pulmonary edema, pleural effusions and pneumonia 08/14 Patient was emergently intubated on arrival to ICU as his hypercarbia was worse and he was in respiratory distress 08/16: Left-sided thoracentesis with removal of 250 mL of opaque, red fluid 08/17: Right-sided thoracentesis with removal of 425 mL of opaque, red fluid 08/26 -right thoracentesis and 1 L fluid was removed 08/26 -CT angiogram of chest was performed as per recommendation of Dr. Garrett 08/26 - Spoke to Dr. Castelan at [facility]. This time they do not have any bed available in ICU. He will accept the patient once they have a bed available. PT AWAITING BED IN [facility] RPT CXR KYRA CONTINUE PT/OT REMOVE EVANGELISTA AND RECTAL TUBE 09/02/2021 interval history patient remains clinically stable repeat chest x-ray showed persistent pleural effusion discussed with the pulmonology suspect bacteremia we have ordered blood culture, will start the patient on vancomycin and clindamycin, will also check for C diff, will continue to monitor and further recommendation to follow. 09/03/2021 interval history: Patient was admitted with acute respiratory failure was emergently intubated on 08/14, was on vent for 15 days and extubated on 08/29, suspect 2/2 pneumonia and b/l pleural effusion s/p several thoracentsis, on 09/02 D/W practice business asst suspect patient has bacteremia, did blood culture and started on clinmamycin and vancomycin, today again spoke with the practice business asst b/l pleural effusion is persisting, will give lasix to diureses the patient, patient has developed hyponatremia most likely 2/2 D10W, will switch to D10NS and monitor. 09/04/2021 interval history: Patient was admitted with acute respiratory failure was emergently intubated on 08/14, was on vent for 15 days and extubated on 08/29, suspect 2/2 pneumonia and b/l pleural effusion s/p several thoracentsis, on 09/02 D/W practice business asst suspect patient has bacteremia, did blood culture and started on clinmamycin and vancomycin, on 09/03 again spoke with the practice business asst b/l pleural effusion is persisting, will give lasix to diureses the patient, patient is not eating has a poor appetite after discussing with dietitian started the patient on PPN, patient has developed hyponatremia most likely 2/2 D10W, will switch to D10NS and monitor. patient's sodium dropped 119 today patient seen by Nephrology and further recommendation to follow, patient continue to complain of cough on Tessalon will add guaifenesin and monitor. 09/05/2021 interval history: Patient was admitted with acute respiratory failure was emergently intubated on 08/14, was on vent for 15 days and extubated on 08/29, suspect 2/2 pneumonia and b/l pleural effusion s/p several thoracentsis, on 09/02 D/W practice business asst suspect patient has bacteremia, did blood culture and started on clinmamycin and vancomycin, on 09/03 again spoke with the practice business asst b/l pleural effusion is persisting, will give lasix to diureses the patient, patient is not eating has a poor appetite after discussing with dietitian started the patient on PPN, patient has developed hyponatremia most likely 2/2 D10W, will switch to D10NS and monitor. patient's sodium dropped 119 today patient seen by Nephrology and further recommendation to follow, patient continue to complain of cough on Tessalon will add guaifenesin and monitor (2) Sepsis: Qualifiers: Sepsis acute organ dysfunction status: unspecified Sepsis type: sepsis due to unspecified organism Qualified Code(s): A41.9 - Sepsis, unspecified organism Code(s): A41.9
[2021-09-05 16:25] LABS: Sodium 123 mmol/L (137-145)
[2021-09-05 20:37] LABS: Amylase, Pleural Fluid 28 U/L
[2021-09-05 21:35] LABS: Sodium 119 mmol/L (137-145)
[2021-09-05 23:53] LABS: Glucose Point of Care 82 mg/dl (65-105)
[2021-09-06] VITALS (21 sets, daily range): BP systolic 124–149; BP diastolic 74–96; PULSE 71–95; RESP 18–28; TEMP 36.3–37; O2SAT 90–99
[2021-09-06] MEDS: BENZONATATE 100 MG CAPSULE 200 MG PO (00:48)
[2021-09-06] MEDS: HYDROcodone/acetaminophen (*CRX) 5-325 MG TABLET 1 TAB PO (01:08)
[2021-09-06] MEDS: ALBUTEROL SULFATE NEB 2.5 MG/0.5 ML INH INHALATION ×3 (03:14→14:26)
[2021-09-06] MEDS: IPRATROPIUM BR 0.02% INH SOLN 0.5 MG/2.5 ML VIAL INHALATION ×3 (03:14→14:26)
[2021-09-06 05:13] LABS: Hematocrit 28.2 % (42.0-52.0); Hemoglobin 9.9 g/dL (14.0-18.0); Mean Corpuscular HGB Conc 35.1 g/dl (32-36); Mean Corpuscular Hemoglobin 30.1 pg (26-34); Mean Corpuscular Volume 85.7 fl (80-100); Mean Platelet Volume 8.2 fl (7.4-10.4); Platelet Count Result 371 k/mm3 (150-375); Red Blood Count 3.29 M/mm3 (4.6-6.20); Red Cell Distribution Width 14.1 % (11.5-14.5); White Blood Count 5.6 K/mm3 (4.5-10.0)
[2021-09-06 05:27] LABS: Anion Gap 9 mmol/L (8-16); Blood Urea Nitrogen 32 mg/dL (9-20); Carbon Dioxide 22 mmol/L (22-30); Chloride 92 mmol/L (98-107); Estimated CRCL calculation 47 ml/min; Estimated Glomerular Filt Rate 56; Glucose 90 mg/dL (65-110); Potassium 4.3 mmol/L (3.4-5.0); Sodium 123 mmol/L (137-145)
[2021-09-06] MEDS: FUROSEMIDE INJ 40 MG/4 ML VIAL 10 MG IV PUSH ×3 (06:43→21:00)
[2021-09-06] MEDS: AMIODARONE HCL 200 MG TABLET 400 MG PO (09:11)
[2021-09-06] MEDS: ROSUVASTATIN 10 MG TABLET PO (09:11)
[2021-09-06] MEDS: MEGESTROL ACETATE (*CHEMO) 20 MG TABLET PO (09:11)
[2021-09-06] MEDS: ASPIRIN 81 MG CHEWABLE TABLET PO (09:11)
[2021-09-06] MEDS: ENOXAPARIN 40 MG/0.4 ML SYRINGE SUB-Q (09:11)
[2021-09-06] MEDS: PANTOPRAZOLE SODIUM IV 40 MG VIAL IV PUSH ×2 (09:11→21:00)
[2021-09-06] MEDS: METOPROLOL SUCCINATE EXT REL 50 MG TABCR PO (09:12)
[2021-09-06] MEDS: SODIUM CHLORIDE 1 GM TABLET PO ×2 (09:12→16:59)
--- NOTE | 2021-09-06 11:57 | PM.PNNEP ---
Progress Note: A&P Assessment and Plan (1) Hyponatremia: Code(s): E87.1 - Hypo-osmolality and hyponatremia Status: Acute Assessment and Plan: several possibilities: SIADH phenomenon given recent respiratory issues recent D10W IVF use TPN (but just started) IV diuretics (but just started) have already changed all IV meds/piggybacks to normal saline carrier fluid consider fluid restriction (but he is not really eating/drinking that much to begin with - hence the reason for TPN) urine electrolytes noted (not indicative of prerenal azotemia) SPEP, UPEP, serum/urine osmolality pending TSH okay but cortisol quite low low cortisol could be reflective of recent sepsis/shock will recheck tomorrow and if still low, check cosyntropin stimulation test no real improvement with normal saline IVFs and given his issues with pleural effusions, IVFs dc'd started on salt tabs and changed IV lasix to 10mg IV q8hrs this should hopefully should help increase sodium level and provide diuresis as well... switching TPN to enteral feedings via doboff might help (and could give normal saline flushes via doboff) follow trend of repeat sodium levels (2) ROSHAN (acute kidney injury): Code(s): N17.9 - Acute kidney failure, unspecified Status: Acute Assessment and Plan: has fluctuated in the last week or so probably a component of prerenal factors from persistent poor intake and ATN (from renal hypoperfusion) follow trend of labs and repeat UOP (particularly with use of IV lasix) (3) Hypercapnic respiratory failure: Qualifiers: Chronicity: unspecified Qualified Code(s): J96.92 - Respiratory failure, unspecified with hypercapnia Code(s): J96.92 - Respiratory failure, unspecified with hypercapnia Status: Acute Assessment and Plan: resolving extubated and respiratory status relatively stable Pulmonary following (4) Bilateral pleural effusion: Code(s): J90 - Pleural effusion, not elsewhere classified Status: Acute Assessment and Plan: persistent/recurrent s/p multiple thoracenteses to date on IV diuretics to help treat/reduce need repeat thoracentesis?? (5) Anemia: Code(s): D64.9 - Anemia, unspecified Status: Acute Assessment and Plan: probably due to ROSHAN and acute illness did drop earlier in hospital stay - s/p PRBC transfusion follow trend of H/H Will continue to follow. Subjective Date/time seen: 09/06/21 11:57 Sodium continues to fluctuate -- relatively stable but not improving (best sodium in last 24 - 48 hours has been 123mmol/L); Exam Narrative: General: WD/WN male in NAD Heart: normal S1 and S2; no rub Lungs: decreased breath sounds with a few bibasilar crackles at bases Abdomen: soft, nontender, nondistended, positive bowel sounds Extremities: no cyanosis or clubbing; no edema Skin: no rash Objective Data Vital Signs Vital Signs: Vital Signs Temp Pulse Resp BP Pulse Ox 09/06/21 10:00 72 09/06/21 09:12 75 09/06/21 09:11 75 09/06/21 09:08 82 18 09/06/21 09:00 98 09/06/21 08:55 79 18 94 09/06/21 08:00 36.3 C L 71 28 H 146/75 H 99 09/06/21 07:28 85 18 09/06/21 06:00 71 09/06/21 04:00 36.5 C 73 20 149/96 H 99 09/06/21 03:14 83 18 09/06/21 02:00 74 95 09/06/21 00:00 80 90 09/05/21 23:48 36.4 C 71 20 118/89 90 09/05/21 22:00 76 09/05/21 20:40 79 18 09/05/21 20:30 74 18 09/05/21 20:00 36.6 C 70 22 H 169/83 H 93 09/05/21 18:00 71 09/05/21 16:00 36.9 C 68 22 H 152/74 H 94 Intake/Output Intake/Output: Intake & Output 09/03/21 09/04/21 09/05/21 09/06/21 23:59 23:59 23:59 23:59 Intake Total 2114 3709 2355 2355 Output Total 550 3550 2750 1350 Balance 1564 159 -395 1005 Meds/Results Medications: Active Medications Generic Name Dose Route Start Last A
--- NOTE | 2021-09-06 11:57 | P.PNNP_ITS ---
Progress Note: A&P Assessment and Plan (1) Hyponatremia: Code(s): E87.1 - Hypo-osmolality and hyponatremia Status: Acute Assessment and Plan: * several possibilities: * SIADH phenomenon given recent respiratory issues * recent D10W IVF use * TPN (but just started) * IV diuretics (but just started) * have already changed all IV meds/piggybacks to normal saline carrier fluid * consider fluid restriction (but he is not really eating/drinking that much to begin with - hence the reason for TPN) * urine electrolytes noted (not indicative of prerenal azotemia) * SPEP, UPEP, serum/urine osmolality pending * TSH okay but cortisol quite low * low cortisol could be reflective of recent sepsis/shock * will recheck tomorrow and if still low, check cosyntropin stimulation test * no real improvement with normal saline IVFs and given his issues with pleural effusions, IVFs dc'd * started on salt tabs and changed IV lasix to 10mg IV q8hrs * this should hopefully should help increase sodium level and provide diuresis as well... * switching TPN to enteral feedings via doboff might help (and could give normal saline flushes via doboff) * follow trend of repeat sodium levels (2) ROSHAN (acute kidney injury): Code(s): N17.9 - Acute kidney failure, unspecified Status: Acute Assessment and Plan: * has fluctuated in the last week or so * probably a component of prerenal factors from persistent poor intake and ATN (from renal hypoperfusion) * follow trend of labs and repeat UOP (particularly with use of IV lasix) (3) Hypercapnic respiratory failure: Qualifiers: Chronicity: unspecified Qualified Code(s): J96.92 - Respiratory failure, unspecified with hypercapnia Code(s): J96.92 - Respiratory failure, unspecified with hypercapnia Status: Acute Assessment and Plan: * resolving * extubated and respiratory status relatively stable * Pulmonary following (4) Bilateral pleural effusion: Code(s): J90 - Pleural effusion, not elsewhere classified Status: Acute Assessment and Plan: * persistent/recurrent * s/p multiple thoracenteses to date * on IV diuretics to help treat/reduce * need repeat thoracentesis?? (5) Anemia: Code(s): D64.9 - Anemia, unspecified Status: Acute Assessment and Plan: * probably due to ROSHAN and acute illness * did drop earlier in hospital stay - s/p PRBC transfusion * follow trend of H/H Will continue to follow. Subjective Date/time seen: 09/06/21 11:57 Sodium continues to fluctuate -- relatively stable but not improving (best sodium in last 24 - 48 hours has been 123mmol/L); Exam Narrative: General: WD/WN male in NAD Heart: normal S1 and S2; no rub Lungs: decreased breath sounds with a few bibasilar crackles at bases Abdomen: soft, nontender, nondistended, positive bowel sounds Extremities: no cyanosis or clubbing; no edema Skin: no rash Objective Data Vital Signs Vital Signs: Vital Signs Temp Pulse Resp BP Pulse Ox 09/06/21 10:00 72 09/06/21 09:12 75 09/06/21 09:11 75 09/06/21 09:08 82 18 09/06/21 09:00 98 09/06/21 08:55 79 18 94 09/06/21 08:00 36.3 C L 71 28 H 146/75 H 99 09/06/21 07:28 85 18 09/06/21 06:00 71 09/06/21 04:00 36.5 C 73 20 149/96 H 99
--- NOTE | 2021-09-06 12:17 | PCDIET ---
Received a consult for tube feeding recommendations. Recommend Jevity 1.2 at 70 mls per hour over 22 hours per day providing a total of 1848 calories, 85 grams of protein and 1,242 mls of water. Starting rate at 30 advance by 10mls q4 until goal rate of 70 mls per hour is reached. Spoke with nursing and Dr. Blanton regarding recommendations.
[2021-09-06 14:50] LABS: Sodium 119 mmol/L (137-145)
--- NOTE | 2021-09-06 17:13 | PM.IMPN ---
Progress Note: A&P Assessment and Plan (1) Hypercapnic respiratory failure: Qualifiers: Chronicity: unspecified Qualified Code(s): J96.92 - Respiratory failure, unspecified with hypercapnia Code(s): J96.92 - Respiratory failure, unspecified with hypercapnia Status: Acute Assessment and Plan: Acute Respiratory failure secondary to pulmonary edema, pleural effusions and pneumonia 08/14 Patient was emergently intubated on arrival to ICU as his hypercarbia was worse and he was in respiratory distress 08/16: Left-sided thoracentesis with removal of 250 mL of opaque, red fluid 08/17: Right-sided thoracentesis with removal of 425 mL of opaque, red fluid 08/26 -right thoracentesis and 1 L fluid was removed 08/26 -CT angiogram of chest was performed as per recommendation of Dr. Garrett 08/26 - Spoke to Dr. Castelan at [facility] This time they do not have any bed available in ICU. He will accept the patient once they have a bed available. PT AWAITING BED IN [facility] RPT CXR KYRA CONTINUE PT/OT REMOVE EVANGELISTA AND RECTAL TUBE 09/02/2021 interval history patient remains clinically stable repeat chest x-ray showed persistent pleural effusion discussed with the pulmonology suspect bacteremia we have ordered blood culture, will start the patient on vancomycin and clindamycin, will also check for C diff, will continue to monitor and further recommendation to follow. 09/03/2021 interval history: Patient was admitted with acute respiratory failure was emergently intubated on 08/14, was on vent for 15 days and extubated on 08/29, suspect 2/2 pneumonia and b/l pleural effusion s/p several thoracentsis, on 09/02 D/W manager financial reporting suspect patient has bacteremia, did blood culture and started on clinmamycin and vancomycin, today again spoke with the manager financial reporting b/l pleural effusion is persisting, will give lasix to diureses the patient, patient has developed hyponatremia most likely 2/2 D10W, will switch to D10NS and monitor. 09/04/2021 interval history: Patient was admitted with acute respiratory failure was emergently intubated on 08/14, was on vent for 15 days and extubated on 08/29, suspect 2/2 pneumonia and b/l pleural effusion s/p several thoracentsis, on 09/02 D/W manager financial reporting suspect patient has bacteremia, did blood culture and started on clinmamycin and vancomycin, on 09/03 again spoke with the manager financial reporting b/l pleural effusion is persisting, will give lasix to diureses the patient, patient is not eating has a poor appetite after discussing with dietitian started the patient on PPN, patient has developed hyponatremia most likely 2/2 D10W, will switch to D10NS and monitor. patient's sodium dropped 119 today patient seen by Nephrology and further recommendation to follow, patient continue to complain of cough on Tessalon will add guaifenesin and monitor. 09/05/2021 interval history: Patient was admitted with acute respiratory failure was emergently intubated on 08/14, was on vent for 15 days and extubated on 08/29, suspect 2/2 pneumonia and b/l pleural effusion s/p several thoracentsis, on 09/02 D/W manager financial reporting suspect patient has bacteremia, did blood culture and started on clinmamycin and vancomycin, on 09/03 again spoke with the manager financial reporting b/l pleural effusion is persisting, will give lasix to diureses the patient, patient is not eating has a poor appetite after discussing with dietitian started the patient on PPN, patient has developed hyponatremia most likely 2/2 D10W, will switch to D10NS and monitor. patient's sodium dropped 119 today patient seen by Nephrology and further recommendation to follow, patient continue to complain of cough on Tessalon will add guaifenesin and monitor 09/06/2021 interval history: Patient was admitted with acute respiratory failure was emergently intubated on 08/14, was on vent for 15 days and extubated on 08/29, suspect 2/2 pneumonia and b/l pleural effusion s/p several
[2021-09-06 18:08] LABS: Glucose Point of Care 93 mg/dl (65-105)
[2021-09-06 21:24] LABS: Sodium 121 mmol/L (137-145)
--- NOTE | 2021-09-06 23:27 | PCRCNOTE ---
Window of time for administration has passed. See next scheduled administration.
[2021-09-06 23:36] LABS: Glucose Point of Care 94 mg/dl (65-105)
[2021-09-07] VITALS (23 sets, daily range): BP systolic 94–142; BP diastolic 51–88; PULSE 69–83; RESP 18–22; TEMP 36.3–37; O2SAT 92–100
[2021-09-07] MEDS: IPRATROPIUM BR 0.02% INH SOLN 0.5 MG/2.5 ML VIAL INHALATION ×4 (02:00→21:33)
[2021-09-07] MEDS: ALBUTEROL SULFATE NEB 2.5 MG/0.5 ML INH INHALATION ×4 (02:00→21:33)
[2021-09-07 05:17] LABS: Hematocrit 29.8 % (42.0-52.0); Mean Corpuscular HGB Conc 33.6 g/dl (32-36); Mean Corpuscular Hemoglobin 29.2 pg (26-34); Mean Corpuscular Volume 86.9 fl (80-100); Mean Platelet Volume 8.5 fl (7.4-10.4); Platelet Count Result 274 k/mm3 (150-375); Red Blood Count 3.43 M/mm3 (4.6-6.20); Red Cell Distribution Width 14.1 % (11.5-14.5); White Blood Count 4.7 K/mm3 (4.5-10.0)
[2021-09-07 05:40] LABS: Anion Gap 6 mmol/L (8-16); Blood Urea Nitrogen 33 mg/dL (9-20); Calcium 8.2 mg/dL (8.4-10.2); Carbon Dioxide 24 mmol/L (22-30); Chloride 92 mmol/L (98-107); Estimated CRCL calculation 41 ml/min; Estimated Glomerular Filt Rate 47; Glucose 92 mg/dL (65-110); Potassium 4.7 mmol/L (3.4-5.0); Sodium 122 mmol/L (137-145)
[2021-09-07] MEDS: FUROSEMIDE INJ 40 MG/4 ML VIAL 10 MG IV PUSH (05:58)
[2021-09-07 06:08] LABS: Cortisol Random 1.99 ug/dL
[2021-09-07] MEDS: AMIODARONE HCL 200 MG TABLET 400 MG PO (09:08)
[2021-09-07] MEDS: ENOXAPARIN 40 MG/0.4 ML SYRINGE SUB-Q (09:08)
[2021-09-07] MEDS: SODIUM CHLORIDE 1 GM TABLET PO ×2 (09:09→17:42)
[2021-09-07] MEDS: ASPIRIN 81 MG CHEWABLE TABLET PO (09:09)
[2021-09-07] MEDS: MEGESTROL ACETATE (*CHEMO) 20 MG TABLET PO (09:09)
[2021-09-07] MEDS: ROSUVASTATIN 10 MG TABLET PO (09:09)
[2021-09-07] MEDS: METOPROLOL SUCCINATE EXT REL 50 MG TABCR PO (09:09)
--- NOTE | 2021-09-07 11:01 | PCNFU ---
Nutrition Follow-Up Complete: Inadequate Oral Intake as related to mechanical ventilation as evidenced by NPO. Goal: Meet estimanted Nutritional needs Pt is progressing towards goal Pt current nutrition is Jevity 1.2 running at 70mL/hr over 22 hours. Last recorded weight is 66.7 kg. Bowel Motility: +BM 08/27 Labs Reviewed: Hgb 10.0, Hct 29.8, Ca 8.2, Na 122, Cl 92, GFR 47, BUN 33, Cr 1.50 Meds Noted: pacerone, lovenox, atrovent, megace, toprol XL, crestor Skin: bilateral medial abdomen puncture, medial chest incision Additional Notes: Per EMR, pt tube feeding of Jevity 1.2 running at 70mL/hr over 22 hours has been held for a procedure. Per EMR, pt was tolerating tube feeding and rate. Jevity running at 70mL/hr over 22 hours provides 1848kcal, 85g protein, 1242mLs water, meeting 100% of pt needs. Agree with diet order at this time. Will continue to follow. Will monior every Monday and monday
[2021-09-07] MEDS: ONDANSETRON INJ 4 MG/2 ML VIAL IV PUSH (11:48)
[2021-09-07] MEDS: PANTOPRAZOLE SODIUM IV 40 MG VIAL IV PUSH ×2 (11:48→21:33)
[2021-09-07 12:28] LABS: Glucose Point of Care 84 mg/dl (65-105)
--- NOTE | 2021-09-07 12:29 | PM.PNNEP ---
Progress Note: A&P Assessment and Plan (1) Hyponatremia: Code(s): E87.1 - Hypo-osmolality and hyponatremia Status: Acute Assessment and Plan: several possibilities: SIADH phenomenon given recent respiratory issues recent D10W IVF use TPN IV diuretics have already changed all IV meds/piggybacks to normal saline carrier fluid consider fluid restriction (but he is not really eating/drinking that much to begin with - hence the reason for TPN) urine electrolytes noted (not indicative of prerenal azotemia) SPEP, UPEP, serum/urine osmolality pending TSH okay but cortisol quite low (checked x 2) check cosyntropin stimulation test no real improvement with normal saline IVFs and given his issues with pleural effusions, IVFs dc'd started on salt tabs and changed IV lasix to 10mg IV q8hrs this should hopefully should help increase sodium level and provide diuresis as well... however, creatinine rising so IV lasix stopped today consider resuming lasix but use oral tabs switching TPN to enteral feedings via doboff (this help reduce free water intake) follow trend of repeat sodium levels (2) ROSHAN (acute kidney injury): Code(s): N17.9 - Acute kidney failure, unspecified Status: Acute Assessment and Plan: has fluctuated in the last week or so probably a component of prerenal factors from persistent poor intake and ATN (from renal hypoperfusion) follow trend of labs and repeat UOP (particularly with use of lasix) (3) Hypercapnic respiratory failure: Qualifiers: Chronicity: unspecified Qualified Code(s): J96.92 - Respiratory failure, unspecified with hypercapnia Code(s): J96.92 - Respiratory failure, unspecified with hypercapnia Status: Acute Assessment and Plan: resolving extubated and respiratory status relatively stable Pulmonary following (4) Bilateral pleural effusion: Code(s): J90 - Pleural effusion, not elsewhere classified Status: Acute Assessment and Plan: persistent/recurrent s/p multiple thoracenteses to date was on IV diuretics to help treat/reduce need repeat thoracentesis?? (5) Anemia: Code(s): D64.9 - Anemia, unspecified Status: Acute Assessment and Plan: probably due to ROSHAN and acute illness did drop earlier in hospital stay - s/p PRBC transfusion follow trend of H/H Will continue to follow. Subjective Date/time seen: 09/07/21 12:29 Transitioning from TPN to enteral feeds by doboff; sodium continues to fluctuate around 119 - 123mmol/L in the last 24 hours despite interventions to date (salt tabs, IV diuretics,...etc); concern that TPN had free water that was preventing serum sodium from improving (and hence the trasition to doboff feeds); Exam Narrative: General: WD/WN male in NAD Heart: normal S1 and S2; no rub Lungs: decreased breath sounds at bases Abdomen: soft, nontender, nondistended, positive bowel sounds Extremities: no cyanosis or clubbing; no edema Skin: no nodules Objective Data Vital Signs Vital Signs: Vital Signs Temp Pulse Resp BP Pulse Ox 09/07/21 12:00 36.3 C L 81 22 H 104/63 100 09/07/21 10:00 80 09/07/21 09:30 122/58 L 09/07/21 09:09 82 09/07/21 09:08 82 09/07/21 08:33 77 18 09/07/21 08:31 73 94 09/07/21 08:25 73 18 09/07/21 08:00 37.0 C 77 22 H 101/51 L 98 09/07/21 06:00 79 09/07/21 04:00 36.6 C 83 20 142/81 H 100 09/07/21 02:15 75 18 09/07/21 02:00 77 18 94 09/07/21 00:00 36.8 C 81 20 138/77 97 09/06/21 22:00 79 09/06/21 20:00 36.3 C L 77 20 124/74 97 09/06/21 18:00 80 09/06/21 16:00 37.0 C 72 24 H 136/76 98 Intake/Output Intake/Output: Intake & Output 09/04/21 09/05/21 09/06/21 09/07/21 23:59 23:59 23:59 23:59 Intake Total 3709 2355 2455 1611 Output Total 3550 2750 4150 2800 Balance 978 -[phone] -[phone] -[phone]
--- NOTE | 2021-09-07 12:29 | P.PNNP_ITS ---
Progress Note: A&P Assessment and Plan (1) Hyponatremia: Code(s): E87.1 - Hypo-osmolality and hyponatremia Status: Acute Assessment and Plan: * several possibilities: * SIADH phenomenon given recent respiratory issues * recent D10W IVF use * TPN * IV diuretics * have already changed all IV meds/piggybacks to normal saline carrier fluid * consider fluid restriction (but he is not really eating/drinking that much to begin with - hence the reason for TPN) * urine electrolytes noted (not indicative of prerenal azotemia) * SPEP, UPEP, serum/urine osmolality pending * TSH okay but cortisol quite low (checked x 2) * check cosyntropin stimulation test * no real improvement with normal saline IVFs and given his issues with pleural effusions, IVFs dc'd * started on salt tabs and changed IV lasix to 10mg IV q8hrs * this should hopefully should help increase sodium level and provide diuresis as well... * however, creatinine rising so IV lasix stopped today * consider resuming lasix but use oral tabs * switching TPN to enteral feedings via doboff (this help reduce free water intake) * follow trend of repeat sodium levels (2) ROSHAN (acute kidney injury): Code(s): N17.9 - Acute kidney failure, unspecified Status: Acute Assessment and Plan: * has fluctuated in the last week or so * probably a component of prerenal factors from persistent poor intake and ATN (from renal hypoperfusion) * follow trend of labs and repeat UOP (particularly with use of lasix) (3) Hypercapnic respiratory failure: Qualifiers: Chronicity: unspecified Qualified Code(s): J96.92 - Respiratory failure, unspecified with hypercapnia Code(s): J96.92 - Respiratory failure, unspecified with hypercapnia Status: Acute Assessment and Plan: * resolving * extubated and respiratory status relatively stable * Pulmonary following (4) Bilateral pleural effusion: Code(s): J90 - Pleural effusion, not elsewhere classified Status: Acute Assessment and Plan: * persistent/recurrent * s/p multiple thoracenteses to date * was on IV diuretics to help treat/reduce * need repeat thoracentesis?? (5) Anemia: Code(s): D64.9 - Anemia, unspecified Status: Acute Assessment and Plan: * probably due to ROSHAN and acute illness * did drop earlier in hospital stay - s/p PRBC transfusion * follow trend of H/H Will continue to follow. Subjective Date/time seen: 09/07/21 12:29 Transitioning from TPN to enteral feeds by doboff; sodium continues to fluctuate around 119 - 123mmol/L in the last 24 hours despite interventions to date (salt tabs, IV diuretics,...etc); concern that TPN had free water that was preventing serum sodium from improving (and hence the trasition to doboff feeds); Exam Narrative: General: WD/WN male in NAD Heart: normal S1 and S2; no rub Lungs: decreased breath sounds at bases Abdomen: soft, nontender, nondistended, positive bowel sounds Extremities: no cyanosis or clubbing; no edema Skin: no nodules Objective Data Vital Signs Vital Signs: Vital Signs Temp Pulse Resp BP Pulse Ox 09/07/21 12:00 36.3 C L 81 22 H 104/63 100 09/07/21 10:00 80 09/07/21 09:30 122/58 L 09/07/21 09:09 82 09/07/21 09:08 82 09/07/21 08:33 77 18 09/07/21 08:31 73 94
--- NOTE | 2021-09-07 12:55 | PCPTNOTE ---
Pt didn't respond to therapist at this time. Talked with RN and she stated that he hasn't been good all day. He had a bad dizzy spell earlier in the morning and his BP dropped.
--- NOTE | 2021-09-07 13:19 | PM.IMPN ---
Progress Note: A&P Assessment and Plan (1) Hypercapnic respiratory failure: Qualifiers: Chronicity: unspecified Qualified Code(s): J96.92 - Respiratory failure, unspecified with hypercapnia Code(s): J96.92 - Respiratory failure, unspecified with hypercapnia Status: Acute Assessment and Plan: Acute Respiratory failure secondary to pulmonary edema, pleural effusions and pneumonia 08/14 Patient was emergently intubated on arrival to ICU as his hypercarbia was worse and he was in respiratory distress 08/16: Left-sided thoracentesis with removal of 250 mL of opaque, red fluid 08/17: Right-sided thoracentesis with removal of 425 mL of opaque, red fluid 08/26 -right thoracentesis and 1 L fluid was removed 08/26 -CT angiogram of chest was performed as per recommendation of Dr. Garrett 08/26 - Spoke to Dr. Castelan at [facility]. This time they do not have any bed available in ICU. He will accept the patient once they have a bed available. PT AWAITING BED IN [facility] RPT CXR KYRA CONTINUE PT/OT REMOVE EVANGELISTA AND RECTAL TUBE 09/02/2021 interval history patient remains clinically stable repeat chest x-ray showed persistent pleural effusion discussed with the pulmonology suspect bacteremia we have ordered blood culture, will start the patient on vancomycin and clindamycin, will also check for C diff, will continue to monitor and further recommendation to follow. 09/03/2021 interval history: Patient was admitted with acute respiratory failure was emergently intubated on 08/14, was on vent for 15 days and extubated on 08/29, suspect 2/2 pneumonia and b/l pleural effusion s/p several thoracentsis, on 09/02 D/W eligibility supervisor suspect patient has bacteremia, did blood culture and started on clinmamycin and vancomycin, today again spoke with the eligibility supervisor b/l pleural effusion is persisting, will give lasix to diureses the patient, patient has developed hyponatremia most likely 2/2 D10W, will switch to D10NS and monitor. 09/04/2021 interval history: Patient was admitted with acute respiratory failure was emergently intubated on 08/14, was on vent for 15 days and extubated on 08/29, suspect 2/2 pneumonia and b/l pleural effusion s/p several thoracentsis, on 09/02 D/W eligibility supervisor suspect patient has bacteremia, did blood culture and started on clinmamycin and vancomycin, on 09/03 again spoke with the eligibility supervisor b/l pleural effusion is persisting, will give lasix to diureses the patient, patient is not eating has a poor appetite after discussing with dietitian started the patient on PPN, patient has developed hyponatremia most likely 2/2 D10W, will switch to D10NS and monitor. patient's sodium dropped 119 today patient seen by Nephrology and further recommendation to follow, patient continue to complain of cough on Tessalon will add guaifenesin and monitor. 09/05/2021 interval history: Patient was admitted with acute respiratory failure was emergently intubated on 08/14, was on vent for 15 days and extubated on 08/29, suspect 2/2 pneumonia and b/l pleural effusion s/p several thoracentsis, on 09/02 D/W eligibility supervisor suspect patient has bacteremia, did blood culture and started on clinmamycin and vancomycin, on 09/03 again spoke with the eligibility supervisor b/l pleural effusion is persisting, will give lasix to diureses the patient, patient is not eating has a poor appetite after discussing with dietitian started the patient on PPN, patient has developed hyponatremia most likely 2/2 D10W, will switch to D10NS and monitor. patient's sodium dropped 119 today patient seen by Nephrology and further recommendation to follow, patient continue to complain of cough on Tessalon will add guaifenesin and monitor 09/06/2021 interval history: Patient was admitted with acute respiratory failure was emergently intubated on 08/14, was on vent for 15 days and extubated on 08/29, suspect 2/2 pneumonia and b/l pleural effusion s/p several
[2021-09-07 15:04] LABS: Sodium 121 mmol/L (137-145)
--- NOTE | 2021-09-07 15:30 | PM.PNPUL ---
Progress Note: A&P Assessment and Plan (1) Bilateral pleural effusion: Code(s): J90 - Pleural effusion, not elsewhere classified Status: Acute Assessment and Plan: He continues to have stable pleural effusions by physical exam and also by chest x-ray. left upper lobe infiltrate persists on last chest x-ray. Also moderate right pleural effusion on right. Difficult to say whether the effusion has increased in size as we have only 1 two-view chest x-ray. consider repeating the chest CT regarding size of pleural effusions and also left upper lobe infiltrate. Diuretics have been discontinued because of rising creatinine. No evidence of leukocytosis. He may need repeat thoracentesis on right. (2) Hypercapnic respiratory failure: Qualifiers: Chronicity: unspecified Qualified Code(s): J96.92 - Respiratory failure, unspecified with hypercapnia Code(s): J96.92 - Respiratory failure, unspecified with hypercapnia Status: Acute (3) Congestive heart failure: Qualifiers: Heart failure chronicity: unspecified Heart failure type: unspecified Qualified Code(s): I50.9 - Heart failure, unspecified Code(s): I50.9 - Heart failure, unspecified Status: Chronic (4) Ventilator dependence: Code(s): Z99.11 - Dependence on respirator [ventilator] status Status: Acute Subjective Date/time seen: 09/07/21 15:30 Patient has no new respiratory symptoms. Has mild cough but no shortness of breath. No fever. Review of Systems Review of Systems: All systems reviewed & are unremarkable except as noted in HPI and below Exam Narrative: GENERAL APPEARANCE: Well developed, well nourished, alert in no respiratory distress while on supplemental oxygen via nasal cannula SKIN: Inspection of the skin reveals no rashes, ulcerations or petechiae. HEENT: Sclerae anicteric and conjunctivae pink and moist. NECK: Supple. There was no thyroid enlargement, or masses were felt. LUNGS: Clear lungs anteriorly, decreased breath sounds lateral chest bilaterally, no wheezing CARDIAC: There was a regular rate and rhythm without any murmurs, gallops, rubs. ABDOMEN: Soft and nontender with normal bowel sounds. There was no organomegaly. LYMPH NODES: No lymphadenopathy was appreciated in the neck. EXTREMITIES: No cyanosis, clubbing or edema. Objective Data Vital Signs Vital Signs: Vital Signs - 24 hr 09/06/21 16:00 09/06/21 18:00 09/06/21 20:00 Temperature 37.0 C 36.3 C L Pulse Rate 72 80 77 Respiratory Rate 24 H 20 Blood Pressure 136/76 124/74 Pulse Oximetry 98 97 09/06/21 22:00 09/07/21 00:00 09/07/21 02:00 Temperature 36.8 C Pulse Rate 79 81 77 Respiratory Rate 20 18 Blood Pressure 138/77 Pulse Oximetry 97 94 09/07/21 02:15 09/07/21 04:00 09/07/21 06:00 Temperature 36.6 C Pulse Rate 75 83 79 Respiratory Rate 18 20 Blood Pressure 142/81 H Pulse Oximetry 100 09/07/21 08:00 09/07/21 08:25 09/07/21 08:31 Temperature 37.0 C Pulse Rate 77 73 73 Respiratory Rate 22 H 18 Blood Pressure 101/51 L Pulse Oximetry 98 94 09/07/21 08:33 09/07/21 09:08 09/07/21 09:09 Temperature Pulse Rate 77 82 82 Respiratory Rate 18 Blood Pressure Pulse Oximetry 09/07/21 09:30 09/07/21 10:00 09/07/21 12:00 Temperature 36.3 C L Pulse Rate 80 81 Respiratory Rate 22 H Blood Pressure 122/58 L 104/63 Pulse Oximetry 100 09/07/21 14:00 09/07/21 14:06 Temperature Pulse Rate 75 78 Respiratory Rate 18 18 Blood Pressure Pulse Oximetry Intake/Output Intake/Output: Intake & Output 09/04/21 09/05/21 09/06/21 09/07/21 23:59 23:59 23:59 23:59 Intake Total 3709 2355 2455 1611 Output Total 3550 2750 4150 2800 Balance 702 -860 -[phone] -1189 Meds/Results Medications: Active Medications Generic Name Dose Route Start Last Admin Trade Name Freq PRN Reason Stop Dose Admin Acetaminophen 650 mg 08/27/21 17:52 09/02
[2021-09-07 18:30] LABS: Glucose Point of Care 101 mg/dl (65-105)
[2021-09-07 21:49] LABS: Sodium 123 mmol/L (137-145)
[2021-09-07 23:57] LABS: Glucose Point of Care 90 mg/dl (65-105)
[2021-09-08] VITALS (25 sets, daily range): BP systolic 59–145; BP diastolic 20–94; PULSE 60–80; RESP 16–24; TEMP 36.3–38; O2SAT 93–100
[2021-09-08] MEDS: IPRATROPIUM BR 0.02% INH SOLN 0.5 MG/2.5 ML VIAL INHALATION ×4 (03:38→20:54)
[2021-09-08] MEDS: ALBUTEROL SULFATE NEB 2.5 MG/0.5 ML INH INHALATION ×4 (03:38→20:54)
[2021-09-08] MEDS: COSYNTROPIN 0.25 MG/ML VIAL IV PUSH (05:21)
[2021-09-08 06:23] LABS: Hematocrit 28.5 % (42.0-52.0); Hemoglobin 9.4 g/dL (14.0-18.0); Mean Corpuscular Hemoglobin 28.9 pg (26-34); Mean Corpuscular Volume 87.7 fl (80-100); Mean Platelet Volume 8.2 fl (7.4-10.4); Platelet Count Result 211 k/mm3 (150-375); Red Blood Count 3.25 M/mm3 (4.6-6.20); Red Cell Distribution Width 14.6 % (11.5-14.5); White Blood Count 4.6 K/mm3 (4.5-10.0)
[2021-09-08 07:01] LABS: Anion Gap 10 mmol/L (8-16); Blood Urea Nitrogen 41 mg/dL (9-20); Calcium 8.2 mg/dL (8.4-10.2); Carbon Dioxide 22 mmol/L (22-30); Chloride 96 mmol/L (98-107); Estimated CRCL calculation 28 ml/min; Estimated Glomerular Filt Rate 30; Glucose 89 mg/dL (65-110); Potassium 5.2 mmol/L (3.4-5.0); Sodium 128 mmol/L (137-145)
[2021-09-08 07:06] LABS: Cortisol 30 Minute 8.95 ug/dL
[2021-09-08 08:10] LABS: Glucose Point of Care 99 mg/dl (65-105)
--- NOTE | 2021-09-08 09:10 | PCPTNOTE ---
Attempted treatment this AM. Pt was difficult to arouse and wouldn't respond to anything. Will check back in the afternoon.
[2021-09-08 09:23] LABS: Glucose Point of Care 96 mg/dl (65-105)
[2021-09-08] MEDS: LIDOCAINE 5% PATCH 1 PATCH TRANSDERM (09:30)
[2021-09-08] MEDS: ENOXAPARIN 40 MG/0.4 ML SYRINGE SUB-Q (09:30)
[2021-09-08] MEDS: MEGESTROL ACETATE (*CHEMO) 20 MG TABLET PO (09:31)
[2021-09-08] MEDS: METOPROLOL SUCCINATE EXT REL 50 MG TABCR PO (09:31)
[2021-09-08] MEDS: ASPIRIN 81 MG CHEWABLE TABLET PO (09:32)
[2021-09-08] MEDS: ROSUVASTATIN 10 MG TABLET PO (09:32)
[2021-09-08] MEDS: SODIUM CHLORIDE 1 GM TABLET PO ×2 (09:32→17:06)
[2021-09-08] MEDS: PANTOPRAZOLE SODIUM IV 40 MG VIAL IV PUSH ×2 (09:32→21:07)
[2021-09-08 11:17] LABS: Sodium 128 mmol/L (137-145)
[2021-09-08 11:44] LABS: Glucose Point of Care 94 mg/dl (65-105)
--- NOTE | 2021-09-08 11:48 | P.PNNP_ITS ---
Progress Note: A&P Assessment and Plan (1) Hyponatremia: Code(s): E87.1 - Hypo-osmolality and hyponatremia Status: Acute Assessment and Plan: * several possibilities: * SIADH phenomenon given recent respiratory issues * recent D10W IVF use * TPN * IV diuretics * urine electrolytes noted (not indicative of prerenal azotemia) * SPEP, UPEP, serum/urine osmolality pending * TSH okay * Cortisol level low and Cortrosyn stim is abnormal. Will check an ACTH level and place on prednisone. * on salt tabs and changed IV lasix to 10mg IV q8hrs * On fluids restriction of 1500cc * Sodium level a little bit better today. Will check another 1 this afternoon. * (2) ROSHAN (acute kidney injury): Code(s): N17.9 - Acute kidney failure, unspecified Status: Acute Assessment and Plan: * Acute kidney injury * Urine electrolytes are non pre renal but was on diuretics at this time * Will check a renal ultrasound * Consider pre renal factors. * Blood pressure has been stable and patient is not febrile and does not look septic. * Since off diuretics will repeat urine electrolytes. (3) Hypercapnic respiratory failure: Qualifiers: Chronicity: unspecified Qualified Code(s): J96.92 - Respiratory failure, unspecified with hypercapnia Code(s): J96.92 - Respiratory failure, unspecified with hypercapnia Status: Acute Assessment and Plan: * resolving * extubated and respiratory status relatively stable * Pulmonary following (4) Bilateral pleural effusion: Code(s): J90 - Pleural effusion, not elsewhere classified Status: Acute Assessment and Plan: * persistent/recurrent * s/p multiple thoracenteses to date * was on IV diuretics to help treat/reduce * need repeat thoracentesis?? (5) Anemia: Code(s): D64.9 - Anemia, unspecified Status: Acute Assessment and Plan: * probably due to ROSHAN and acute illness * did drop earlier in hospital stay - s/p PRBC transfusion * Hemoglobin 9.4 today Will continue to follow. Subjective Date/time seen: 09/08/21 11:48 Interval history: Angel Luis is feeling better. He just had physical therapy Exam Narrative: General: WD/WN male in NAD Heart: normal S1 and S2; no rub or gallop Lungs: decreased breath sounds at bases Abdomen: soft, nontender, nondistended, positive bowel sounds Extremities: no edema Skin: no nodules or skin rash Objective Data Vital Signs Vital Signs: Vital Signs - 24 hr 09/07/21 12:00 09/07/21 14:00 09/07/21 14:06 Temperature 36.3 C L Pulse Rate 81 75 78 Respiratory Rate 22 H 18 18 Blood Pressure 104/63 Pulse Oximetry 100 09/07/21 16:00 09/07/21 18:00 09/07/21 20:00 Temperature 36.4 C 36.3 C L Pulse Rate 77 69 71 Respiratory Rate 22 H 20 Blood Pressure 125/63 115/88 Pulse Oximetry 99 97 09/07/21 21:35 09/07/21 21:37 09/07/21 21:41 Temperature Pulse Rate 76 80 Respiratory Rate 20 20 Blood Pressure Pulse Oximetry 92 09/07/21 21:54 09/08/21 00:00 09/08/21 02:00 Temperature 36.6 C Pulse Rate 78 73 72 Respiratory Rate 24 H Blood Pressure 123/55 L Pulse Oximetry 95
--- NOTE | 2021-09-08 11:48 | PM.PNNEP ---
Progress Note: A&P Assessment and Plan (1) Hyponatremia: Code(s): E87.1 - Hypo-osmolality and hyponatremia Status: Acute Assessment and Plan: several possibilities: SIADH phenomenon given recent respiratory issues recent D10W IVF use TPN IV diuretics urine electrolytes noted (not indicative of prerenal azotemia) SPEP, UPEP, serum/urine osmolality pending TSH okay Cortisol level low and Cortrosyn stim is abnormal. Will check an ACTH level and place on prednisone. on salt tabs and changed IV lasix to 10mg IV q8hrs On fluids restriction of 1500cc Sodium level a little bit better today. Will check another 1 this afternoon. (2) ROSHAN (acute kidney injury): Code(s): N17.9 - Acute kidney failure, unspecified Status: Acute Assessment and Plan: Acute kidney injury Urine electrolytes are non pre renal but was on diuretics at this time Will check a renal ultrasound Consider pre renal factors. Blood pressure has been stable and patient is not febrile and does not look septic. Since off diuretics will repeat urine electrolytes. (3) Hypercapnic respiratory failure: Qualifiers: Chronicity: unspecified Qualified Code(s): J96.92 - Respiratory failure, unspecified with hypercapnia Code(s): J96.92 - Respiratory failure, unspecified with hypercapnia Status: Acute Assessment and Plan: resolving extubated and respiratory status relatively stable Pulmonary following (4) Bilateral pleural effusion: Code(s): J90 - Pleural effusion, not elsewhere classified Status: Acute Assessment and Plan: persistent/recurrent s/p multiple thoracenteses to date was on IV diuretics to help treat/reduce need repeat thoracentesis?? (5) Anemia: Code(s): D64.9 - Anemia, unspecified Status: Acute Assessment and Plan: probably due to ROSHAN and acute illness did drop earlier in hospital stay - s/p PRBC transfusion Hemoglobin 9.4 today Will continue to follow. Subjective Date/time seen: 09/08/21 11:48 Interval history: Angel Luis is feeling better. He just had physical therapy Exam Narrative: General: WD/WN male in NAD Heart: normal S1 and S2; no rub or gallop Lungs: decreased breath sounds at bases Abdomen: soft, nontender, nondistended, positive bowel sounds Extremities: no edema Skin: no nodules or skin rash Objective Data Vital Signs Vital Signs: Vital Signs - 24 hr 09/07/21 12:00 09/07/21 14:00 09/07/21 14:06 Temperature 36.3 C L Pulse Rate 81 75 78 Respiratory Rate 22 H 18 18 Blood Pressure 104/63 Pulse Oximetry 100 09/07/21 16:00 09/07/21 18:00 09/07/21 20:00 Temperature 36.4 C 36.3 C L Pulse Rate 77 69 71 Respiratory Rate 22 H 20 Blood Pressure 125/63 115/88 Pulse Oximetry 99 97 09/07/21 21:35 09/07/21 21:37 09/07/21 21:41 Temperature Pulse Rate 76 80 Respiratory Rate 20 20 Blood Pressure Pulse Oximetry 92 09/07/21 21:54 09/08/21 00:00 09/08/21 02:00 Temperature 36.6 C Pulse Rate 78 73 72 Respiratory Rate 24 H Blood Pressure 123/55 L Pulse Oximetry 95 09/08/21 03:38 09/08/21 04:00 09/08/21 06:00 Temperature 36.3 C L Pulse Rate 70 80 80 Respiratory Rate 18 20 Blood Pressure 102/60 Pulse Oximetry 97 09/08/21 08:00 09/08/21 09:06 09/08/21 09:14 Temperature 36.8 C Pulse Rate 67 73 69 Respiratory Rate 20 18 18 Blood Pressure 114/59 L Pulse Oximetry 98 09/08/21 09:31 Temperature Pulse Rate 66 Respiratory Rate Blood Pressure Pulse Oximetry Intake/Output Intake/Output: Intake & Output 09/05/21 09/06/21 09/07/21 09/08/21 23:59 23:59 23:59 23:59 Intake Total 2355 2455 2907 Output Total 2750 4110 3052 550 Balance -395 -1695 -143 -550 Meds/Results Medications: Active Medications Generic Name Dose Route Start Last Admin Trade Name Freq PRN Reason Stop Dose Admin Acetaminophen 6
--- NOTE | 2021-09-08 13:36 | PM.IMPN ---
Progress Note: A&P Assessment and Plan (1) Hypercapnic respiratory failure: Qualifiers: Chronicity: unspecified Qualified Code(s): J96.92 - Respiratory failure, unspecified with hypercapnia Code(s): J96.92 - Respiratory failure, unspecified with hypercapnia Status: Acute Assessment and Plan: Acute Respiratory failure secondary to pulmonary edema, pleural effusions and pneumonia 08/14 Patient was emergently intubated on arrival to ICU as his hypercarbia was worse and he was in respiratory distress 08/16: Left-sided thoracentesis with removal of 250 mL of opaque, red fluid 08/17: Right-sided thoracentesis with removal of 425 mL of opaque, red fluid 08/26 -right thoracentesis and 1 L fluid was removed 08/26 -CT angiogram of chest was performed as per recommendation of Dr. Garrett 08/26 - Spoke to Dr. Castelan at [facility]. This time they do not have any bed available in ICU. He will accept the patient once they have a bed available. PT AWAITING BED IN [facility] RPT CXR KYRA CONTINUE PT/OT REMOVE EVANGELISTA AND RECTAL TUBE 09/02/2021 interval history patient remains clinically stable repeat chest x-ray showed persistent pleural effusion discussed with the pulmonology suspect bacteremia we have ordered blood culture, will start the patient on vancomycin and clindamycin, will also check for C diff, will continue to monitor and further recommendation to follow. 09/03/2021 interval history: Patient was admitted with acute respiratory failure was emergently intubated on 08/14, was on vent for 15 days and extubated on 08/29, suspect 2/2 pneumonia and b/l pleural effusion s/p several thoracentsis, on 09/02 D/W finish repairer suspect patient has bacteremia, did blood culture and started on clinmamycin and vancomycin, today again spoke with the finish repairer b/l pleural effusion is persisting, will give lasix to diureses the patient, patient has developed hyponatremia most likely 2/2 D10W, will switch to D10NS and monitor. 09/04/2021 interval history: Patient was admitted with acute respiratory failure was emergently intubated on 08/14, was on vent for 15 days and extubated on 08/29, suspect 2/2 pneumonia and b/l pleural effusion s/p several thoracentsis, on 09/02 D/W finish repairer suspect patient has bacteremia, did blood culture and started on clinmamycin and vancomycin, on 09/03 again spoke with the finish repairer b/l pleural effusion is persisting, will give lasix to diureses the patient, patient is not eating has a poor appetite after discussing with dietitian started the patient on PPN, patient has developed hyponatremia most likely 2/2 D10W, will switch to D10NS and monitor. patient's sodium dropped 119 today patient seen by Nephrology and further recommendation to follow, patient continue to complain of cough on Tessalon will add guaifenesin and monitor. 09/05/2021 interval history: Patient was admitted with acute respiratory failure was emergently intubated on 08/14, was on vent for 15 days and extubated on 08/29, suspect 2/2 pneumonia and b/l pleural effusion s/p several thoracentsis, on 09/02 D/W finish repairer suspect patient has bacteremia, did blood culture and started on clinmamycin and vancomycin, on 09/03 again spoke with the finish repairer b/l pleural effusion is persisting, will give lasix to diureses the patient, patient is not eating has a poor appetite after discussing with dietitian started the patient on PPN, patient has developed hyponatremia most likely 2/2 D10W, will switch to D10NS and monitor. patient's sodium dropped 119 today patient seen by Nephrology and further recommendation to follow, patient continue to complain of cough on Tessalon will add guaifenesin and monitor 09/06/2021 interval history: Patient was admitted with acute respiratory failure was emergently intubated on 08/14, was on vent for 15 days and extubated on 08/29, suspect 2/2 pneumonia and b/l pleural effusion s/p several
[2021-09-08 14:58] LABS: Sodium 129 mmol/L (137-145)
--- NOTE | 2021-09-08 16:43 | PM.PNPUL ---
Progress Note: A&P Assessment and Plan (1) Bilateral pleural effusion: Code(s): J90 - Pleural effusion, not elsewhere classified Status: Acute Assessment and Plan: patient with moderate right pleural effusion that has decreased in size since the previous CT scan on 08/26/21. the left pleural effusion is improved since the CT scan on 08/26/2021 with a cavity at that he did received a left thoracentesis on 08/30 with 800 mL of fluid removed. The left pleural effusion demonstrated an LDH of 144, total protein of 4.2 with a serum total protein of 7.0, pH of 7.44, neutrophils 17, lymphocytes 77, macrophages 6%. Overall both effusions have improved And his oxygenation is stable on 2 L nasal cannulae. I would continue diuresis as tolerated by his cardiac and renal systems. At this time I would not perform a right thoracentesis unless the patient has worsening shortness of breath or worsening hypoxemia. discussed with Cachorro Melton, will sign off, please call with any additional questions. Subjective Date/time seen: 09/08/21 16:43 Interval history: 09/07/21 15:30 Patient has no new respiratory symptoms. Has mild cough but no shortness of breath. No fever. 09/08 Patient just finished physical therapy and he is tired. He tells me that he has no chest pain in that he is breathing normally. There are no wheezes on exam on albuterol and ipratropium nebulizers q.6 hours. Patient had a CT scan of the chest today that demonstrated moderate right pleural effusion and a small to moderate left pleural effusion with associated compressive atelectasis. There is no evidence of focal pneumonia. White blood cells count is 4.6 and he is afebrile off antibiotics. creatinine is worse at 2.2 and his diuretics have been held. Saturations on 2 L nasal cannula are 93-96%. DATA: EXAMINATION: CT diagnostic chest wo con DATE: 09/08/2021 08:50 INDICATION: Effusions bilaterally, ? increase in size on R TECHNIQUE: Computed tomography (CT) of the chest was performed without intravenous contrast. Additional 3D reconstructions utilizing coronal maximum intensity projection (MIP) were performed. Automated exposure control and iterative reconstruction technique were employed. The dose-length product was 451.95 mGy-cm. COMPARISON: 08/26/2021 FINDINGS: No significant change in a moderate-sized right pleural effusion and slight decrease in size of a small to moderate left pleural effusion, lateral including a component loculated along the major fissure. Partial collapse of the dependent bilateral lower lobes along with additional scattered discoid atelectasis in the bilateral upper lobes. Cardiomegaly. Small pericardial effusion. Median sternotomy wires and mediastinal surgical clips are seen, likely from prior coronary artery bypass grafting. Mildly aneurysmal ascending thoracic aorta measuring up to 4.6 cm in maximal diameter. Nasogastric tube extends into the stomach with distal tip beyond the inferior most image. Persistent mild likely reactive mediastinal lymphadenopathy. There are healing left first-third rib fractures. There are bridging osteophytes at multiple levels in the spine, consistent with diffuse idiopathic skeletal hyperostosis (DISH). IMPRESSION: 1. Moderate-sized right pleural effusion and slight decrease in a small to moderate left pleural effusion with associated compressive atelectasis. Superimposed pneumonia not excludable but suspicion is low. 2. Unchanged small pericardial effusion. 3. Mildly aneurysmal ascending thoracic aorta measuring up to 4.6 cm maximal diameter. Review of Systems Review of Systems: All systems reviewed & are unremarkable except as noted in HPI and below Eyes: Eyes: Reports no additional eye complaints ENT: Reports system reviewed and no additional complaints, except as documented Cardiovascular: Cardiovascular: Reports no additional cardiovascular complaints Respirato
[2021-09-08 16:53] LABS: Sodium 126 mmol/L (137-145)
[2021-09-08] MEDS: SPIRONOLACTONE 25 MG TABLET PO (17:06)
[2021-09-08 17:42] LABS: Glucose Point of Care 96 mg/dl (65-105)
[2021-09-08 18:45] LABS: Sodium 130 mmol/L (137-145)
[2021-09-08 21:11] LABS: Albumin 3.1 g/dL (3.8-4.8); Alpha 1 Globulin 0.4 g/dL (0.2-0.3); Alpha 2 Globulin 0.6 g/dL (0.5-0.9); Beta 1 Globulin 0.4 g/dL (0.4-0.6); Gamma Globulin 1.2 g/dL (0.8-1.7)
[2021-09-09] VITALS (21 sets, daily range): BP systolic 80–127; BP diastolic 42–68; PULSE 58–82; RESP 16–22; TEMP 36.1–37.1; O2SAT 95–100
[2021-09-09 00:11] LABS: Glucose Point of Care 84 mg/dl (65-105)
[2021-09-09 05:20] LABS: Hematocrit 29.5 % (42.0-52.0); Hemoglobin 9.4 g/dL (14.0-18.0); Mean Corpuscular HGB Conc 31.9 g/dl (32-36); Mean Corpuscular Hemoglobin 28.7 pg (26-34); Mean Corpuscular Volume 89.9 fl (80-100); Mean Platelet Volume 8.9 fl (7.4-10.4); Platelet Count Result 220 k/mm3 (150-375); Red Blood Count 3.28 M/mm3 (4.6-6.20); Red Cell Distribution Width 14.7 % (11.5-14.5); White Blood Count 3.7 K/mm3 (4.5-10.0)
[2021-09-09 05:31] LABS: Albumin Level 3.9 g/dL (3.5-5.1); Anion Gap 11 mmol/L (8-16); Blood Urea Nitrogen 44 mg/dL (9-20); Calcium 8.2 mg/dL (8.4-10.2); Carbon Dioxide 19 mmol/L (22-30); Chloride 101 mmol/L (98-107); Estimated CRCL calculation 27 ml/min; Estimated Glomerular Filt Rate 29; Glucose 104 mg/dL (65-110); Phosphorus 5.4 mg/dL (2.5-4.5); Potassium 5.9 mmol/L (3.4-5.0); Sodium 131 mmol/L (137-145)
[2021-09-09 06:33] LABS: Creatinine Urine 95.9 mg/dL; Total Protein Urine Random 39 mg/dL; Ur Ttl Prot Creatinine Ratio 0.41 mg/mg (0-0.20)
[2021-09-09 06:39] LABS: Sodium Urine Random 61 meq/L
[2021-09-09] MEDS: ALBUTEROL SULFATE NEB 2.5 MG/0.5 ML INH INHALATION ×3 (08:21→20:45)
[2021-09-09] MEDS: IPRATROPIUM BR 0.02% INH SOLN 0.5 MG/2.5 ML VIAL INHALATION ×3 (08:21→20:45)
[2021-09-09] MEDS: METOPROLOL SUCCINATE EXT REL 50 MG TABCR PO (08:42)
[2021-09-09] MEDS: SODIUM CHLORIDE 1 GM TABLET PO (08:43)
[2021-09-09] MEDS: ROSUVASTATIN 10 MG TABLET PO (08:43)
[2021-09-09] MEDS: SPIRONOLACTONE 25 MG TABLET PO (08:43)
[2021-09-09] MEDS: ASPIRIN 81 MG CHEWABLE TABLET PO (08:44)
[2021-09-09] MEDS: MEGESTROL ACETATE (*CHEMO) 20 MG TABLET PO (08:44)
[2021-09-09] MEDS: ENOXAPARIN 40 MG/0.4 ML SYRINGE SUB-Q (08:46)
[2021-09-09] MEDS: PANTOPRAZOLE SODIUM IV 40 MG VIAL IV PUSH ×2 (08:47→20:52)
[2021-09-09] MEDS: LIDOCAINE 5% PATCH 1 PATCH TRANSDERM (08:47)
--- NOTE | 2021-09-09 09:30 | PCSTNOTE ---
Please refer to the Bedside Swallow Evaluation in the EMR. Please note, silent aspiration cannot be ruled out at bedside.
--- NOTE | 2021-09-09 10:41 | P.PNNP_ITS ---
Progress Note: A&P Assessment and Plan (1) Hyponatremia: Code(s): E87.1 - Hypo-osmolality and hyponatremia Status: Acute Assessment and Plan: * several possibilities: * SIADH phenomenon given recent respiratory issues * recent D10W IVF use * TPN * IV diuretics * urine electrolytes are non prerenal * SPEP, UPEP, serum/urine osmolality pending * TSH okay * Cortisol level low and Cortrosyn stim is abnormal. Will check an ACTH level and place on prednisone. * Will check MRI brain as well * Sodium level slowly rising. * On fluids restriction of 1500cc * Potassium is high so I am stopping the spironolactone. Will leave him off the diuretics for now. (2) ROSHAN (acute kidney injury): Code(s): N17.9 - Acute kidney failure, unspecified Status: Acute Assessment and Plan: * Acute kidney injury * Urine electrolytes are non pre renal but was on diuretics at this time * Will check a renal ultrasound * Consider pre renal factors. * Blood pressure has been stable and patient is not febrile and does not look septic. * He was on spironolactone. Will remove this. (3) Hypercapnic respiratory failure: Qualifiers: Chronicity: unspecified Qualified Code(s): J96.92 - Respiratory failure, unspecified with hypercapnia Code(s): J96.92 - Respiratory failure, unspecified with hypercapnia Status: Acute Assessment and Plan: * resolving * extubated and respiratory status relatively stable * Pulmonary following (4) Bilateral pleural effusion: Code(s): J90 - Pleural effusion, not elsewhere classified Status: Acute Assessment and Plan: * persistent/recurrent * s/p multiple thoracenteses to date * was on IV diuretics to help treat/reduce * need repeat thoracentesis?? (5) Anemia: Code(s): D64.9 - Anemia, unspecified Status: Acute Assessment and Plan: * probably due to ROSHAN and acute illness * did drop earlier in hospital stay - s/p PRBC transfusion * Hemoglobin 9.4 again today Will continue to follow. (6) Hyperkalemia: Code(s): E87.5 - Hyperkalemia Status: Acute Assessment and Plan: Potassium is high. Will stop the spironolactone. He is getting Kayexalate today. Subjective Date/time seen: 09/09/21 10:41 Interval history: Angel Luis is comfortable in bed. No complaints. Exam Narrative: General: WD/WN male in NAD Heart: normal S1 and S2; no rub Lungs: decreased breath sounds at bases Abdomen: soft, nontender, nondistended, positive bowel sounds Extremities: no edema or cyanosis Skin: no skin rash Objective Data Vital Signs Vital Signs: Vital Signs - 24 hr 09/08/21 12:00 09/08/21 13:02 09/08/21 13:03 Temperature 36.8 C Pulse Rate 74 69 Respiratory Rate 16 18 Blood Pressure 125/62 Pulse Oximetry 96 93 09/08/21 13:10 09/08/21 14:00 09/08/21 14:15 Temperature Pulse Rate 72 74 Respiratory Rate 18 Blood Pressure 59/36 L Pulse Oximetry 09/08/21 14:19 09/08/21 15:39 09/08/21 16:00 Temperature 36.7 C Pulse Rate 60 60 Respiratory Rate 16 16 Blood Pressure 110/78 100/48 L Pulse Oximetry 96 96 09/08/21 18:00 09/08/21 20:00 1
--- NOTE | 2021-09-09 10:41 | PM.PNNEP ---
Progress Note: A&P Assessment and Plan (1) Hyponatremia: Code(s): E87.1 - Hypo-osmolality and hyponatremia Status: Acute Assessment and Plan: several possibilities: SIADH phenomenon given recent respiratory issues recent D10W IVF use TPN IV diuretics urine electrolytes are non prerenal SPEP, UPEP, serum/urine osmolality pending TSH okay Cortisol level low and Cortrosyn stim is abnormal. Will check an ACTH level and place on prednisone. Will check MRI brain as well Sodium level slowly rising. On fluids restriction of 1500cc Potassium is high so I am stopping the spironolactone. Will leave him off the diuretics for now. (2) ROSHAN (acute kidney injury): Code(s): N17.9 - Acute kidney failure, unspecified Status: Acute Assessment and Plan: Acute kidney injury Urine electrolytes are non pre renal but was on diuretics at this time Will check a renal ultrasound Consider pre renal factors. Blood pressure has been stable and patient is not febrile and does not look septic. He was on spironolactone. Will remove this. (3) Hypercapnic respiratory failure: Qualifiers: Chronicity: unspecified Qualified Code(s): J96.92 - Respiratory failure, unspecified with hypercapnia Code(s): J96.92 - Respiratory failure, unspecified with hypercapnia Status: Acute Assessment and Plan: resolving extubated and respiratory status relatively stable Pulmonary following (4) Bilateral pleural effusion: Code(s): J90 - Pleural effusion, not elsewhere classified Status: Acute Assessment and Plan: persistent/recurrent s/p multiple thoracenteses to date was on IV diuretics to help treat/reduce need repeat thoracentesis?? (5) Anemia: Code(s): D64.9 - Anemia, unspecified Status: Acute Assessment and Plan: probably due to ROSHAN and acute illness did drop earlier in hospital stay - s/p PRBC transfusion Hemoglobin 9.4 again today Will continue to follow. (6) Hyperkalemia: Code(s): E87.5 - Hyperkalemia Status: Acute Assessment and Plan: Potassium is high. Will stop the spironolactone. He is getting Kayexalate today. Subjective Date/time seen: 09/09/21 10:41 Interval history: Angel Luis is comfortable in bed. No complaints. Exam Narrative: General: WD/WN male in NAD Heart: normal S1 and S2; no rub Lungs: decreased breath sounds at bases Abdomen: soft, nontender, nondistended, positive bowel sounds Extremities: no edema or cyanosis Skin: no skin rash Objective Data Vital Signs Vital Signs: Vital Signs - 24 hr 09/08/21 12:00 09/08/21 13:02 09/08/21 13:03 Temperature 36.8 C Pulse Rate 74 69 Respiratory Rate 16 18 Blood Pressure 125/62 Pulse Oximetry 96 93 09/08/21 13:10 09/08/21 14:00 09/08/21 14:15 Temperature Pulse Rate 72 74 Respiratory Rate 18 Blood Pressure 59/36 L Pulse Oximetry 09/08/21 14:19 09/08/21 15:39 09/08/21 16:00 Temperature 36.7 C Pulse Rate 60 60 Respiratory Rate 16 16 Blood Pressure 110/78 100/48 L Pulse Oximetry 96 96 09/08/21 18:00 09/08/21 20:00 09/08/21 20:54 Temperature 38.0 C H Pulse Rate 67 64 77 Respiratory Rate 20 18 Blood Pressure 139/20 L Pulse Oximetry 98 09/08/21 21:03 09/08/21 22:00 09/08/21 23:19 Temperature 36.8 C Pulse Rate 73 63 68 Respiratory Rate 18 18 Blood Pressure 145/94 H Pulse Oximetry 99 09/09/21 00:00 09/09/21 02:00 09/09/21 04:00 Temperature 36.6 C Pulse Rate 65 69 74 Respiratory Rate 20 Blood Pressure 96/60 L Pulse Oximetry 98 09/09/21 06:00 09/09/21 08:00 09/09/21 08:21 Temperature 36.7 C Pulse Rate 70 63 76 Respiratory Rate 22 H 18 Blood Pressure 127/56 L Pulse Oximetry 100 09/09/21 08:25 09/09/21 08:35 09/09/21 08:42 Temperature Pulse Rate 78 69 Respiratory Rate 18 Blood Pressure Pulse Oximetr
[2021-09-09] MEDS: SODIUM POLYSTYRENE SULFONONATE 15 GM/60 ML BTL 30 GM PO (12:06)
[2021-09-09 13:54] LABS: Glucose Point of Care 88 mg/dl (65-105)
--- NOTE | 2021-09-09 14:44 | PCOTNOTE ---
Addendum entered by Isabel Conte 09/09/21 15:01: RN manual BP 100/60 Original Note: Attempted to work with patient, upon monitoring BP in supine, BP 70/35 R arm, retaken BP 69/34 R arm, RN notified retook BP L arm 67/35. Due to unstable BP, will continue plan of care tomorrow if appropriate.
--- NOTE | 2021-09-09 16:09 | PM.IMPN ---
Progress Note: A&P Assessment and Plan (1) LBBB (left bundle branch block): Code(s): I44.7 - Left bundle-branch block, unspecified Status: Acute (2) HCAP (healthcare-associated pneumonia): Code(s): J18.9 - Pneumonia, unspecified organism Status: Acute (3) Congestive heart failure: Qualifiers: Heart failure type: unspecified Heart failure chronicity: unspecified Qualified Code(s): I50.9 - Heart failure, unspecified Code(s): I50.9 - Heart failure, unspecified Status: Chronic Additional Plan # hyponatremia -may have SIADH, was on TPN -brain MRI pending -continue fluid restriction 1500 cc -now off diuretics with hyperkalemia (spironolactone held) -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 He had received 2 units of packed red blood cell in total -continue PPI b.i.d. IV as he is NPO, may switch to NG tube -he was not stable for GI evaluation, now appears to be doing well on current regimen of PPI # septic shock secondary to ventilator associated pneumonia resolved -completed 10 days vancomycin aztreonam 09/02, normal antibiotics indicated -cultures from 08/19 and 08 21 negative in blood, urine, and sputum # cardiomyopathy -echocardiogram on 08/16/2021 showed LVEF 40-45%, normal diastolic dysfunction. Hypokinetic anterior wall inferior septal wall and anterior septal wall. He is status post CABG at [facility]. # CABG -recent within the last month. Can remove rodney from midline incision -continue Crestor, aspirin Diet: Tube feeds, NPO, patient failed swallow study and barium swallow evaluation today DVT prophylaxis: Lovenox GI prophylaxis: Ppi Code status: Full code Disposition: Patient will need extensive rehab. Downgrading to [facility] Time Spent With Patient Time with patient: 25 - 35 minutes Subjective Date/time seen: 09/09/21 16:09 Patient seen examined. Patient frustrated with this extended hospitalization. Is currently NPO and has tube feeds. He had removed Dobbhoff 2 days ago it was replaced. Speech therapy evaluated patient today and requested modified barium swallow, which he failed. Speech therapy will continue to work with the patient. Patient still has rodney from CABG done earlier this month, can remove rodney today. He completed antibiotic course of vanc and aztreonam 10 days. He is on PPI for drop in hemoglobin. This point he is is having extended rehab needs for his hospitalization. Spironolactone be held for his hyperkalemia. Patient denies fever, chills, nausea, vomiting, diarrhea, chest pain, shortness of breath. He wants to go home is frustrated with his extended hospitalization. I explained to him he cannot just go because he has got significant debility. He is frustrated by understands. Review of Systems Review of Systems: All systems reviewed & are unremarkable except as noted in HPI and below Exam Narrative: - GENERAL: No acute distress. Well-nourished. - EYES: EOMI. Anicteric. - HENT: Moist mucous membranes. NG tube in place - LUNGS: Clear to auscultation bilaterally, no wheezing, rhonchi, or rales. - CARDIOVASCULAR: Regular rate and rhythm. Midline incision clean dry intact. rodney over well-healed incision - ABDOMEN: Soft, non-tender and non-distended. No palpable masses. - EXTREMITIES: No edema. Peripheral pulses 2+. Non-tender. - NEUROLOGIC: No focal neurological deficits. CN II-XII grossly intact. - PSYCHIATRIC: Awake, Alert and oriented. Anxious and frustrated. - SKIN: No rashes or lesions. Warm. - LYMPH: No cervi
[2021-09-09 19:57] LABS: Chloride Rand Ur 80 mmol/L (32-290); Chloride/Creatinine Rand Ur 533 (23-275); Creatinine Random Urine 15 mg/dL (20-320)
[2021-09-10] VITALS (19 sets, daily range): BP systolic 92–133; BP diastolic 43–82; PULSE 62–76; RESP 16–24; TEMP 36–36.6; O2SAT 93–100
[2021-09-10] MEDS: SODIUM CHLORIDE 0.9% IV 500 ML IV CONT (00:14)
[2021-09-10 00:35] LABS: Glucose Point of Care 79 mg/dl (65-105)
[2021-09-10] MEDS: IPRATROPIUM BR 0.02% INH SOLN 0.5 MG/2.5 ML VIAL INHALATION ×4 (02:15→19:43)
[2021-09-10] MEDS: ALBUTEROL SULFATE NEB 2.5 MG/0.5 ML INH INHALATION ×3 (02:15→19:43)
[2021-09-10 05:39] LABS: Hematocrit 29.8 % (42.0-52.0); Hemoglobin 9.4 g/dL (14.0-18.0); Mean Corpuscular HGB Conc 31.5 g/dl (32-36); Mean Corpuscular Hemoglobin 28.5 pg (26-34); Mean Corpuscular Volume 90.3 fl (80-100); Mean Platelet Volume 8.8 fl (7.4-10.4); Platelet Count Result 194 k/mm3 (150-375); Red Cell Distribution Width 14.6 % (11.5-14.5); White Blood Count 3.3 K/mm3 (4.5-10.0)
[2021-09-10 06:13] LABS: Anion Gap 11 mmol/L (8-16); Blood Urea Nitrogen 47 mg/dL (9-20); Carbon Dioxide 19 mmol/L (22-30); Chloride 105 mmol/L (98-107); Estimated CRCL calculation 23 ml/min; Estimated Glomerular Filt Rate 26; Glucose 92 mg/dL (65-110); Potassium 5.4 mmol/L (3.4-5.0); Sodium 135 mmol/L (137-145)
[2021-09-10] MEDS: ROSUVASTATIN 10 MG TABLET PO (08:41)
[2021-09-10] MEDS: MEGESTROL ACETATE (*CHEMO) 20 MG TABLET PO (08:41)
[2021-09-10] MEDS: ENOXAPARIN 40 MG/0.4 ML SYRINGE SUB-Q (08:41)
[2021-09-10] MEDS: PANTOPRAZOLE SODIUM IV 40 MG VIAL IV PUSH (08:41)
[2021-09-10] MEDS: METOPROLOL SUCCINATE EXT REL 50 MG TABCR PO (08:41)
[2021-09-10] MEDS: ASPIRIN 81 MG CHEWABLE TABLET PO (08:41)
[2021-09-10] MEDS: LIDOCAINE 5% PATCH 1 PATCH TRANSDERM (08:42)
[2021-09-10] MEDS: predniSONE 5 MG TABLET PO (08:42)
[2021-09-10 10:34] LABS: Creatine Kinase 73 U/L (55-170)
--- NOTE | 2021-09-10 10:35 | P.PNNP_ITS ---
Progress Note: A&P Assessment and Plan (1) Hyponatremia: Code(s): E87.1 - Hypo-osmolality and hyponatremia Status: Acute Assessment and Plan: * several possibilities: * SIADH phenomenon given recent respiratory issues * recent D10W IVF use * TPN * IV diuretics * Adrenal insufficiency jumps higher on the differential diagnosis. * urine electrolytes are non prerenal * SPEP, UPEP, serum/urine osmolality pending * TSH okay * Cortisol level low and Cortrosyn stim is abnormal. Acth is pending. He has a sella turcica both. * Will check MRI brain as well * Sodium level slowly rising. It is 135 today. * Because he has lots of symptoms from the adrenal insufficiency, (e.g. hyponatremia, hyperkalemia, metabolic acidosis, weakness, poor appetite, weight loss, low blood pressure), will give stress dose steroids for 3 days then resume prednisone orally. * On fluids restriction of 1500cc. Increase this a little bit because his sodium is better. * Discussed with Dr. Gonsales. He will change tube feedings to Nepro. This will help with the sodium and also with the potassium. (2) ROSHAN (acute kidney injury): Code(s): N17.9 - Acute kidney failure, unspecified Status: Acute Assessment and Plan: * Acute kidney injury * Renal ultrasound is unremarkable. * Urine electrolytes done yesterday off diuretics are not especially pre renal. * Blood pressure is a little bit soft. * Will start midodrine to help with the blood pressure. * Will stop the PPI in use famotidine instead. * He is starting his steroids and maybe this will make everything better. (3) Hypercapnic respiratory failure: Qualifiers: Chronicity: unspecified Qualified Code(s): J96.92 - Respiratory failure, unspecified with hypercapnia Code(s): J96.92 - Respiratory failure, unspecified with hypercapnia Status: Acute Assessment and Plan: * resolving * Breathing looks pretty good. * Pulmonary following (4) Bilateral pleural effusion: Code(s): J90 - Pleural effusion, not elsewhere classified Status: Acute Assessment and Plan: * persistent/recurrent * s/p multiple thoracenteses to date * Albumin level is okay. * Heart is mildly suboptimal. * Etiology? Jamee on the case (5) Anemia: Code(s): D64.9 - Anemia, unspecified Status: Acute Assessment and Plan: * probably due to ROSHAN and acute illness * did drop earlier in hospital stay - s/p PRBC transfusion * Hemoglobin 9.4 again today Will continue to follow. (6) Hyperkalemia: Code(s): E87.5 - Hyperkalemia Status: Acute Assessment and Plan: Potassium is high but better. Switching to Nepro. He is off the spironolactone. Treating the adrenal insufficiency. (7) Pituitary tumor: Code(s): D49.7 - Neoplasm of unspecified behavior of endocrine glands and other parts of nervous system Status: Acute Assessment and Plan: Unclear what the nature of that pituitary tumor is. He will need tertiary care center to figure this out but he needs to get better 1st. TSH is normal. Acth is pending. Will check FSH Subjective Date/time seen: 09/10/21 10:35 Interval history: Angel Luis is comfortable in bed. He has a feeding tube in. He is getting Jevity 1.5 He is getting tube feeding flushes. He is on a fluid restriction. He is very thirsty. He had a swelling study yesterday and this is pending. Exam
--- NOTE | 2021-09-10 10:35 | PM.PNNEP ---
Progress Note: A&P Assessment and Plan (1) Hyponatremia: Code(s): E87.1 - Hypo-osmolality and hyponatremia Status: Acute Assessment and Plan: several possibilities: SIADH phenomenon given recent respiratory issues recent D10W IVF use TPN IV diuretics Adrenal insufficiency jumps higher on the differential diagnosis. urine electrolytes are non prerenal SPEP, UPEP, serum/urine osmolality pending TSH okay Cortisol level low and Cortrosyn stim is abnormal. Acth is pending. He has a sella turcica both. Will check MRI brain as well Sodium level slowly rising. It is 135 today. Because he has lots of symptoms from the adrenal insufficiency, (e.g. hyponatremia, hyperkalemia, metabolic acidosis, weakness, poor appetite, weight loss, low blood pressure), will give stress dose steroids for 3 days then resume prednisone orally. On fluids restriction of 1500cc. Increase this a little bit because his sodium is better. Discussed with Dr. Gonsales. He will change tube feedings to Nepro. This will help with the sodium and also with the potassium. (2) ROSHAN (acute kidney injury): Code(s): N17.9 - Acute kidney failure, unspecified Status: Acute Assessment and Plan: Acute kidney injury Renal ultrasound is unremarkable. Urine electrolytes done yesterday off diuretics are not especially pre renal. Blood pressure is a little bit soft. Will start midodrine to help with the blood pressure. Will stop the PPI in use famotidine instead. He is starting his steroids and maybe this will make everything better. (3) Hypercapnic respiratory failure: Qualifiers: Chronicity: unspecified Qualified Code(s): J96.92 - Respiratory failure, unspecified with hypercapnia Code(s): J96.92 - Respiratory failure, unspecified with hypercapnia Status: Acute Assessment and Plan: resolving Breathing looks pretty good. Pulmonary following (4) Bilateral pleural effusion: Code(s): J90 - Pleural effusion, not elsewhere classified Status: Acute Assessment and Plan: persistent/recurrent s/p multiple thoracenteses to date Albumin level is okay. Heart is mildly suboptimal. Etiology? Jamee on the case (5) Anemia: Code(s): D64.9 - Anemia, unspecified Status: Acute Assessment and Plan: probably due to ROSHAN and acute illness did drop earlier in hospital stay - s/p PRBC transfusion Hemoglobin 9.4 again today Will continue to follow. (6) Hyperkalemia: Code(s): E87.5 - Hyperkalemia Status: Acute Assessment and Plan: Potassium is high but better. Switching to Nepro. He is off the spironolactone. Treating the adrenal insufficiency. (7) Pituitary tumor: Code(s): D49.7 - Neoplasm of unspecified behavior of endocrine glands and other parts of nervous system Status: Acute Assessment and Plan: Unclear what the nature of that pituitary tumor is. He will need tertiary care center to figure this out but he needs to get better 1st. TSH is normal. Acth is pending. Will check FSH Subjective Date/time seen: 09/10/21 10:35 Interval history: Angel Luis is comfortable in bed. He has a feeding tube in. He is getting Jevity 1.5 He is getting tube feeding flushes. He is on a fluid restriction. He is very thirsty. He had a swelling study yesterday and this is pending. Exam Narrative: General: WD/WN male in NAD Heart: normal S1 and S2; no rub or gallop Lungs: decreased breath sounds at bases Abdomen: soft, nontender, nondistended, positive bowel sounds Extremities: no edema or cyanosis Skin: no skin rash Objective Data Vital Signs Vital Signs: Vital Signs - 24 hr 09/09/21 12:00 09/09/21 14:00 09/09/21 14:08 Temperature 36.4 C Pulse Rate 69 62 79 Respiratory Rate 18 18 Blood Pressure 103/60 Pulse Oximetry 98 09/09/21 14:16 09/09/21 16:00 09/09/21 20:00
[2021-09-10] MEDS: SODIUM POLYSTYRENE SULFONONATE 15 GM/60 ML BTL 30 GM FEED TUBE (12:15)
[2021-09-10] MEDS: MIDODRINE HCL 2.5 MG TABLET 5 MG PO ×2 (12:15→18:08)
[2021-09-10] MEDS: HYDROCORTISONE SODIUM SUCCINATE 100 MG/2 ML VIAL 50 MG IV PUSH ×2 (12:16→18:09)
[2021-09-10 13:38] LABS: Glucose Point of Care 103 mg/dl (65-105)
--- NOTE | 2021-09-10 14:32 | PCNFU ---
Addendum entered by Paola De La Rosa, RD 09/10/21 14:48: Nepro is lower in Potassium than Vital 1.2. Original Note: Nutrition Follow-Up Complete: Inadequate Oral Intake as related to mechanical ventilation as evidenced by NPO. Goal: Meet estimated Nutritional needs Pt. progressing towards goal. No new goal at this time. Pt current nutrition is Nepro at 70 mls per hour over 22 hours per day. Spoke with MD about decreasing current rate of 70 mls per hour to 50 mls per hour over 22 hours per day. Last recorded weight is 59.7 kg. Recommend re-weighing pt. prior to discharge. Bowel Motility: + BM 09/08/2021 Labs Reviewed: Hgb 9.4, Hct 29.8, Na 135, K 5.4, BUN 47, Cr 2.5 Meds Noted: Albuterol, Benzonatate, Lovenox, Glucagon, Glucose, Atrovent neb, Megace, Toprol Xl, Lopressor, Miralax, Crestor, Prednisone Skin: No skin break down at this time. WNL. Additional Notes: Decreasing current rate of Nepro at 70 mls per hour to 50 mls per hour to better meet patients needs. Rate of 70 mls per hour was meeting 160% of pt. recommended caloric needs. Nepro at 50 mls per hour over 22 hours per day will provide pt. with 1980 calories, 89 grams of protein and 800 mls of water. Will closely monitor kidney labs as they are elevated now. If no improvement may recommend vital 1.2 as it is lower in protein and potassium. Spoke with MD who confirmed tube feeding was changed to Nepro due to hyperkalemia. Will monitor every Monday and Monday
--- NOTE | 2021-09-10 15:40 | PM.IMPN ---
Progress Note: A&P Assessment and Plan (1) Pituitary tumor: Code(s): D49.7 - Neoplasm of unspecified behavior of endocrine glands and other parts of nervous system Status: Acute (2) Hyperkalemia: Code(s): E87.5 - Hyperkalemia Status: Acute (3) Nausea & vomiting: Code(s): R11.2 - Nausea with vomiting, unspecified Status: Acute (4) Adrenal insufficiency: Code(s): E27.40 - Unspecified adrenocortical insufficiency Status: Acute Additional Plan # adrenal insufficiency # hyponatremia # hyperkalemia -may have SIADH, was on TPN, likely adrenal insufficiency -brain MRI pending -continue fluid restriction 1500 cc, sodium improved to 135 -now off diuretics with hyperkalemia (spironolactone held) giving another 30 g Kayexalate -discussed with briquetting machine operator has patient on 5 mg daily prednisone, will give pulse steroids for 3 days hydrocortisone # acute kidney injury -with hyperkalemia, will trend creatinine -lisinopril held # debility -patient needs extensive PT, OT, up to chair, incentive spirometer -patient started Megace home # dysphagia -secondary to intubation extended hospitalization -failed bedside swallow study and barium swallow evaluation, speech therapy will continue to follow -continue tube feeds # pituitary tumor -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 He had received 2 units of packed red blood cell in total -continue PPI b.i.d. IV as he is NPO, may switch to NG tube -he was not stable for GI evaluation, now appears to be doing well. Pepcid switch to PPI # septic shock secondary to ventilator associated pneumonia resolved -completed 10 days vancomycin aztreonam 09/02, normal antibiotics indicated -cultures from 08/19 and 08 21 negative in blood, urine, and sputum # cardiomyopathy -echocardiogram on 08/16/2021 showed LVEF 40-45%, normal diastolic dysfunction. Hypokinetic anterior wall inferior septal wall and anterior septal wall. He is status post CABG at [facility]. # CABG -recent within the last month. Rodney removed -continue Crestor, aspirin Diet: Tube feeds changed to Nepro from Jevity, NPO, patient failed swallow study and barium swallow evaluation today DVT prophylaxis: Lovenox GI prophylaxis: Ppi changed to Pepcid Code status: Full code Disposition: [facility], will need extensive rehab if he can participate Subjective Date/time seen: 09/10/21 15:40 Patient seen examined. Very sleepy this morning. His potassium still elevated at 5.4, down from 5.9 after Kayexalate, giving other 30 g of Kayexalate. Renal ultrasound showed some mild atrophy. Discussed with briquetting machine operator this all may be secondary to adrenal insufficiency and he would like to do pulse steroids 3 days. His creatinine is worsening up to 2.5. He has been off spironolactone. Discussed with briquetting machine operator we will change the tube feeds to Nepro which is more concentrated with we limit his p.o. intake fluid. Fluid restriction changed to 50 cc as a sodium little better. Patient may need outpatient workup for sella turcica. PPI changed to famotidine with his renal function. Patient was not able to provide much review of systems this morning Review of Systems Review of Systems: ROS unobtainable: Yes unobtainable due to medical condition Exam Narrative: - GENERAL: Pleasant male very sleepy, arousable. No acute distress - EYES: EOMI. Anicteric. - HENT: Moist mucous membranes. NG tube in place - LUNGS: Clear to auscultation bilaterally, no wheezing, rhonchi, or rales. - CARDIOVASCULAR: Regular rate and rhythm. Midline incision clean dry intact. well-healed incision (rodney removed) - ABDOMEN: Soft, non-tender and non-distended. No palpable masses. - EXTREMITIES: No edema. Peripheral pulses 2+. Non-tender. - NEUROLOGIC: Patient was very lethargic and unable to assess his orientation, no obvious focal deficit - PSY
--- NOTE | 2021-09-10 16:18 | PCRCNOTE ---
Window of time for administration has passed. See next scheduled administration.
--- NOTE | 2021-09-10 16:56 | PC.NURSE ---
Addendum entered by Kasey Fofana RN 09/10/21 16:57: patient arrived in room at 1250 Original Note: patient transferred to room 314-1 from IMU. oriented to new room.
[2021-09-10 17:38] LABS: Osmolality, Urine 432 mOsm/kg (50-1200)
[2021-09-10] MEDS: FAMOTIDINE 20 MG TABLET FEED TUBE (20:43)
[2021-09-11] VITALS (14 sets, daily range): BP systolic 115–152; BP diastolic 48–72; PULSE 63–80; RESP 16–20; TEMP 36.7–37.1; O2SAT 93–99
[2021-09-11] MEDS: HYDROCORTISONE SODIUM SUCCINATE 100 MG/2 ML VIAL 50 MG IV PUSH ×3 (01:00→17:01)
[2021-09-11] MEDS: IPRATROPIUM BR 0.02% INH SOLN 0.5 MG/2.5 ML VIAL INHALATION ×4 (02:27→20:54)
[2021-09-11] MEDS: ALBUTEROL SULFATE NEB 2.5 MG/0.5 ML INH INHALATION ×4 (02:27→20:54)
[2021-09-11 03:29] LABS: Glucose Point of Care 132 mg/dl (65-105)
[2021-09-11 07:34] LABS: Hematocrit 28.5 % (42.0-52.0); Hemoglobin 9.2 g/dL (14.0-18.0); Mean Corpuscular HGB Conc 32.3 g/dl (32-36); Mean Corpuscular Hemoglobin 29.1 pg (26-34); Mean Corpuscular Volume 90.2 fl (80-100); Platelet Count Result 212 k/mm3 (150-375); Red Blood Count 3.16 M/mm3 (4.6-6.20); Red Cell Distribution Width 14.6 % (11.5-14.5); White Blood Count 3.7 K/mm3 (4.5-10.0)
--- NOTE | 2021-09-11 07:36 | PC.NURSE ---
0600: Rounded on patient and patient was found with NG tube on side of the bed. I spoke with patient about reinsertion of NG tube and patient refused. Patient states I am going home today. Patient also refused 0600 accucheck and 0600 medications.
[2021-09-11 07:43] LABS: Albumin Level 4.3 g/dL (3.5-5.1); Anion Gap 10 mmol/L (8-16); Blood Urea Nitrogen 45 mg/dL (9-20); Calcium 8.7 mg/dL (8.4-10.2); Carbon Dioxide 19 mmol/L (22-30); Chloride 107 mmol/L (98-107); Estimated CRCL calculation 27 ml/min; Estimated Glomerular Filt Rate 30; Glucose 130 mg/dL (65-110); Magnesium 2.4 mg/dL (1.6-2.3); Phosphorus 3.6 mg/dL (2.5-4.5); Potassium 4.4 mmol/L (3.4-5.0); Sodium 136 mmol/L (137-145)
--- NOTE | 2021-09-11 09:22 | PM.IMPN ---
Progress Note: A&P Assessment and Plan (1) Pituitary tumor: Code(s): D49.7 - Neoplasm of unspecified behavior of endocrine glands and other parts of nervous system Status: Acute (2) Hyperkalemia: Code(s): E87.5 - Hyperkalemia Status: Acute Assessment and Plan: Mild K+ 5.2 Nephrology following Repeat labs in a.m. (3) Nausea & vomiting: Code(s): R11.2 - Nausea with vomiting, unspecified Status: Acute Assessment and Plan: Pt had been receiving tube feedings Will start clears and ADAT Monitor (4) Adrenal insufficiency: Code(s): E27.40 - Unspecified adrenocortical insufficiency Status: Acute Additional Plan # adrenal insufficiency # hyponatremia # hyperkalemia -may have SIADH, was on TPN, likely adrenal insufficiency -brain MRI pending -continue fluid restriction 1500 cc, sodium 135-->136 today -now off diuretics with hyperkalemia (spironolactone held) improved s/p 30 g Kayexalate -nephrology following, recommendations appreciated, will give pulse steroids for 3 days hydrocortisone (day 2) # acute kidney injury -with hyperkalemia, will trend creatinine -cr 2.2 today -lisinopril held Monitor # debility -patient needs extensive PT, OT, up to chair, incentive spirometer -patient started Megace # dysphagia -secondary to intubation extended hospitalization -failed bedside swallow study and barium swallow evaluation, speech therapy will continue to follow -Pt pulled dobhoff out -tube feeding on hold -repeat swallow studies # pituitary tumor -patient will need outpatient evaluation for sella turcica possible surgery # acute anemia -Hgb 9.2 today -continue to trend. He had received 2 units of packed red blood cell in total -continue PPI b.i.d. IV as he is NPO, may switch to NG tube -he was not stable for GI evaluation, now appears to be doing well. Pepcid switch to PPI # septic shock secondary to ventilator associated pneumonia resolved -completed 10 days vancomycin aztreonam 09/02, normal antibiotics indicated -cultures from 08/19 and 08 21 negative in blood, urine, and sputum # cardiomyopathy -echocardiogram on 08/16/2021 showed LVEF 40-45%, normal diastolic dysfunction. Hypokinetic anterior wall inferior septal wall and anterior septal wall. He is status post CABG at [facility]. # CABG -recent within the last month. Dianne removed -continue Crestor, aspirin Diet: Tube feeds changed to Nepro from [place], NPO, patient failed swallow study and barium swallow evaluation 09/10 DVT prophylaxis: Lovenox GI prophylaxis: Ppi changed to Pepcid Code status: Full code Disposition: [facility], will need extensive rehab if he can participate Subjective Date/time seen: 09/11/21 09:22 Interval history: Pt seen this a.m.; labs, vs, diagnostic reports, consult notes reviewed; pt is insisting to be discharged; discussed with him current clinical status, however he still wants to leave AMA Review of Systems Review of Systems: All systems reviewed & are unremarkable except as noted in HPI and below Exam Const: General: no acute distress, alert and awake Orientation/consciousness: oriented to person HENMT: Head: normocephalic and atraumatic Ears: hearing grossly normal bilaterally and external ears normal Face and sinus: face symmetric Mouth: Yes dry mucous membranes Eyes: EOM: EOMs intact bilaterally Neck: Neck: full ROM, trachea midline and no JVD Chest: Chest palpation & inspection: normal inspection of the chest and other (mid sternal surgcal scar healin) Resp: Effort & Inspection: normal respiratory effort Auscultation: diminished lung sounds Cardio: Jugular venous distension: no JVD Rate: regular rate Rhythm: regular rhythm Heart sounds: S1 normal heart sound present and S2 normal heart sound present GI: Inspection: normal to inspection and distended Auscultation: normal bowel sounds : General: Yes no CVA tenderness Skin:
[2021-09-11] MEDS: ENOXAPARIN 40 MG/0.4 ML SYRINGE SUB-Q (09:57)
--- NOTE | 2021-09-11 09:57 | P.PNNP_ITS ---
Progress Note: A&P Assessment and Plan (1) Hyponatremia: Code(s): E87.1 - Hypo-osmolality and hyponatremia Status: Acute Assessment and Plan: * Hyponatremia most likely due to adrenal insufficiency. * urine electrolytes are non prerenal * SPEP, UPEP, serum/urine osmolality pending * TSH okay * Cortisol level low and Cortrosyn stim is abnormal. Acth is pending. He has a sella turcica mass * Sodium level slowly rising. It is 136 today. * Because he has lots of symptoms from the adrenal insufficiency, (e.g. hyponatremia, hyperkalemia, metabolic acidosis, weakness, poor appetite, weight loss, low blood pressure), will give stress dose steroids for 3 days then resume prednisone orally. * On fluids restriction of 2000cc. * He is on stress dose steroids right now. If he signs out AMA he should be discharged on prednisone 5mg a day. * He should follow-up at [facility] for his pituitary tumor (2) ROSHAN (acute kidney injury): Code(s): N17.9 - Acute kidney failure, unspecified Status: Acute Assessment and Plan: * Acute kidney injury * Renal ultrasound is unremarkable. * Urine electrolytes done yesterday off diuretics are not especially pre renal. * Blood pressure is better. * He is on the steroids and is also on midodrine. * Creatinine improved a little bit. (3) Hypercapnic respiratory failure: Qualifiers: Chronicity: unspecified Qualified Code(s): J96.92 - Respiratory failure, unspecified with hypercapnia Code(s): J96.92 - Respiratory failure, unspecified with hypercapnia Status: Acute Assessment and Plan: * resolving * Breathing looks pretty good. * Pulmonary following (4) Bilateral pleural effusion: Code(s): J90 - Pleural effusion, not elsewhere classified Status: Acute Assessment and Plan: * persistent/recurrent * s/p multiple thoracenteses to date * Albumin level is okay. * Heart is mildly suboptimal. * Etiology? pulmonary is on the case (5) Anemia: Code(s): D64.9 - Anemia, unspecified Status: Acute Assessment and Plan: * probably due to ROSHAN and acute illness * did drop earlier in hospital stay - s/p PRBC transfusion * Hemoglobin 9.2 (6) Hyperkalemia: Code(s): E87.5 - Hyperkalemia Status: Acute Assessment and Plan: Potassium is high but better. Switching to Nepro. He is off the spironolactone. Treating the adrenal insufficiency. (7) Pituitary tumor: Code(s): D49.7 - Neoplasm of unspecified behavior of endocrine glands and other parts of nervous system Status: Acute Assessment and Plan: Unclear what the nature of that pituitary tumor is. He will need tertiary care center to figure this out but he needs to get better 1st. TSH is normal. Acth is pending. Will check FSH Subjective Date/time seen: 09/11/21 09:57 Interval history: Angel Luis is comfortable in bed. He is becoming frustrated with his long hospitalizations. He pulled his NG tube out. He intends on signing out AMA. Reviewed his this is from my standpoint. His sodium level is a little better and his kidney function is a little better but is still worse than it should be. He also has the pituitary tumor that needs to be addressed. His course there are the other issues that ANISHA Shaffer has already reviewed with him. He still insists on leaving. Exam Narrative: General: WD/WN male in NAD Heart: normal S1 and S2; no rub or ga
--- NOTE | 2021-09-11 09:57 | PM.PNNEP ---
Progress Note: A&P Assessment and Plan (1) Hyponatremia: Code(s): E87.1 - Hypo-osmolality and hyponatremia Status: Acute Assessment and Plan: Hyponatremia most likely due to adrenal insufficiency. urine electrolytes are non prerenal SPEP, UPEP, serum/urine osmolality pending TSH okay Cortisol level low and Cortrosyn stim is abnormal. Acth is pending. He has a sella turcica mass Sodium level slowly rising. It is 136 today. Because he has lots of symptoms from the adrenal insufficiency, (e.g. hyponatremia, hyperkalemia, metabolic acidosis, weakness, poor appetite, weight loss, low blood pressure), will give stress dose steroids for 3 days then resume prednisone orally. On fluids restriction of 2000cc. He is on stress dose steroids right now. If he signs out AMA he should be discharged on prednisone 5mg a day. He should follow-up at [facility] for his pituitary tumor (2) ROSHAN (acute kidney injury): Code(s): N17.9 - Acute kidney failure, unspecified Status: Acute Assessment and Plan: Acute kidney injury Renal ultrasound is unremarkable. Urine electrolytes done yesterday off diuretics are not especially pre renal. Blood pressure is better. He is on the steroids and is also on midodrine. Creatinine improved a little bit. (3) Hypercapnic respiratory failure: Qualifiers: Chronicity: unspecified Qualified Code(s): J96.92 - Respiratory failure, unspecified with hypercapnia Code(s): J96.92 - Respiratory failure, unspecified with hypercapnia Status: Acute Assessment and Plan: resolving Breathing looks pretty good. Pulmonary following (4) Bilateral pleural effusion: Code(s): J90 - Pleural effusion, not elsewhere classified Status: Acute Assessment and Plan: persistent/recurrent s/p multiple thoracenteses to date Albumin level is okay. Heart is mildly suboptimal. Etiology? pulmonary is on the case (5) Anemia: Code(s): D64.9 - Anemia, unspecified Status: Acute Assessment and Plan: probably due to ROSHAN and acute illness did drop earlier in hospital stay - s/p PRBC transfusion Hemoglobin 9.2 (6) Hyperkalemia: Code(s): E87.5 - Hyperkalemia Status: Acute Assessment and Plan: Potassium is high but better. Switching to Nepro. He is off the spironolactone. Treating the adrenal insufficiency. (7) Pituitary tumor: Code(s): D49.7 - Neoplasm of unspecified behavior of endocrine glands and other parts of nervous system Status: Acute Assessment and Plan: Unclear what the nature of that pituitary tumor is. He will need tertiary care center to figure this out but he needs to get better 1st. TSH is normal. Acth is pending. Will check FSH Subjective Date/time seen: 09/11/21 09:57 Interval history: Angel Luis is comfortable in bed. He is becoming frustrated with his long hospitalizations. He pulled his NG tube out. He intends on signing out AMA. Reviewed his this is from my standpoint. His sodium level is a little better and his kidney function is a little better but is still worse than it should be. He also has the pituitary tumor that needs to be addressed. His course there are the other issues that ANISHA Shaffer has already reviewed with him. He still insists on leaving. Exam Narrative: General: WD/WN male in NAD Heart: normal S1 and S2; no rub or gallop Lungs: decreased breath sounds at bases Abdomen: soft, nontender, nondistended, positive bowel sounds Extremities: no edema or cyanosis Skin: no skin rash Objective Data Vital Signs Vital Signs: Vital Signs - 24 hr 09/10/21 11:05 09/10/21 12:00 09/10/21 13:18 Temperature 36.6 C Pulse Rate 64 68 Respiratory Rate 20 Blood Pressure 123/52 L Pulse Oximetry 100 100 09/10/21 14:00 09/10/21 16:00 09/10/21 19:41 Temperature 36.0 C L Pulse Rate 63 70 74
[2021-09-11] MEDS: FAMOTIDINE 20 MG TABLET FEED TUBE ×2 (09:59→20:36)
[2021-09-11] MEDS: ASPIRIN 81 MG CHEWABLE TABLET PO (09:59)
[2021-09-11] MEDS: ROSUVASTATIN 10 MG TABLET PO (09:59)
[2021-09-11] MEDS: MIDODRINE HCL 2.5 MG TABLET 5 MG PO ×3 (09:59→17:02)
[2021-09-11] MEDS: METOPROLOL SUCCINATE EXT REL 50 MG TABCR PO (10:00)
[2021-09-11] MEDS: MEGESTROL ACETATE (*CHEMO) 20 MG TABLET PO (10:00)
[2021-09-11 12:07] LABS: Glucose Point of Care 114 mg/dl (65-105)
--- NOTE | 2021-09-11 16:04 | PCRCNOTE ---
Window of time for administration has passed. See next scheduled administration.
[2021-09-11 16:46] LABS: Glucose Point of Care 107 mg/dl (65-105)
[2021-09-11 20:56] LABS: Glucose Point of Care 120 mg/dl (65-105)
[2021-09-12] VITALS (13 sets, daily range): BP systolic 117–146; BP diastolic 60–87; PULSE 62–84; RESP 16–20; TEMP 36.7–38.1; O2SAT 96–100
[2021-09-12] MEDS: HYDROCORTISONE SODIUM SUCCINATE 100 MG/2 ML VIAL 50 MG IV PUSH ×4 (00:52→20:10)
[2021-09-12] MEDS: ALBUTEROL SULFATE NEB 2.5 MG/0.5 ML INH INHALATION ×3 (02:20→21:03)
[2021-09-12] MEDS: IPRATROPIUM BR 0.02% INH SOLN 0.5 MG/2.5 ML VIAL INHALATION ×3 (02:21→21:03)
[2021-09-12 08:11] LABS: Anion Gap 12 mmol/L (8-16); Blood Urea Nitrogen 44 mg/dL (9-20); Calcium 8.8 mg/dL (8.4-10.2); Carbon Dioxide 17 mmol/L (22-30); Chloride 107 mmol/L (98-107); Estimated CRCL calculation 27 ml/min; Estimated Glomerular Filt Rate 30; Glucose 95 mg/dL (65-110); Sodium 136 mmol/L (137-145)
[2021-09-12] MEDS: ENOXAPARIN 40 MG/0.4 ML SYRINGE SUB-Q (09:11)
[2021-09-12] MEDS: FAMOTIDINE 20 MG TABLET FEED TUBE ×2 (09:11→20:47)
[2021-09-12] MEDS: ASPIRIN 81 MG CHEWABLE TABLET PO (09:11)
[2021-09-12] MEDS: MEGESTROL ACETATE (*CHEMO) 20 MG TABLET PO (09:12)
[2021-09-12] MEDS: ROSUVASTATIN 10 MG TABLET PO (09:13)
[2021-09-12] MEDS: METOPROLOL SUCCINATE EXT REL 50 MG TABCR PO (09:13)
--- NOTE | 2021-09-12 09:24 | P.PNNP_ITS ---
Progress Note: A&P Assessment and Plan (1) Hyponatremia: Code(s): E87.1 - Hypo-osmolality and hyponatremia Status: Acute Assessment and Plan: * Hyponatremia most likely due to adrenal insufficiency. * urine electrolytes are non prerenal * SPEP, UPEP, serum/urine osmolality pending * TSH okay * Cortisol level low and Cortrosyn stim is abnormal. Acth is pending. He has a sella turcica mass * Sodium level slowly rising. It is 136 again today. * Continue same management (2) ROSHAN (acute kidney injury): Code(s): N17.9 - Acute kidney failure, unspecified Status: Acute Assessment and Plan: * Acute kidney injury * Renal ultrasound is unremarkable. * Urine electrolytes done yesterday off diuretics are not especially pre renal. * Blood pressure is better. We can stop the midodrine now * He is on the steroids * Creatinine improved a little bit. (3) Hypercapnic respiratory failure: Qualifiers: Chronicity: unspecified Qualified Code(s): J96.92 - Respiratory failure, unspecified with hypercapnia Code(s): J96.92 - Respiratory failure, unspecified with hypercapnia Status: Acute Assessment and Plan: * resolving * Breathing looks pretty good. * Pulmonary following (4) Bilateral pleural effusion: Code(s): J90 - Pleural effusion, not elsewhere classified Status: Acute Assessment and Plan: * pulmonary is on the case (5) Anemia: Code(s): D64.9 - Anemia, unspecified Status: Acute Assessment and Plan: * probably due to ROSHAN and acute illness * did drop earlier in hospital stay - s/p PRBC transfusion * Hemoglobin 9.2 yesterday (6) Hyperkalemia: Code(s): E87.5 - Hyperkalemia Status: Acute Assessment and Plan: Resolved (7) Pituitary tumor: Code(s): D49.7 - Neoplasm of unspecified behavior of endocrine glands and other parts of nervous system Status: Acute Assessment and Plan: Unclear what the nature of that pituitary tumor is. He will need tertiary care center to figure this out but he needs to get better 1st. TSH is normal. Acth is pending. FSH is pending With steroids, Blood pressure is better, sodium better, potassium better. Working on his energy levels. Subjective Date/time seen: 09/12/21 09:24 Interval history: Angel Luis is comfortable in a chair beside his bed. He is getting some occupational therapy. He is working on how to get his socks on. He changed his mind about leaving AMA Exam Narrative: General: WD/WN male in NAD Extremities: no edema or cyanosis Skin: no skin rash or subQ nodules Neuro: A+O x 3 Objective Data Vital Signs Vital Signs: Vital Signs - 24 hr 09/11/21 10:00 09/11/21 10:40 09/11/21 10:50 Temperature Pulse Rate 75 76 72 Respiratory Rate 18 18 Blood Pressure Pulse Oximetry 95 09/11/21 12:00 09/11/21 16:00 09/11/21 20:00 Temperature 37.1 C 36.7 C 37.0 C Pulse Rate 69 64 63 Respiratory Rate 18 16 16 Blood Pressure 125/48 L 129/64 152/72 H Pulse Oximetry 99 96 94 09/11/21 20:36 09/11/21 20:46 09/11/21 23:56 Temperature 37.1 C Pulse Rate 80 80 63 Respiratory Rate 20 20 16 Blood Pressure 115/72 Pulse Oximetry 94
--- NOTE | 2021-09-12 09:24 | PM.PNNEP ---
Progress Note: A&P Assessment and Plan (1) Hyponatremia: Code(s): E87.1 - Hypo-osmolality and hyponatremia Status: Acute Assessment and Plan: Hyponatremia most likely due to adrenal insufficiency. urine electrolytes are non prerenal SPEP, UPEP, serum/urine osmolality pending TSH okay Cortisol level low and Cortrosyn stim is abnormal. Acth is pending. He has a sella turcica mass Sodium level slowly rising. It is 136 again today. Continue same management (2) ROSHAN (acute kidney injury): Code(s): N17.9 - Acute kidney failure, unspecified Status: Acute Assessment and Plan: Acute kidney injury Renal ultrasound is unremarkable. Urine electrolytes done yesterday off diuretics are not especially pre renal. Blood pressure is better. We can stop the midodrine now He is on the steroids Creatinine improved a little bit. (3) Hypercapnic respiratory failure: Qualifiers: Chronicity: unspecified Qualified Code(s): J96.92 - Respiratory failure, unspecified with hypercapnia Code(s): J96.92 - Respiratory failure, unspecified with hypercapnia Status: Acute Assessment and Plan: resolving Breathing looks pretty good. Pulmonary following (4) Bilateral pleural effusion: Code(s): J90 - Pleural effusion, not elsewhere classified Status: Acute Assessment and Plan: pulmonary is on the case (5) Anemia: Code(s): D64.9 - Anemia, unspecified Status: Acute Assessment and Plan: probably due to ROSHAN and acute illness did drop earlier in hospital stay - s/p PRBC transfusion Hemoglobin 9.2 yesterday (6) Hyperkalemia: Code(s): E87.5 - Hyperkalemia Status: Acute Assessment and Plan: Resolved (7) Pituitary tumor: Code(s): D49.7 - Neoplasm of unspecified behavior of endocrine glands and other parts of nervous system Status: Acute Assessment and Plan: Unclear what the nature of that pituitary tumor is. He will need tertiary care center to figure this out but he needs to get better 1st. TSH is normal. Acth is pending. FSH is pending With steroids, Blood pressure is better, sodium better, potassium better. Working on his energy levels. Subjective Date/time seen: 09/12/21 09:24 Interval history: Angel Luis is comfortable in a chair beside his bed. He is getting some occupational therapy. He is working on how to get his socks on. He changed his mind about leaving AMA Exam Narrative: General: WD/WN male in NAD Extremities: no edema or cyanosis Skin: no skin rash or subQ nodules Neuro: A+O x 3 Objective Data Vital Signs Vital Signs: Vital Signs - 24 hr 09/11/21 10:00 09/11/21 10:40 09/11/21 10:50 Temperature Pulse Rate 75 76 72 Respiratory Rate 18 18 Blood Pressure Pulse Oximetry 95 09/11/21 12:00 09/11/21 16:00 09/11/21 20:00 Temperature 37.1 C 36.7 C 37.0 C Pulse Rate 69 64 63 Respiratory Rate 18 16 16 Blood Pressure 125/48 L 129/64 152/72 H Pulse Oximetry 99 96 94 09/11/21 20:36 09/11/21 20:46 09/11/21 23:56 Temperature 37.1 C Pulse Rate 80 80 63 Respiratory Rate 20 20 16 Blood Pressure 115/72 Pulse Oximetry 94 09/12/21 00:00 09/12/21 02:30 09/12/21 02:40 Temperature Pulse Rate 69 80 80 Respiratory Rate 20 20 Blood Pressure Pulse Oximetry 09/12/21 04:00 09/12/21 09:13 Temperature 37.3 C Pulse Rate 72 72 Respiratory Rate 16 Blood Pressure 146/87 H Pulse Oximetry 98 Intake/Output Intake/Output: Intake & Output 09/09/21 09/10/21 09/11/21 09/12/21 23:59 23:59 23:59 23:59 Intake Total 840 500 730 750 Output Total 800 900 850 Balance 40 -400 -120 750 Meds/Results Medications: Active Medications Generic Name Dose Route Start Last Admin Trade Name Freq PRN Reason Stop Dose Admin Acetaminophen 650 mg 08/27/21 17:52 09/02/21 11:58 Acetaminophen 325 Mg Tablet PO 65
[2021-09-12 11:54] LABS: Glucose Point of Care 104 mg/dl (65-105)
--- NOTE | 2021-09-12 14:35 | PM.IMPN ---
Progress Note: A&P Assessment and Plan (1) Adrenal insufficiency: Code(s): E27.40 - Unspecified adrenocortical insufficiency Status: Acute (2) Pituitary tumor: Code(s): D49.7 - Neoplasm of unspecified behavior of endocrine glands and other parts of nervous system Status: Acute (3) Hyperkalemia: Code(s): E87.5 - Hyperkalemia Status: Acute (4) Nausea & vomiting: Code(s): R11.2 - Nausea with vomiting, unspecified Status: Acute Additional Plan # adrenal insufficiency # hyponatremia # hyperkalemia -likely adrenal insufficiency, improving after steroid pulse dose, last day today (day 3 of 3 hydrocortisone) -brain MRI: 1.7 cm mass sella and clivus -continue fluid restriction 1500 cc, sodium improved to 136 -hyperkalemia resolved down to 4.0 after couple doses of Kayexalate overt last couple days -today is day 3 of hydrocortisone pulse steroids, will likely go with 5 mg prednisone afterward # acute kidney injury -with hyperkalemia, will trend creatinine -lisinopril held -creatinine has stabilized around 2.2 # debility -patient needs extensive PT, OT, up to chair, incentive spirometer -patient started Megace at home # dysphagia -status post intubation, now resolved, advance to regular diet with thin liquids # pituitary tumor -patient will need 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 He had received 2 units of packed red blood cell in total -he was not stable for GI evaluation, now appears to be doing well # septic shock secondary to ventilator associated pneumonia resolved -completed 10 days vancomycin aztreonam 09/02, normal antibiotics indicated -cultures from 08/19 and 08 21 negative in blood, urine, and sputum -stopping midodrine as pulse steroids helped significantly with his adrenal insufficiency # cardiomyopathy -echocardiogram on 08/16/2021 showed LVEF 40-45%, normal diastolic dysfunction. Hypokinetic anterior wall inferior septal wall and anterior septal wall. He is status post CABG at [facility]. # CABG -recent within the last month. [place] removed -continue Crestor, aspirin Diet: Diet advanced to regular with thin liquids DVT prophylaxis: Lovenox GI prophylaxis: Pepcid Code status: Full code Disposition: Med tele, will need PT Subjective Date/time seen: 09/12/21 14:35 Patient seen examined. He passed a swallow study and advanced to regular diet. On the last physical therapy evaluation he was doing poorly only seen on edge of bed. I discussed with case packer hopefully we can have re-evaluation as he is clinically doing much better. The pulse steroids are helping with his electrolytes and energy level. Renal function about the same. Patient denies fever, chills, nausea, vomiting diarrhea, chest pain, shortness of breath. Review of Systems Review of Systems: All systems reviewed & are unremarkable except as noted in HPI and below Exam Narrative: - GENERAL: Pleasant male no acute distress - EYES: EOMI. Anicteric. - HENT: Moist mucous membranes. - LUNGS: Clear to auscultation bilaterally, no wheezing, rhonchi, or rales. - CARDIOVASCULAR: Regular rate and rhythm. Midline incision clean dry intact. well-healed incision (rodney removed) - ABDOMEN: Soft, non-tender and non-distended. No palpable masses. - EXTREMITIES: No edema. Peripheral pulses 2+. Non-tender. - NEUROLOGIC: Awake alert oriented. Cranial nerves 2-12 grossly intact, no focal neurological deficits - PSYCHIATRIC: Appropriate mood and affect (less irritable today) - SKIN: No rashes or lesions. Warm. - LYMPH: No cervical lymphadenopathy. Objective Data Vital Signs Vital Signs: Vital Signs - 24 hr 09/11/21 16:00 09/11/21 20:00 09/11/21 20:36 Temperature 36.7 C 37.0 C Pulse Rate 64 63 80 Respiratory Rate 16 16 20 Blood Pressure 129/64 152/72 H Pulse Oximetry 96 94 09/11/21
[2021-09-12 17:51] LABS: Glucose Point of Care 109 mg/dl (65-105)
[2021-09-13] VITALS (17 sets, daily range): BP systolic 133–165; BP diastolic 6–91; PULSE 55–78; RESP 16–18; TEMP 36.4–37; O2SAT 92–99
[2021-09-13] MEDS: ALBUTEROL SULFATE NEB 2.5 MG/0.5 ML INH INHALATION ×4 (02:26→20:15)
[2021-09-13] MEDS: IPRATROPIUM BR 0.02% INH SOLN 0.5 MG/2.5 ML VIAL INHALATION ×4 (02:27→20:15)
[2021-09-13 06:04] LABS: Adrenocorticotropic Hormone <5 pg/mL (6-50)
[2021-09-13] MEDS: HYDROCORTISONE SODIUM SUCCINATE 100 MG/2 ML VIAL 50 MG IV PUSH (06:08)
[2021-09-13 07:58] LABS: Glucose Point of Care 92 mg/dl (65-105)
[2021-09-13] MEDS: FAMOTIDINE 20 MG TABLET FEED TUBE ×2 (08:17→21:11)
[2021-09-13] MEDS: ASPIRIN 81 MG CHEWABLE TABLET PO (08:17)
[2021-09-13] MEDS: ENOXAPARIN 40 MG/0.4 ML SYRINGE SUB-Q (08:17)
[2021-09-13] MEDS: MEGESTROL ACETATE (*CHEMO) 20 MG TABLET PO (08:17)
[2021-09-13] MEDS: ROSUVASTATIN 10 MG TABLET PO (08:17)
[2021-09-13] MEDS: METOPROLOL SUCCINATE EXT REL 50 MG TABCR PO (08:18)
--- NOTE | 2021-09-13 10:15 | PCOTNOTE ---
Attempted OT re-evaluation, despite education on benefits of participating with therapy, patient declined OT at this time. Will follow and attempt at later time.
[2021-09-13 11:53] LABS: Glucose Point of Care 122 mg/dl (65-105)
--- NOTE | 2021-09-13 12:09 | PCNFU ---
Nutrition Follow-Up Complete: Inadequate Oral Intake as related to mechanical ventilation as evidenced by NPO. Goal: Meet estimated nutritional needs Pt. is progressing towards goal. No new goal at this time. Pt current nutrition is a regular diet with a 2000 ml fluid restriction per 24 hours. Last recorded weight is 59 kg. Recommend re-weighing pt. prior to discharge to monitor weight loss. Bowel Motility: + BM 09/12/21 Labs Reviewed: POC Capillary Glucose: 122 Meds Noted: Albuterol, Lovenox, Atrovent Neb, Megace, Toprol Xl, Lopressor, Miralax, Crestor, Prednisone Skin: No skin breakdown at this time. WNL. Additional Notes: Checked in with patient. He reports having a good appetite consuming on average 57% of meals ordered. Modified barium swallow done on 09.12.21. No issues chewing and/or swallowing at this time. Will monitor every 5 days.
[2021-09-13 15:27] LABS: Glucose Point of Care 113 mg/dl (65-105)
--- NOTE | 2021-09-13 16:34 | P.PNNP_ITS ---
Progress Note: A&P Assessment and Plan (1) Hyponatremia: Code(s): E87.1 - Hypo-osmolality and hyponatremia Status: Acute Assessment and Plan: * Hyponatremia most likely due to adrenal insufficiency. * urine electrolytes are non prerenal * SPEP, UPEP, serum/urine osmolality pending * TSH okay * Cortisol level low and Cortrosyn stim is abnormal. Acth is low. 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 He will need to see [facility]. * Sodium level slowly rising. It is 136 again today. * Continue same management (2) ROSHAN (acute kidney injury): Code(s): N17.9 - Acute kidney failure, unspecified Status: Acute Assessment and Plan: * Acute kidney injury * Renal ultrasound is unremarkable. * Urine electrolytes done yesterday off diuretics are not especially pre renal. * Blood pressure is better. * Check another creatinine tomorrow (3) Hypercapnic respiratory failure: Qualifiers: Chronicity: unspecified Qualified Code(s): J96.92 - Respiratory failure, unspecified with hypercapnia Code(s): J96.92 - Respiratory failure, unspecified with hypercapnia Status: Acute Assessment and Plan: * resolving * Breathing looks pretty good. * Pulmonary following (4) Bilateral pleural effusion: Code(s): J90 - Pleural effusion, not elsewhere classified Status: Acute Assessment and Plan: * pulmonary is on the case (5) Anemia: Code(s): D64.9 - Anemia, unspecified Status: Acute Assessment and Plan: * probably due to ROSHAN and acute illness * did drop earlier in hospital stay - s/p PRBC transfusion * Hemoglobin 9.2 yesterday (6) Hyperkalemia: Code(s): E87.5 - Hyperkalemia Status: Acute Assessment and Plan: Resolved (7) Pituitary tumor: Code(s): D49.7 - Neoplasm of unspecified behavior of endocrine glands and other parts of nervous system Status: Acute Assessment and Plan: Unclear what the nature of that pituitary tumor is. He will need tertiary care center to figure this out but he needs to get better 1st. TSH is normal. Acth is low FSH is pending With steroids, Blood pressure is better, sodium better, potassium better. Working on his energy levels. Subjective Date/time seen: 09/13/21 16:34 Interval history: Angel Luis is comfortable in bed. No complaints. Review of Systems Cardiovascular: Cardiovascular: Reports no additional cardiovascular complaints Respiratory: Respiratory: Reports no additional respiratory complaints Gastrointestinal: Gastrointestinal: Reports no additional gastrointestinal complaints Genitourinary: Genitourinary: Reports no additional male genitourinary complaints Exam Narrative: WDWN in NAD skin no rash head ncat lungs clear cor reg no rub abd BS+ nontender and soft ext no edema. Objective Data Vital Signs Vital Signs: Vital Signs - 24 hr 09/12/21 20:00 09/12/21 21:04 09/12/21 23:54 Temperature 38.1 C H 36.7 C Pulse Rate 66 68 69 Respiratory Rate 16 18 18 Blood Pressure 130/67 117/81 Pulse Oximetry 96 100 09/13/21 00:00 09/13/21 02:27 09/13/21 02:33 Temperature Pulse Rate 71 69 71 Respiratory Rate 18 18 Blood Pr
--- NOTE | 2021-09-13 16:34 | PM.PNNEP ---
Progress Note: A&P Assessment and Plan (1) Hyponatremia: Code(s): E87.1 - Hypo-osmolality and hyponatremia Status: Acute Assessment and Plan: Hyponatremia most likely due to adrenal insufficiency. urine electrolytes are non prerenal SPEP, UPEP, serum/urine osmolality pending TSH okay Cortisol level low and Cortrosyn stim is abnormal. Acth is low. 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 He will need to see [place] [facility]. Sodium level slowly rising. It is 136 again today. Continue same management (2) ROSHAN (acute kidney injury): Code(s): N17.9 - Acute kidney failure, unspecified Status: Acute Assessment and Plan: Acute kidney injury Renal ultrasound is unremarkable. Urine electrolytes done yesterday off diuretics are not especially pre renal. Blood pressure is better. Check another creatinine tomorrow (3) Hypercapnic respiratory failure: Qualifiers: Chronicity: unspecified Qualified Code(s): J96.92 - Respiratory failure, unspecified with hypercapnia Code(s): J96.92 - Respiratory failure, unspecified with hypercapnia Status: Acute Assessment and Plan: resolving Breathing looks pretty good. Pulmonary following (4) Bilateral pleural effusion: Code(s): J90 - Pleural effusion, not elsewhere classified Status: Acute Assessment and Plan: pulmonary is on the case (5) Anemia: Code(s): D64.9 - Anemia, unspecified Status: Acute Assessment and Plan: probably due to ROSHAN and acute illness did drop earlier in hospital stay - s/p PRBC transfusion Hemoglobin 9.2 yesterday (6) Hyperkalemia: Code(s): E87.5 - Hyperkalemia Status: Acute Assessment and Plan: Resolved (7) Pituitary tumor: Code(s): D49.7 - Neoplasm of unspecified behavior of endocrine glands and other parts of nervous system Status: Acute Assessment and Plan: Unclear what the nature of that pituitary tumor is. He will need tertiary care center to figure this out but he needs to get better 1st. TSH is normal. Acth is low FSH is pending With steroids, Blood pressure is better, sodium better, potassium better. Working on his energy levels. Subjective Date/time seen: 09/13/21 16:34 Interval history: Angel Luis is comfortable in bed. No complaints. Review of Systems Cardiovascular: Cardiovascular: Reports no additional cardiovascular complaints Respiratory: Respiratory: Reports no additional respiratory complaints Gastrointestinal: Gastrointestinal: Reports no additional gastrointestinal complaints Genitourinary: Genitourinary: Reports no additional male genitourinary complaints Exam Narrative: WDWN in NAD skin no rash head ncat lungs clear cor reg no rub abd BS+ nontender and soft ext no edema. Objective Data Vital Signs Vital Signs: Vital Signs - 24 hr 09/12/21 20:00 09/12/21 21:04 09/12/21 23:54 Temperature 38.1 C H 36.7 C Pulse Rate 66 68 69 Respiratory Rate 16 18 18 Blood Pressure 130/67 117/81 Pulse Oximetry 96 100 09/13/21 00:00 09/13/21 02:27 09/13/21 02:33 Temperature Pulse Rate 71 69 71 Respiratory Rate 18 18 Blood Pressure Pulse Oximetry 09/13/21 04:00 09/13/21 07:33 09/13/21 08:00 Temperature 36.7 C 36.8 C Pulse Rate 71 71 66 Respiratory Rate 16 16 16 Blood Pressure 163/91 H 165/88 H Pulse Oximetry 94 94 97 09/13/21 08:03 09/13/21 08:04 09/13/21 08:18 Temperature Pulse Rate 69 70 Respiratory Rate 18 Blood Pressure Pulse Oximetry 95 09/13/21 11:58 09/13/21 14:10 09/13/21 14:17 Temperature 36.6 C Pulse Rate 55 L 72 73 Respiratory Rate 16 18 18 Blood Pressure 133/66 Pulse Oximetry 92 09/13/21 15:54 Temperature 36.4 C L Pulse Rate 67 Respiratory Rate 16 Blood Pressure 134/6 L Pulse Oximetry 97 Intake/Output Intake/Output: Intake & Out
--- NOTE | 2021-09-13 17:16 | PM.IMPN ---
Progress Note: A&P Assessment and Plan (1) Adrenal insufficiency: Code(s): E27.40 - Unspecified adrenocortical insufficiency Status: Acute (2) Pituitary tumor: Code(s): D49.7 - Neoplasm of unspecified behavior of endocrine glands and other parts of nervous system Status: Acute (3) Hyperkalemia: Code(s): E87.5 - Hyperkalemia Status: Acute Assessment and Plan: Mild K+ 5.2 Nephrology following Repeat labs in a.m. (4) Nausea & vomiting: Code(s): R11.2 - Nausea with vomiting, unspecified Status: Acute Assessment and Plan: Pt had been receiving tube feedings Will start clears and ADAT Monitor Additional Plan # adrenal insufficiency # hyponatremia # hyperkalemia -likely adrenal insufficiency, improving after steroid pulse dose, last day today (day 3 of 3 hydrocortisone) -brain MRI: 1.7 cm mass sella and clivus -continue fluid restriction 1500 cc, sodium improved to 136 09/12/2021 -hyperkalemia resolved down to 4.0 after couple doses of Kayexalate overt last couple days -s/p x3 days of hydrocortisone pulse steroids, continue 5 mg prednisone daily -Repeat BMP in a.m. # acute kidney injury -with hyperkalemia, will trend creatinine -lisinopril held -creatinine has stabilized around 2.2 09/12/2021 # debility -patient needs extensive PT, OT, up to chair, incentive spirometer -patient started Megace at home # dysphagia -status post intubation, now resolved -tolerating regular diet # pituitary tumor -patient will need 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 He had received 2 units of packed red blood cell in total -he was not stable for GI evaluation, now appears to be doing well # septic shock secondary to ventilator associated pneumonia resolved -completed 10 days vancomycin aztreonam 09/02, normal antibiotics indicated -cultures from 08/19 and 08 21 negative in blood, urine, and sputum -stopping midodrine as pulse steroids helped significantly with his adrenal insufficiency # cardiomyopathy -echocardiogram on 08/16/2021 showed LVEF 40-45%, normal diastolic dysfunction. Hypokinetic anterior wall inferior septal wall and anterior septal wall. He is status post CABG at [facility]. # CABG -recent within the last month. [place] removed -continue Crestor, aspirin Diet: Diet advanced to regular with thin liquids DVT prophylaxis: Lovenox GI prophylaxis: Pepcid Code status: Full code Disposition: Med tele, PT/OT Subjective Date/time seen: 09/13/21 17:16 Interval history: 09/11/2021: Pt seen this a.m.; labs, vs, diagnostic reports, consult notes reviewed; pt is insisting to be discharged; discussed with him current clinical status, however he still wants to leave AMA 09/12/2021: Patient seen examined. He passed a swallow study and advanced to regular diet. On the last physical therapy evaluation he was doing poorly only seen on edge of bed. I discussed with employment case manager hopefully we can have re-evaluation as he is clinically doing much better. The pulse steroids are helping with his electrolytes and energy level. Renal function about the same. Patient denies fever, chills, nausea, vomiting diarrhea, chest pain, shortness of breath. 09/13/2021: pt seen this a.m; overall pt is progressing well clinically; found with generalized weakness today; no new complaints Review of Systems Review of Systems: All systems reviewed & are unremarkable except as noted in HPI and below Exam Const: General: no acute distress, alert and awake Orientation/consciousness: oriented to person HENMT: Head: normocephalic and atraumatic Ears: hearing grossly normal bilaterally and external ears normal Face and sinus: face symmetric Mouth: Yes dry mucous membranes Eyes: Pupils: Equal, round and reactive pupils present EOM: EOMs intact bilaterally Neck: Neck: full ROM, trachea midl
[2021-09-14] VITALS (10 sets, daily range): BP systolic 153–187; BP diastolic 80–109; PULSE 71–91; RESP 16–18; TEMP 36.6–37.2; O2SAT 91–100
[2021-09-14] MEDS: IPRATROPIUM BR 0.02% INH SOLN 0.5 MG/2.5 ML VIAL INHALATION (01:44)
[2021-09-14] MEDS: ALBUTEROL SULFATE NEB 2.5 MG/0.5 ML INH INHALATION (01:44)
--- NOTE | 2021-09-14 06:50 | PM.PNNEP ---
Progress Note: A&P Assessment and Plan (1) Hyponatremia: Code(s): E87.1 - Hypo-osmolality and hyponatremia Status: Acute Assessment and Plan: Hyponatremia most likely due to adrenal insufficiency. urine electrolytes are non prerenal SPEP, UPEP, serum/urine osmolality pending TSH okay Cortisol level low and Cortrosyn stim is abnormal. Acth is low. 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 He will need to see [place] [facility]. Sodium level pending. if better we can stop fluid restriction and watch (2) ROSHAN (acute kidney injury): Code(s): N17.9 - Acute kidney failure, unspecified Status: Acute Assessment and Plan: Acute kidney injury Renal ultrasound is unremarkable. Urine electrolytes done yesterday off diuretics are not especially pre renal. Blood pressure is better. creatinine pending (3) Hypercapnic respiratory failure: Qualifiers: Chronicity: unspecified Qualified Code(s): J96.92 - Respiratory failure, unspecified with hypercapnia Code(s): J96.92 - Respiratory failure, unspecified with hypercapnia Status: Acute Assessment and Plan: resolving Breathing looks pretty good. Pulmonary following (4) Bilateral pleural effusion: Code(s): J90 - Pleural effusion, not elsewhere classified Status: Acute Assessment and Plan: pulmonary is on the case (5) Anemia: Code(s): D64.9 - Anemia, unspecified Status: Acute Assessment and Plan: probably due to ROSHAN and acute illness did drop earlier in hospital stay - s/p PRBC transfusion Hemoglobin 9.2 lastchec k (6) Hyperkalemia: Code(s): E87.5 - Hyperkalemia Status: Acute Assessment and Plan: Resolved (7) Pituitary tumor: Code(s): D49.7 - Neoplasm of unspecified behavior of endocrine glands and other parts of nervous system Status: Acute Assessment and Plan: Unclear what the nature of that pituitary tumor is. He will need tertiary care center to figure this out but he needs to get better 1st. TSH is normal. Acth is low FSH is pending With steroids, Blood pressure is better, sodium better, potassium better. Working on his energy levels. Subjective Date/time seen: 09/14/21 06:50 Interval history: Angel Luis is comfortable in bed. No complaints. thirsty and wants more fluid. labs not back yet. if sodium better we can do this. Exam Narrative: WDWN in NAD skin no rash head ncat lungs clear bilaterally cor reg no rub abd BS+ nontender and soft ext no edema or cyanosis.. Objective Data Vital Signs Vital Signs: Vital Signs - 24 hr 09/13/21 07:33 09/13/21 08:00 09/13/21 08:03 Temperature 36.8 C Pulse Rate 71 66 69 Respiratory Rate 16 16 18 Blood Pressure 165/88 H Pulse Oximetry 94 97 09/13/21 08:04 09/13/21 08:18 09/13/21 11:58 Temperature 36.6 C Pulse Rate 70 55 L Respiratory Rate 16 Blood Pressure 133/66 Pulse Oximetry 95 92 09/13/21 14:10 09/13/21 14:17 09/13/21 15:54 Temperature 36.4 C L Pulse Rate 72 73 67 Respiratory Rate 18 18 16 Blood Pressure 134/6 L Pulse Oximetry 97 09/13/21 19:14 09/13/21 20:00 09/13/21 20:18 Temperature 37.0 C Pulse Rate 67 78 66 Respiratory Rate 16 16 18 Blood Pressure 153/70 H Pulse Oximetry 97 99 96 09/13/21 20:22 09/14/21 00:00 09/14/21 01:46 Temperature 36.6 C Pulse Rate 67 74 71 Respiratory Rate 18 18 18 Blood Pressure 153/80 H Pulse Oximetry 98 09/14/21 01:53 09/14/21 04:00 Temperature 36.9 C Pulse Rate 71 76 Respiratory Rate 18 16 Blood Pressure 156/81 H Pulse Oximetry 99 Intake/Output Intake/Output: Intake & Output 09/11/21 09/12/21 09/13/21 09/14/21 23:59 23:59 23:59 23:59 Intake Total 730 1380 1260 390 Output Total 850 700 950 550 Balance -120 680 310 -160 Meds/Results Medications: Active Medications Generic Name Dos
[2021-09-14] MEDS: ASPIRIN 81 MG CHEWABLE TABLET PO (07:59)
[2021-09-14] MEDS: ROSUVASTATIN 10 MG TABLET PO (07:59)
[2021-09-14] MEDS: predniSONE 5 MG TABLET PO (07:59)
[2021-09-14] MEDS: METOPROLOL SUCCINATE EXT REL 50 MG TABCR PO (08:00)
[2021-09-14] MEDS: MEGESTROL ACETATE (*CHEMO) 20 MG TABLET PO (08:00)
[2021-09-14] MEDS: LIDOCAINE 5% PATCH 1 PATCH TRANSDERM (08:00)
[2021-09-14] MEDS: ENOXAPARIN 40 MG/0.4 ML SYRINGE SUB-Q (08:00)
[2021-09-14] MEDS: FAMOTIDINE 20 MG TABLET FEED TUBE ×2 (08:01→20:09)
[2021-09-14 08:19] LABS: Hematocrit 32.8 % (42.0-52.0); Hemoglobin 10.4 g/dL (14.0-18.0); Mean Corpuscular HGB Conc 31.7 g/dl (32-36); Mean Corpuscular Hemoglobin 28.8 pg (26-34); Mean Corpuscular Volume 90.9 fl (80-100); Mean Platelet Volume 8.8 fl (7.4-10.4); Platelet Count Result 198 k/mm3 (150-375); Red Blood Count 3.61 M/mm3 (4.6-6.20); Red Cell Distribution Width 14.5 % (11.5-14.5)
[2021-09-14 08:27] LABS: Anion Gap 12 mmol/L (8-16); Blood Urea Nitrogen 34 mg/dL (9-20); Calcium 8.6 mg/dL (8.4-10.2); Carbon Dioxide 21 mmol/L (22-30); Chloride 106 mmol/L (98-107); Estimated CRCL calculation 32 ml/min; Estimated Glomerular Filt Rate 38; Glucose 85 mg/dL (65-110); Phosphorus 3.6 mg/dL (2.5-4.5); Potassium 3.4 mmol/L (3.4-5.0); Sodium 139 mmol/L (137-145)
--- NOTE | 2021-09-14 10:20 | PM.IMPN ---
Progress Note: A&P Assessment and Plan (1) Adrenal insufficiency: Code(s): E27.40 - Unspecified adrenocortical insufficiency Status: Acute (2) Pituitary tumor: Code(s): D49.7 - Neoplasm of unspecified behavior of endocrine glands and other parts of nervous system Status: Acute (3) Hyperkalemia: Code(s): E87.5 - Hyperkalemia Status: Acute Assessment and Plan: Mild K+ 5.2 Nephrology following Repeat labs in a.m. (4) Nausea & vomiting: Code(s): R11.2 - Nausea with vomiting, unspecified Status: Acute Assessment and Plan: Pt had been receiving tube feedings Will start clears and ADAT Monitor Additional Plan # adrenal insufficiency # hyponatremia # hyperkalemia -likely adrenal insufficiency, improving after steroid pulse dose, last day today (day 3 of 3 hydrocortisone) -brain MRI: 1.7 cm mass sella and clivus -continue fluid restriction 1500 cc, sodium improved to 136 09/12/2021 -hyperkalemia resolved down to 4.0 after couple doses of Kayexalate overt last couple days -s/p x3 days of hydrocortisone pulse steroids, continue 5 mg prednisone daily -Repeat BMP in a.m. # acute kidney injury -with hyperkalemia, will trend creatinine -lisinopril held -creatinine 1.8 today # debility -patient needs extensive PT, OT, up to chair, incentive spirometer -patient started Megace at home # dysphagia -status post intubation, now resolved -tolerating regular diet # pituitary tumor -patient will need 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 He had received 2 units of packed red blood cell in total -he was not stable for GI evaluation, now appears to be doing well # septic shock secondary to ventilator associated pneumonia resolved -completed 10 days vancomycin aztreonam 09/02, normal antibiotics indicated -cultures from 08/19 and 08 21 negative in blood, urine, and sputum -stopping midodrine as pulse steroids helped significantly with his adrenal insufficiency # cardiomyopathy -echocardiogram on 08/16/2021 showed LVEF 40-45%, normal diastolic dysfunction. Hypokinetic anterior wall inferior septal wall and anterior septal wall. He is status post CABG at [facility]. # CABG -recent within the last month. Dianne removed -continue Crestor, aspirin Diet: Diet advanced to regular with thin liquids DVT prophylaxis: Lovenox GI prophylaxis: Pepcid Code status: Full code Disposition: Med tele, PT/OT Subjective Date/time seen: 09/14/21 10:20 Interval history: 09/11/2021: Pt seen this a.m.; labs, vs, diagnostic reports, consult notes reviewed; pt is insisting to be discharged; discussed with him current clinical status, however he still wants to leave AMA 09/12/2021: Patient seen examined. He passed a swallow study and advanced to regular diet. On the last physical therapy evaluation he was doing poorly only seen on edge of bed. I discussed with binder caser hopefully we can have re-evaluation as he is clinically doing much better. The pulse steroids are helping with his electrolytes and energy level. Renal function about the same. Patient denies fever, chills, nausea, vomiting diarrhea, chest pain, shortness of breath. 09/13/2021: pt seen this a.m; overall pt is progressing well clinically; found with generalized weakness today; no new complaints 09/14/2021: pt seen and examined; no acute events overnight; he denies any CP, SOB. He does endorse some nausea Review of Systems Review of Systems: All systems reviewed & are unremarkable except as noted in HPI and below Exam Const: General: no acute distress, alert and awake Orientation/consciousness: oriented to person HENMT: Head: normocephalic and atraumatic Ears: hearing grossly normal bilaterally and external ears normal Face and sinus: face symmetric Mouth: Yes dry mucous membranes Eyes: Pupils: Equal, round and re
[2021-09-14 10:21] LABS: Glucose Point of Care 77 mg/dl (65-105)
--- NOTE | 2021-09-14 10:46 | PCPTNOTE ---
Attempted to see patient for PT at this time, however patient refused. Patient reported his chest and stomach hurts right now and does not want to get up. Educated patient on the importance of therapy, patient continued to refuse.
--- NOTE | 2021-09-14 10:49 | PCRCNOTE ---
Window of time for administration has passed. See next scheduled administration.
--- NOTE | 2021-09-14 11:35 | PCOTNOTE ---
Attempted to see patient this am, however patient refused due to stomach ache all morning.
[2021-09-14 11:46] LABS: Glucose Point of Care 84 mg/dl (65-105)
[2021-09-14 16:54] LABS: Glucose Point of Care 99 mg/dl (65-105)
[2021-09-14] MEDS: METOPROLOL TARTRATE INJ 5 MG/5 ML VIAL IV PUSH (21:22)
[2021-09-15] VITALS (11 sets, daily range): BP systolic 91–178; BP diastolic 52–106; PULSE 69–101; RESP 16–24; TEMP 36.5–37.9; O2SAT 90–96
[2021-09-15] MEDS: IPRATROPIUM BR 0.02% INH SOLN 0.5 MG/2.5 ML VIAL INHALATION (00:48)
[2021-09-15] MEDS: ALBUTEROL SULFATE NEB 2.5 MG/0.5 ML INH INHALATION (00:48)
[2021-09-15 07:16] LABS: FSH 0.8 mIU/mL (1.6-8.0)
[2021-09-15 07:42] LABS: Hemoglobin 12.1 g/dL (14.0-18.0); Mean Corpuscular HGB Conc 31.8 g/dl (32-36); Mean Corpuscular Hemoglobin 28.9 pg (26-34); Mean Corpuscular Volume 90.9 fl (80-100); Mean Platelet Volume 9.1 fl (7.4-10.4); Platelet Count Result 268 k/mm3 (150-375); Red Blood Count 4.18 M/mm3 (4.6-6.20); Red Cell Distribution Width 14.6 % (11.5-14.5); White Blood Count 7.7 K/mm3 (4.5-10.0)
[2021-09-15 07:58] LABS: Anion Gap 15 mmol/L (8-16); Blood Urea Nitrogen 39 mg/dL (9-20); Calcium 8.4 mg/dL (8.4-10.2); Carbon Dioxide 15 mmol/L (22-30); Chloride 105 mmol/L (98-107); Estimated CRCL calculation 27 ml/min; Estimated Glomerular Filt Rate 32; Glucose 68 mg/dL (65-110); Potassium 4.1 mmol/L (3.4-5.0); Sodium 135 mmol/L (137-145)
[2021-09-15 08:00] LABS: Glucose Point of Care 68 mg/dl (65-105)
[2021-09-15 08:11] LABS: Glucose Point of Care 73 mg/dl (65-105)
[2021-09-15] MEDS: LIDOCAINE 5% PATCH 1 PATCH TRANSDERM (08:17)
[2021-09-15] MEDS: ENOXAPARIN 40 MG/0.4 ML SYRINGE SUB-Q (08:18)
[2021-09-15] MEDS: FAMOTIDINE 20 MG TABLET FEED TUBE ×2 (08:19→19:51)
[2021-09-15] MEDS: ASPIRIN 81 MG CHEWABLE TABLET PO (08:19)
[2021-09-15] MEDS: ROSUVASTATIN 10 MG TABLET PO (08:19)
[2021-09-15] MEDS: predniSONE 5 MG TABLET PO (08:19)
[2021-09-15] MEDS: MEGESTROL ACETATE (*CHEMO) 20 MG TABLET PO (08:19)
[2021-09-15] MEDS: METOPROLOL SUCCINATE EXT REL 50 MG TABCR PO (08:19)
--- NOTE | 2021-09-15 09:35 | PM.IMPN ---
Progress Note: A&P Assessment and Plan (1) Adrenal insufficiency: Code(s): E27.40 - Unspecified adrenocortical insufficiency Status: Acute (2) Pituitary tumor: Code(s): D49.7 - Neoplasm of unspecified behavior of endocrine glands and other parts of nervous system Status: Acute (3) Hyperkalemia: Code(s): E87.5 - Hyperkalemia Status: Acute Assessment and Plan: Resolved Nephrology following Repeat labs in a.m. (4) Nausea & vomiting: Code(s): R11.2 - Nausea with vomiting, unspecified Status: Acute Assessment and Plan: Pt had been receiving tube feedings Will start clears and ADAT Monitor Additional Plan # adrenal insufficiency # hyponatremia # hyperkalemia -likely adrenal insufficiency, improving after steroid pulse dose, last day today (day 3 of 3 hydrocortisone) -brain MRI: 1.7 cm mass sella and clivus -continue fluid restriction 1500 cc, sodium improved to 136 09/12/2021 -hyperkalemia resolved down to 4.0 after couple doses of Kayexalate overt last couple days -s/p x3 days of hydrocortisone pulse steroids, continue 5 mg prednisone daily -Repeat BMP in a.m. 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 He had received 2 units of packed red blood cell in total -he was not stable for GI evaluation, now appears to be doing well # septic shock secondary to ventilator associated pneumonia resolved -completed 10 days vancomycin aztreonam 09/02, normal antibiotics indicated -cultures from 08/19 and 08 21 negative in blood, urine, and sputum -stopping midodrine as pulse steroids helped significantly with his adrenal insufficiency # cardiomyopathy -echocardiogram on 08/16/2021 showed LVEF 40-45%, normal diastolic dysfunction. Hypokinetic anterior wall inferior septal wall and anterior septal wall. He is status post CABG at [facility]. # CABG -recent within the last month. Dianne removed -continue Crestor, aspirin Diet: Diet advanced to regular with thin liquids DVT prophylaxis: Lovenox GI prophylaxis: Pepcid Code status: Full code Disposition: Med tele, PT/OT, rehab at d/c Subjective Date/time seen: 09/15/21 09:35 Interval history: 09/11/2021: Pt seen this a.m.; labs, vs, diagnostic reports, consult notes reviewed; pt is insisting to be discharged; discussed with him current clinical status, however he still wants to leave AMA 09/12/2021: Patient seen examined. He passed a swallow study and advanced to regular diet. On the last physical therapy evaluation he was doing poorly only seen on edge of bed. I discussed with case management director hopefully we can have re-evaluation as he is clinically doing much better. The pulse steroids are helping with his electrolytes and energy level. Renal function about the same. Patient denies fever, chills, nausea, vomiting diarrhea, chest pain, shortness of breath. 09/13/2021: pt seen this a.m; overall pt is progressing well clinically; found with generalized weakness today; no new complaints 09/14/2021: pt seen and examined; no acute events overnight; he denies any CP, SOB. He does endorse some nausea 09/15/2021: pt seen and examined this a.m.; complains of being tired; looks weak; denies any dizziness, CP, SOB, N/V/D Review of Systems Review of Systems: All systems reviewed & are unremarkable except as noted in HPI and below Exam Const: General: no acute distress, alert and awake Orientation/consciousness: oriented to person HENMT: Head: normocephalic and atraumatic Ears: hearing grossly normal boed
[2021-09-15 11:59] LABS: Glucose Point of Care 92 mg/dl (65-105)
--- NOTE | 2021-09-15 12:27 | PC.NURSE ---
pt has a very decreased appetite. refusing to eat all meals, but does drink liquids occasionally. spoke with dietitian about starting pt on supplemental drinks like ensure. will continue to follow
--- NOTE | 2021-09-15 12:39 | PCNFU ---
Nutrition Follow-Up Complete: Inadequate Oral Intake as related to mechanical ventilation as evidenced by NPO. Goal: Meet estimanted Nutritional needs Pt is not progressing towards goal Pt current nutrition is regular diet Last recorded weight is 59 kg. Bowel Motility: +BM 09/13/21 Labs Reviewed: hgb 12.1, hct 38.0, Na 135, GFR 32, BUN 39, Cr 2.1 Meds Noted: albuterol, lovenox, pepcid, atrovent, megace, toprol XL, prednisone, crestor Skin: coccyx maceration, medial chest incision Additional Notes: Spoke with nursing who reports that pt is not eating. Nursing reports that pt will drink apple juice. Per EMR, pt is on a regular diet and reported intake is 10%, 95%, and 0% x3. RDN added orders for dietary supplement of ensure clear apple TID to provide an additional 240kcal and 8g of protein to increase caloric intake. Pt remains on a fluid restriction at this time, spoke with physician on staff, Hoda, via phone who agrees with addition of dietary supplement. Agree with diet orders at this time. Will continue to follow. Will monitor labs, medication, wt, and reported intake every 3 days
--- NOTE | 2021-09-15 14:56 | PCPTNOTE ---
Attempted PT this afternoon, however patient unable to stay awake and participate. Patient opens eyes in response to name but quickly falls back to sleep. HR: 75, SPO2: 93% on room air. Will continue PT per plan of care as patient tolerates.
[2021-09-15 18:06] LABS: Glucose Point of Care 91 mg/dl (65-105)
--- NOTE | 2021-09-15 18:28 | PM.PNNEP ---
Progress Note: A&P Assessment and Plan (1) Hyponatremia: Code(s): E87.1 - Hypo-osmolality and hyponatremia Status: Acute Assessment and Plan: Hyponatremia most likely due to adrenal insufficiency. urine electrolytes are non prerenal SPEP, UPEP, serum/urine osmolality pending TSH okay Cortisol level low and Cortrosyn stim is abnormal. Acth is low. 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 He will need to see [place] [facility]. Sodium level was normal yesterday so fluid restriction was discontinued. Today the sodium is down to 135. I discussed with him that he should drink only of thirsty and not if he is not. (2) ROSHAN (acute kidney injury): Code(s): N17.9 - Acute kidney failure, unspecified Status: Acute Assessment and Plan: Acute kidney injury Renal ultrasound is unremarkable. Urine electrolytes done yesterday off diuretics are not especially pre renal. Blood pressures mildly stopped. Creatinine is about the same. (3) Hypercapnic respiratory failure: Qualifiers: Chronicity: unspecified Qualified Code(s): J96.92 - Respiratory failure, unspecified with hypercapnia Code(s): J96.92 - Respiratory failure, unspecified with hypercapnia Status: Acute Assessment and Plan: resolving Breathing looks pretty good. Pulmonary following (4) Bilateral pleural effusion: Code(s): J90 - Pleural effusion, not elsewhere classified Status: Acute Assessment and Plan: pulmonary is on the case (5) Anemia: Code(s): D64.9 - Anemia, unspecified Status: Acute Assessment and Plan: probably due to ROSHAN and acute illness did drop earlier in hospital stay - s/p PRBC transfusion Hemoglobin Up to 12 (6) Hyperkalemia: Code(s): E87.5 - Hyperkalemia Status: Acute Assessment and Plan: Resolved (7) Pituitary tumor: Code(s): D49.7 - Neoplasm of unspecified behavior of endocrine glands and other parts of nervous system Status: Acute Assessment and Plan: Unclear what the nature of that pituitary tumor is. He will need tertiary care center to figure this out but he needs to get better 1st. TSH is normal. Acth is low FSH is pending With steroids, Blood pressure is better, sodium better, potassium better. Working on his energy levels. Subjective Date/time seen: 09/15/21 18:28 Interval history: Angel Luis is comfortable in bed. Tired. No longer complaining of thirst he is not eating very well Exam Narrative: WDWN in NAD skin no rash or subcu nodules head ncat lungs clear to auscultation cor reg no rub abd BS+ nontender and soft ext no edema Objective Data Vital Signs Vital Signs: Vital Signs - 24 hr 09/14/21 20:00 09/14/21 21:22 09/15/21 00:00 Temperature 37.2 C 37.9 C H Pulse Rate 91 86 100 Respiratory Rate 16 22 H Blood Pressure 187/109 H 178/106 H Pulse Oximetry 98 90 09/15/21 00:48 09/15/21 01:01 09/15/21 01:33 Temperature Pulse Rate 88 81 101 H Respiratory Rate 18 18 23 H Blood Pressure 148/87 H Pulse Oximetry 92 09/15/21 04:00 09/15/21 08:00 09/15/21 08:19 Temperature 37.2 C 37.4 C Pulse Rate 96 97 92 Respiratory Rate 18 18 Blood Pressure 133/90 126/83 Pulse Oximetry 92 93 09/15/21 12:02 09/15/21 12:52 09/15/21 15:54 Temperature 36.6 C 36.7 C 36.5 C Pulse Rate 73 80 74 Respiratory Rate 24 H 19 Blood Pressure 100/64 91/52 L Pulse Oximetry 93 93 95 Intake/Output Intake/Output: Intake & Output 09/12/21 09/13/21 09/14/21 09/15/21 23:59 23:59 23:59 23:59 Intake Total 1380 1260 750 400 Output Total 738 559 5931 750 Balance 680 910 -375 350 Meds/Results Medications: Active Medications Generic Name Dose Route Start Last Admin Trade Name Freq PRN Reason Stop Dose Admin Acetaminophen 650 mg 08/27/21 17:52 09/02/21 11:58 Acetaminophen 325 Mg Tab
[2021-09-16] VITALS (9 sets, daily range): BP systolic 74–127; BP diastolic 43–67; PULSE 63–74; RESP 16–20; TEMP 36.1–36.9; O2SAT 92–100
[2021-09-16 01:20] LABS: Glucose Point of Care 72 mg/dl (65-105)
[2021-09-16] MEDS: ONDANSETRON INJ 4 MG/2 ML VIAL IV PUSH (02:11)
[2021-09-16] MEDS: SODIUM CHLORIDE 0.9% IV 500 ML IV CONT (06:24)
[2021-09-16 07:01] LABS: Glucose Point of Care 74 mg/dl (65-105)
[2021-09-16 08:10] LABS: Glucose Point of Care 73 mg/dl (65-105)
[2021-09-16] MEDS: ROSUVASTATIN 10 MG TABLET PO (08:30)
[2021-09-16] MEDS: predniSONE 5 MG TABLET PO (08:30)
[2021-09-16] MEDS: ASPIRIN 81 MG CHEWABLE TABLET PO (08:30)
[2021-09-16] MEDS: MEGESTROL ACETATE (*CHEMO) 20 MG TABLET PO (08:30)
[2021-09-16] MEDS: SODIUM BICARBONATE TAB 650 MG TABLET 1300 MG PO ×2 (08:30→17:15)
[2021-09-16] MEDS: ENOXAPARIN 40 MG/0.4 ML SYRINGE SUB-Q (08:31)
[2021-09-16] MEDS: FAMOTIDINE 20 MG TABLET FEED TUBE ×2 (08:31→21:21)
[2021-09-16] MEDS: LIDOCAINE 5% PATCH 1 PATCH TRANSDERM (08:31)
--- NOTE | 2021-09-16 10:17 | PCOTNOTE ---
Attempted OT treatment this AM. At this time patient is adamantly declining any/all activity, stating I'm tired and I don't feel like it. Will continue to attempt.
--- NOTE | 2021-09-16 11:14 | PM.PNNEP ---
Progress Note: A&P Assessment and Plan (1) Hyponatremia: Code(s): E87.1 - Hypo-osmolality and hyponatremia Status: Acute Assessment and Plan: Hyponatremia most likely due to adrenal insufficiency. urine electrolytes are non prerenal SPEP, UPEP, serum/urine osmolality pending TSH okay Cortisol level low and Cortrosyn stim is abnormal. Acth is low. 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 He will need to see [place] [facility]. Sodium level pending for today. (2) ROSHAN (acute kidney injury): Code(s): N17.9 - Acute kidney failure, unspecified Status: Acute Assessment and Plan: Acute kidney injury Renal ultrasound is unremarkable. Urine electrolytes not especially pre renal. Blood pressure is good Creatinine is pending He looks weaker. await labs. His urine is cloudy. Will check a UA and culture (3) Hypercapnic respiratory failure: Qualifiers: Chronicity: unspecified Qualified Code(s): J96.92 - Respiratory failure, unspecified with hypercapnia Code(s): J96.92 - Respiratory failure, unspecified with hypercapnia Status: Acute Assessment and Plan: resolving Breathing looks pretty good. Pulmonary following (4) Bilateral pleural effusion: Code(s): J90 - Pleural effusion, not elsewhere classified Status: Acute Assessment and Plan: pulmonary is on the case (5) Anemia: Code(s): D64.9 - Anemia, unspecified Status: Acute Assessment and Plan: probably due to ROSHAN and acute illness did drop earlier in hospital stay - s/p PRBC transfusion Hemoglobin Up to 12 (6) Hyperkalemia: Code(s): E87.5 - Hyperkalemia Status: Acute Assessment and Plan: Resolved (7) Pituitary tumor: Code(s): D49.7 - Neoplasm of unspecified behavior of endocrine glands and other parts of nervous system Status: Acute Assessment and Plan: Unclear what the nature of that pituitary tumor is. He will need tertiary care center to figure this out but he needs to get better 1st. TSH is normal. Acth is low FSH is pending With steroids, Blood pressure is better, sodium better, potassium better. Working on his energy levels. Subjective Date/time seen: 09/16/21 11:14 Interval history: Angel Luis is comfortable in bed. He is looking weaker today. Still not eating. Exam Narrative: WDWN in NAD skin no rash or subcu nodules head ncat lungs clear to auscultation cor reg no rub or gallop abd BS+ nontender and soft ext no edema or cyanosis Objective Data Vital Signs Vital Signs: Vital Signs - 24 hr 09/15/21 12:02 09/15/21 12:52 09/15/21 15:54 Temperature 36.6 C 36.7 C 36.5 C Pulse Rate 73 80 74 Respiratory Rate 24 H 19 Blood Pressure 100/64 91/52 L Pulse Oximetry 93 93 95 09/15/21 20:00 09/16/21 00:00 09/16/21 04:00 Temperature 36.6 C 36.4 C L 36.1 C L Pulse Rate 69 69 63 Respiratory Rate 16 16 16 Blood Pressure 91/60 L 100/63 74/43 L Pulse Oximetry 96 94 96 09/16/21 06:12 09/16/21 06:50 09/16/21 07:47 Temperature Pulse Rate 63 Respiratory Rate 18 Blood Pressure 86/58 L 111/63 110/55 L Pulse Oximetry 94 09/16/21 08:00 Temperature 36.2 C L Pulse Rate 67 Respiratory Rate 20 Blood Pressure 105/63 Pulse Oximetry 94 Intake/Output Intake/Output: Intake & Output 09/13/21 09/14/21 09/15/21 09/16/21 23:59 23:59 23:59 23:59 Intake Total 0309 568 1938 1250 Output Total 950 1125 940 250 Balance 310 -676 236 4757 Meds/Results Medications: Active Medications Generic Name Dose Route Start Last Admin Trade Name Gia PRN Reason Stop Dose Admin Acetaminophen 650 mg 08/27/21 17:52 09/02/21 11:58 Acetaminophen 325 Mg Tablet PO 650 mg Q6H PRN Administration Fever > 100.4 Albuterol 2.5 mg 09/14/21 13:12 09/15/21 00:48 Albuterol Sulfate Neb 2.5 Mg/0.5 Ml Inh INHALATION
[2021-09-16 12:18] LABS: Glucose Point of Care 86 mg/dl (65-105)
--- NOTE | 2021-09-16 13:29 | PM.IMPN ---
Progress Note: A&P Assessment and Plan (1) Adrenal insufficiency: Code(s): E27.40 - Unspecified adrenocortical insufficiency Status: Acute (2) Pituitary tumor: Code(s): D49.7 - Neoplasm of unspecified behavior of endocrine glands and other parts of nervous system Status: Acute (3) Hyperkalemia: Code(s): E87.5 - Hyperkalemia Status: Acute Assessment and Plan: Resolved Nephrology following Repeat labs in a.m. (4) Nausea & vomiting: Code(s): R11.2 - Nausea with vomiting, unspecified Status: Acute Assessment and Plan: Pt had been receiving tube feedings Will start clears and ADAT Monitor (5) Abdominal pain: Code(s): R10.9 - Unspecified abdominal pain Status: Acute (6) Person under investigation for COVID-19: Code(s): Z20.822 - Contact with and (suspected) exposure to COVID-19 Status: Acute Additional Plan # adrenal insufficiency # hyponatremia # hyperkalemia -likely adrenal insufficiency, improving after steroid pulse dose, last day today (day 3 of 3 hydrocortisone) -brain MRI: 1.7 cm mass sella and clivus -continue fluid restriction 1500 cc, sodium improved to 136 09/12/2021 -hyperkalemia resolved down to 4.0 after couple doses of Kayexalate overt last couple days -s/p x3 days of hydrocortisone pulse steroids, continue 5 mg prednisone daily -Repeat BMP in a.m. # acute kidney injury -with hyperkalemia, will trend creatinine -lisinopril held -creatinine 1.8-->2.1 on 09/15 # debility -patient needs extensive PT, OT, up to chair, incentive spirometer -patient started Megace at home #abdominal pain CT of A/P-->Gallbladder distention, most likely secondary to fasting. Correlation with physical exam is recommended to exclude acute cholecystitis. Check CMP Check RUQ US #PUI CT of A/P-->Groundglass opacities and septal thickening in right middle lobe and right lower lobe, new from 09/08/2021, consistent with pulmonary edema versus pneumonia. On RA Not vaccinated Check PCR CMP, CBC pending Isolation # dysphagia -status post intubation, now resolved -tolerating regular diet # pituitary tumor -patient will need 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 He had received 2 units of packed red blood cell in total -he was not stable for GI evaluation, now appears to be doing well # septic shock secondary to ventilator associated pneumonia resolved -completed 10 days vancomycin aztreonam 09/02, normal antibiotics indicated -cultures from 08/19 and 08 21 negative in blood, urine, and sputum -stopping midodrine as pulse steroids helped significantly with his adrenal insufficiency # cardiomyopathy -echocardiogram on 08/16/2021 showed LVEF 40-45%, normal diastolic dysfunction. Hypokinetic anterior wall inferior septal wall and anterior septal wall. He is status post CABG at [facility]. # CABG -recent within the last month. Dianne removed -continue Crestor, aspirin Diet: Diet advanced to regular with thin liquids DVT prophylaxis: Lovenox GI prophylaxis: Pepcid Code status: Full code Disposition: Med tele, PT/OT, rehab at d/c Subjective Date/time seen: 09/16/21 13:29 Interval history: 09/11/2021: Pt seen this a.m.; labs, vs, diagnostic reports, consult notes reviewed; pt is insisting to be discharged; discussed with him current clinical status, however he still wants to leave AMA 09/12/2021: Patient seen examined. He passed a swallow study and advanced to regular diet. On the last physical therapy evaluation he was doing poorly only seen on edge of bed. I discussed with welfare case worker hopefully we can have re-evaluation as he is clinically doing much better. The pulse steroids are helping with his electrolytes and energy level. Renal function about the same. Patient denies fever, chills, nausea, vomiting diarrhea, chest pain, shortness of
[2021-09-16 14:27] LABS: Hematocrit 35.2 % (42.0-52.0); Hemoglobin 11.4 g/dL (14.0-18.0); Mean Corpuscular HGB Conc 32.4 g/dl (32-36); Mean Corpuscular Hemoglobin 28.8 pg (26-34); Mean Corpuscular Volume 88.9 fl (80-100); Mean Platelet Volume 8.9 fl (7.4-10.4); Platelet Count Result 206 k/mm3 (150-375); Red Blood Count 3.96 M/mm3 (4.6-6.20); Red Cell Distribution Width 14.5 % (11.5-14.5); White Blood Count 5.6 K/mm3 (4.5-10.0)
[2021-09-16 14:38] LABS: Alanine Aminotransferase 152 U/L (4-50); Albumin Level 3.6 g/dL (3.5-5.1); Alkaline Phosphatase 119 U/L (38-126); Anion Gap 7 mmol/L (8-16); Aspartate Amino Transferase 138 U/L (17-59); Bilirubin,Total 0.3 mg/dL (0.2-1.3); Blood Urea Nitrogen 46 mg/dL (9-20); Carbon Dioxide 20 mmol/L (22-30); Chloride 107 mmol/L (98-107); Estimated CRCL calculation 29 ml/min; Estimated Glomerular Filt Rate 32; Glucose 91 mg/dL (65-110); Potassium 4.5 mmol/L (3.4-5.0); Sodium 134 mmol/L (137-145)
[2021-09-16 16:37] LABS: SARS-CoV-2 RNA PCR Positive
[2021-09-16 17:06] LABS: Glucose Point of Care 81 mg/dl (65-105)
[2021-09-16 21:57] LABS: Glucose Point of Care 72 mg/dl (65-105)
[2021-09-17] VITALS (7 sets, daily range): BP systolic 119–140; BP diastolic 63–85; PULSE 74–90; RESP 14–18; TEMP 36.8–37.2; O2SAT 92–99
[2021-09-17 04:50] LABS: Add Urine Microscopic? YES; Appearance Urine Cloudy (Clear); Bacteria Urine Trace /hpf; Bilirubin Urine Negative (Negative); Blood Urine 1+ (Negative); Color Urine Yellow (Yellow); Glucose Urine UA Negative (Negative); Ketones Urine Negative (Negative); Leukocyte Esterase Ur Negative LEU/UL (Negative); Mucus Urine Rare /lpf; Nitrate Urine Negative (Negative); Protein Urine 1+ mg/dL (Negative); Specific Grav Ur 1.016 (1.001-1.035); Squamous Epithelial Cell Urine Rare /hpf (Few); Urobilinogen Urine Negative mg/dL (<2.0)
[2021-09-17 06:39] LABS: Hematocrit 32.4 % (42.0-52.0); Hemoglobin 10.6 g/dL (14.0-18.0); Mean Corpuscular HGB Conc 32.7 g/dl (32-36); Mean Corpuscular Hemoglobin 28.6 pg (26-34); Mean Corpuscular Volume 87.6 fl (80-100); Mean Platelet Volume 8.8 fl (7.4-10.4); Platelet Count Result 227 k/mm3 (150-375); Red Cell Distribution Width 14.3 % (11.5-14.5); White Blood Count 6.5 K/mm3 (4.5-10.0)
[2021-09-17 06:51] LABS: Albumin Level 3.6 g/dL (3.5-5.1); Anion Gap 12 mmol/L (8-16); Blood Urea Nitrogen 40 mg/dL (9-20); Carbon Dioxide 19 mmol/L (22-30); Chloride 106 mmol/L (98-107); Estimated CRCL calculation 30 ml/min; Estimated Glomerular Filt Rate 34; Glucose 78 mg/dL (65-110); Phosphorus 3.3 mg/dL (2.5-4.5); Potassium 3.9 mmol/L (3.4-5.0); Sodium 137 mmol/L (137-145)
[2021-09-17] MEDS: DEXTROSE 50% 25 GM/50 ML SYRINGE IV PUSH (09:00)
[2021-09-17 09:02] LABS: Glucose Point of Care 75 mg/dl (65-105)
[2021-09-17] MEDS: SODIUM BICARBONATE TAB 650 MG TABLET 1300 MG PO (09:09)
[2021-09-17] MEDS: METOPROLOL SUCCINATE EXT REL 50 MG TABCR PO (09:10)
[2021-09-17] MEDS: FAMOTIDINE 20 MG TABLET FEED TUBE ×2 (09:10→20:56)
[2021-09-17] MEDS: ROSUVASTATIN 10 MG TABLET PO (09:10)
[2021-09-17] MEDS: MEGESTROL ACETATE (*CHEMO) 20 MG TABLET PO (09:11)
[2021-09-17] MEDS: ENOXAPARIN 30 MG/0.3 ML SYRINGE SUB-Q (09:11)
[2021-09-17] MEDS: LIDOCAINE 5% PATCH 1 PATCH TRANSDERM (09:12)
[2021-09-17] MEDS: predniSONE 5 MG TABLET PO (09:12)
[2021-09-17] MEDS: ASPIRIN 81 MG CHEWABLE TABLET PO (09:12)
--- NOTE | 2021-09-17 10:34 | PCPTNOTE ---
Patient refused PT at this time. Patient states I don't feel like doing it now. I educated patient in the importance of participating in therapy and increasing his mobility. Patient has not spent any significant time out of bed and up in chair since his admission due to refusal. Patient's participation in therapy has been limited due to motivation. Patient states he understands and is aware he needs to do therapy but continues to decline. When asked why he would not participate in PT at this time he states I just want to stay in bed. Patient denies having pain, SOB, and dizziness.
--- NOTE | 2021-09-17 11:58 | PCNFU ---
Nutrition Follow-Up Complete: Inadequate Oral Intake as related to mechanical ventilation as evidenced by NPO. Goal: Meet estimated Nutritional needs Pt. is progressing towards goal. No new goal at this time. Pt current nutrition is a regular diet. Last recorded weight is 61.9 kg. recommend re-weighing pt. prior to discharge to assess any significant weight fluctuation. Bowel Motility: + BM 09/17/2021 Labs Reviewed: Hgb 10.6, Hct 32.4, GFR 34, BUN 40, Cr 2.0 Meds Noted: Albuterol, Lovenox, Pepcid, Benzonatate, Atrovent Neb, Lidocaine, Megace, Toprol Xl, Lopressor, Miralax, Prednisone, Crestor Skin: No pressure injuries at this time but pt. does have a coccyx maceration. Additional Notes: Pt. is now COVID positive again so unable to physically speak with him. He has little to no appetite consuming 0-10% of meals. He is on Megace to try and stimulate appetite. Spoke with MD to discuss plan moving forward. Plan is to place a dobhoff and proceed with tube feedings to allow for pt. to receive adequate nutrition. Recommend Nepro with a goal rate of 50 mls per hours over 22 hours per day providing a total of 1980 calories, 89 grams of protein and 640 mls of water with a 30 ml water flush Q4. Will monitor every Monday and Monday once feedings start. Will monitor every 3 days.
--- NOTE | 2021-09-17 12:06 | PCOTNOTE ---
Attempted to see patient this pm, however patient declined all activity at this time including ADLs and functional transfers. Not now. Pt continued to refuse despite encouragement to participate.
[2021-09-17 12:30] LABS: Glucose Point of Care 80 mg/dl (65-105)
--- NOTE | 2021-09-17 14:46 | PM.IMPN ---
Progress Note: A&P Assessment and Plan (1) Adrenal insufficiency: Code(s): E27.40 - Unspecified adrenocortical insufficiency Status: Acute Assessment and Plan: 09/17/2021 Interval history: patient with sella turcica tumor causing adrenal insufficiency and patient has been treated with steroid, also developed hypernatremia seen by loader helper and sodium is trending up, patient with ROSHAN kidney ultrasound is unremarkable his symptoms are improving, however patient is quite weak and fatigue has a poor appetite and not eating much, DW dietitian will order Dobbhoff start the patient on G-tube feeding, patient will benefit consulting neuro multimedia artist for further recommendation. (2) Pituitary tumor: Code(s): D49.7 - Neoplasm of unspecified behavior of endocrine glands and other parts of nervous system Status: Acute (3) Hyperkalemia: Code(s): E87.5 - Hyperkalemia Status: Acute Assessment and Plan: Resolved Nephrology following Repeat labs in a.m. (4) Nausea & vomiting: Code(s): R11.2 - Nausea with vomiting, unspecified Status: Acute Assessment and Plan: Pt had been receiving tube feedings Will start clears and ADAT Monitor (5) Abdominal pain: Code(s): R10.9 - Unspecified abdominal pain Status: Acute (6) Person under investigation for COVID-19: Code(s): Z20.822 - Contact with and (suspected) exposure to COVID-19 Status: Acute Additional Plan # adrenal insufficiency # hyponatremia # hyperkalemia -likely adrenal insufficiency, improving after steroid pulse dose, last day today (day 3 of 3 hydrocortisone) -brain MRI: 1.7 cm mass sella and clivus -continue fluid restriction 1500 cc, sodium improved to 136 09/12/2021 -hyperkalemia resolved down to 4.0 after couple doses of Kayexalate overt last couple days -s/p x3 days of hydrocortisone pulse steroids, continue 5 mg prednisone daily -Repeat BMP in a.m. # acute kidney injury -with hyperkalemia, will trend creatinine -lisinopril held -creatinine 1.8-->2.1 on 09/15 # debility -patient needs extensive PT, OT, up to chair, incentive spirometer -patient started Megace at home #abdominal pain CT of A/P-->Gallbladder distention, most likely secondary to fasting. Correlation with physical exam is recommended to exclude acute cholecystitis. Check CMP Check RUQ US #PUI CT of A/P-->Groundglass opacities and septal thickening in right middle lobe and right lower lobe, new from 09/08/2021, consistent with pulmonary edema versus pneumonia. On RA Not vaccinated Check PCR CMP, CBC pending Isolation # dysphagia -status post intubation, now resolved -tolerating regular diet # pituitary tumor -patient will need 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 He had received 2 units of packed red blood cell in total -he was not stable for GI evaluation, now appears to be doing well # septic shock secondary to ventilator associated pneumonia resolved -completed 10 days vancomycin aztreonam 09/02, normal antibiotics indicated -cultures from 08/19 and 08 21 negative in blood, urine, and sputum -stopping midodrine as pulse steroids helped significantly with his adrenal insufficiency # cardiomyopathy -echocardiogram on 08/16/2021 showed LVEF 40-45%, normal diastolic dysfunction. Hypokinetic anterior wall inferior septal wall and anterior septal wall. He is status post CABG at [facility]. # CABG -recent within the last month. [place]ian[place] removed -continue Crestor, aspirin Diet: Diet advanced to regular with thin liquids DVT prophylaxis: Lovenox GI prophylaxis: Pepcid Code status: Full code Disposition: Med tele, PT/OT, rehab at d/c Subjective Date/time seen: 09/17/21 14:47 Interval history: 09/11/2021: Pt seen this a.m.; labs, vs, diagnostic reports, consult notes reviewed; pt is insisting to be dis
--- NOTE | 2021-09-17 15:14 | PM.PNNEP ---
Progress Note: A&P Assessment and Plan (1) Hyponatremia: Code(s): E87.1 - Hypo-osmolality and hyponatremia Status: Acute Assessment and Plan: Hyponatremia most likely due to adrenal insufficiency. resolved. (2) ROSHAN (acute kidney injury): Code(s): N17.9 - Acute kidney failure, unspecified Status: Acute Assessment and Plan: Acute kidney injury Renal ultrasound is unremarkable. Urine electrolytes not especially pre renal. Blood pressure is good Creatinine is still high a t 2.0 (3) Hypercapnic respiratory failure: Qualifiers: Chronicity: unspecified Qualified Code(s): J96.92 - Respiratory failure, unspecified with hypercapnia Code(s): J96.92 - Respiratory failure, unspecified with hypercapnia Status: Acute Assessment and Plan: resolving Breathing looks pretty good. Pulmonary following COVID test postivie, so now on isolation. If he needs dexamethazone he will also need florinef 0.1mg daily (4) Bilateral pleural effusion: Code(s): J90 - Pleural effusion, not elsewhere classified Status: Acute Assessment and Plan: pulmonary is on the case (5) Anemia: Code(s): D64.9 - Anemia, unspecified Status: Acute Assessment and Plan: probably due to ROSHAN and acute illness did drop earlier in hospital stay - s/p PRBC transfusion Hemoglobin above 10 (6) Hyperkalemia: Code(s): E87.5 - Hyperkalemia Status: Acute Assessment and Plan: Resolved (7) Pituitary tumor: Code(s): D49.7 - Neoplasm of unspecified behavior of endocrine glands and other parts of nervous system Status: Acute Assessment and Plan: Unclear what the nature of that pituitary tumor is. He will need tertiary care center to figure this out but he needs to get better 1st. TSH is normal. Acth is low FSH is pending With steroids, Blood pressure is better, sodium better, potassium better. Working on his energy levels. Subjective Date/time seen: 09/17/21 15:14 Interval history: Angel Luis is lying in bed. withdrawn. Still not eating. to get a dobhoff soon Exam Narrative: WDWN in NAD skin no rash or subcu nodules head ncat lungs clear to auscultation cor reg no rub abd BS+ nontender ext no edema or cyanosis Objective Data Vital Signs Vital Signs: Vital Signs - 24 hr 09/16/21 16:00 09/16/21 20:00 09/17/21 00:00 Temperature 36.9 C 36.9 C 36.9 C Pulse Rate 67 74 80 Respiratory Rate 18 18 18 Blood Pressure 127/65 124/67 119/69 Pulse Oximetry 100 95 92 09/17/21 04:00 09/17/21 08:00 09/17/21 09:10 Temperature 36.9 C 37.1 C Pulse Rate 85 87 90 Respiratory Rate 18 16 Blood Pressure 140/77 138/76 Pulse Oximetry 94 95 09/17/21 14:00 Temperature 37.2 C Pulse Rate 83 Respiratory Rate 14 Blood Pressure 125/63 Pulse Oximetry 97 Intake/Output Intake/Output: Intake & Output 09/14/21 09/15/21 09/16/21 09/17/21 23:59 23:59 23:59 23:59 Intake Total 750 1200 2470 Output Total 1125 940 750 350 Balance -636 314 0357 -350 Meds/Results Medications: Active Medications Generic Name Dose Route Start Last Admin Trade Name Freq PRN Reason Stop Dose Admin Acetaminophen 650 mg 08/27/21 17:52 09/02/21 11:58 Acetaminophen 325 Mg Tablet PO 650 mg Q6H PRN Administration Fever > 100.4 Albuterol 2.5 mg 09/14/21 13:12 09/15/21 00:48 Albuterol Sulfate Neb 2.5 Mg/0.5 Ml Inh INHALATION 2.5 mg Q6HRT PRN Administration Shortness Of Breath Or Wheezing Aspirin 81 mg 08/20/21 08:00 09/17/21 09:12 Aspirin 81 Mg Chewable Tablet PO 81 mg DAILY@0800 JOSAFAT Administration Benzocaine 1 lozenge 09/03/21 10:28 09/04/21 08:28 Benzocaine/Menthol (*Bkc) 18 Ea Lozenge PO 1 lozenge PRN PRN Administration Sore Throat Benzonatate 200 mg 09/03/21 10:26 09/06/21 00:48 Benzonatate 100 Mg Capsule PO 200 mg Q8HR PRN
[2021-09-18] VITALS (7 sets, daily range): BP systolic 103–158; BP diastolic 64–85; PULSE 54–77; RESP 16–20; TEMP 36.1–37.4; O2SAT 90–98
[2021-09-18 08:12] LABS: Alanine Aminotransferase 122 U/L (4-50); Albumin Level 3.8 g/dL (3.5-5.1); Alkaline Phosphatase 149 U/L (38-126); Anion Gap 10 mmol/L (8-16); Aspartate Amino Transferase 75 U/L (17-59); Bilirubin,Total 0.5 mg/dL (0.2-1.3); Blood Urea Nitrogen 30 mg/dL (9-20); Calcium 8.5 mg/dL (8.4-10.2); Carbon Dioxide 21 mmol/L (22-30); Chloride 107 mmol/L (98-107); Estimated CRCL calculation 37 ml/min; Estimated Glomerular Filt Rate 44; Glucose 67 mg/dL (65-110); Magnesium 2.1 mg/dL (1.6-2.3); Potassium 4.2 mmol/L (3.4-5.0); Sodium 138 mmol/L (137-145)
[2021-09-18 08:38] LABS: Glucose Point of Care 67 mg/dl (65-105)
[2021-09-18 08:39] LABS: Glucose Point of Care 71 mg/dl (65-105)
[2021-09-18 08:40] LABS: Hemoglobin 11.1 g/dL (14.0-18.0); Mean Corpuscular HGB Conc 31.7 g/dl (32-36); Mean Corpuscular Hemoglobin 28.4 pg (26-34); Mean Corpuscular Volume 89.5 fl (80-100); Mean Platelet Volume 9.2 fl (7.4-10.4); Platelet Count Result 244 k/mm3 (150-375); Red Blood Count 3.91 M/mm3 (4.6-6.20); Red Cell Distribution Width 14.3 % (11.5-14.5); White Blood Count 6.2 K/mm3 (4.5-10.0)
--- NOTE | 2021-09-18 10:15 | PM.PNNEP ---
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 evaluation to date: renal ultrasound is unremarkable urine electrolytes not especially pre renal blood pressure stable due to fluctuating nutrition intake?? creatinine is still elevated but trending down follow trend of repeat labs and UOP (3) Hypercapnic respiratory failure: Qualifiers: Chronicity: unspecified Qualified Code(s): J96.92 - Respiratory failure, unspecified with hypercapnia Code(s): J96.92 - Respiratory failure, unspecified with hypercapnia Status: Acute Assessment and Plan: resolving breathing looks pretty good. Pulmonary following COVID test positive if he needs dexamethazone, then he will also need florinef 0.1mg daily (4) Bilateral pleural effusion: Code(s): J90 - Pleural effusion, not elsewhere classified Status: Acute Assessment and Plan: Pulmonary following s/p thoracenteses during this hospitalization (5) Anemia: Code(s): D64.9 - Anemia, unspecified Status: Acute Assessment and Plan: probably due to ROSHAN and acute illness did drop earlier in hospital stay - s/p PRBC transfusion hemoglobin doing well now follow trend of H/H (6) Pituitary tumor: Code(s): D49.7 - Neoplasm of unspecified behavior of endocrine glands and other parts of nervous system Status: Acute Assessment and Plan: will likely need further evaluation as an outpatient with steroids, Blood pressure is better, sodium better, potassium better Will continue to follow. Subjective Date/time seen: 09/18/21 10:15 Chart reviewed since last seen - assuming care from Dr. Haley; sodium has improved to near normal with current therapy/interventions but now has an elevated creatinine/ROSHAN although this appears to be improving at this time; no new issues or problems to report; no events overnight or earlier this AM. Exam Narrative: General: WD/WN male in NAD Heart: normal S1 and S2; no rub Lungs: clear to auscultation Abdomen: soft, nontender, nondistended, positive bowel sounds Extremities: no cyanosis or clubbing; no edema Skin: warm and dry Objective Data Vital Signs Vital Signs: Vital Signs Temp Pulse Resp BP Pulse Ox 09/18/21 08:00 36.5 C 73 16 134/83 92 09/18/21 04:00 36.9 C 69 18 158/71 H 90 09/18/21 00:00 36.9 C 73 17 141/85 H 93 09/17/21 20:00 36.8 C 74 18 128/85 99 09/17/21 16:00 37.1 C 84 16 129/72 96 09/17/21 14:00 37.2 C 83 14 125/63 97 Intake/Output Intake/Output: Intake & Output 09/15/21 09/16/21 09/17/21 09/18/21 23:59 23:59 23:59 23:59 Intake Total 1200 2470 1100 Output Total 880 694 4924 400 Balance 260 1720 100 -400 Meds/Results Medications: Active Medications Generic Name Dose Route Start Last Admin Trade Name Freq PRN Reason Stop Dose Admin Acetaminophen 650 mg 08/27/21 17:52 09/02/21 11:58 Acetaminophen 325 Mg Tablet PO 650 mg Q6H PRN Administration Fever > 100.4 Albuterol 2.5 mg 09/14/21 13:12 09/15/21 00:48 Albuterol Sulfate Neb 2.5 Mg/0.5 Ml Inh INHALATION 2.5 mg Q6HRT PRN Administration Shortness Of Breath Or Wheezing Aspirin 81 mg 08/20/21 08:00 09/17/21 09:12 Aspirin 81 Mg Chewable Tablet PO 81 mg DAILY@0800 JOSAFAT Administration Benzocaine 1 lozenge 09/03/21 10:28 09/04/21 08:28 Benzocaine/Menthol (*Bkc) 18 Ea Lozenge PO 1 lozenge PRN PRN Administration Sore Throat Benzonatate 200 mg 09/03/21 10:26 09/06/21 00:48 Benzonatate 100 Mg Capsule PO
--- NOTE | 2021-09-18 10:15 | P.PNNP_ITS ---
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 * evaluation to date: * renal ultrasound is unremarkable * urine electrolytes not especially pre renal * blood pressure stable * due to fluctuating nutrition intake?? * creatinine is still elevated but trending down * follow trend of repeat labs and UOP (3) Hypercapnic respiratory failure: Qualifiers: Chronicity: unspecified Qualified Code(s): J96.92 - Respiratory failure, unspecified with hypercapnia Code(s): J96.92 - Respiratory failure, unspecified with hypercapnia Status: Acute Assessment and Plan: * resolving * breathing looks pretty good. * Pulmonary following * COVID test positive * if he needs dexamethazone, then he will also need florinef 0.1mg daily (4) Bilateral pleural effusion: Code(s): J90 - Pleural effusion, not elsewhere classified Status: Acute Assessment and Plan: * Pulmonary following * s/p thoracenteses during this hospitalization (5) Anemia: Code(s): D64.9 - Anemia, unspecified Status: Acute Assessment and Plan: * probably due to ROSHAN and acute illness * did drop earlier in hospital stay - s/p PRBC transfusion * hemoglobin doing well now * follow trend of H/H (6) Pituitary tumor: Code(s): D49.7 - Neoplasm of unspecified behavior of endocrine glands and other parts of nervous system Status: Acute Assessment and Plan: * will likely need further evaluation as an outpatient * with steroids, Blood pressure is better, sodium better, potassium better Will continue to follow. Subjective Date/time seen: 09/18/21 10:15 Chart reviewed since last seen - assuming care from Dr. Haley; sodium has improved to near normal with current therapy/interventions but now has an elevated creatinine/ROSHAN although this appears to be improving at this time; no new issues or problems to report; no events overnight or earlier this AM. Exam Narrative: General: WD/WN male in NAD Heart: normal S1 and S2; no rub Lungs: clear to auscultation Abdomen: soft, nontender, nondistended, positive bowel sounds Extremities: no cyanosis or clubbing; no edema Skin: warm and dry Objective Data Vital Signs Vital Signs: Vital Signs Temp Pulse Resp BP Pulse Ox 09/18/21 08:00 36.5 C 73 16 134/83 92 09/18/21 04:00 36.9 C 69 18 158/71 H 90 09/18/21 00:00 36.9 C 73 17 141/85 H 93 09/17/21 20:00 36.8 C 74 18 128/85 99 09/17/21 16:00 37.1 C 84 16 129/72 96 09/17/21 14:00 37.2 C 83 14 125/63 97 Intake/Output Intake/Output: Intake & Output 09/15/21 09/16/21 09/17/21 09/18/21 23:59 23:59 23:59 23:59 Intake Total 1200 2470 1100 Output Total 043 294 0119 400 Balance 260 1720 100 -400 Meds/Results Medications: Active Medications Generic Name Dose Route Start Last Admin Trade Name Gia BLAND
[2021-09-18] MEDS: SODIUM BICARBONATE TAB 650 MG TABLET 1300 MG PO ×2 (12:13→18:21)
[2021-09-18] MEDS: ONDANSETRON HCL ODT 4 MG TABLET PO (12:13)
[2021-09-18] MEDS: ENOXAPARIN 30 MG/0.3 ML SYRINGE SUB-Q (12:13)
[2021-09-18] MEDS: ROSUVASTATIN 10 MG TABLET PO (12:13)
[2021-09-18] MEDS: FAMOTIDINE 20 MG TABLET FEED TUBE ×2 (12:13→20:04)
[2021-09-18] MEDS: METOPROLOL SUCCINATE EXT REL 50 MG TABCR PO (12:14)
[2021-09-18] MEDS: predniSONE 5 MG TABLET PO (12:14)
[2021-09-18] MEDS: MEGESTROL ACETATE (*CHEMO) 20 MG TABLET PO (12:14)
[2021-09-18] MEDS: ASPIRIN 81 MG CHEWABLE TABLET PO (12:14)
[2021-09-18] MEDS: LIDOCAINE 5% PATCH 1 PATCH TRANSDERM (12:16)
[2021-09-18 12:53] LABS: Glucose Point of Care 70 mg/dl (65-105)
--- NOTE | 2021-09-18 13:45 | PM.IMPN ---
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 # acute kidney injury -with hyperkalemia, will trend creatinine -lisinopril held -creatinine 1.8-->2.1 on 09/15 # debility -patient needs extensive PT, OT, up to chair, incentive spirometer -patient started Megace at home #abdominal pain CT of A/P-->Gallbladder distention, most likely secondary to fasting. Correlation with physical exam is recommended to exclude acute cholecystitis. Check CMP Check RUQ US #PUI CT of A/P-->Groundglass opacities and septal thickening in right middle lobe and right lower lobe, new from 09/08/2021, consistent with pulmonary edema versus pneumonia. On RA Not vaccinated Check PCR CMP, CBC pending Isolation # dysphagia -status post intubation, now resolved -tolerating regular diet # pituitary tumor -patient will need 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 He had received 2 units of packed red blood cell in total -he was not stable for GI evaluation, now appears to be doing well # septic shock secondary to ventilator associated pneumonia resolved -completed 10 days vancomycin aztreonam 09/02, normal antibiotics indicated -cultures from 08/19 and 08 21 negative in blood, urine, and sputum -stopping midodrine as pulse steroids helped significantly with his adrenal insufficiency # cardiomyopathy -echocardiogram on 08/16/2021 showed LVEF 40-45%, normal diastolic dysfunction. Hypokinetic anterior wall inferior septal wall and anterior septal wall. He is status post CABG at [facility]. # CABG -recent within the last month. [place] removed -continue Crestor, aspirin Diet: Diet advanced to regular with thin liquids DVT prophylaxis: Lovenox GI prophylaxis: Pepcid Code status: Full code Disposition: Med tele, PT/OT, rehab at d/c 09/17/2021 Interval history: patient with sella turcica tumor causing adrenal insufficiency and patient has been treated with steroid, also developed hypernatremia seen by transfill technician and sodium is trending up, patient with ROSHAN kidney ultrasound is unremarkable his symptoms are improving, however patient is quite weak and fatigue has a poor appetite and not eating much, DW dietitian will order Dobbhoff start the patient on G-tube feeding, patient will benefit consulting neuro seed corn production manager for further recommendation. 09/18/2021 Interval history: patient with sella turcica tumor causing adrenal insufficiency and patient has been treated with steroid, also developed hypernatremia seen by transfill technician and sodium is trending up, patient with ROSHAN kidney ultrasound is unremarkable his symptoms are improving, however patient is quite weak and fatigue has a poor appetite and not eating much, on 09/17 DW dietitian, ordered Dobbhoff to start the patient on G-tube feeding, however patient refused, after some encouragement from nursing staff patient is now eating some, patient seen by Nephrology and further recommendation to follow, patient will benefit consulting neuro seed corn production manager for further recommendation. Subjective Date/time seen: 09/18/21 13:45 09/17/2021 Interval history: patient with sella turcica tumor causing adrenal insufficiency and patient has been treated with steroid, also developed hypernatremia seen by transfill technician and sodium is trending up, patient with ROSHAN kidney ultrasound is unremarkable his symptoms are improving, however patient is quite weak and fatigue has a poor zaire
[2021-09-18 16:38] LABS: Glucose Point of Care 158 mg/dl (65-105)
[2021-09-19] VITALS (7 sets, daily range): BP systolic 107–147; BP diastolic 62–85; PULSE 58–76; RESP 14–18; TEMP 36–36.6; O2SAT 95–100
[2021-09-19 06:51] LABS: Hematocrit 35.4 % (42.0-52.0); Hemoglobin 11.2 g/dL (14.0-18.0); Mean Corpuscular HGB Conc 31.6 g/dl (32-36); Mean Corpuscular Hemoglobin 28.9 pg (26-34); Mean Corpuscular Volume 91.2 fl (80-100); Mean Platelet Volume 8.6 fl (7.4-10.4); Platelet Count Result 231 k/mm3 (150-375); Red Blood Count 3.88 M/mm3 (4.6-6.20); Red Cell Distribution Width 14.3 % (11.5-14.5)
[2021-09-19 07:01] LABS: Alanine Aminotransferase 94 U/L (4-50); Albumin Level 3.7 g/dL (3.5-5.1); Alkaline Phosphatase 158 U/L (38-126); Anion Gap 12 mmol/L (8-16); Aspartate Amino Transferase 47 U/L (17-59); Bilirubin,Total 0.4 mg/dL (0.2-1.3); Blood Urea Nitrogen 30 mg/dL (9-20); Calcium 8.3 mg/dL (8.4-10.2); Carbon Dioxide 16 mmol/L (22-30); Chloride 107 mmol/L (98-107); Estimated CRCL calculation 37 ml/min; Estimated Glomerular Filt Rate 44; Glucose 81 mg/dL (65-110); Potassium 4.4 mmol/L (3.4-5.0); Sodium 135 mmol/L (137-145)
[2021-09-19 07:42] LABS: Glucose Point of Care 76 mg/dl (65-105)
[2021-09-19] MEDS: ENOXAPARIN 30 MG/0.3 ML SYRINGE SUB-Q (08:47)
[2021-09-19] MEDS: LIDOCAINE 5% PATCH 1 PATCH TRANSDERM (08:47)
[2021-09-19] MEDS: ROSUVASTATIN 10 MG TABLET PO (08:48)
[2021-09-19] MEDS: SODIUM BICARBONATE TAB 650 MG TABLET 1300 MG PO ×2 (08:48→17:18)
[2021-09-19] MEDS: FAMOTIDINE 20 MG TABLET FEED TUBE ×2 (08:48→20:27)
[2021-09-19] MEDS: predniSONE 5 MG TABLET PO (08:48)
[2021-09-19] MEDS: METOPROLOL SUCCINATE EXT REL 50 MG TABCR PO (08:48)
[2021-09-19] MEDS: MEGESTROL ACETATE (*CHEMO) 20 MG TABLET PO (08:48)
--- NOTE | 2021-09-19 10:43 | PM.IMPN ---
Progress Note: A&P Assessment and Plan (1) Adrenal insufficiency: Code(s): E27.40 - Unspecified adrenocortical insufficiency Status: Acute Assessment and Plan: 09/17/2021 Interval history: patient with sella turcica tumor causing adrenal insufficiency and patient has been treated with steroid, also developed hypernatremia seen by director medical writing and sodium is trending up, patient with ROSHAN kidney ultrasound is unremarkable his symptoms are improving, however patient is quite weak and fatigue has a poor appetite and not eating much, DW dietitian will order Dobbhoff start the patient on G-tube feeding, patient will benefit consulting neuro capacity management specialist for further recommendation. 09/18/2021 Interval history: patient with sella turcica tumor causing adrenal insufficiency and patient has been treated with steroid, also developed hypernatremia seen by director medical writing and sodium is trending up, patient with ROSHAN kidney ultrasound is unremarkable his symptoms are improving, however patient is quite weak and fatigue has a poor appetite and not eating much, on 09/17 DW dietitian, ordered Dobbhoff to start the patient on G-tube feeding, however patient refused, after some encouragement from nursing staff patient is now eating some, patient seen by Nephrology and further recommendation to follow, patient will benefit consulting neuro capacity management specialist for further recommendation. 09/19/2021 Interval history: patient remains clinically stable however his p.o. intake is very poor we are encouraging the patient to eat more, will start the patient on D5 normal saline to hydrate the patient this will also improve patient kidney function, patient's hyponatremia has improved and his sodium today is 135, and in terms of COVID patient remains on room air no fever will continue to monitor, patient is working with PT OT will continue to monitor patient is seen by director medical writing and further recommendation to follow. (2) Pituitary tumor: Code(s): D49.7 - Neoplasm of unspecified behavior of endocrine glands and other parts of nervous system Status: Acute (3) Hyperkalemia: Code(s): E87.5 - Hyperkalemia Status: Acute Assessment and Plan: Resolved Nephrology following Repeat labs in a.m. (4) Nausea & vomiting: Code(s): R11.2 - Nausea with vomiting, unspecified Status: Acute Assessment and Plan: Pt had been receiving tube feedings Will start clears and ADAT Monitor (5) Abdominal pain: Code(s): R10.9 - Unspecified abdominal pain Status: Acute (6) Person under investigation for COVID-19: Code(s): Z20.822 - Contact with and (suspected) exposure to COVID-19 Status: Acute Subjective Date/time seen: 09/19/21 10:43 09/17/2021 Interval history: patient with sella turcica tumor causing adrenal insufficiency and patient has been treated with steroid, also developed hypernatremia seen by director medical writing and sodium is trending up, patient with ROSHAN kidney ultrasound is unremarkable his symptoms are improving, however patient is quite weak and fatigue has a poor appetite and not eating much, DW dietitian will order Dobbhoff start the patient on G-tube feeding, patient will benefit consulting neuro capacity management specialist for further recommendation. 09/18/2021 Interval history: patient with sella turcica tumor causing adrenal insufficiency and patient has been treated with steroid, also developed hypernatremia seen by director medical writing and sodium is trending up, patient with ROSHAN kidney ultrasound is unremarkable his symptoms are improving, however patient is quite weak and fatigue has a poor appetite and not eating much, on 09/17 DW dietitian, ordered Dobbhoff to start the patient on G-tube feeding, however patient refused, after some encouragement from nursing staff patient is now eating some, patient seen by Nephrology and further recommendation to follow, patient will benefit consulting neuro endo
--- NOTE | 2021-09-19 11:01 | PM.PNNEP ---
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 evaluation to date: renal ultrasound is unremarkable urine electrolytes not especially pre renal blood pressure stable due to fluctuating nutrition intake?? - agree with trial of IVFs creatinine is still elevated but trending down follow trend of repeat labs and UOP (3) Hypercapnic respiratory failure: Qualifiers: Chronicity: unspecified Qualified Code(s): J96.92 - Respiratory failure, unspecified with hypercapnia Code(s): J96.92 - Respiratory failure, unspecified with hypercapnia Status: Acute Assessment and Plan: resolving breathing looks pretty good. Pulmonary following COVID test positive if he needs dexamethasone, then he will also need florinef 0.1mg daily (4) Bilateral pleural effusion: Code(s): J90 - Pleural effusion, not elsewhere classified Status: Acute Assessment and Plan: Pulmonary following s/p thoracenteses during this hospitalization (5) Anemia: Code(s): D64.9 - Anemia, unspecified Status: Acute Assessment and Plan: probably due to ROSHAN and acute illness did drop earlier in hospital stay - s/p PRBC transfusion hemoglobin doing well now follow trend of H/H (6) Pituitary tumor: Code(s): D49.7 - Neoplasm of unspecified behavior of endocrine glands and other parts of nervous system Status: Acute Assessment and Plan: will likely need further evaluation as an outpatient with steroids, blood pressure is better, sodium better, potassium better Will continue to follow. Subjective Date/time seen: 09/19/21 11:01 Appears to be doing reasonably well -- however, oral intake remains quite poor/suboptimal; sodium remains stable as is respiratory status; creatinine remains the same as yesterday; no other acute issues or problems voiced at this time; no events overight or earlier this AM; noted plans for trial of IVFs which seems reasonable. Exam Narrative: General: WD/WN male in NAD Heart: normal S1 and S2; no rub Lungs: clear but at bases Abdomen: soft, nontender, nondistended, positive bowel sounds Extremities: no cyanosis or clubbing; no edema Skin: warm and intact Objective Data Vital Signs Vital Signs: Vital Signs Temp Pulse Resp BP Pulse Ox 09/19/21 08:48 76 09/19/21 08:00 36.4 C L 71 14 146/82 H 100 09/19/21 04:00 36.1 C L 63 18 147/85 H 95 09/19/21 00:00 36.0 C L 66 18 107/75 99 09/18/21 20:00 36.1 C L 54 L 18 103/64 98 09/18/21 16:00 37.4 C 74 20 122/66 93 09/18/21 12:14 70 Intake/Output Intake/Output: Intake & Output 09/16/21 09/17/21 09/18/21 09/19/21 23:59 23:59 23:59 23:59 Intake Total 2470 1100 630 440 Output Total 750 1000 775 350 Balance 1720 100 -145 90 Meds/Results Medications: Active Medications Generic Name Dose Route Start Last Admin Trade Name Freq PRN Reason Stop Dose Admin Acetaminophen 650 mg 08/27/21 17:52 09/02/21 11:58 Acetaminophen 325 Mg Tablet PO 650 mg Q6H PRN Administration Fever > 100.4 Albuterol 2.5 mg 09/14/21 13:12 09/15/21 00:48 Albuterol Sulfate Neb 2.5 Mg/0.5 Ml Inh INHALATION 2.5 mg Q6HRT PRN Administration Shortness Of Breath Or Wheezing Benzocaine 1 lozenge 09/03/21 10:28 09/04/21 08:28 Benzocaine/Menthol (*Bkc) 18 Ea Lozenge PO 1 lozenge PRN PRN Administration Sore Throat Benzonatate 200 mg 09/03/21 10:26 09/06/21 00:48 Benzonatate 100 Mg Capsule PO 200 mg Q8HR PRN Administration Cough
--- NOTE | 2021-09-19 11:01 | P.PNNP_ITS ---
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 * evaluation to date: * renal ultrasound is unremarkable * urine electrolytes not especially pre renal * blood pressure stable * due to fluctuating nutrition intake?? - agree with trial of IVFs * creatinine is still elevated but trending down * follow trend of repeat labs and UOP (3) Hypercapnic respiratory failure: Qualifiers: Chronicity: unspecified Qualified Code(s): J96.92 - Respiratory failure, unspecified with hypercapnia Code(s): J96.92 - Respiratory failure, unspecified with hypercapnia Status: Acute Assessment and Plan: * resolving * breathing looks pretty good. * Pulmonary following * COVID test positive * if he needs dexamethasone, then he will also need florinef 0.1mg daily (4) Bilateral pleural effusion: Code(s): J90 - Pleural effusion, not elsewhere classified Status: Acute Assessment and Plan: * Pulmonary following * s/p thoracenteses during this hospitalization (5) Anemia: Code(s): D64.9 - Anemia, unspecified Status: Acute Assessment and Plan: * probably due to ROSHAN and acute illness * did drop earlier in hospital stay - s/p PRBC transfusion * hemoglobin doing well now * follow trend of H/H (6) Pituitary tumor: Code(s): D49.7 - Neoplasm of unspecified behavior of endocrine glands and other parts of nervous system Status: Acute Assessment and Plan: * will likely need further evaluation as an outpatient * with steroids, blood pressure is better, sodium better, potassium better Will continue to follow. Subjective Date/time seen: 09/19/21 11:01 Appears to be doing reasonably well -- however, oral intake remains quite poor/suboptimal; sodium remains stable as is respiratory status; creatinine remains the same as yesterday; no other acute issues or problems voiced at this time; no events overight or earlier this AM; noted plans for trial of IVFs which seems reasonable. Exam Narrative: General: WD/WN male in NAD Heart: normal S1 and S2; no rub Lungs: clear but at bases Abdomen: soft, nontender, nondistended, positive bowel sounds Extremities: no cyanosis or clubbing; no edema Skin: warm and intact Objective Data Vital Signs Vital Signs: Vital Signs Temp Pulse Resp BP Pulse Ox 09/19/21 08:48 76 09/19/21 08:00 36.4 C L 71 14 146/82 H 100 09/19/21 04:00 36.1 C L 63 18 147/85 H 95 09/19/21 00:00 36.0 C L 66 18 107/75 99 09/18/21 20:00 36.1 C L 54 L 18 103/64 98 09/18/21 16:00 37.4 C 74 20 122/66 93 09/18/21 12:14 70 Intake/Output Intake/Output: Intake & Output 09/16/21 09/17/21 09/18/21 09/19/21 23:59 23:59 23:59 23:59 Intake Total 2470 1100 630 440 Output Total 750 1000 775 350 Balance 1720 100 -145 90 Meds/Results Medications: Active Medications
[2021-09-19 11:50] LABS: Glucose Point of Care 138 mg/dl (65-105)
--- NOTE | 2021-09-19 14:02 | PCPTNOTE ---
Patient refused treatment and stated that he already did his exercises today and didn't have enough energy to do anything this afternoon.
[2021-09-19 16:40] LABS: Glucose Point of Care 91 mg/dl (65-105)
[2021-09-19] MEDS: DEXTROSE 5%/0.9% SOD CHL 1,000 ML 100 ML IV CONT (17:18)
[2021-09-19] MEDS: CENTRAL LINE FLUSH 10 ML IV PUSH (20:31)
[2021-09-20] VITALS (7 sets, daily range): BP systolic 136–152; BP diastolic 67–89; PULSE 54–69; RESP 12–18; TEMP 36.1–37; O2SAT 96–98
[2021-09-20] MEDS: DEXTROSE 5%/0.9% SOD CHL 1,000 ML 100 ML IV CONT ×2 (06:11→20:46)
[2021-09-20] MEDS: CENTRAL LINE FLUSH 10 ML IV PUSH ×3 (06:11→20:49)
[2021-09-20 09:04] LABS: Glucose Point of Care 90 mg/dl (65-105)
[2021-09-20] MEDS: ENOXAPARIN 30 MG/0.3 ML SYRINGE SUB-Q (09:36)
[2021-09-20] MEDS: LIDOCAINE 5% PATCH 1 PATCH TRANSDERM (09:36)
[2021-09-20] MEDS: FAMOTIDINE 20 MG TABLET FEED TUBE ×2 (09:37→20:47)
[2021-09-20] MEDS: ROSUVASTATIN 10 MG TABLET PO (09:37)
[2021-09-20] MEDS: SODIUM BICARBONATE TAB 650 MG TABLET 1300 MG PO ×2 (09:37→17:14)
[2021-09-20] MEDS: METOPROLOL SUCCINATE EXT REL 50 MG TABCR PO (09:37)
[2021-09-20] MEDS: predniSONE 5 MG TABLET PO (09:37)
[2021-09-20] MEDS: MEGESTROL ACETATE (*CHEMO) 20 MG TABLET PO (09:37)
[2021-09-20 12:04] LABS: Glucose Point of Care 112 mg/dl (65-105)
--- NOTE | 2021-09-20 12:14 | PCOTNOTE ---
Attempted to see patient for OT. Patient reported having pain all over, but declined all interventions suggested by therapist including sitting EOB to perform UB exercises and transferring to chair. Patient educated over importance of participating in therapy to regain prior independence with ADLs and mobility, return home, and manage pain. Patient continued to refuse therapy. Will attempt to see patient again once all other OT treatments are completed.
--- NOTE | 2021-09-20 13:18 | PCNFU ---
Nutrition Follow-Up Complete: Inadequate Oral Intake as related to mechanical ventilation as evidenced by NPO. Goal: Meet estimanted Nutritional needs Pt is slowly progressing towards goal Pt current nutrition is regular diet Last recorded weight is 60.7 kg. Bowel Motility: +BM 09/20/21 Labs Reviewed: hgb 11.2, hct 35.4, ALP 158, Na 135, CO2 16, GFR 44, BUN 30, Cr 1.60, Glu 112, ALT 94 Meds Noted: lovenox, pepcid, megace, prednisone, crestor, sodium bicarb Skin: macerated coccyx, medial chest incision Additional Notes: Unable to visit with pt due to following covid precautions. Spoke to nursing via phone who reports that pt's appetite appears to be improving as of this am (09/20/21). Per EMR, pt is on a regular diet and reported intake is 100%, 0% x3, and 25%. Pt was started on megace on 09/06/21 to help stimulate appetite. Nursing reports that pt still needs encouragement to eat. RDN placed orders for dietary supplement of ensure compact BID providing an additional 220kcal and 9g of protein to increase caloric intake and aid in wound healing. Nursing staff has been made known and agrees to continue encouraging intake of regular diet and dietary supplement. Recommend increasing ensure compact from BID to TID if intake remains under 50%. Agree with diet order at this time. Will continue to follow. Will monior every 3 days
[2021-09-20 14:24] LABS: Hematocrit 30.4 % (42.0-52.0); Hemoglobin 9.9 g/dL (14.0-18.0); Mean Corpuscular HGB Conc 32.6 g/dl (32-36); Mean Corpuscular Volume 89.1 fl (80-100); Platelet Count Result 230 k/mm3 (150-375); Red Blood Count 3.41 M/mm3 (4.6-6.20); White Blood Count 9.2 K/mm3 (4.5-10.0)
--- NOTE | 2021-09-20 14:27 | PCPTNOTE ---
Patient declined PT. Patient states I just don't want to do anything now.
[2021-09-20 14:38] LABS: Alanine Aminotransferase 67 U/L (4-50); Albumin Level 3.5 g/dL (3.5-5.1); Alkaline Phosphatase 121 U/L (38-126); Anion Gap 10 mmol/L (8-16); Aspartate Amino Transferase 46 U/L (17-59); Bilirubin,Total 0.3 mg/dL (0.2-1.3); Blood Urea Nitrogen 29 mg/dL (9-20); Calcium 7.9 mg/dL (8.4-10.2); Carbon Dioxide 21 mmol/L (22-30); Chloride 104 mmol/L (98-107); Estimated CRCL calculation 42 ml/min; Estimated Glomerular Filt Rate 51; Glucose 107 mg/dL (65-110); Magnesium 1.8 mg/dL (1.6-2.3); Potassium 3.9 mmol/L (3.4-5.0); Sodium 135 mmol/L (137-145)
--- NOTE | 2021-09-20 15:18 | PM.PNNEP ---
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 evaluation to date: renal ultrasound is unremarkable urine electrolytes not especially pre renal blood pressure stable due to fluctuating nutrition intake?? creatinine is still elevated but trending down follow trend of repeat labs and UOP (3) Hypercapnic respiratory failure: Qualifiers: Chronicity: unspecified Qualified Code(s): J96.92 - Respiratory failure, unspecified with hypercapnia Code(s): J96.92 - Respiratory failure, unspecified with hypercapnia Status: Acute Assessment and Plan: resolving breathing looks pretty good. Pulmonary following COVID test positive if he needs dexamethasone, then he will also need florinef 0.1mg daily (4) Bilateral pleural effusion: Code(s): J90 - Pleural effusion, not elsewhere classified Status: Acute Assessment and Plan: Pulmonary following s/p thoracenteses during this hospitalization (5) Anemia: Code(s): D64.9 - Anemia, unspecified Status: Acute Assessment and Plan: probably due to ROSHAN and acute illness did drop earlier in hospital stay - s/p PRBC transfusion hemoglobin doing well now follow trend of H/H (6) Pituitary tumor: Code(s): D49.7 - Neoplasm of unspecified behavior of endocrine glands and other parts of nervous system Status: Acute Assessment and Plan: will likely need further evaluation as an outpatient with steroids, blood pressure is better, sodium better, potassium better Will continue to follow. Subjective Date/time seen: 09/20/21 15:18 Oral intake remains poor/suboptimal despite all conservative therapy to date; renal function a bit better with IVFs; despite COVID-19 infection, respiratory status seems relatively stable; no other acute issues/problems to report; no events overnight or earlier this morning. Exam Narrative: General: WD/WN male in NAD Heart: normal S1 and S2; no rub Lungs: clear but at bases Abdomen: soft, nontender, nondistended, positive bowel sounds Extremities: no cyanosis or clubbing; no edema Skin: no rash Objective Data Vital Signs Vital Signs: Vital Signs Temp Pulse Resp BP Pulse Ox 09/20/21 12:00 37.0 C 65 16 149/81 H 98 09/20/21 09:37 64 09/20/21 08:00 36.6 C 63 16 138/77 96 09/20/21 04:00 36.2 C L 54 L 16 148/67 H 98 09/20/21 00:00 36.1 C L 58 L 16 136/70 98 09/19/21 20:00 36.4 C 58 L 18 129/77 95 Intake/Output Intake/Output: Intake & Output 09/17/21 09/18/21 09/19/21 09/20/21 23:59 23:59 23:59 23:59 Intake Total 1100 967 743 7337 Output Total 1000 775 800 275 Balance 100 -145 -360 1505 Meds/Results Medications: Active Medications Generic Name Dose Route Start Last Admin Trade Name Freq PRN Reason Stop Dose Admin Acetaminophen 650 mg 08/27/21 17:52 09/02/21 11:58 Acetaminophen 325 Mg Tablet PO 650 mg Q6H PRN Administration Fever > 100.4 Albuterol 2.5 mg 09/14/21 13:12 09/15/21 00:48 Albuterol Sulfate Neb 2.5 Mg/0.5 Ml Inh INHALATION 2.5 mg Q6HRT PRN Administration Shortness Of Breath Or Wheezing Benzocaine 1 lozenge 09/03/21 10:28 09/04/21 08:28 Benzocaine/Menthol (*Bkc) 18 Ea Lozenge PO 1 lozenge PRN PRN Administration Sore Throat Benzonatate 200 mg 09/03/21 10:26 09/06/21 00:48 Benzonatate 100 Mg Capsule PO 200 mg Q8HR PRN Administration Cough Dextrose 12.5 gm 09/18/21 11:10 Dextrose 50% 25 Gm/50 Ml Syringe IV PUSH PRN PRN Hypoglycemi
--- NOTE | 2021-09-20 15:18 | P.PNNP_ITS ---
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 * evaluation to date: * renal ultrasound is unremarkable * urine electrolytes not especially pre renal * blood pressure stable * due to fluctuating nutrition intake?? * creatinine is still elevated but trending down * follow trend of repeat labs and UOP (3) Hypercapnic respiratory failure: Qualifiers: Chronicity: unspecified Qualified Code(s): J96.92 - Respiratory failure, unspecified with hypercapnia Code(s): J96.92 - Respiratory failure, unspecified with hypercapnia Status: Acute Assessment and Plan: * resolving * breathing looks pretty good. * Pulmonary following * COVID test positive * if he needs dexamethasone, then he will also need florinef 0.1mg daily (4) Bilateral pleural effusion: Code(s): J90 - Pleural effusion, not elsewhere classified Status: Acute Assessment and Plan: * Pulmonary following * s/p thoracenteses during this hospitalization (5) Anemia: Code(s): D64.9 - Anemia, unspecified Status: Acute Assessment and Plan: * probably due to ROSHAN and acute illness * did drop earlier in hospital stay - s/p PRBC transfusion * hemoglobin doing well now * follow trend of H/H (6) Pituitary tumor: Code(s): D49.7 - Neoplasm of unspecified behavior of endocrine glands and other parts of nervous system Status: Acute Assessment and Plan: * will likely need further evaluation as an outpatient * with steroids, blood pressure is better, sodium better, potassium better Will continue to follow. Subjective Date/time seen: 09/20/21 15:18 Oral intake remains poor/suboptimal despite all conservative therapy to date; renal function a bit better with IVFs; despite COVID-19 infection, respiratory status seems relatively stable; no other acute issues/problems to report; no events overnight or earlier this morning. Exam Narrative: General: WD/WN male in NAD Heart: normal S1 and S2; no rub Lungs: clear but at bases Abdomen: soft, nontender, nondistended, positive bowel sounds Extremities: no cyanosis or clubbing; no edema Skin: no rash Objective Data Vital Signs Vital Signs: Vital Signs Temp Pulse Resp BP Pulse Ox 09/20/21 12:00 37.0 C 65 16 149/81 H 98 09/20/21 09:37 64 09/20/21 08:00 36.6 C 63 16 138/77 96 09/20/21 04:00 36.2 C L 54 L 16 148/67 H 98 09/20/21 00:00 36.1 C L 58 L 16 136/70 98 09/19/21 20:00 36.4 C 58 L 18 129/77 95 Intake/Output Intake/Output: Intake & Output 09/17/21 09/18/21 09/19/21 09/20/21 23:59 23:59 23:59 23:59 Intake Total 1100 087 916 0928 Output Total 1000 775 800 275 Balance 100 145 -360 1505 Meds/Results Medications: Active Medications Generic Name Dose Route Start Last Admin Trade Name Freq PRN Reason Stop Dose Admin
--- NOTE | 2021-09-20 15:29 | PM.IMPN ---
Progress Note: A&P Assessment and Plan (1) Adrenal insufficiency: Code(s): E27.40 - Unspecified adrenocortical insufficiency Status: Acute Assessment and Plan: 09/17/2021 Interval history: patient with sella turcica tumor causing adrenal insufficiency and patient has been treated with steroid, also developed hypernatremia seen by ranch hand and sodium is trending up, patient with ROSHAN kidney ultrasound is unremarkable his symptoms are improving, however patient is quite weak and fatigue has a poor appetite and not eating much, DW dietitian will order Dobbhoff start the patient on G-tube feeding, patient will benefit consulting neuro steam heating installer for further recommendation. 09/18/2021 Interval history: patient with sella turcica tumor causing adrenal insufficiency and patient has been treated with steroid, also developed hypernatremia seen by ranch hand and sodium is trending up, patient with ROSHAN kidney ultrasound is unremarkable his symptoms are improving, however patient is quite weak and fatigue has a poor appetite and not eating much, on 09/17 DW dietitian, ordered Dobbhoff to start the patient on G-tube feeding, however patient refused, after some encouragement from nursing staff patient is now eating some, patient seen by Nephrology and further recommendation to follow, patient will benefit consulting neuro steam heating installer for further recommendation. 09/19/2021 Interval history: patient remains clinically stable however his p.o. intake is very poor we are encouraging the patient to eat more, will start the patient on D5 normal saline to hydrate the patient this will also improve patient kidney function, patient's hyponatremia has improved and his sodium today is 135, and in terms of COVID patient remains on room air no fever will continue to monitor, patient is working with PT OT will continue to monitor patient is seen by ranch hand and further recommendation to follow. 09/20/2021 Interval history: patient remains clinically stable however his p.o. intake is very poor we are encouraging the patient to eat more, started the patient on D5 normal saline to hydrate the patient this will also improve patient kidney function, patient's hyponatremia has improved and his sodium today is 135, and in terms of COVID patient remains on room air no fever will continue to monitor, patient is working with PT OT will continue to monitor patient is seen by ranch hand and further recommendation to follow. Patient is not very communicative and does not interact, I call his sister, no answer and voice mail is full, text my number to her, need to discuss with patient sister for discharge planning. (2) Pituitary tumor: Code(s): D49.7 - Neoplasm of unspecified behavior of endocrine glands and other parts of nervous system Status: Acute (3) Hyperkalemia: Code(s): E87.5 - Hyperkalemia Status: Acute Assessment and Plan: Resolved Nephrology following Repeat labs in a.m. (4) Nausea & vomiting: Code(s): R11.2 - Nausea with vomiting, unspecified Status: Acute Assessment and Plan: Pt had been receiving tube feedings Will start clears and ADAT Monitor (5) Abdominal pain: Code(s): R10.9 - Unspecified abdominal pain Status: Acute (6) Person under investigation for COVID-19: Code(s): Z20.822 - Contact with and (suspected) exposure to COVID-19 Status: Acute Additional Plan # adrenal insufficiency # hyponatremia # hyperkalemia -likely adrenal insufficiency, improving after steroid pulse dose, last day today (day 3 of 3 hydrocortisone) -brain MRI: 1.7 cm mass sella and clivus -continue fluid restriction 1500 cc, sodium improved to 136 09/12/2021 -hyperkalemia resolved down to 4.0 after couple doses of Kayexalate overt last couple days -s/p x3 days of hydrocortisone pulse steroids, continue 5 mg prednisone daily -Repeat BMP in a.m. # acute kidney injury -w
--- NOTE | 2021-09-20 16:39 | PCOTNOTE ---
OT has decreased pt. frequency of therapy from 5-7x/wk to 2-3x/wk, as pt. has been refused therapy 4/7 days and is displayed decreased motivation to participate.
[2021-09-20 16:56] LABS: Glucose Point of Care 110 mg/dl (65-105)
[2021-09-20 20:47] LABS: Glucose Point of Care 134 mg/dl (65-105)
[2021-09-21] VITALS (7 sets, daily range): BP systolic 151–177; BP diastolic 75–88; PULSE 60–78; RESP 14–18; TEMP 36.4–37.4; O2SAT 97–99
[2021-09-21] MEDS: CENTRAL LINE FLUSH 10 ML IV PUSH ×3 (05:30→21:05)
[2021-09-21] MEDS: DEXTROSE 5%/0.9% SOD CHL 1,000 ML 100 ML IV CONT ×2 (05:32→17:24)
[2021-09-21 05:50] LABS: Hematocrit 28.9 % (42.0-52.0); Hemoglobin 9.6 g/dL (14.0-18.0); Mean Corpuscular HGB Conc 33.2 g/dl (32-36); Mean Corpuscular Hemoglobin 29.3 pg (26-34); Mean Corpuscular Volume 88.1 fl (80-100); Mean Platelet Volume 8.9 fl (7.4-10.4); Platelet Count Result 235 k/mm3 (150-375); Red Blood Count 3.28 M/mm3 (4.6-6.20); Red Cell Distribution Width 13.7 % (11.5-14.5); White Blood Count 7.3 K/mm3 (4.5-10.0)
[2021-09-21 06:11] LABS: Alanine Aminotransferase 80 U/L (4-50); Albumin Level 3.2 g/dL (3.5-5.1); Alkaline Phosphatase 132 U/L (38-126); Anion Gap 7 mmol/L (8-16); Aspartate Amino Transferase 69 U/L (17-59); Bilirubin,Total 0.3 mg/dL (0.2-1.3); Blood Urea Nitrogen 23 mg/dL (9-20); Calcium 7.8 mg/dL (8.4-10.2); Carbon Dioxide 24 mmol/L (22-30); Chloride 106 mmol/L (98-107); Estimated CRCL calculation 42 ml/min; Estimated Glomerular Filt Rate 51; Glucose 90 mg/dL (65-110); Potassium 3.9 mmol/L (3.4-5.0); Sodium 137 mmol/L (137-145)
[2021-09-21 08:19] LABS: Glucose Point of Care 84 mg/dl (65-105)
[2021-09-21] MEDS: METOPROLOL SUCCINATE EXT REL 50 MG TABCR PO (09:28)
[2021-09-21] MEDS: LIDOCAINE 5% PATCH 1 PATCH TRANSDERM (09:28)
[2021-09-21] MEDS: predniSONE 5 MG TABLET PO (09:28)
[2021-09-21] MEDS: SODIUM BICARBONATE TAB 650 MG TABLET 1300 MG PO ×2 (09:28→17:23)
[2021-09-21] MEDS: ROSUVASTATIN 10 MG TABLET PO (09:28)
[2021-09-21] MEDS: MEGESTROL ACETATE (*CHEMO) 20 MG TABLET PO (09:28)
[2021-09-21] MEDS: FAMOTIDINE 20 MG TABLET FEED TUBE ×2 (09:28→21:05)
[2021-09-21] MEDS: ENOXAPARIN 30 MG/0.3 ML SYRINGE SUB-Q (09:30)
--- NOTE | 2021-09-21 11:07 | P.PNNP_ITS ---
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 * evaluation to date: * renal ultrasound is unremarkable * urine electrolytes not especially pre renal * blood pressure stable * due to fluctuating nutrition intake?? * creatinine is still elevated but trending down * follow trend of repeat labs and UOP (3) Hypercapnic respiratory failure: Qualifiers: Chronicity: unspecified Qualified Code(s): J96.92 - Respiratory failure, unspecified with hypercapnia Code(s): J96.92 - Respiratory failure, unspecified with hypercapnia Status: Acute Assessment and Plan: * resolving * breathing looks pretty good. * Pulmonary following * COVID test positive * if he needs dexamethasone, then he will also need florinef 0.1mg daily (4) Bilateral pleural effusion: Code(s): J90 - Pleural effusion, not elsewhere classified Status: Acute Assessment and Plan: * Pulmonary following * s/p thoracenteses during this hospitalization (5) Anemia: Code(s): D64.9 - Anemia, unspecified Status: Acute Assessment and Plan: * probably due to ROSHAN and acute illness * did drop earlier in hospital stay - s/p PRBC transfusion * hemoglobin doing well now * follow trend of H/H (6) Pituitary tumor: Code(s): D49.7 - Neoplasm of unspecified behavior of endocrine glands and other parts of nervous system Status: Acute Assessment and Plan: * will likely need further evaluation as an outpatient * with steroids, blood pressure is better, sodium better, potassium better Will continue to follow. Subjective Date/time seen: 09/21/21 11:07 No real significant change; appetite remains poor; not very communicative and asking about when he can go home; sodium and renal function relatively stable; no acute distress voiced; no events overnight or earlier this morning. Exam Narrative: General: WD/WN male in NAD Heart: normal S1 and S2; no rub Lungs: clear but at bases Abdomen: soft, nontender, nondistended, positive bowel sounds Extremities: no cyanosis or clubbing; no edema Skin: no nodules Objective Data Vital Signs Vital Signs: Vital Signs Temp Pulse Resp BP Pulse Ox 09/21/21 09:28 78 09/21/21 08:00 36.8 C 62 16 177/86 H 98 09/21/21 04:00 36.6 C 65 14 172/81 H 97 09/21/21 00:00 36.4 C 62 14 160/81 H 98 09/20/21 20:00 36.9 C 63 12 144/81 H 97 09/20/21 16:00 36.3 C L 69 18 152/89 H 97 Intake/Output Intake/Output: Intake & Output 09/18/21 09/19/21 09/20/21 09/21/21 23:59 23:59 23:59 23:59 Intake Total 956 508 3538 1240 Output Total 775 800 775 Balance -145 -360 9405 1240 Meds/Results Medications: Active Medications Generic Name Dose Route Start Last Admin Trade Name Gia PRN Reason Stop Dose Admin Acetaminophen 650 mg 08/27/21 17:52 09/02/21 1
--- NOTE | 2021-09-21 11:07 | PM.PNNEP ---
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 evaluation to date: renal ultrasound is unremarkable urine electrolytes not especially pre renal blood pressure stable due to fluctuating nutrition intake?? creatinine is still elevated but trending down follow trend of repeat labs and UOP (3) Hypercapnic respiratory failure: Qualifiers: Chronicity: unspecified Qualified Code(s): J96.92 - Respiratory failure, unspecified with hypercapnia Code(s): J96.92 - Respiratory failure, unspecified with hypercapnia Status: Acute Assessment and Plan: resolving breathing looks pretty good. Pulmonary following COVID test positive if he needs dexamethasone, then he will also need florinef 0.1mg daily (4) Bilateral pleural effusion: Code(s): J90 - Pleural effusion, not elsewhere classified Status: Acute Assessment and Plan: Pulmonary following s/p thoracenteses during this hospitalization (5) Anemia: Code(s): D64.9 - Anemia, unspecified Status: Acute Assessment and Plan: probably due to ROSHAN and acute illness did drop earlier in hospital stay - s/p PRBC transfusion hemoglobin doing well now follow trend of H/H (6) Pituitary tumor: Code(s): D49.7 - Neoplasm of unspecified behavior of endocrine glands and other parts of nervous system Status: Acute Assessment and Plan: will likely need further evaluation as an outpatient with steroids, blood pressure is better, sodium better, potassium better Will continue to follow. Subjective Date/time seen: 09/21/21 11:07 No real significant change; appetite remains poor; not very communicative and asking about when he can go home; sodium and renal function relatively stable; no acute distress voiced; no events overnight or earlier this morning. Exam Narrative: General: WD/WN male in NAD Heart: normal S1 and S2; no rub Lungs: clear but at bases Abdomen: soft, nontender, nondistended, positive bowel sounds Extremities: no cyanosis or clubbing; no edema Skin: no nodules Objective Data Vital Signs Vital Signs: Vital Signs Temp Pulse Resp BP Pulse Ox 09/21/21 09:28 78 09/21/21 08:00 36.8 C 62 16 177/86 H 98 09/21/21 04:00 36.6 C 65 14 172/81 H 97 09/21/21 00:00 36.4 C 62 14 160/81 H 98 09/20/21 20:00 36.9 C 63 12 144/81 H 97 09/20/21 16:00 36.3 C L 69 18 152/89 H 97 Intake/Output Intake/Output: Intake & Output 09/18/21 09/19/21 09/20/21 09/21/21 23:59 23:59 23:59 23:59 Intake Total 859 932 6323 1240 Output Total 775 800 775 Balance -145 -360 3588 1240 Meds/Results Medications: Active Medications Generic Name Dose Route Start Last Admin Trade Name Freq PRN Reason Stop Dose Admin Acetaminophen 650 mg 08/27/21 17:52 09/02/21 11:58 Acetaminophen 325 Mg Tablet PO 650 mg Q6H PRN Administration Fever > 100.4 Albuterol 2.5 mg 09/14/21 13:12 09/15/21 00:48 Albuterol Sulfate Neb 2.5 Mg/0.5 Ml Inh INHALATION 2.5 mg Q6HRT PRN Administration Shortness Of Breath Or Wheezing Benzocaine 1 lozenge 09/03/21 10:28 09/04/21 08:28 Benzocaine/Menthol (*Bkc) 18 Ea Lozenge PO 1 lozenge PRN PRN Administration Sore Throat Benzonatate 200 mg 09/03/21 10:26 09/06/21 00:48 Benzonatate 100 Mg Capsule PO 200 mg Q8HR PRN Administration Cough Dextrose 12.5 gm 09/18/21 11:10 Dextrose 50% 25 Gm/50 Ml Syringe IV PUSH PRN PRN Hypoglycemia Protocol Enoxaparin Sodium 30 mg
[2021-09-21 11:55] LABS: Glucose Point of Care 111 mg/dl (65-105)
[2021-09-21 16:31] LABS: Glucose Point of Care 100 mg/dl (65-105)
--- NOTE | 2021-09-21 17:52 | PM.IMPN ---
Progress Note: A&P Assessment and Plan (1) Adrenal insufficiency: Code(s): E27.40 - Unspecified adrenocortical insufficiency Status: Acute Assessment and Plan: 09/17/2021 Interval history: patient with sella turcica tumor causing adrenal insufficiency and patient has been treated with steroid, also developed hypernatremia seen by manager strategic and sodium is trending up, patient with ROSHAN kidney ultrasound is unremarkable his symptoms are improving, however patient is quite weak and fatigue has a poor appetite and not eating much, DW dietitian will order Dobbhoff start the patient on G-tube feeding, patient will benefit consulting neuro computer system specialist for further recommendation. 09/18/2021 Interval history: patient with sella turcica tumor causing adrenal insufficiency and patient has been treated with steroid, also developed hypernatremia seen by manager strategic and sodium is trending up, patient with ROSHAN kidney ultrasound is unremarkable his symptoms are improving, however patient is quite weak and fatigue has a poor appetite and not eating much, on 09/17 DW dietitian, ordered Dobbhoff to start the patient on G-tube feeding, however patient refused, after some encouragement from nursing staff patient is now eating some, patient seen by Nephrology and further recommendation to follow, patient will benefit consulting neuro computer system specialist for further recommendation. 09/19/2021 Interval history: patient remains clinically stable however his p.o. intake is very poor we are encouraging the patient to eat more, will start the patient on D5 normal saline to hydrate the patient this will also improve patient kidney function, patient's hyponatremia has improved and his sodium today is 135, and in terms of COVID patient remains on room air no fever will continue to monitor, patient is working with PT OT will continue to monitor patient is seen by manager strategic and further recommendation to follow. 09/20/2021 Interval history: patient remains clinically stable however his p.o. intake is very poor we are encouraging the patient to eat more, started the patient on D5 normal saline to hydrate the patient this will also improve patient kidney function, patient's hyponatremia has improved and his sodium today is 135, and in terms of COVID patient remains on room air no fever will continue to monitor, patient is working with PT OT will continue to monitor patient is seen by manager strategic and further recommendation to follow. Patient is not very communicative and does not interact, I call his sister, no answer and voice mail is full, text my number to her, need to discuss with patient sister for discharge planning. 09/21/21 elevated BP cont current care doing ok needs dc planning, assess functional status, PO consumption, dispo options, is COVD + but remains asymptomatic (2) Pituitary tumor: Code(s): D49.7 - Neoplasm of unspecified behavior of endocrine glands and other parts of nervous system Status: Acute (3) Hyperkalemia: Code(s): E87.5 - Hyperkalemia Status: Acute Assessment and Plan: Resolved Nephrology following Repeat labs in a.m. (4) Nausea & vomiting: Code(s): R11.2 - Nausea with vomiting, unspecified Status: Acute Assessment and Plan: Pt had been receiving tube feedings Will start clears and ADAT Monitor (5) Abdominal pain: Code(s): R10.9 - Unspecified abdominal pain Status: Acute (6) Person under investigation for COVID-19: Code(s): Z20.822 - Contact with and (suspected) exposure to COVID-19 Status: Acute Additional Plan # adrenal insufficiency # hyponatremia # hyperkalemia -likely adrenal insufficiency, improving after steroid pulse dose, last day today (day 3 of 3 hydrocortisone) -brain MRI: 1.7 cm mass sella and clivus -continue fluid restriction 1500 cc, sodium improved to 136 09/12/2021 -hyperkalemia resolved down to 4.0 after couple doses
[2021-09-21 21:21] LABS: Glucose Point of Care 127 mg/dl (65-105)
[2021-09-22] VITALS (8 sets, daily range): BP systolic 137–183; BP diastolic 78–101; PULSE 64–96; RESP 16–18; TEMP 36.1–36.9; O2SAT 94–100
[2021-09-22] MEDS: DEXTROSE 5%/0.9% SOD CHL 1,000 ML 100 ML IV CONT ×2 (06:12→17:13)
[2021-09-22] MEDS: CENTRAL LINE FLUSH 10 ML IV PUSH ×3 (06:13→22:33)
[2021-09-22 08:18] LABS: Albumin Level 3.4 g/dL (3.5-5.1); Anion Gap 7 mmol/L (8-16); Blood Urea Nitrogen 18 mg/dL (9-20); Carbon Dioxide 24 mmol/L (22-30); Chloride 110 mmol/L (98-107); Estimated CRCL calculation 50 ml/min; Estimated Glomerular Filt Rate > 60; Glucose 82 mg/dL (65-110); Phosphorus 2.6 mg/dL (2.5-4.5); Potassium 3.8 mmol/L (3.4-5.0); Sodium 141 mmol/L (137-145)
[2021-09-22 08:53] LABS: Glucose Point of Care 82 mg/dl (65-105)
[2021-09-22] MEDS: LIDOCAINE 5% PATCH 1 PATCH TRANSDERM (10:09)
[2021-09-22] MEDS: FAMOTIDINE 20 MG TABLET FEED TUBE ×2 (10:10→22:33)
[2021-09-22] MEDS: ENOXAPARIN 30 MG/0.3 ML SYRINGE SUB-Q (10:10)
[2021-09-22] MEDS: MEGESTROL ACETATE (*CHEMO) 20 MG TABLET PO (10:10)
[2021-09-22] MEDS: SODIUM BICARBONATE TAB 650 MG TABLET 1300 MG PO ×2 (10:10→17:13)
[2021-09-22] MEDS: ROSUVASTATIN 10 MG TABLET PO (10:11)
[2021-09-22] MEDS: METOPROLOL SUCCINATE EXT REL 50 MG TABCR PO (10:11)
[2021-09-22] MEDS: predniSONE 5 MG TABLET PO (10:11)
[2021-09-22] MEDS: ASPIRIN 81 MG CHEWABLE TABLET PO (12:03)
[2021-09-22 12:19] LABS: Glucose Point of Care 102 mg/dl (65-105)
--- NOTE | 2021-09-22 13:22 | PCOTNOTE ---
Attempted to see patient this date at 13:19 this date, patient declined OT services this date despite MAX for encouragement and education of OT benefits stating I just can't, I walked so far with the nurse, now I'm very tiered, and I don't want that lunch can you take it away, I'm going home later so I will eat there. It is to be noted patient did walk with nursing approximally 40 ft.
--- NOTE | 2021-09-22 14:54 | PM.IMPN ---
Progress Note: A&P Assessment and Plan (1) Adrenal insufficiency: Code(s): E27.40 - Unspecified adrenocortical insufficiency Status: Acute Assessment and Plan: 09/17/2021 Interval history: patient with sella turcica tumor causing adrenal insufficiency and patient has been treated with steroid, also developed hypernatremia seen by hunter trapper and sodium is trending up, patient with ROSHAN kidney ultrasound is unremarkable his symptoms are improving, however patient is quite weak and fatigue has a poor appetite and not eating much, DW dietitian will order Dobbhoff start the patient on G-tube feeding, patient will benefit consulting neuro milieu coordinator for further recommendation. 09/18/2021 Interval history: patient with sella turcica tumor causing adrenal insufficiency and patient has been treated with steroid, also developed hypernatremia seen by hunter trapper and sodium is trending up, patient with ROSHAN kidney ultrasound is unremarkable his symptoms are improving, however patient is quite weak and fatigue has a poor appetite and not eating much, on 09/17 DW dietitian, ordered Dobbhoff to start the patient on G-tube feeding, however patient refused, after some encouragement from nursing staff patient is now eating some, patient seen by Nephrology and further recommendation to follow, patient will benefit consulting neuro milieu coordinator for further recommendation. 09/19/2021 Interval history: patient remains clinically stable however his p.o. intake is very poor we are encouraging the patient to eat more, will start the patient on D5 normal saline to hydrate the patient this will also improve patient kidney function, patient's hyponatremia has improved and his sodium today is 135, and in terms of COVID patient remains on room air no fever will continue to monitor, patient is working with PT OT will continue to monitor patient is seen by hunter trapper and further recommendation to follow. 09/20/2021 Interval history: patient remains clinically stable however his p.o. intake is very poor we are encouraging the patient to eat more, started the patient on D5 normal saline to hydrate the patient this will also improve patient kidney function, patient's hyponatremia has improved and his sodium today is 135, and in terms of COVID patient remains on room air no fever will continue to monitor, patient is working with PT OT will continue to monitor patient is seen by hunter trapper and further recommendation to follow. Patient is not very communicative and does not interact, I call his sister, no answer and voice mail is full, text my number to her, need to discuss with patient sister for discharge planning. 09/21/21 elevated BP cont current care doing ok needs dc planning, assess functional status, PO consumption, dispo options, is COVD + but remains asymptomatic 09/22/21 adrenal insufficiency from sella turcica tumor stable on prednisone therapy, nephro following COVID-19 asymptomatic on RA able to ambulate in hallway today with me, will be safe to go home w [facility] to house of his sister cont supportive care [employer] teaching prior to dc c/s CC x DC planning (2) Pituitary tumor: Code(s): D49.7 - Neoplasm of unspecified behavior of endocrine glands and other parts of nervous system Status: Acute (3) Hyperkalemia: Code(s): E87.5 - Hyperkalemia Status: Acute Assessment and Plan: Resolved Nephrology following Repeat labs in a.m. (4) Nausea & vomiting: Code(s): R11.2 - Nausea with vomiting, unspecified Status: Acute Assessment and Plan: Pt had been receiving tube feedings Will start clears and ADAT Monitor (5) Abdominal pain: Code(s): R10.9 - Unspecified abdominal pain Status: Acute (6) Person under investigation for COVID-19: Code(s): Z20.822 - Contact with and (suspected) exposure to COVID-19 Status: Acute Subjective Date/time seen: 09/22/21 1
--- NOTE | 2021-09-22 15:12 | PCNFU ---
Nutrition Follow-Up Complete: Inadequate Oral Intake as related to mechanical ventilation as evidenced by NPO. Goal: Meet estimanted Nutritional needs Pt is not progressing towards goal Pt current nutrition is regular and dietary supplement Last recorded weight is 63 kg. Bowel Motility: LBM 09/20 Labs Reviewed: alb 3.4, cl 110, Ca 8.0 Meds Noted: lovenox, pepcid, lidoderm, megace, toprol xl, prednisone, crestor, sodium bicarbonate Skin: coccyx maceration, medial chest incision Additional Notes: Unable to visit with pt due to follow covid precautions. Spoke to nursing who reports that pt is still not much. Per EMR, pt is on a regular diet and dietary supplement of ensure compact BID providing an additional 220kcal and 9g of protein. Per EMR, reported intake is 50%, 10%x 2, 25%, and 0% x2. Nursing reports that pt is a possible discharge. Recommend either increasing ensure compact from BID to TID or switching dietary supplement to ensure enlive to increase protein and caloric intake. Will continue to follow. Will monitor labs, medications, wt, and reported intake every 3 days
--- NOTE | 2021-09-22 16:23 | PM.PNNEP ---
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 evaluation to date: renal ultrasound is unremarkable urine electrolytes not especially pre renal blood pressure stable due to fluctuating nutrition intake?? creatinine is still elevated but trending down follow trend of repeat labs and UOP (3) Hypercapnic respiratory failure: Qualifiers: Chronicity: unspecified Qualified Code(s): J96.92 - Respiratory failure, unspecified with hypercapnia Code(s): J96.92 - Respiratory failure, unspecified with hypercapnia Status: Acute Assessment and Plan: resolving breathing looks pretty good. Pulmonary following COVID test positive if he needs dexamethasone, then he will also need florinef 0.1mg daily (4) Bilateral pleural effusion: Code(s): J90 - Pleural effusion, not elsewhere classified Status: Acute Assessment and Plan: Pulmonary following s/p thoracenteses during this hospitalization (5) Anemia: Code(s): D64.9 - Anemia, unspecified Status: Acute Assessment and Plan: probably due to ROSHAN and acute illness did drop earlier in hospital stay - s/p PRBC transfusion hemoglobin doing well now follow trend of H/H (6) Pituitary tumor: Code(s): D49.7 - Neoplasm of unspecified behavior of endocrine glands and other parts of nervous system Status: Acute Assessment and Plan: will likely need further evaluation as an outpatient with steroids, blood pressure is better, sodium better, potassium better Not much else to add -- will follow from a distance. Subjective Date/time seen: 09/22/21 16:23 Efforts to increase oral intake not very successful and his intake remains quite poor; sodium and renal function appear stable if not better at this time; no new complaints or issues to report at this time; no apparent distress voiced either; no events overnight or earlier this AM. Exam Narrative: General: WD/WN male in NAD Heart: normal S1 and S2; no rub Lungs: clear but at bases Abdomen: soft, nontender, nondistended, positive bowel sounds Extremities: no cyanosis or clubbing; no edema Skin: warm and dry Objective Data Vital Signs Vital Signs: Vital Signs Temp Pulse Resp BP Pulse Ox 09/22/21 16:00 36.7 C 68 18 162/94 H 99 09/22/21 12:00 36.4 C L 74 16 137/78 97 09/22/21 10:11 94 09/22/21 08:00 36.9 C 65 18 162/89 H 98 09/22/21 04:00 36.7 C 96 18 159/86 H 94 09/22/21 00:00 36.1 C L 75 16 162/94 H 100 09/21/21 20:00 37.0 C 71 18 151/75 H 99 Intake/Output Intake/Output: Intake & Output 09/19/21 09/20/21 09/21/21 09/22/21 23:59 23:59 23:59 23:59 Intake Total 440 3520 3380 2460 Output Total 800 799 928 4609 Balance -360 2745 2730 910 Meds/Results Medications: Active Medications Generic Name Dose Route Start Last Admin Trade Name Freq PRN Reason Stop Dose Admin Acetaminophen 650 mg 08/27/21 17:52 09/02/21 11:58 Acetaminophen 325 Mg Tablet PO 650 mg Q6H PRN Administration Fever > 100.4 Albuterol 2.5 mg 09/14/21 13:12 09/15/21 00:48 Albuterol Sulfate Neb 2.5 Mg/0.5 Ml Inh INHALATION 2.5 mg Q6HRT PRN Administration Shortness Of Breath Or Wheezing Aspirin 81 mg 08/20/21 08:00 09/22/21 12:04 Aspirin 81 Mg Chewable Tablet PO 10/11/21 22:00 Not Given DAILY@0800 JOSAFAT Benzocaine 1 lozenge 09/03/21 10:28 09/04/21 08:28 Benzocaine/Menthol (*Bkc) 18 Ea Lozenge PO 1 lozenge PRN PRN Administration Sore Throat Benzonatate 200 mg 09/03/21
--- NOTE | 2021-09-22 16:23 | P.PNNP_ITS ---
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 * evaluation to date: * renal ultrasound is unremarkable * urine electrolytes not especially pre renal * blood pressure stable * due to fluctuating nutrition intake?? * creatinine is still elevated but trending down * follow trend of repeat labs and UOP (3) Hypercapnic respiratory failure: Qualifiers: Chronicity: unspecified Qualified Code(s): J96.92 - Respiratory failure, unspecified with hypercapnia Code(s): J96.92 - Respiratory failure, unspecified with hypercapnia Status: Acute Assessment and Plan: * resolving * breathing looks pretty good. * Pulmonary following * COVID test positive * if he needs dexamethasone, then he will also need florinef 0.1mg daily (4) Bilateral pleural effusion: Code(s): J90 - Pleural effusion, not elsewhere classified Status: Acute Assessment and Plan: * Pulmonary following * s/p thoracenteses during this hospitalization (5) Anemia: Code(s): D64.9 - Anemia, unspecified Status: Acute Assessment and Plan: * probably due to ROSHAN and acute illness * did drop earlier in hospital stay - s/p PRBC transfusion * hemoglobin doing well now * follow trend of H/H (6) Pituitary tumor: Code(s): D49.7 - Neoplasm of unspecified behavior of endocrine glands and other parts of nervous system Status: Acute Assessment and Plan: * will likely need further evaluation as an outpatient * with steroids, blood pressure is better, sodium better, potassium better Not much else to add -- will follow from a distance. Subjective Date/time seen: 09/22/21 16:23 Efforts to increase oral intake not very successful and his intake remains quite poor; sodium and renal function appear stable if not better at this time; no new complaints or issues to report at this time; no apparent distress voiced either; no events overnight or earlier this AM. Exam Narrative: General: WD/WN male in NAD Heart: normal S1 and S2; no rub Lungs: clear but at bases Abdomen: soft, nontender, nondistended, positive bowel sounds Extremities: no cyanosis or clubbing; no edema Skin: warm and dry Objective Data Vital Signs Vital Signs: Vital Signs Temp Pulse Resp BP Pulse Ox 09/22/21 16:00 36.7 C 68 18 162/94 H 99 09/22/21 12:00 36.4 C L 74 16 137/78 97 09/22/21 10:11 94 09/22/21 08:00 36.9 C 65 18 162/89 H 98 09/22/21 04:00 36.7 C 96 18 159/86 H 94 09/22/21 00:00 36.1 C L 75 16 162/94 H 100 09/21/21 20:00 37.0 C 71 18 151/75 H 99 Intake/Output Intake/Output: Intake & Output 09/19/21 09/20/21 09/21/21 09/22/21 23:59 23:59 23:59 23:59 Intake Total 440 3520 3380 2460 Output Total 800 742 399 2323 Balance -360 2745 2730 910 Meds/Results Medications: Active Medications Generic Name Dose
[2021-09-22 17:00] LABS: Glucose Point of Care 103 mg/dl (65-105)
[2021-09-23 00:24] LABS: Glucose Point of Care 90 mg/dl (65-105)
[2021-09-23 04:32] VITALS: BP 159/90; PULSE 66; RESP 18; TEMP 36.9; O2SAT 98
[2021-09-23] MEDS: DEXTROSE 5%/0.9% SOD CHL 1,000 ML 100 ML IV CONT (05:53)
[2021-09-23 06:47] LABS: EDCOVIDSCREEN Negative (Negative)
[2021-09-23 07:30] LABS: Basophils Percent Auto 0.2 % (0.2-1.2); Eosinophils Absolute Auto 0.1 K/mm3 (0-0.3); Eosinophils Percent Auto 1.3 % (0-4.4); Hematocrit 32.9 % (42.0-52.0); Hemoglobin 10.6 g/dL (14.0-18.0); Immature Granulocyte Absolute 0.09 K/mm3 (0.00-0.031); Immature Granulocyte Percent A 1.1 % (0-0.5); Immature Platelet Fraction Pct 1.2 % (0.9-11.2); Lymphocytes Absolute Auto 1.75 K/mm3 (0.9-3.2); Lymphocytes Percent Auto 20.7 % (18.3-44.2); Mean Corpuscular HGB Conc 32.2 g/dl (32-36); Mean Corpuscular Hemoglobin 29.4 pg (26-34); Mean Corpuscular Volume 91.4 fl (80-100); Mean Platelet Volume 9.7 fl (7.4-10.4); Monocytes Absolute Auto 0.5 K/mm3 (0.1-0.6); Monocytes Percent Auto 6.3 % (2.6-8.5); Neutrophils Percent Auto 70.4 % (45.5-73.1); Nucleated Red Blood Cells Perc 0.2 % (0.0-0.2); Platelet Count Result 281 k/mm3 (150-375); Red Cell Distribution Width 14.3 % (11.5-14.5); White Blood Count 8.5 K/mm3 (4.5-10.0)
[2021-09-23 08:00] VITALS: BP 149/91; PULSE 77; RESP 16; TEMP 37.4; O2SAT 96
[2021-09-23 08:42] LABS: Alanine Aminotransferase 72 U/L (4-50); Albumin Level 3.3 g/dL (3.5-5.1); Alkaline Phosphatase 118 U/L (38-126); Anion Gap 7 mmol/L (8-16); Aspartate Amino Transferase 36 U/L (17-59); Bilirubin,Total 0.3 mg/dL (0.2-1.3); Blood Urea Nitrogen 17 mg/dL (9-20); Carbon Dioxide 22 mmol/L (22-30); Chloride 108 mmol/L (98-107); Estimated CRCL calculation 54 ml/min; Estimated Glomerular Filt Rate > 60; Glucose 81 mg/dL (65-110); Magnesium 1.5 mg/dL (1.6-2.3); Potassium 3.9 mmol/L (3.4-5.0); Sodium 137 mmol/L (137-145)
[2021-09-23 08:45] LABS: Glucose Point of Care 98 mg/dl (65-105)
[2021-09-23] MEDS: ROSUVASTATIN 10 MG TABLET PO (08:55)
[2021-09-23] MEDS: MEGESTROL ACETATE (*CHEMO) 20 MG TABLET PO (08:55)
[2021-09-23] MEDS: FAMOTIDINE 20 MG TABLET FEED TUBE (08:55)
[2021-09-23] MEDS: SODIUM BICARBONATE TAB 650 MG TABLET 1300 MG PO (08:55)
[2021-09-23] MEDS: METOPROLOL SUCCINATE EXT REL 50 MG TABCR PO (08:55)
[2021-09-23] MEDS: ENOXAPARIN 30 MG/0.3 ML SYRINGE SUB-Q (08:55)
[2021-09-23] MEDS: predniSONE 5 MG TABLET PO (08:56)
[2021-09-23] MEDS: LIDOCAINE 5% PATCH 1 PATCH TRANSDERM (08:56)
[2021-09-23 10:45] VITALS: O2SAT 98
[2021-09-23 10:50] VITALS: O2SAT 96
[2021-09-23 10:55] VITALS: O2SAT 97
--- NOTE | 2021-09-23 11:31 | PCRCNOTE ---
HOME O2 EVAL COMPLETED, ALTHOUGH UNNEEDED BECAUSE PT IS GOING TO A SNF UPON D/C. SIX MINUTE WALK TESTING IS NOT DONE INPATIENT, REENTERED ORDER A HOME O2 EVAL. NO HOME O2 NEEDED. PT UNABLE TO WALK AT THIS TIME OF ASSESSMENT, UP TO SIDE OF BED AND ARM EXERCISES, PT VERY WEAK AT THIS TIME.
[2021-09-23 11:47] LABS: Glucose Point of Care 103 mg/dl (65-105)
[2021-09-23 12:00] VITALS: BP 150/90; PULSE 73; RESP 16; TEMP 36.9; O2SAT 95
[2021-09-23] MEDS: MAGNESIUM SULF 2 GM/WATER 50ML 2 GM/50 ML BAG IVPB (12:37)
[2021-09-23] MEDS: ASPIRIN 81 MG CHEWABLE TABLET PO (12:52)
--- NOTE | 2021-09-23 15:15 | PM.DS ---
DS: Admitting Diagnosis Discharge Date 09/23/21 Admitting Diagnosis (1) HCAP (healthcare-associated pneumonia): Code(s): J18.9 - Pneumonia, unspecified organism Status: Acute Assessment and Plan: Continue with IV Tylenol, is aztreonam, Levaquin, and vancomycin. Blood culture is pending. (2) UTI (urinary tract infection): Code(s): N39.0 - Urinary tract infection, site not specified Status: Acute Assessment and Plan: Urine cultures are pending. The patient is on a multitude of antibiotics already for healthcare associated pneumonia. (3) Congestive heart failure: Code(s): I50.9 - Heart failure, unspecified Status: Chronic Assessment and Plan: I am holding Lasix for today and lisinopril due to his acute kidney injury. The patient has a life vest on. He had a 3 vessel CABG approximately 3 weeks ago. The surgery is performed at [facility] however [facility] has no beds for him at this time. Continue with metoprolol (4) Hyperlipidemia: Code(s): E78.5 - Hyperlipidemia, unspecified Status: Chronic Assessment and Plan: Continue with her rosuvastatin and continue to monitor liver function test. (5) Hypertension: Code(s): I10 - Essential (primary) hypertension Status: Chronic Assessment and Plan: Hold lisinopril for now as the patient has acute kidney injury (6) Atrial fibrillation: Code(s): I48.91 - Unspecified atrial fibrillation Status: Chronic Assessment and Plan: The patient is currently in sinus rhythm. Continue with his Eliquis and amiodarone (7) ROSHAN (acute kidney injury): Code(s): N17.9 - Acute kidney failure, unspecified Status: Acute Assessment and Plan: Unsure of patient's baseline. I will attempt to get records from [facility] this last week. Gently hydrate the patient. (8) Diarrhea: Qualifiers: Diarrhea type: infectious Qualified Code(s): A09 - Infectious gastroenteritis and colitis, unspecified Code(s): R19.7 - Diarrhea, unspecified Status: Acute Assessment and Plan: Stool specimens are pending. May consider Flagyl. Monitor electrolytes. Patient did have a fecal containment system however he pulled out his rectal tube. (9) Bilateral pleural effusion: Code(s): J90 - Pleural effusion, not elsewhere classified Status: Acute Assessment and Plan: The patient does have a history of CHF. His Lasix is on hold tonight due to acute kidney injury. Please re-evaluate tomorrow. (10) CAD (coronary artery disease): Code(s): I25.10 - Atherosclerotic heart disease of [place] coronary artery without angina pectoris Status: Chronic Assessment and Plan: The patient has had a 3 vessel CABG 3 weeks ago and has a life vest on. (11) Suspected COVID-19 virus infection: Code(s): Z20.822 - Contact with and (suspected) exposure to COVID-19 Status: Acute Assessment and Plan: Contact and droplet isolation. DS: Discharge Diagnosis Discharge Diagnosis (1) Person under investigation for COVID-19: Code(s): Z20.822 - Contact with and (suspected) exposure to COVID-19 Status: Acute (2) Abdominal pain: Code(s): R10.9 - Unspecified abdominal pain Status: Acute (3) Adrenal insufficiency: Code(s): E27.40 - Unspecified adrenocortical insufficiency Status: Acute (4) Pituitary tumor: Code(s): D49.7 - Neoplasm of unspecified behavior of endocrine glands and other parts of nervous system Status: Acute (5) Hyperkalemia: Code(s): E87.5 - Hyperkalemia Status: Acute (6) Nausea & vomiting: Code(s): R11.2 - Nausea with vomiting, unspecified Status: Acute (7) Ventilator dependence: Code(s): Z99.11 - Dependence on respirator [ventilator] status Status: Acute (8) Fever: Code(s): R50.9 - Fever, unspecified Status: A
== END 2021-09-23 16:22 | disposition home or self-care (01) | DRG 720 ==
LOC: ANHED 12:33 → ANHIMU 08-14 07:40 → ANHICU 08-14 10:10 → ANHIMU 08-30 21:47 → ANH3MEDSUR 09-10 12:30
PROVIDERS: Emergency Medicine; Family Medicine; Hospitalist; Internal Medicine; Internal Medicine Nephrology; Internal Medicine Pulmonary Disease; Nurse Practitioner; Nurse Practitioner Adult Health; Admitting Provider Internal Medicine; Emergency Provider Emergency Medicine; Visit Provider Internal Medicine
DX: A41.9 Sepsis, unspecified organism (principal); J18.9 Pneumonia, unspecified organism; J69.0 Pneumonitis due to inhalation of food and vomit; J96.02 Acute respiratory failure with hypercapnia; U07.1 COVID-19; J90 Pleural effusion, not elsewhere classified; D63.1 Anemia in chronic kidney disease; D49.7 Neoplasm of unspecified behavior of endocrine glands and other parts of nervous system; I25.10 Atherosclerotic heart disease of native coronary artery without angina pectoris; N17.0 Acute kidney failure with tubular necrosis; J98.11 Atelectasis; I48.20 Chronic atrial fibrillation, unspecified; E78.5 Hyperlipidemia, unspecified; I11.0 Hypertensive heart disease with heart failure; E22.2 Syndrome of inappropriate secretion of antidiuretic hormone; E87.5 Hyperkalemia; I50.9 Heart failure, unspecified; E86.0 Dehydration; N99.0 Postprocedural (acute) (chronic) kidney failure; N17.8 Other acute kidney failure; J95.851 Ventilator associated pneumonia; J44.0 Chronic obstructive pulmonary disease with (acute) lower respiratory infection; N39.0 Urinary tract infection, site not specified; I42.9 Cardiomyopathy, unspecified; E87.1 Hypo-osmolality and hyponatremia; I44.7 Left bundle-branch block, unspecified; E27.40 Unspecified adrenocortical insufficiency; E16.1 Other hypoglycemia; Z95.1 Presence of aortocoronary bypass graft; R19.7 Diarrhea, unspecified; Z20.822 Contact with and (suspected) exposure to COVID-19; R65.21 Severe sepsis with septic shock; T17.908A Unspecified foreign body in respiratory tract, part unspecified causing other injury, initial encounter; R57.0 Cardiogenic shock; Z99.11 Dependence on respirator [ventilator] status; R13.10 Dysphagia, unspecified
CPT/HCPCS: 31500; 32555; 36415; 36430; 36569; 36600; 43752; 70450; 70551; 71045; 71046; 71250; 71275; 74019; 74150; 74176; 76705; 76775; 80048; 80053; 80069; 80202; 81001; 82024; 82040; 82042; 82140; 82150; 82375; 82436; 82533; 82550; 82565; 82570; 82805; 82945; 82948; 83001; 83050; 83605; 83615; 83690; 83735; 83880; 83930; 83935; 83986; 84100; 84155; 84156; 84157; 84165; 84166; 84295; 84300; 84311; 84443; 84460; 84478; 84484; 85014; 85018; 85025; 85027; 85055; 85610; 85652; 85730; 86140; 86850; 86900; 86901; 86920; 87015; 87040; 87045; 87070; 87075; 87086; 87102; 87116; 87205; 87206; 87269; 87272; 87324; 87426; 87427; 88104; 88108; 88184; 88185; 88305; 89051; 89055; 92526; 92610; 92611; 93005; 93306; 94002; 94003; 94618; 94640; 94667; 96365; 96367; 97110; 97116; 97162; 97167; 97168; 97530; 97535; 99285; A9270; C1751; C9113; C9803; J0131; J0282; J0834; J1100; J1650; J1720; J1940; J1956; J2250; J2405; J2765; J3010; J3370; J3475; J7030; J7040; J7042; J7050; J7070; J7120; J7512; P9016; P9047; Q9957; Q9967; U0003; U0005